=== PATIENT | female | born 1955 | race African-American/Black ===

== ENCOUNTER 2017-07-13 09:40 | Emergency (ER) | payer OTHER ==
[2017-07-13 09:54] VITALS: TEMP 98; BMI 42.5
[2017-07-13] MEDS ORDERED: ONDANSETRON 4 MG/2 ML VIAL IVPUSH ONE (10:35)
[2017-07-13] MEDS ORDERED: FAMOTIDINE 20 MG/50 ML IVPB 20 MG/50 ML MG IVPB ONE ×2 (10:35→11:25)
[2017-07-13] MEDS ORDERED: MAG HYDROX/AL HYDROX/SIMETH 355 ML ORAL.SUSP PO ONE (10:35)
--- NOTE | 2017-07-13 10:40 | PDOC ---
History of Present Illness - General History Source: Patient - History of Present Illness Timing/Duration: reports: constant <Jas Kat - Last Filed: 07/13/17 12:36> <Odilon Powell - Last Filed: 07/15/17 11:41> - General Chief Complaint: Lightheaded Stated Complaint: VOMITING, DIZZINESS Time Seen by Provider: 07/13/17 10:13 Past History - Past Medical History COPD: No Diabetes: Yes HTN: Yes Psychiatric Problems: Yes (ANXIETY.) - Surgical History Abdominal Surgery: Yes - Suicide/Smoking/Psychosocial Hx Smoking Status: Yes Smoking History: Never smoked Have you smoked in the past 12 months: No Number of Cigarettes Smoked Daily: 10 If you are a former smoker, when did you quit?: 2013 Hx Alcohol Use: No Drug/Substance Use Hx: No Substance Use Type: None <Jas Kat - Last Filed: 07/13/17 12:36> <Odilon Powell - Last Filed: 07/15/17 11:41> - Past Medical History Allergies/Adverse Reactions: Allergies Allergy/AdvReac Type Severity Reaction Status Date / Time metronidazole [From Flagyl] Allergy Mild Hives Verified 07/13/17 09:54 Metronidazole HCl Allergy Mild Hives Verified 07/13/17 09:54 [From Flagyl] Penicillins Allergy Mild Hives Verified 07/13/17 09:54 Home Medications: Ambulatory Orders Diazepam [Valium] 2 mg PO ASDIR #5 tablet MDD 6 mg 07/13/17 Ondansetron HCl [Zofran] 4 mg PO Q8H #15 tablet 07/13/17 Review of Systems - Review of Systems Constitutional: No: Chills, Fever Respiratory: No: Shortness of Breath Cardiac (ROS): Yes: Lightheadedness. No: Chest Pain ABD/GI: Yes: Nausea, Vomiting. No: Constipated, Diarrhea : No: Dysuria, Flank Pain, Hematuria <Melina KatKatherine - Last Filed: 07/13/17 12:36> *Physical Exam - Vital Signs Last Vital Signs Temp Pulse Resp BP Pulse Ox 98.0 F 90 20 152/74 96 07/13/17 09:51 07/13/17 09:51 07/13/17 09:51 07/13/17 09:51 07/13/17 09:51 - Physical Exam General Appearance: Yes: Appropriately Dressed, Mild Distress HEENT: positive: Normal Voice Neck: positive: Supple Respiratory/Chest: negative: Respiratory Distress Gastrointestinal/Abdominal: positive: Tender (minimal ttp diffusely), Soft Musculoskeletal: negative: CVA Tenderness Integumentary: positive: Dry, Warm Neurologic: positive: Fully Oriented, Alert, Normal Mood/Affect <Jas Kat - Last Filed: 07/13/17 12:36> - Vital Signs Last Vital Signs Temp Pulse Resp BP Pulse Ox 98.0 F 85 18 148/72 100 07/13/17 12:42 07/13/17 12:42 07/13/17 12:42 07/13/17 12:42 07/13/17 12:42 <Odilon Powell - Last Filed: 07/15/17 11:41> ED Treatment Course - LABORATORY CBC & Chemistry Diagram: 07/13/17 11:02 07/13/17 11:02 <Jas Kat - Last Filed: 07/13/17 12:36> - LABORATORY CBC & Chemistry Diagram: 07/13/17 11:02 07/13/17 11:02 - ADDITIONAL ORDERS Additional order review: 07/13/17 11:02 RBC 3.77 MCV 85.0 MCHC 34.1 RDW 14.5 MPV 9.0 Neutrophils % 60.1 Lymphocytes % 30.1 Monocytes % 7.0 Eosinophils % 2.3 Basophils % 0.5 - Medications Given in the ED: ED Medications Discontinued Medications Generic Name Dose Route Start Last Admin Trade Name Demi PRN Reason Stop Dose Admin Al Hydroxide/Mg Hydroxide 30 ml 07/13/17 10:35 07/13/17 11:36 Mylanta Suspension - PO 07/13/17 10:36 30 ml ONCE ONE Administration Famotidine/Sodium Chloride 20 mg in 50 mls @ 100 mls/hr 07/13/17 10:35 11:37 Pepcid 20 Mg Premixed Ivpb - IVPB 07/13/17 11:04 100 mls/hr ONCE ONE Administration Ondansetron HCl 4 mg 07/13/17 10:35 07/13/17 11:37 Zofran Injection IVPUSH 07/13/17 10:36 4 mg ONCE ONE Administration <Odilon Powell - Last Filed: 07/15/17 11:41> Medical Decision Making - Medical Decision Making 07/13/17 10:36 62-year-old female, morbidly obese, gallstones with cholecystectomy scheduled for the near future at [facility] per pt, esophagitis on Prilosec, fibroids, hypertension, insulin-dependent diabetes, here with sudden onset nausea, vomiting that has been constant for 8 days as per patient. Now reports feeling dizzy and weak. States she always has some abdominal discomfort diffusely that has not changed in baseline. No acute change in bowel movements, dysuria, fever , chills, chest pain or shortness of breath. See exam N/V Possible biliary (known h/o GS w/ elective sx in near future) vs espophagitis, less likely obstruction or cardiac -GI cocktail -labs -possibly US 07/13/17 12:09 Pt reports feeling significantly better at this time. EKG and labs unremarkable. Upon discharge, pt states she has a h/o anxiety and f/u with a psychiatrist but has ran out of her valium. Requesting rx for small dose until she can see MD 07/13/17 12:36 <Jas Kat - Last Filed: 07/13/17 12:36> - Medical Decision Making 07/15/17 11:41 The patient was seen and evaluated in conjunction with SAMAN Kat under my direct supervision, ancillary studies were reviewed. I agree with the plan as outlined by SAMAN Kat . <Odilon Powell - Last Filed: 07/15/17 11:41> *DC/Admit/Observation/Transfer <Jas Kat - Last Filed: 07/13/17 12:36> <Odilon Powell - Last Filed: 07/15/17 11:41> Diagnosis at time of Disposition: Nausea and vomiting Qualifiers: Vomiting type: unspecified Vomiting Intractability: non-intractable Qualified Code(s): R11.2 - Nausea with vomiting, unspecified - Discharge Dispostion Disposition: HOME Condition at time of disposition: Improved - Prescriptions Prescriptions: Diazepam [Valium] 2 mg PO ASDIR #5 tablet MDD 6 mg Ondansetron HCl [Zofran] 4 mg PO Q8H #15 tablet - Referrals Referrals: Rosie Mosher [Primary Care Provider] - - Patient Instructions Printed Discharge Instructions: Nausea and Vomiting-Adult Additional Instructions: Take medication as directed and continue to follow up with your PMD and your surgeon
[2017-07-13 11:12] LABS: BASOPHIL 0.5 % (0-2.0); EOSINOPHIL 2.3 % (0-4.5); MCHC 34.1 g/dl (32.0-36.0); NEUTROPHILS 60.1 % (42.8-82.8); PLATELET COUNT 210 K/MM3 (134-434); RDW 14.5 % (11.6-15.6); WHITE BLOOD COUNT 5.9 K/mm3 (4.0-10.0)
[2017-07-13] MEDS ORDERED: ONDANSETRON 4 MG/2 ML VIAL ONE (11:25)
[2017-07-13] MEDS ORDERED: MAG HYDROX/AL HYDROX/SIMETH 30 ML UNIT-DOSE CUP ONE (11:25)
[2017-07-13 11:42] LABS: URINE APPEARANCE CLOUDY; URINE BILIRUBIN NEGATIVE (NEGATIVE); URINE BLOOD 1+ (NEGATIVE); URINE COLOR YELLOW; URINE GLUCOSE (UA) 3+ (NEGATIVE); URINE KETONE TRACE (NEGATIVE); URINE NITRITE NEGATIVE (NEGATIVE); URINE UROBILINOGEN NEGATIVE mg/dL (0.2-1.0)
[2017-07-13 11:45] LABS: ALBUMIN 3.5 g/dl (3.4-5.0); ANION GAP 9 (8-16); CALCIUM 8.8 mg/dL (8.5-10.1); CO2 27 mmol/L (21-32); GLUCOSE,RANDOM 231 mg/dL (74-106)
[2017-07-13 11:46] LABS: URINE PROTEIN 3+ (NEGATIVE)
[2017-07-13 11:48] LABS: URINE BACTERIA MODERATE /hpf (NONE SEEN); URINE MUCUS RARE; URINE RBC 2; URINE WBC 8
[2017-07-13 11:50] LABS: ALK PHOS 78 U/L (45-117); BILIRUBIN,TOTAL 0.4 mg/dL (0.2-1.0); CPK 201 IU/L (26-192); CREATININE 1.2 mg/dL (0.55-1.02); SGOT/AST 12 U/L (15-37); SGPT/ALT 20 U/L (12-78); TROPONIN I < 0.02 ng/ml (0.00-0.05)
[2017-07-13 12:43] VITALS: BP 148/72; PULSE 85
[2017-07-13 16:56] LABS: URINE LEUK ESTERASE Negative (NEGATIVE)
--- NOTE | 2017-07-14 12:26 | EKG ---
Test Reason : Blood Pressure : / mmHG Vent. Rate : 075 BPM Atrial Rate : 075 BPM P-R Int : 126 ms QRS Dur : 076 ms QT Int : 362 ms P-R-T Axes : 066 -32 -16 degrees QTc Int : 404 ms NORMAL SINUS RHYTHM POSSIBLE LEFT ATRIAL ENLARGEMENT LEFT AXIS DEVIATION NONSPECIFIC T WAVE ABNORMALITY ABNORMAL ECG WHEN COMPARED WITH ECG OF 29-JUN-2002 09:03, NONSPECIFIC T WAVE ABNORMALITY, WORSE IN INFERIOR LEADS NONSPECIFIC T WAVE ABNORMALITY NOW EVIDENT IN ANTEROLATERAL LEADS Confirmed by NARCISO OSHEA MD ([id number]) on 07/14/2017 12:25:55 PM Referred By: Confirmed By:NARCISO OSHEA MD
== END 2017-07-13 12:43 | disposition home or self-care (01) ==
LOC: JER 09:40
PROC: 3E033GC Introduction of Other Therapeutic Substance into Peripheral Vein, Percutaneous Approach (ICD-10-PCS; principal; 2017-07-13)
DX: R11.2 Nausea with vomiting, unspecified (principal); E11.9 Type 2 diabetes mellitus without complications; I10 Essential (primary) hypertension; F41.9 Anxiety disorder, unspecified; Z87.891 Personal history of nicotine dependence
CPT/HCPCS: 36415; 80053; 81003; 81015; 82550; 82553; 83690; 84484; 85025; 93005; 93010; 96365; 96375; 99281-25

== ENCOUNTER 2017-10-31 14:15 | Emergency (ER) | payer OTHER ==
[2017-10-31 14:26] VITALS: BMI 43.9
--- NOTE | 2017-10-31 14:32 | PDOC ---
Rapid Medical Evaluation Chief Complaint: Psychiatric Time Seen by Provider: 10/31/17 14:26 Medical Evaluation: Allergies Allergy/AdvReac Type Severity Reaction Status Date / Time ranitidine [From Zantac] Allergy Intermediate Hives Verified 10/31/17 14:20 metronidazole [From Flagyl] Allergy Mild Hives Verified 10/31/17 14:20 Metronidazole HCl Allergy Mild Hives Verified 10/31/17 14:20 [From Flagyl] Penicillins Allergy Mild Hives Verified 10/31/17 14:20 Vital Signs Temp Pulse Resp BP Pulse Ox 97.8 F 84 17 150/60 100 10/31/17 14:21 10/31/17 14:21 10/31/17 14:21 10/31/17 14:21 10/31/17 14:21 10/31/17 14:27 I have performed a brief in-person evaluation of this patient. The patient presents with a chief complaint of anxiety, since running out of medication yesterday. Denies suicidal ideation. Pertinent physical exam findings NAD, appears a anxious Lungs cta bilat Heart s1s2 neuro : alert and oriented x 3 I have ordered the following: Will defer orders to PA/MD attending to patient, all other compliants is chronic The patient will proceed to the ED for further evaluation. 10/31/17 14:28
[2017-10-31] MEDS ORDERED: diazePAM 5 MG TABLET PO ONE (15:18)
[2017-10-31] MEDS ORDERED: diazePAM 2 MG TABLET ONE (15:22)
--- NOTE | 2017-10-31 15:33 | PDOC ---
*Physical Exam - Vital Signs Last Vital Signs Temp Pulse Resp BP Pulse Ox 97.8 F 84 17 150/60 100 10/31/17 14:21 10/31/17 14:21 10/31/17 14:21 10/31/17 14:21 10/31/17 14:21 ED Treatment Course - Medications Given in the ED: ED Medications Discontinued Medications Generic Name Dose Route Start Last Admin Trade Name Demi PRN Reason Stop Dose Admin Diazepam 2 mg 10/31/17 15:18 10/31/17 15:30 Valium - PO 10/31/17 15:19 Not Given ONCE ONE Medical Decision Making - Medical Decision Making Ms Bray presents to the ER today with a complaint of anxiety She has a history of diabetes, hypertension, hyperlipidemia, glaucoma, COPD She has a h/o anxiety for which she takes xanax Pt has acute social stressor which prompted her to increase her use of xanax She has run out of her prescription No chest pain, shortness of breath, palpitations No Suicidal ideation, No homicidal ideation, no AH, no VH Will d/c to home with small prescription for xanax Pt to follow up with psychiatrist (unclear why she did not call them today?) Pt seen by Midlevel Provider under my direct supervision I agree with plan as outlined by Midlevel Provider *DC/Admit/Observation/Transfer Diagnosis at time of Disposition: Anxiety - Discharge Dispostion Disposition: HOME Condition at time of disposition: Improved - Prescriptions Prescriptions: Alprazolam [Xanax] 2 mg PO DAILY #4 tablet MDD 1 tab - Referrals Referrals: Rosie Mosher [Primary Care Provider] - - Patient Instructions Printed Discharge Instructions: DI for Anxiety -- Adult Additional Instructions: Take xanax as prescribed and follow-up with your psychiatrist in 4 days as already scheduled. Please return to ER for worsening of symptoms - Post Discharge Activity
[2017-10-31] MEDS ORDERED: ALPRAZolam 2 MG TABLET PO ONE (15:46)
--- NOTE | 2017-10-31 15:51 | PDOC ---
History of Present Illness - General Chief Complaint: Psychiatric Stated Complaint: ANXIETY ATTACK Time Seen by Provider: 10/31/17 14:26 History Source: Patient - History of Present Illness Timing/Duration: other Associated Symptoms: denies: chest pain, headaches, nausea/vomiting, shortness of breath, weakness Past History - Past Medical History Allergies/Adverse Reactions: Allergies Allergy/AdvReac Type Severity Reaction Status Date / Time ranitidine [From Zantac] Allergy Intermediate Hives Verified 10/31/17 14:20 metronidazole [From Flagyl] Allergy Mild Hives Verified 10/31/17 14:20 Metronidazole HCl Allergy Mild Hives Verified 10/31/17 14:20 [From Flagyl] Penicillins Allergy Mild Hives Verified 10/31/17 14:20 Home Medications: Ambulatory Orders Alprazolam [Xanax] 2 mg PO DAILY #4 tablet MDD 1 tab 10/31/17 COPD: No Diabetes: Yes HTN: Yes Psychiatric Problems: Yes (ANXIETY.) - Surgical History Abdominal Surgery: Yes - Suicide/Smoking/Psychosocial Hx Smoking Status: Yes Smoking History: Former smoker Have you smoked in the past 12 months: No Number of Cigarettes Smoked Daily: 10 If you are a former smoker, when did you quit?: 2013 Information on smoking cessation initiated: No Hx Alcohol Use: No Drug/Substance Use Hx: No Substance Use Type: None Review of Systems - Review of Systems Respiratory: No: Shortness of Breath Cardiac (ROS): No: Chest Pain, Lightheadedness, Palpitations, Syncope ABD/GI: No: Nausea, Vomiting Psychiatric: Yes: Anxiety, Stressors *Physical Exam - Vital Signs Last Vital Signs Temp Pulse Resp BP Pulse Ox 97.8 F 84 17 150/60 100 10/31/17 14:21 10/31/17 14:21 10/31/17 14:21 10/31/17 14:21 10/31/17 14:21 - Physical Exam General Appearance: Yes: Appropriately Dressed, Mild Distress HEENT: positive: Normal Voice Neck: positive: Supple Respiratory/Chest: positive: Lungs Clear, Normal Breath Sounds. negative: Respiratory Distress Cardiovascular: positive: Regular Rate, S1, S2 Integumentary: positive: Dry, Warm Neurologic: positive: Fully Oriented, Alert, Normal Mood/Affect ED Treatment Course - Medications Given in the ED: ED Medications Discontinued Medications Generic Name Dose Route Start Last Admin Trade Name Freq PRN Reason Stop Dose Admin Diazepam 2 mg 10/31/17 15:18 10/31/17 15:30 Valium - PO 10/31/17 15:19 Not Given ONCE ONE Medical Decision Making - Medical Decision Making 10/31/17 15:46 62-year-old female, history of diabetes, hypertension, hyperlipidemia, glaucoma , COPD, anxiety on xanax, follows up with outside psychiatrist, here with worsening anxiety in setting of recent in the family. Also reports other stressors including health related. Patient denies SI/HI. States she last saw her psychiatrist a month ago and was given prescriptions for 30 day supply of 2 mg Xanax tablet (confirmed on I-STOP) but given increase in anxiety, has taken meds more frequently and ran out prior to next appt in 4 days. Pt appears anxious and teary in ED. Dose of xanax given, will reassess. Upon discharge will give prescriptions for small dose of xanax until patient can be seen by her psychiatrist 10/31/17 16:01 Given meds. Requesting discharge *DC/Admit/Observation/Transfer Diagnosis at time of Disposition: Anxiety - Discharge Dispostion Disposition: HOME Condition at time of disposition: Improved - Prescriptions Prescriptions: Alprazolam [Xanax] 2 mg PO DAILY #4 tablet MDD 1 tab - Referrals Referrals: Rosie Mosher [Primary Care Provider] - - Patient Instructions Printed Discharge Instructions: DI for Anxiety -- Adult Additional Instructions: Take xanax as prescribed and follow-up with your psychiatrist in 4 days as already scheduled. Please return to ER for worsening of symptoms - Post Discharge Activity
[2017-10-31] MEDS ORDERED: ALPRAZolam 2 MG TABLET ONE (15:54)
[2017-10-31 16:15] VITALS: BP 144/78; PULSE 80; TEMP 98.6
== END 2017-10-31 16:13 | disposition home or self-care (01) ==
LOC: JER 14:15
DX: F41.9 Anxiety disorder, unspecified (principal); I10 Essential (primary) hypertension; E78.5 Hyperlipidemia, unspecified; E11.9 Type 2 diabetes mellitus without complications; H40.9 Unspecified glaucoma; J44.9 Chronic obstructive pulmonary disease, unspecified; Z88.0 Allergy status to penicillin; Z88.8 Allergy status to other drugs, medicaments and biological substances
CPT/HCPCS: 99282-25

== ENCOUNTER 2018-05-14 13:33 | Inpatient (IN) | payer OTHER ==
--- NOTE | 2018-05-14 14:21 | PDOC ---
History of Present Illness - General Chief Complaint: Urinary Problem Stated Complaint: URINARY PROBLEM Time Seen by Provider: 05/14/18 14:04 - History of Present Illness Initial Comments: 05/14/18 14:36 The patient is a 63 year old female with a history of CKD, DM, HTN who presents for evaluation of fevers and generalized weakness. The patient reports a 1 week history of worsening night sweats, chills, fevers, and generalized weakness prompting her presentation to the ED for further evaluation. She notes that she has been managed on an outpatient regimen of antibiotics over the past few months for urinary tract infection. She states that she had continued symptoms after initially being started on amoxacillin and was switched to cipro which she discontinued 1 week ago when her current symptoms returned. She notes some mild dysuria but otherwise denies SOB, chest pain nausea, vomiting, abdominal pain, or changes with bowel movements. Past History - Past Medical History Allergies/Adverse Reactions: Allergies Allergy/AdvReac Type Severity Reaction Status Date / Time ranitidine [From Zantac] Allergy Intermediate Hives Verified 05/14/18 13:46 metronidazole [From Flagyl] Allergy Mild Hives Verified 05/14/18 13:46 Metronidazole HCl Allergy Mild Hives Verified 05/14/18 13:46 [From Flagyl] Penicillins Allergy Mild Hives Verified 05/14/18 13:46 Home Medications: Ambulatory Orders Amlodipine Besylate 05/14/18 Atorvastatin Ca [Lipitor] 20 mg PO HS 05/14/18 Smith Asprin 05/14/18 Hydralazine HCl 50 mg PO BID 05/14/18 Iron 05/14/18 Losartan Potassium 05/14/18 Xanax 2 mg PO BID 05/14/18 COPD: No Diabetes: Yes HTN: Yes Psychiatric Problems: Yes (ANXIETY.) Other medical history: chronic kidney disease - Surgical History Abdominal Surgery: Yes - Suicide/Smoking/Psychosocial Hx Smoking Status: Yes Smoking History: Never smoked Have you smoked in the past 12 months: No Number of Cigarettes Smoked Daily: 10 If you are a former smoker, when did you quit?: 2012 Information on smoking cessation initiated: No Hx Alcohol Use: No Drug/Substance Use Hx: No Substance Use Type: None Review of Systems - Review of Systems Comments:: 05/14/18 14:41 Constitutional: Fevers, chills, Generalized weakness. No malaise HEENT: No Rhinorrhea, nasal congestion, visual changes Cardiovascular: No chest pain, syncope, palpitations, lightheadedness Respiratory: No Cough, SOB, Hemoptysis, Gastrointestinal: No Abdominal pain, Nausea, Vomiting, Constipation, Diarrhea, Melena Genitourinary: Dysuria. No Frequency, Urgency, Hesitancy, Hematuria, Flank pain Musculoskeletal: No Myalgia, arthralgia Skin: No rashes, itching, bruising, pallor Neurologic: No Headache, Dizziness, Numbness, Weakness, or Tingling Psychiatric: No Hallucinations. No SI or HI *Physical Exam - Vital Signs Last Vital Signs Temp Pulse Resp BP Pulse Ox 100.0 F H 78 18 124/49 98 05/14/18 13:42 05/14/18 13:42 05/14/18 13:42 05/14/18 13:42 05/14/18 13:42 - Physical Exam Comments: 05/14/18 14:47 General Appearance: Nourished. No Apparent Distress HEENT: No Pharyngeal Erythema, Tonsillar Exudate, Tonsillar Erythema Neck: No Cervical Lymphadenopathy Respiratory/Chest: Lungs Clear, Normal Breath Sounds. No Crackles, Rales, Rhonchi, Wheezing Cardiovascular: Regular Rhythm, Regular Rate. No Murmur, Gallops, Rubs Gastrointestinal/Abdominal: Normal Bowel Sounds, Soft. No Guarding, Rebound, Tenderness Musculoskeletal: No CVA Tenderness Extremity: Normal Capillary Refill Integumentary: Normal Color, Dry, Warm Neurologic: Fully Oriented, Alert, Normal Mood/Affect, Normal Response, ED Treatment Course - LABORATORY CBC & Chemistry Diagram: 05/15/18 06:30 05/15/18 06:30 Medical Decision Making - Medical Decision Making 05/14/18 14:48 The patient is a 63 year old female with a history of CKD, DM, HTN who presents for evaluation of fevers and generalized weakness. Differential includes but is not limited to: UTI, Sepsis, Infectious, Metabolic Derangement. Given the patient's history and physical exam, we will obtain a cbc, cmp, troponin, lactate, ua, urine culture, blood culture, ekg, chest plain film to evaluate further. We will treat with iv fluids, iv tylenol, ceftriaxone and continue to monitor and reassess while here in the ED. 05/14/18 16:07 CBC demonstrates elevation in wbc. CMP, troponin, lactate, is unremarkable. UA demonstrates positive leuk esterase with elevated wbc consistent with a UTI. Chest plain film is unremarkable. Given that the patient has had persistent symptoms and UA concerning for a UTI despite outpatient antibiotics, we believe she requires admission for further management and iv antibiotics. We discussed the case with the admitting team who accepted the patient for admission. *DC/Admit/Observation/Transfer Diagnosis at time of Disposition: UTI (urinary tract infection) Qualifiers: Urinary tract infection type: site unspecified Hematuria presence: without hematuria Qualified Code(s): N39.0 - Urinary tract infection, site not specified - Discharge Dispostion Condition at time of disposition: Stable Decision to Admit order: Yes - Referrals - Patient Instructions - Post Discharge Activity
[2018-05-14] MEDS ORDERED: SODIUM CHLORIDE 1,000 ML IV STA ×2 (14:32→19:43)
[2018-05-14] MEDS ORDERED: CEFTRIAXONE 1 GM in DEXTROSE 5%-WATER - 100 ML IVPB ONE (14:49)
[2018-05-14 14:56] LABS: URINE APPEARANCE SLCLOUDY; URINE BILIRUBIN NEGATIVE (<2.0 mg/dL); URINE COLOR YELLOW; URINE GLUCOSE (UA) 3+ (NEGATIVE); URINE KETONE NEGATIVE (NEGATIVE); URINE LEUK ESTERASE TRACE (NEGATIVE); URINE NITRITE NEGATIVE (NEGATIVE); URINE PROTEIN 2+ (NEGATIVE); URINE UROBILINOGEN NEGATIVE mg/dL (0.2-1.0)
[2018-05-14] MEDS ORDERED: CEFTRIAXONE 1 GM/50 ML BAG ONE (14:57)
--- NOTE | 2018-05-14 14:58 | PDOC ---
Attending Attestation - Resident Resident Name: Gregory Segoviael - ED Attending Attestation I have performed the following: I have examined & evaluated the patient, The case was reviewed & discussed with the resident, I agree w/resident's findings & plan, Exceptions are as noted - HPI HPI: 05/14/18 14:56 63-year-old female with history of hypertension, diabetes, chronic kidney disease, urinary tract infections presents with fevers and weakness. The patient has been having several months of dysuria and urinary frequency. She's been treated multiple times in outpatient including amoxicillin and ciprofloxacin continued persistent symptoms. Patient is told that she may have resistant urinary tract infections. Patient complaining about generalized weakness and tactile fevers. Came to the ER for further evaluation. - Physicial Exam PE: 05/14/18 14:57 GENERAL: Awake, alert, and fully oriented, in no acute distress. Obese HEAD: No signs of trauma EYES: EOMI, sclera anicteric, conjunctiva clear ENT: Auricles normal inspection, hearing grossly normal, nares patent,. Moist mucosa NECK: Normal ROM, supple, LUNGS: Breath sounds equal, clear to auscultation bilaterally. No wheezes, and no crackles HEART: Regular rate and rhythm, normal S1 and S2, no murmurs, rubs or gallops ABDOMEN: Soft, nontender, No guarding, no rebound. No masses EXTREMITIES: Normal range of motion, no edema. No clubbing or cyanosis. No cords, erythema, or tenderness NEUROLOGICAL: Cranial nerves II through XII grossly intact. Normal speech SKIN: Warm, Dry, normal turgor, no rashes or lesions noted. - Medical Decision Making 05/14/18 14:57 Vital Signs Temp Pulse Resp BP Pulse Ox 100.0 F H 78 18 124/49 98 05/14/18 13:42 05/14/18 13:42 05/14/18 13:42 05/14/18 13:42 05/14/18 13:42 Patient with likely failure of outpatient management for urinary tract infection. We'll obtain labs including cultures, urine culture and give empiric IV antibiotics. We'll admit the patient to the hospital for further evaluation and management. 05/14/18 15:39 CBC, BMP 05/14/18 14:35 05/14/18 14:35 CMP Sodium 139 mmol/L (136-145) 05/14/18 14:35 Potassium 3.9 mmol/L (3.5-5.1) 05/14/18 14:35 Chloride 102 mmol/L (98-107) 05/14/18 14:35 Carbon Dioxide 25 mmol/L (21-32) 05/14/18 14:35 Anion Gap 12 MMOL/L (8-16) 05/14/18 14:35 BUN 27 mg/dL (7-18) H 05/14/18 14:35 Creatinine 1.4 mg/dL (0.55-1.3) H 05/14/18 14:35 Creat Clearance w eGFR 38.23 (>60) 05/14/18 14:35 Random Glucose 238 mg/dL (74-106) H 05/14/18 14:35 Lactic Acid 1.2 mmol/L (0.4-2.0) 05/14/18 14:35 Calcium 8.2 mg/dL (8.5-10.1) L 05/14/18 14:35 Total Bilirubin 0.3 mg/dL (0.2-1.0) 05/14/18 14:35 AST 13 U/L (15-37) L 05/14/18 14:35 ALT 21 U/L (13-61) 05/14/18 14:35 Alkaline Phosphatase 71 U/L (45-117) 05/14/18 14:35 Troponin I < 0.02 ng/ml (0.00-0.05) 05/14/18 14:35 Total Protein 6.3 g/dl (6.4-8.2) L 05/14/18 14:35 Albumin 2.8 g/dl (3.4-5.0) L 05/14/18 14:35 Urine Test Results Urine Color Yellow 05/14/18 14:29 Urine Appearance Slcloudy 05/14/18 14:29 Urine pH 5.0 (5.0-8.0) 05/14/18 14:29 Ur Specific [place] 1.010 (1.001-1.035) 05/14/18 14:29 Urine Protein 2+ (NEGATIVE) H 05/14/18 14:29 Urine Glucose (UA) 3+ (NEGATIVE) H 05/14/18 14:29 Urine Ketones Negative (NEGATIVE) 05/14/18 14:29 Urine Blood 1+ (NEGATIVE) H 05/14/18 14:29 Urine Nitrite Negative (NEGATIVE) 05/14/18 14:29 Urine Bilirubin Negative (<2.0 mg/dL) 05/14/18 14:29 Ur Leukocyte Esterase Trace (NEGATIVE) 05/14/18 14:29 Ur Epithelial Cells Rare /HPF (FEW) 05/14/18 14:29 Urine Bacteria Many /hpf (NONE SEEN) 05/14/18 14:29 Labs with UA with WBC 28 Still with persistent UTI. Heart Score/ECG Review #1 ECG reviewed & interpreted by me at: 14:45 05/14/18 15:00 QTC 75, low voltage, T wave flat II, III, avF, V3-V6, Q wave V3, no std/cecilia, QTC 413 msec
[2018-05-14 15:00] LABS: BASO % 1.1 % (0-2.0); EOS % 1.5 % (0-4.5); HEMATOCRIT 25.9 % (32.4-45.2); LYMPH % 13.8 % (8-40); MCH 29.7 pg (25.7-33.7); MCHC 34.9 g/dl (32.0-36.0); MEAN CELL VOLUME 85.2 fl (80-96); MONO % 8.5 % (3.8-10.2); NEUT % 75.1 % (42.8-82.8); PLATELET COUNT 146 K/MM3 (134-434); RBC 3.04 M/mm3 (3.60-5.2); RDW 15.4 % (11.6-15.6); WHITE BLOOD COUNT 9.3 K/mm3 (4.0-10.0)
[2018-05-14 15:13] LABS: INR 1.08 (0.83-1.09); PROTHROMBIN TIME (PATIENT) 12.2 SEC (9.7-13.0)
[2018-05-14 15:13] LABS: EPI CELLS RARE /HPF (FEW); URINE BACTERIA MANY /hpf (NONE SEEN); URINE HYALINE CAST 1 /lpf
[2018-05-14 15:16] LABS: ACTIVATED PTT 28.1 SECONDS (25.2-36.5)
[2018-05-14 15:31] LABS: ALBUMIN 2.8 g/dl (3.4-5.0); ANION GAP 12 MMOL/L (8-16); BILIRUBIN,TOTAL 0.3 mg/dL (0.2-1.0); BLOOD UREA NITROGEN 27 mg/dL (7-18); CALCIUM 8.2 mg/dL (8.5-10.1); CHLORIDE 102 mmol/L (98-107); CO2 25 mmol/L (21-32); CREATININE 1.4 mg/dL (0.55-1.3); GLUCOSE,RANDOM 238 mg/dL (74-106); POTASSIUM 3.9 mmol/L (3.5-5.1); SGOT/AST 13 U/L (15-37); SGPT/ALT 21 U/L (13-61); SODIUM 139 mmol/L (136-145); TOT PROT 6.3 g/dl (6.4-8.2)
[2018-05-14 15:33] LABS: ALK PHOS 71 U/L (45-117)
--- NOTE | 2018-05-14 16:08 | HP ---
CHIEF COMPLAINT: Sweats, chills, weakness PCP: Dr. Rosie Mosher HISTORY OF PRESENT ILLNESS: The patient is a 63 year old female with a history of HTN, HLD, COPD, IDDM, CKD , recurrent UTIs and fibroids. Presented to ED today for evaluation of fevers and generalized weakness. The patient reports a 1 week history of worsening night sweats, chills, fevers, and generalized weakness prompting her presentation to the ED for further evaluation. She notes that she has been managed on an outpatient regimen of antibiotics over the past few months for urinary tract infection. She was hospitalized at [facility] in March for UTI. She states that she had continued symptoms after initially being started on amoxacillin and was switched to cipro which she discontinued 1 week ago when her current symptoms returned. She reports dysuria, urgency, and frequency. She reports fever, sweats, and chills. She reports intermittent abdominal pain. ER course was notable for: (1) T 100.0 (2) BUN/Cr 27/1.4 (3) UA: 28 WBCs Recent Travel: No PAST MEDICAL HISTORY: Hypertension Hyperlipidemia Chronic kidney disease COPD IDDM Recurrent UTIs Glaucoma Degenerative disc disease Anxiety Fibroids PAST SURGICAL HISTORY: x 1 Social History: Smoking: quit 2012 Alcohol: no Drugs: no Family History: Allergies ranitidine [From Zantac] Allergy (Intermediate, Verified 05/14/18 13:46) Hives metronidazole [From Flagyl] Allergy (Mild, Verified 05/14/18 13:46) Hives Metronidazole HCl [From Flagyl] Allergy (Mild, Verified 05/14/18 13:46) Hives Penicillins Allergy (Mild, Verified 05/14/18 13:46) Hives HOME MEDICATIONS: Home Medications Medication Instructions Recorded Atorvastatin Ca [Lipitor] 20 mg PO HS 05/14/18 Hydralazine HCl 50 mg PO BID 05/14/18 Losartan Potassium 05/14/18 Alprazolam 2 mg PO BID PRN 05/15/18 Amlodipine Besylate 10 mg PO DAILY 05/15/18 Aspirin [ASA -] 81 mg PO DAILY 05/15/18 Fluticasone/Salmeterol [Advair Hfa 2 inh PO BID 05/15/18 115-21 Mcg Inhaler] Furosemide [Lasix] 20 mg PO DAILY 05/15/18 Gabapentin 1 cap PO BID 05/15/18 Hydroxyzine HCl 50 mg PO HS 05/15/18 Insulin Glargine,Hum.rec.anlog 30 units SQ Q12H 05/15/18 [Lantus] Metformin HCl [Glucophage] 1,000 mg PO BID 05/15/18 Omeprazole Magnesium 40 mg PO DAILY 05/15/18 Oxycodone HCl 30 mg PO BID PRN 05/15/18 Polyvinyl Alcohol [Artificial 1 drop OU QID 05/15/18 Tears] Timolol 0.5% [Timoptic 0.5%] 1 drop OU BID 05/15/18 REVIEW OF SYSTEMS CONSTITUTIONAL: +fever, chills, generalized weakness Absent: loss of appetite, weight change HEENT: Absent: rhinorrhea, nasal congestion, throat pain, throat swelling, difficulty swallowing, mouth swelling, ear pain, eye pain, visual changes CARDIOVASCULAR: Absent: chest pain, syncope, palpitations, irregular heart rate, lightheadedness , peripheral edema RESPIRATORY: Absent: cough, shortness of breath, dyspnea with exertion, orthopnea, wheezing, stridor, hemoptysis GASTROINTESTINAL: Absent: abdominal pain, abdominal distension, nausea, vomiting, diarrhea, constipation, melena, hematochezia GENITOURINARY: +dysuria, frequency, urgency Absent: dysuria, frequency, urgency, hesitancy, hematuria, flank pain, genital pain MUSCULOSKELETAL: Absent: myalgia, arthralgia, joint swelling, back pain, neck pain SKIN: Absent: rash, itching, pallor HEMATOLOGIC/IMMUNOLOGIC: Absent: easy bleeding, easy bruising, lymphadenopathy, frequent infections ENDOCRINE: Absent: unexplained weight gain, unexplained weight loss, heat intolerance, cold intolerance NEUROLOGIC: Absent: headache, focal weakness or paresthesias, dizziness, unsteady gait, seizure, mental status changes, bladder or bowel incontinence PSYCHIATRIC: Absent: anxiety, depression, suicidal or homicidal ideation, hallucinations. PHYSICAL EXAMINATION Vital Signs - 24 hr 05/14/18 13:42 Temperature 100.0 F H Pulse Rate 78 Respiratory 18 Rate Blood Pressure 124/49 O2 Sat by Pulse 98 Oximetry (%) GENERAL: Awake, alert, and fully oriented. Restless. HEAD: Normal with no signs of trauma. EYES: Pupils equal, round and reactive to light, extraocular movements intact, sclera anicteric, conjunctiva clear. No lid lag. LUNGS: Breath sounds equal, clear to auscultation bilaterally. No wheezes, and no crackles. No accessory muscle use. HEART: Regular rate and rhythm,S1 and S2 +murmur ABDOMEN: Upper abdomen is protuberant, firm; no abdominal tenderness, no guarding, no rebound MUSCULOSKELETAL: Normal range of motion at all joints. No bony deformities or tenderness. No CVA tenderness. UPPER EXTREMITIES: 2+ pulses, warm, well-perfused. No cyanosis. No clubbing. No peripheral edema. LOWER EXTREMITIES: 2+ pulses, warm, well-perfused. No calf tenderness. No peripheral edema. NEUROLOGICAL: Cranial nerves II-XII intact. Normal speech. Moving all extremities freely. Laboratory Results - last 24 hr 05/14/18 05/14/18 05/14/18 14:29 14:35 14:35 WBC 9.3 RBC 3.04 L Hgb 9.0 L Hct 25.9 L D MCV 85.2 MCH 29.7 MCHC 34.9 RDW 15.4 Plt Count 146 D MPV 9.0 Absolute Neuts (auto) 7.0 Neutrophils % 75.1 D Lymphocytes % 13.8 D Monocytes % 8.5 Eosinophils % 1.5 Basophils % 1.1 Nucleated RBC % 0 PT with INR INR PTT (Actin FS) Sodium Cancelled Potassium Cancelled Chloride Cancelled Carbon Dioxide Cancelled Anion Gap Cancelled BUN Cancelled Creatinine Cancelled Creat Clearance w eGFR Cancelled Random Glucose Cancelled Lactic Acid Calcium Cancelled Total Bilirubin Cancelled AST Cancelled ALT Cancelled Alkaline Phosphatase Cancelled Troponin I Total Protein Cancelled Albumin Cancelled Urine Color Yellow Urine Appearance Slcloudy Urine pH 5.0 Ur Specific [place] 1.010 Urine Protein 2+ H Urine Glucose (UA) 3+ H Urine Ketones Negative Urine Blood 1+ H Urine Nitrite Negative Urine Bilirubin Negative Urine Urobilinogen Negative Ur Leukocyte Esterase Trace Urine WBC (Auto) 28 Urine RBC (Auto) 3 Ur Epithelial Cells Rare Urine Bacteria Many Hyaline Casts 1 05/14/18 05/14/18 05/14/18 14:35 14:35 14:35 WBC RBC Hgb Hct MCV MCH MCHC RDW Plt Count MPV Absolute Neuts (auto) Neutrophils % Lymphocytes % Monocytes % Eosinophils % Basophils % Nucleated RBC % PT with INR 12.20 INR 1.08 PTT (Actin FS) 28.1 Sodium 139 Potassium 3.9 Chloride 102 Carbon Dioxide 25 Anion Gap 12 BUN 27 H Creatinine 1.4 H Creat Clearance w eGFR 38.23 Random Glucose 238 H Lactic Acid 1.2 Calcium 8.2 L Total Bilirubin 0.3 AST 13 L ALT 21 Alkaline Phosphatase 71 Troponin I < 0.02 Total Protein 6.3 L Albumin 2.8 L Urine Color Urine Appearance Urine pH Ur Specific [place] Urine Protein Urine Glucose (UA) Urine Ketones Urine Blood Urine Nitrite Urine Bilirubin Urine Urobilinogen Ur Leukocyte Esterase Urine WBC (Auto) Urine RBC (Auto) Ur Epithelial Cells Urine Bacteria Hyaline Casts ASSESSMENT/PLAN: 63 year-old female with a PMH significant for HTN, HLD, CKD, COPD, IDDM, recurrent UTIs and anxiety. Admitted for symptomatic UTI after having failed two courses of PO antibiotics outpatient. UTI --has completed 2 rounds PO antibiotics in past month --T 101.9, pyuria --received 1L NS in ED; bolus another 2L --empiric ceftriaxone --cultures pending Hypertension --BP is stable --hold antihypertensives, concern for impending sepsis Hyperlipidemia --continue atorvastatin Chronic kidney disease --Cr 1.4; baseline unknown COPD --duonebs PRN IDDM --Novolog sliding scale coverage --on Lantus 30U q12h at home; assess insulin needs in hospital before starting Glaucoma --home eye drops Degenerative disc disease --on 60mg oxycodone per day at home --assess pain needs in hospital before prescribing Anxiety --continue home xanax dosing FEN Fluids: NS @ 75mL/hr Electrolytes: replete as indicated Nutrition: diabetic, low sodium DVT prophylaxis: subq heparin Dispo: continues to require inpatient care. Full code. Visit type - Emergency Visit Emergency Visit: Yes ED Registration Date: 05/14/18 Care time: The patient presented to the Emergency Department on the above date and was hospitalized for further evaluation of their emergent condition. - New Patient This patient is new to me today: Yes Date on this admission: 05/15/18 - Critical Care Critical Care patient: No Hospitalist Screening - Colonoscopy Questionnaire Colonoscopy Questionnaire: Colonoscopy Questionnaire - Patient: 50 - 75 years old and never had a screening colonoscopy: Unknown History of colon or rectal polyps, or CA: No History of IBD, Crohn's disease or UC: No History of abdominal radiation therapy as a child: No - Relative: 1 with colon or rectal CA, or polyps at age 60 or younger: Unknown Colon or rectal CA diagnosed at age 45 or younger: Unknown Multiple relatives with colon or rectal CA: Unknown - Outcome: Screening Result: Negative Screen
[2018-05-14] MEDS: HEPARIN NA (PORCINE) 5,000 UNITS/ML 1ML VIAL SQ SCH (18:49)
[2018-05-14] MEDS: SODIUM CHLORIDE 1,000 ML IV SCH ×2 (18:49→22:26)
[2018-05-14] MEDS ORDERED: INSULIN (NOVOLOG) ASPART 100 UNITS/ML 10ML VIAL ONE (20:02)
[2018-05-14] MEDS: INSULIN SLIDING SCALE (NOVOLOG) 1 VIAL SQ SCH ×2 (20:05→22:42)
[2018-05-14] MEDS: ACETAMINOPHEN 325 MG TABLET (FP) PO PRN (20:10)
[2018-05-14] MEDS ORDERED: SODIUM CHLORIDE 1,000 ML IV ONE ×2 (20:45→23:45)
--- NOTE | 2018-05-14 21:07 | EKG ---
Test Reason : Blood Pressure : / mmHG Vent. Rate : 075 BPM Atrial Rate : 075 BPM P-R Int : 120 ms QRS Dur : 078 ms QT Int : 370 ms P-R-T Axes : 056 -14 025 degrees QTc Int : 413 ms NORMAL SINUS RHYTHM LOW VOLTAGE QRS CANNOT RULE OUT ANTERIOR INFARCT , AGE UNDETERMINED ABNORMAL ECG WHEN COMPARED WITH ECG OF 13-JUL-2017 12:17, MINIMAL CRITERIA FOR ANTERIOR INFARCT ARE NOW PRESENT Confirmed by COLLIN PRINCE MD ([id number]) on 05/14/2018 9:07:24 PM Referred By: Confirmed By:COLLIN PRINCE MD
[2018-05-14 21:47] LABS: ALBUMIN 2.6 g/dl (3.4-5.0); ALK PHOS 71 U/L (45-117); ANION GAP 11 MMOL/L (8-16); BILIRUBIN,TOTAL 0.2 mg/dL (0.2-1.0); BLOOD UREA NITROGEN 26 mg/dL (7-18); CALCIUM 7.7 mg/dL (8.5-10.1); CHLORIDE 106 mmol/L (98-107); CO2 24 mmol/L (21-32); CREATININE 1.3 mg/dL (0.55-1.3); GLUCOSE,RANDOM 236 mg/dL (74-106); MAGNESIUM 1.7 mg/dL (1.8-2.4); POTASSIUM 3.8 mmol/L (3.5-5.1); SGOT/AST 13 U/L (15-37); SGPT/ALT 18 U/L (13-61); SODIUM 141 mmol/L (136-145)
[2018-05-14] MEDS ORDERED: MAGNESIUM SULF 50% (8.12 MEQ/2 ML-1 GM VIAL) IVPB ONE (22:12)
[2018-05-14] MEDS ORDERED: ALPRAZolam 2 MG TABLET PO ONE (23:45)
[2018-05-14] MEDS ORDERED: ACETAMINOPHEN 500 MG TABLET (FP) PO ONE (23:45)
[2018-05-15] MEDS: HEPARIN NA (PORCINE) 5,000 UNITS/ML 1ML VIAL SQ SCH ×3 (02:57→18:04)
[2018-05-15] MEDS: ALBUTEROL SO4 0.083% IH SOL 2.5 MG/3 ML VIAL.NEB. NEB PRN ×2 (05:00→10:45)
[2018-05-15] MEDS: ACETAMINOPHEN 325 MG TABLET (FP) PO PRN ×4 (05:14→23:53)
--- NOTE | 2018-05-15 05:14 | HOSP ---
Subjective - Review of Symptoms Events since last encounter: Hospitalist Encounter Notified by the RN, that the patient reported having SOB and had desaturated from 98% 2LNC to 89%, pt was placed on NRB. Subjective: Arrived to bedside, patient is alert, awake and oriented reports having SOB, currently on Albuterol neb. Upon auscultation diffuse scattered wheeze and rales noted with +1 pitting to B/ L lower extremities Assessment: 63 y/o woman with a PMHx of HTN, HLD, COPD, Asthma, IDDM, CKD. Admitted for UTI. Plan: Albuterol neb Lasix IV Stat Chest Xray Portable r/o HF Trial Venturi Mask Pulmonary: Yes: Dyspnea Physical Examination Vital Signs: Vital Signs Temperature 98.8 F 05/15/18 02:06 Pulse Rate 79 05/15/18 02:06 Respiratory Rate 18 05/15/18 02:06 Blood Pressure 115/53 05/15/18 02:06 O2 Sat by Pulse Oximetry (%) 98 05/14/18 23:00 Constitutional: Yes: Moderate Distress, Obese Eyes: Yes: WNL, Conjunctiva Clear, EOM Intact, PERRL HENT: Yes: WNL, Atraumatic, Normocephalic Neck: Yes: WNL, Supple, Trachea Midline Cardiovascular: Yes: Regular Rate and Rhythm, S1, S2 Respiratory: Yes: Rales, Rhonchi, SOB, SOB on Exertion, Tachypnea, Wheezes, Other (Neb Mask) Gastrointestinal: Yes: Normal Bowel Sounds, Abdomen, Obese Renal/: Yes: WNL Edema: Yes Edema: LLE: 1+, RLE: 1+ Peripheral Pulses WNL: Yes Neurological: Yes: WNL, Alert, Oriented ...Motor Strength: WNL Psychiatric: Yes: WNL, Alert, Oriented Labs: CBC, BMP 05/14/18 14:35 05/14/18 20:30 Laboratory Results - last 24 hr 05/14/18 05/14/18 05/14/18 14:29 14:35 14:35 WBC 9.3 RBC 3.04 L Hgb 9.0 L Hct 25.9 L D MCV 85.2 MCH 29.7 MCHC 34.9 RDW 15.4 Plt Count 146 D MPV 9.0 Absolute Neuts (auto) 7.0 Neutrophils % 75.1 D Lymphocytes % 13.8 D Monocytes % 8.5 Eosinophils % 1.5 Basophils % 1.1 Nucleated RBC % 0 PT with INR INR PTT (Actin FS) Sodium Cancelled Potassium Cancelled Chloride Cancelled Carbon Dioxide Cancelled Anion Gap Cancelled BUN Cancelled Creatinine Cancelled Creat Clearance w eGFR Cancelled POC Glucometer Random Glucose Cancelled Lactic Acid Calcium Cancelled Magnesium Total Bilirubin Cancelled AST Cancelled ALT Cancelled Alkaline Phosphatase Cancelled Troponin I C-Reactive Protein Total Protein Cancelled Albumin Cancelled Urine Color Yellow Urine Appearance Slcloudy Urine pH 5.0 Ur Specific [place] 1.010 Urine Protein 2+ H Urine Glucose (UA) 3+ H Urine Ketones Negative Urine Blood 1+ H Urine Nitrite Negative Urine Bilirubin Negative Urine Urobilinogen Negative Ur Leukocyte Esterase Trace Urine WBC (Auto) 28 Urine RBC (Auto) 3 Ur Epithelial Cells Rare Urine Bacteria Many Hyaline Casts 1 05/14/18 05/14/18 05/14/18 14:35 14:35 14:35 WBC RBC Hgb Hct MCV MCH MCHC RDW Plt Count MPV Absolute Neuts (auto) Neutrophils % Lymphocytes % Monocytes % Eosinophils % Basophils % Nucleated RBC % PT with INR 12.20 INR 1.08 PTT (Actin FS) 28.1 Sodium 139 Potassium 3.9 Chloride 102 Carbon Dioxide 25 Anion Gap 12 BUN 27 H Creatinine 1.4 H Creat Clearance w eGFR 38.23 POC Glucometer Random Glucose 238 H Lactic Acid 1.2 Calcium 8.2 L Magnesium Total Bilirubin 0.3 AST 13 L ALT 21 Alkaline Phosphatase 71 Troponin I < 0.02 C-Reactive Protein Total Protein 6.3 L Albumin 2.8 L Urine Color Urine Appearance Urine pH Ur Specific [place] Urine Protein Urine Glucose (UA) Urine Ketones Urine Blood Urine Nitrite Urine Bilirubin Urine Urobilinogen Ur Leukocyte Esterase Urine WBC (Auto) Urine RBC (Auto) Ur Epithelial Cells Urine Bacteria Hyaline Casts 05/14/18 05/14/18 05/14/18 20:00 20:30 20:30 WBC RBC Hgb Hct MCV MCH MCHC RDW Plt Count MPV Absolute Neuts (auto) Neutrophils % Lymphocytes % Monocytes % Eosinophils % Basophils % Nucleated RBC % PT with INR INR PTT (Actin FS) Sodium 141 Potassium 3.8 Chloride 106 Carbon Dioxide 24 Anion Gap 11 BUN 26 H Creatinine 1.3 Creat Clearance w eGFR 41.64 POC Glucometer 268 Random Glucose 236 H Lactic Acid 1.2 Calcium 7.7 L Magnesium 1.7 L Total Bilirubin 0.2 AST 13 L ALT 18 Alkaline Phosphatase 71 Troponin I C-Reactive Protein Total Protein 6.0 L Albumin 2.6 L Urine Color Urine Appearance Urine pH Ur Specific [place] Urine Protein Urine Glucose (UA) Urine Ketones Urine Blood Urine Nitrite Urine Bilirubin Urine Urobilinogen Ur Leukocyte Esterase Urine WBC (Auto) Urine RBC (Auto) Ur Epithelial Cells Urine Bacteria Hyaline Casts 05/14/18 05/15/18 20:30 06:09 WBC RBC Hgb Hct MCV MCH MCHC RDW Plt Count MPV Absolute Neuts (auto) Neutrophils % Lymphocytes % Monocytes % Eosinophils % Basophils % Nucleated RBC % PT with INR INR PTT (Actin FS) Sodium Potassium Chloride Carbon Dioxide Anion Gap BUN Creatinine Creat Clearance w eGFR POC Glucometer 195 Random Glucose Lactic Acid Calcium Magnesium Total Bilirubin AST ALT Alkaline Phosphatase Troponin I C-Reactive Protein 9.9 H Total Protein Albumin Urine Color Urine Appearance Urine pH Ur Specific [place] Urine Protein Urine Glucose (UA) Urine Ketones Urine Blood Urine Nitrite Urine Bilirubin Urine Urobilinogen Ur Leukocyte Esterase Urine WBC (Auto) Urine RBC (Auto) Ur Epithelial Cells Urine Bacteria Hyaline Casts Current Medications Generic Name Dose Route Start Last Admin Trade Name Freq PRN Reason Stop Dose Admin Acetaminophen 650 mg 05/14/18 20:04 05/15/18 05:14 Tylenol - PO 650 mg Q6H PRN Administration FEVER Albuterol Sulfate 1 amp 05/15/18 05:09 05/15/18 05:00 Ventolin 0.083% Nebulizer Soln - NEB 1 amp Q6H PRN Administration SHORT OF BREATH/WHEEZING Heparin Sodium (Porcine) 5,000 unit 05/14/18 18:00 05/15/18 02:57 Heparin - SQ 5,000 unit Q8H-IV CONCETTA Administration Ceftriaxone Sodium 1 gm/ 50 mls @ 100 mls/hr 05/15/18 10:00 Dextrose IVPB DAILY CONCETTA Protocol Insulin Aspart 1 vial 05/14/18 22:00 05/15/18 06:10 Novolog Vial Sliding Scale - SQ 2 units ACHS CONCETTA Administration Protocol Intake & Output 05/12/18 05/13/18 05/14/18 05/15/18 23:59 23:59 23:59 23:59 Intake Total 1999 Balance 1999 Weight 108.409 kg Hospitalist Encounter Outcome: Patient tolerated Neb treatment, reports her breathing has improved Placed on Venturi Mask 50%, O2 sat did not improve 83%, placed on NRB- 89% Awaiting portable CXR Will continue to monitor and inform Day team of overnight's event Recommendations/Interventions: Consider Pulm consult Add LABA to regimen Peak Flows Critical Care Total Critical Care Time (in minutes): 32 Critical Care Statement: The care of this patient involved high complexity decision making to prevent further life threatening deterioration of the patient 's condition and/or to evaluate & treat vital organ system(s) failure or risk of failure.
[2018-05-15] MEDS ORDERED: FUROSEMIDE 40 MG/4 ML INJECTABLE VIAL IVPUSH ONE ×2 (05:58→11:30)
[2018-05-15] MEDS: INSULIN SLIDING SCALE (NOVOLOG) 1 VIAL SQ SCH ×4 (06:10→22:13)
[2018-05-15 07:32] LABS: BASO % 0.4 % (0-2.0); EOS % 2.1 % (0-4.5); HEMATOCRIT 28.1 % (32.4-45.2); HEMOGLOBIN 9.5 GM/dL (10.7-15.3); LYMPH % 21.8 % (8-40); MCH 29.4 pg (25.7-33.7); MCHC 33.9 g/dl (32.0-36.0); MEAN CELL VOLUME 86.8 fl (80-96); MEAN PLT VOLUME 9.8 fl (7.5-11.1); MONO % 7.5 % (3.8-10.2); NEUT % 68.2 % (42.8-82.8); PLATELET COUNT 128 K/MM3 (134-434); RBC 3.23 M/mm3 (3.60-5.2); RDW 15.6 % (11.6-15.6); WHITE BLOOD COUNT 9.4 K/mm3 (4.0-10.0)
[2018-05-15 08:01] LABS: CHLORIDE 106 mmol/L (98-107); POTASSIUM 3.9 mmol/L (3.5-5.1); SODIUM 142 mmol/L (136-145)
[2018-05-15 08:09] LABS: ALBUMIN 2.8 g/dl (3.4-5.0); ALK PHOS 79 U/L (45-117); ANION GAP 12 MMOL/L (8-16); BILIRUBIN,TOTAL 0.4 mg/dL (0.2-1.0); BLOOD UREA NITROGEN 21 mg/dL (7-18); CALCIUM 8.1 mg/dL (8.5-10.1); CO2 24 mmol/L (21-32); CREATININE 1.2 mg/dL (0.55-1.3); GLUCOSE,RANDOM 188 mg/dL (74-106); MAGNESIUM 2.2 mg/dL (1.8-2.4); SGOT/AST 21 U/L (15-37); SGPT/ALT 23 U/L (13-61); TOT PROT 6.4 g/dl (6.4-8.2)
--- NOTE | 2018-05-15 08:55 | PN ---
Physical Exam: SUBJECTIVE: Patient seen and examined. Breathing is easier than this morning. OBJECTIVE: Vital Signs Period Temp Pulse Resp BP Sys/Maurer Pulse Ox Last 24 Hr 98.1 F-101.9 F 78-107 17-22 115-162/44-88 98-99 GENERAL: Awake, alert, and fully oriented. HEAD: Normal with no signs of trauma. EYES: Pupils equal, round and reactive to light, extraocular movements intact, sclera anicteric, conjunctiva clear. No lid lag. LUNGS: Breath sounds equal, clear to auscultation bilaterally. No wheezes, and no crackles. No accessory muscle use. HEART: Regular rate and rhythm,S1 and S2 +murmur ABDOMEN: Upper abdomen is protuberant, firm; no abdominal tenderness, no guarding, no rebound MUSCULOSKELETAL: Normal range of motion at all joints. No bony deformities or tenderness. No CVA tenderness. UPPER EXTREMITIES: 2+ pulses, warm, well-perfused. No cyanosis. No clubbing. No peripheral edema. LOWER EXTREMITIES: 2+ pulses, warm, well-perfused. No calf tenderness. No peripheral edema. NEUROLOGICAL: Cranial nerves II-XII intact. Normal speech. Moving all extremities freely. Laboratory Results - last 24 hr 05/14/18 05/14/18 05/14/18 14:29 14:35 14:35 WBC 9.3 RBC 3.04 L Hgb 9.0 L Hct 25.9 L D MCV 85.2 MCH 29.7 MCHC 34.9 RDW 15.4 Plt Count 146 D MPV 9.0 Absolute Neuts (auto) 7.0 Neutrophils % 75.1 D Lymphocytes % 13.8 D Monocytes % 8.5 Eosinophils % 1.5 Basophils % 1.1 Nucleated RBC % 0 ESR PT with INR INR PTT (Actin FS) Sodium Cancelled Potassium Cancelled Chloride Cancelled Carbon Dioxide Cancelled Anion Gap Cancelled BUN Cancelled Creatinine Cancelled Creat Clearance w eGFR Cancelled POC Glucometer Random Glucose Cancelled Hemoglobin A1c % Lactic Acid Calcium Cancelled Magnesium Total Bilirubin Cancelled AST Cancelled ALT Cancelled Alkaline Phosphatase Cancelled Troponin I C-Reactive Protein Total Protein Cancelled Albumin Cancelled Urine Color Yellow Urine Appearance Slcloudy Urine pH 5.0 Ur Specific [place] 1.010 Urine Protein 2+ H Urine Glucose (UA) 3+ H Urine Ketones Negative Urine Blood 1+ H Urine Nitrite Negative Urine Bilirubin Negative Urine Urobilinogen Negative Ur Leukocyte Esterase Trace Urine WBC (Auto) 28 Urine RBC (Auto) 3 Ur Epithelial Cells Rare Urine Bacteria Many Hyaline Casts 1 05/14/18 05/14/18 05/14/18 14:35 14:35 14:35 WBC RBC Hgb Hct MCV MCH MCHC RDW Plt Count MPV Absolute Neuts (auto) Neutrophils % Lymphocytes % Monocytes % Eosinophils % Basophils % Nucleated RBC % ESR PT with INR 12.20 INR 1.08 PTT (Actin FS) 28.1 Sodium 139 Potassium 3.9 Chloride 102 Carbon Dioxide 25 Anion Gap 12 BUN 27 H Creatinine 1.4 H Creat Clearance w eGFR 38.23 POC Glucometer Random Glucose 238 H Hemoglobin A1c % Lactic Acid 1.2 Calcium 8.2 L Magnesium Total Bilirubin 0.3 AST 13 L ALT 21 Alkaline Phosphatase 71 Troponin I < 0.02 C-Reactive Protein Total Protein 6.3 L Albumin 2.8 L Urine Color Urine Appearance Urine pH Ur Specific [place] Urine Protein Urine Glucose (UA) Urine Ketones Urine Blood Urine Nitrite Urine Bilirubin Urine Urobilinogen Ur Leukocyte Esterase Urine WBC (Auto) Urine RBC (Auto) Ur Epithelial Cells Urine Bacteria Hyaline Casts 05/14/18 05/14/18 05/14/18 20:00 20:30 20:30 WBC RBC Hgb Hct MCV MCH MCHC RDW Plt Count MPV Absolute Neuts (auto) Neutrophils % Lymphocytes % Monocytes % Eosinophils % Basophils % Nucleated RBC % ESR PT with INR INR PTT (Actin FS) Sodium 141 Potassium 3.8 Chloride 106 Carbon Dioxide 24 Anion Gap 11 BUN 26 H Creatinine 1.3 Creat Clearance w eGFR 41.64 POC Glucometer 268 Random Glucose 236 H Hemoglobin A1c % Lactic Acid 1.2 Calcium 7.7 L Magnesium 1.7 L Total Bilirubin 0.2 AST 13 L ALT 18 Alkaline Phosphatase 71 Troponin I C-Reactive Protein Total Protein 6.0 L Albumin 2.6 L Urine Color Urine Appearance Urine pH Ur Specific [place] Urine Protein Urine Glucose (UA) Urine Ketones Urine Blood Urine Nitrite Urine Bilirubin Urine Urobilinogen Ur Leukocyte Esterase Urine WBC (Auto) Urine RBC (Auto) Ur Epithelial Cells Urine Bacteria Hyaline Casts 05/14/18 05/15/18 05/15/18 20:30 06:09 06:30 WBC 9.4 RBC 3.23 L Hgb 9.5 L Hct 28.1 L MCV 86.8 MCH 29.4 MCHC 33.9 RDW 15.6 Plt Count 128 L MPV 9.8 Absolute Neuts (auto) 6.4 Neutrophils % 68.2 Lymphocytes % 21.8 D Monocytes % 7.5 Eosinophils % 2.1 Basophils % 0.4 Nucleated RBC % 0 ESR PT with INR INR PTT (Actin FS) Sodium Potassium Chloride Carbon Dioxide Anion Gap BUN Creatinine Creat Clearance w eGFR POC Glucometer 195 Random Glucose Hemoglobin A1c % Lactic Acid Calcium Magnesium Total Bilirubin AST ALT Alkaline Phosphatase Troponin I C-Reactive Protein 9.9 H Total Protein Albumin Urine Color Urine Appearance Urine pH Ur Specific [place] Urine Protein Urine Glucose (UA) Urine Ketones Urine Blood Urine Nitrite Urine Bilirubin Urine Urobilinogen Ur Leukocyte Esterase Urine WBC (Auto) Urine RBC (Auto) Ur Epithelial Cells Urine Bacteria Hyaline Casts 05/15/18 05/15/18 05/15/18 06:30 06:30 06:30 WBC RBC Hgb Hct MCV MCH MCHC RDW Plt Count MPV Absolute Neuts (auto) Neutrophils % Lymphocytes % Monocytes % Eosinophils % Basophils % Nucleated RBC % ESR 113 H PT with INR INR PTT (Actin FS) Sodium 142 Potassium 3.9 Chloride 106 Carbon Dioxide 24 Anion Gap 12 BUN 21 H Creatinine 1.2 Creat Clearance w eGFR 45.67 POC Glucometer Random Glucose 188 H Hemoglobin A1c % 8.0 H Lactic Acid Calcium 8.1 L Magnesium 2.2 Total Bilirubin 0.4 AST 21 ALT 23 Alkaline Phosphatase 79 Troponin I C-Reactive Protein Total Protein 6.4 Albumin 2.8 L Urine Color Urine Appearance Urine pH Ur Specific [place] Urine Protein Urine Glucose (UA) Urine Ketones Urine Blood Urine Nitrite Urine Bilirubin Urine Urobilinogen Ur Leukocyte Esterase Urine WBC (Auto) Urine RBC (Auto) Ur Epithelial Cells Urine Bacteria Hyaline Casts Current Medications Generic Name Dose Route Start Last Admin Trade Name Freq PRN Reason Stop Dose Admin Acetaminophen 650 mg 05/14/18 20:04 05/15/18 10:25 Tylenol - PO 650 mg Q6H PRN Administration FEVER Albuterol/Ipratropium 1 amp 05/15/18 12:12 05/15/18 12:45 Duoneb - NEB 1 amp Q4H PRN Administration SHORTNESS OF BREATH Alprazolam 2 mg 05/15/18 12:09 05/15/18 13:59 Xanax - PO 2 mg BID PRN Administration ANXIETY Amlodipine Besylate 10 mg 05/15/18 12:45 05/15/18 14:00 Norvasc - PO 10 mg DAILY CONCETTA Administration Artificial Tears 1 drop 05/15/18 14:00 05/15/18 14:02 Artificial Tears OU 1 drop QID CONCETTA Administration Aspirin 81 mg 05/16/18 10:00 Asa - PO DAILY CONCETTA Atorvastatin Calcium 20 mg 05/15/18 22:00 Lipitor - PO HS CONCETTA Gabapentin 300 mg 05/15/18 22:00 Neurontin - PO BID CONCETTA Heparin Sodium (Porcine) 5,000 unit 05/14/18 18:00 05/15/18 10:26 Heparin - SQ 5,000 unit Q8H-IV CONCETTA Administration Hydralazine HCl 50 mg 05/15/18 12:45 05/15/18 14:00 Apresoline - PO 50 mg BID CONCETTA Administration Hydroxyzine HCl 50 mg 05/15/18 22:00 Atarax - PO HS CONCETTA Ceftriaxone Sodium 1 gm/ 50 mls @ 100 mls/hr 05/15/18 10:00 05/15/18 10:26 Dextrose IVPB 100 mls/hr DAILY CONCETTA Administration Protocol Insulin Aspart 1 vial 05/14/18 22:00 05/15/18 12:14 Novolog Vial Sliding Scale - SQ 8 units ACHS CONCETTA Administration Protocol Losartan Potassium 100 mg 05/15/18 12:45 05/15/18 14:00 Cozaar - PO 100 mg DAILY CONCETTA Administration Timolol Maleate 1 drop 05/15/18 22:00 Timoptic 0.5% OU BID [facility] ASSESSMENT/PLAN: 63 year-old female with a PMH significant for HTN, HLD, CKD, COPD, IDDM, recurrent UTIs and anxiety. Admitted for symptomatic UTI after having failed two courses of PO antibiotics outpatient. UTI --had completed 2 rounds PO antibiotics in past month --T 101.9, pyuria --stop IV fluids as patient became volume overloaded --empiric ceftriaxone --urine culture: [id number] Hypertension --BP elevated, resume home antihypertensives: losartan, hydralazine, amlodipine Hyperlipidemia --continue atorvastatin Chronic kidney disease --Cr 1.4; baseline unknown COPD --duonebs PRN IDDM --HgbA1C 8.0 --Novolog sliding scale coverage --Levemir 15U q12h Glaucoma --home eye drops Degenerative disc disease --on 60mg oxycodone per day at home --assess pain needs in hospital before prescribing Anxiety --continue home xanax dosing Hypomagnesemia --repleted FEN Fluids: stop IV fluids Electrolytes: replete as indicated Nutrition: diabetic, low sodium DVT prophylaxis: subq heparin Dispo: continues to require inpatient care. Full code. Visit type - Emergency Visit Emergency Visit: Yes ED Registration Date: 05/14/18 Care time: The patient presented to the Emergency Department on the above date and was hospitalized for further evaluation of their emergent condition. - New Patient This patient is new to me today: No - Critical Care Critical Care patient: No
[2018-05-15] MEDS ORDERED: CEFTRIAXONE 1 GM in DEXTROSE 5%-WATER - 50 ML IVPB SCH (10:00)
[2018-05-15] MEDS ORDERED: cefTRIAXone SODIUM 1 GM VIAL ONE (10:18)
[2018-05-15] MEDS ORDERED: DEXTROSE 5%-WATER - 50 ML IVPB ONE (10:19)
[2018-05-15] MEDS ORDERED: ALBUTEROL SO4 2.5/IPRATROPIUM 0.5 INH SOL 3 ML VIAL.NEB. NEB PRN (12:12)
[2018-05-15] MEDS: ALPRAZolam 2 MG TABLET PO PRN (13:59)
[2018-05-15] MEDS: hydrALAZINE HCL 50 MG TABLET (FP) PO SCH ×2 (14:00→21:22)
[2018-05-15] MEDS: amLODIPine BESYLATE 10 MG TABLET (FP) PO SCH (14:00)
[2018-05-15] MEDS: LOSARTAN POTASSIUM 50 MG TABLET (FP) PO SCH (14:00)
[2018-05-15] MEDS: ARTIFICIAL TEARS (POLYVINYL ALCOHOL) OPTH DROPS OU SCH ×3 (14:02→21:22)
[2018-05-15] MEDS ORDERED: MEROPENEM 1 GM in DEXTROSE 5%-WATER 100 ML IVPB ONE (18:00)
[2018-05-15] MEDS: FUROSEMIDE 40 MG/4 ML INJECTABLE VIAL IVPUSH SCH (18:02)
[2018-05-15] MEDS: hydrOXYzine HCL 25 MG TABLET (FP) PO SCH (21:22)
[2018-05-15] MEDS: ATORVASTATIN CA 20 MG TABLET (FP) PO SCH (21:22)
[2018-05-15] MEDS: GABAPENTIN 300 MG CAPSULE (FP) PO SCH (21:22)
[2018-05-15] MEDS: TIMOLOL 0.5% OPHTHALMIC SOL 5 ML BOTTLE OU SCH (21:23)
[2018-05-15] MEDS ORDERED: hydrOXYzine HCL 25 MG TABLET (FP) PO SCH (22:00)
[2018-05-15] MEDS: INSULIN (LEVEMIR) 100 UNITS/ML UNITS SQ SCH (22:17)
[2018-05-16] MEDS: HEPARIN NA (PORCINE) 5,000 UNITS/ML 1ML VIAL SQ SCH ×3 (01:23→17:12)
[2018-05-16] MEDS: INSULIN SLIDING SCALE (NOVOLOG) 1 VIAL SQ SCH ×4 (06:04→21:35)
--- NOTE | 2018-05-16 09:44 | PN ---
Physical Exam: SUBJECTIVE: Patient seen and examined at the bedside. Still with fevers, general malaise and shortness of breath. OBJECTIVE: flu swab now pulm consult for respiratory failure, desats on venti mask in the 80s (50% @ 15 liters) with abdominal muscle use Will order iv steriods. scheduled nebs and await further recommendations from pulm. hx of copd, ex smoker repeat blood cultures Vital Signs Period Temp Pulse Resp BP Sys/Maurer Pulse Ox Last 24 Hr 98.9 F-102.2 F 65-107 18-22 104-180/49-80 100 GENERAL: The patient is awake, alert, and fully oriented, in moderate respiratory distress. HEAD: Normal with no signs of trauma. EYES: PERRL, extraocular movements intact, sclera anicteric, conjunctiva clear. No ptosis. ENT: Ears normal, nares patent, oropharynx clear without exudates, moist mucous membranes. NECK: Trachea midline, full range of motion, supple. LUNGS: diminished lung sounds, mild wheezing anteriorly, labored breathing with abdominal muscle use. on venti mask. HEART: Regular rate and rhythm ABDOMEN: Soft, nontender, nondistended, normoactive bowel sounds, no guarding, no rebound, no hepatosplenomegaly, no masses. EXTREMITIES: no edema. NEUROLOGICAL: Normal speech, gait not observed. PSYCH: Normal mood, normal affect. SKIN: Warm, dry, normal turgor, no rashes or lesions noted Laboratory Results - last 24 hr 05/15/18 05/15/18 05/15/18 12:11 18:02 21:08 POC Glucometer 307 209 201 05/16/18 05:11 POC Glucometer 85 Active Medications Generic Name Dose Route Start Last Admin Trade Name Freq PRN Reason Stop Dose Admin Acetaminophen 650 mg 05/14/18 20:04 05/15/18 23:53 Tylenol - PO 650 mg Q6H PRN Administration FEVER Albuterol/Ipratropium 1 amp 05/15/18 12:12 05/15/18 12:45 Duoneb - NEB 1 amp Q4H PRN Administration SHORTNESS OF BREATH Alprazolam 2 mg 05/15/18 12:09 05/15/18 13:59 Xanax - PO 2 mg BID PRN Administration ANXIETY Amlodipine Besylate 10 mg 05/15/18 12:45 05/15/18 14:00 Norvasc - PO 10 mg DAILY CONCETTA Administration Artificial Tears 1 drop 05/15/18 14:00 05/15/18 21:22 Artificial Tears OU 1 drop QID CONCETTA Administration Aspirin 81 mg 05/16/18 10:00 Asa - PO DAILY CONCETTA Atorvastatin Calcium 20 mg 05/15/18 22:00 05/15/18 21:22 Lipitor - PO 20 mg HS CONCETTA Administration Furosemide 40 mg 05/15/18 17:15 05/15/18 18:02 Lasix Injection - IVPUSH 40 mg DAILY CONCETTA Administration Gabapentin 300 mg 05/15/18 22:00 05/15/18 21:22 Neurontin - PO 300 mg BID CONCETTA Administration Heparin Sodium (Porcine) 5,000 unit 05/14/18 18:00 05/16/18 01:23 Heparin - SQ 5,000 unit Q8H-IV CONCETTA Administration Hydralazine HCl 50 mg 05/15/18 12:45 05/15/18 21:22 Apresoline - PO 50 mg BID CONCETTA Administration Hydroxyzine HCl 50 mg 05/15/18 22:00 05/15/18 21:22 Atarax - PO 50 mg HS CONCETTA Administration Insulin Aspart 1 vial 05/14/18 22:00 05/16/18 06:04 Novolog Vial Sliding Scale - SQ Not Given [facility] Protocol Insulin Detemir 15 units 05/15/18 22:00 05/15/18 22:17 Levemir Vial SQ 15 unit 0700,2200 CONCETTA Administration Losartan Potassium 100 mg 05/15/18 12:45 05/15/18 14:00 Cozaar - PO 100 mg DAILY CONCETTA Administration Timolol Maleate 1 drop 05/15/18 22:00 05/15/18 21:23 Timoptic 0.5% OU 1 drop BID CONCETTA Administration ASSESSMENT/PLAN: Patient is a 63 year old female with a significant past medical history of hypertension, hyperlipidemia, obesity, COPD (ex smoker-not home oxygen dependent ), diabetes mellitus, CKD and fibroids. Patient presented to the ED on 05/14/18 with c/o of fevers and generalized weakness. She was treated recently at [facility] for UTIs which she states she completed. After completion of antibiotics, she experienced dysuria, urgency, and frequency. ID: Fevers, likely secondary to UTI. with elevated WBC, general malaise. Still febrile tmax 101. Blood cultures reordered. On meropenem, clindamycin PO. CT chest, CTAP ordered for persistent fevers. ID following. Pulm: Respiratory failure/COPD exacerbation: started on solumedrol for acute respiratory distress. On venti mask to be weaned off as tolerated. Ex smoker. Standing duonebs. given lasix iv 40mg daily. Pulmonary following. Card: Hypertension: controlled. on cozaar, hydralazine bid, norvasc Hyperlipidemia: on lipitor Obesity: bmi 42.3. Dietary consult for morbid obesity. Has other risk factors for heart disease: hld, htn, dm. Endocrine: Diabetes Mellitus: on novolog and levemir. monitor in the setting of steriods. Renal: CKD: creat bumped up to 1.6. follows renal outpatient. will consult renal. [employer]: Uterine fibroids, stable. outpatient follow up. fen tolerating PO monitor electrolytes low salt diet prophy protonix 40mg full code Visit type - Emergency Visit Emergency Visit: Yes ED Registration Date: 05/14/18 Care time: The patient presented to the Emergency Department on the above date and was hospitalized for further evaluation of their emergent condition. - New Patient This patient is new to me today: Yes Date on this admission: 05/16/18 - Critical Care Critical Care patient: No - Discharge Referral Referred to [facility] Med P.C.: No
--- NOTE | 2018-05-16 10:06 | CON.PULM ---
Consult Consult Specialty:: PULM/CCM Referred by:: MICHELE Reason for Consultation:: SOB - History of Present Illness Chief Complaint: SOB History of Present Illness: 63 F, COPD due to previous smoking history, diagnosed about 4 years ago ( prescribed LABA/ICS but does not take), CKD, DM, HTN, and likely sleep apnea. Admitted via the ER due to fevers and generalized weakness. She reports a 1 week history of dysuria, worsening fever, chills, and generalized weakness. As an outpatient she was given amoxicillin and Ciprofloxicin. No travel history or sick contacts. No hemoptysis. CXR: Cardiomegaly / Pulmonary vascular congestion. - History Source History Provided By: Patient Limitations to Obtaining History: No Limitations - Past Medical History Pulmonary: Yes: Bronchitis, COPD, Other (Likely OSAS ). No: O2 Dependent, Previously Intubated, Pulmonary Embolus, Pulmonary Fibrosis ...: No - Alcohol/Substance Use Hx Alcohol Use: No - Smoking History Smoking history: Never smoked Have you smoked in the past 12 months: No Aproximately how many cigarettes per day: 10 If you are a former smoker, when did you quit?: 2013 Home Medications - Allergies Allergies/Adverse Reactions: Allergies Allergy/AdvReac Type Severity Reaction Status Date / Time ranitidine [From Zantac] Allergy Intermediate Hives Verified 05/14/18 13:46 metronidazole [From Flagyl] Allergy Mild Hives Verified 05/14/18 13:46 Metronidazole HCl Allergy Mild Hives Verified 05/14/18 13:46 [From Flagyl] Penicillins Allergy Mild Hives Verified 05/14/18 13:46 - Home Medications Home Medications: Ambulatory Orders Atorvastatin Ca [Lipitor] 20 mg PO HS 05/14/18 Hydralazine HCl 50 mg PO BID 05/14/18 Losartan Potassium 100 mg PO DAILY 05/14/18 Alprazolam 2 mg PO BID PRN 05/15/18 Amlodipine Besylate 10 mg PO DAILY 05/15/18 Aspirin [ASA -] 81 mg PO DAILY 05/15/18 Fluticasone/Salmeterol [Advair Hfa 115-21 Mcg Inhaler] 2 inh PO BID 05/15/18 Furosemide [Lasix] 20 mg PO DAILY 05/15/18 Gabapentin 1 cap PO BID 05/15/18 Hydroxyzine HCl 50 mg PO HS 05/15/18 Insulin Glargine,Hum.rec.anlog [Lantus] 30 units SQ Q12H 05/15/18 Metformin HCl [Glucophage] 1,000 mg PO BID 05/15/18 Omeprazole Magnesium 40 mg PO DAILY 05/15/18 Oxycodone HCl 30 mg PO BID PRN 05/15/18 Polyvinyl Alcohol [Artificial Tears] 1 drop OU QID 05/15/18 Timolol 0.5% [Timoptic 0.5%] 1 drop OU BID 05/15/18 Review of Systems - Review of Systems Constitutional: reports: Chills, Fever, Malaise, Night Sweats, Weakness Eyes: reports: No Symptoms HENT: reports: No Symptoms Neck: reports: No Symptoms Cardiovascular: reports: Edema, Shortness of Breath. denies: Chest Pain, Palpitations Respiratory: reports: Cough, Orthopnea, Snoring, SOB, SOB on Exertion, Wheezing. denies: Hemoptysis Gastrointestinal: reports: No Symptoms Genitourinary: reports: No Symptoms Breasts: reports: No Symptoms Reported Musculoskeletal: reports: No Symptoms Integumentary: reports: No Symptoms Neurological: reports: No Symptoms Endocrine: reports: No Symptoms Hematology/Lymphatic: reports: No Symptoms Psychiatric: reports: No Symptoms Physical Exam Vital Sings: Vital Signs Temperature 99 F 05/16/18 05:40 Pulse Rate 65 05/16/18 05:40 Respiratory Rate 20 05/16/18 05:40 Blood Pressure 104/49 05/16/18 05:40 O2 Sat by Pulse Oximetry (%) 100 05/15/18 21:00 Constitutional: Yes: Mild Distress, Obese Eyes: Yes: Conjunctiva Clear, EOM Intact HENT: Yes: Atraumatic, Normocephalic Neck: Yes: Supple, Trachea Midline Respiratory: Yes: Accessory Muscle Use, Cough, Diminished, On Venti-Mask, Rales , Rhonchi, SOB, SOB on Exertion, Tachypnea, Wheezes. No: Stridor ...Inspection: Yes: WNL Gastrointestinal: Yes: Normal Bowel Sounds, Soft, Abdomen, Obese Musculoskeletal: Yes: WNL Extremities: Yes: WNL Edema: No Peripheral Pulses WNL: Yes Integumentary: Yes: WNL Neurological: Yes: WNL, Alert, Oriented ...Motor Strength: WNL Psychiatric: Yes: WNL, Alert, Oriented Labs: CBC, BMP 05/15/18 06:30 05/15/18 06:30 Imaging - Results Chest X-ray: Report Reviewed, Image Reviewed Problem List - Problems (1) Acute exacerbation of chronic obstructive pulmonary disease (COPD) Code(s): J44.1 - CHRONIC OBSTRUCTIVE PULMONARY DISEASE W (ACUTE) EXACERBATION (2) Pulmonary vascular congestion Code(s): R09.89 - OTH SYMPTOMS AND SIGNS INVOLVING THE CIRC AND RESP SYSTEMS (3) Morbid obesity Code(s): E66.01 - MORBID (SEVERE) OBESITY DUE TO EXCESS CALORIES (4) UTI (urinary tract infection) Code(s): N39.0 - URINARY TRACT INFECTION, SITE NOT SPECIFIED Qualifiers: Urinary tract infection type: site unspecified Hematuria presence: without hematuria Qualified Code(s): N39.0 - Urinary tract infection, site not specified (5) Neck pain, bilateral posterior Code(s): M54.2 - CERVICALGIA Assessment/Plan Medrol BD TX VM O2 Will need sleep screen / formal workup after D/C Would minimize IVF for now, received significant IVF and appears to have developed volume overload. Required Lasix yesterday and feels clinically better today. Daily assessment for Lasix. Daily weight No smoking Can order NIPPV for WOB, but at present reports feeling better. ABX coverage Will follow Thank you. Dr Ching
[2018-05-16] MEDS ORDERED: ALBUTEROL SO4 0.083% IH SOL 2.5 MG/3 ML VIAL.NEB. NEB PRN (10:15)
--- NOTE | 2018-05-16 10:33 | CON.ID ---
Consult Consult Specialty:: fever,uti Reason for Consultation:: fever,sob,uti - History of Present Illness Chief Complaint: weakness,fever History of Present Illness: 63 y/o female being admitted to the hospital for fever and weakness according to the patient she has been having this fevers for last 3 months,last month patient was found to ahve uti and went to [facility] and was treated with amoxicillin which it seems did not help her and was switched to cipro she says she came to the hospitla because she was not feeling here patient has been spiking high grade fevers and also has been found to have uti also she is on mask now and needs resp support says she is feeling a little better received abx She reports dysuria, urgency, and frequency. She reports fever, sweats, and chills. She reports intermittent abdominal pain. - History Source History Provided By: Patient Limitations to Obtaining History: No Limitations - Past Medical History Pulmonary: Yes: Bronchitis, COPD, Other (Likely OSAS ). No: O2 Dependent, Previously Intubated, Pulmonary Embolus, Pulmonary Fibrosis ...: No - Alcohol/Substance Use Hx Alcohol Use: No - Smoking History Smoking history: Never smoked Have you smoked in the past 12 months: No Aproximately how many cigarettes per day: 10 If you are a former smoker, when did you quit?: 2013 Home Medications - Allergies Allergies/Adverse Reactions: Allergies Allergy/AdvReac Type Severity Reaction Status Date / Time ranitidine [From Zantac] Allergy Intermediate Hives Verified 05/14/18 13:46 metronidazole [From Flagyl] Allergy Mild Hives Verified 05/14/18 13:46 Metronidazole HCl Allergy Mild Hives Verified 05/14/18 13:46 [From Flagyl] Penicillins Allergy Mild Hives Verified 05/14/18 13:46 - Home Medications Home Medications: Ambulatory Orders Atorvastatin Ca [Lipitor] 20 mg PO HS 05/14/18 Hydralazine HCl 50 mg PO BID 05/14/18 Losartan Potassium 100 mg PO DAILY 05/14/18 Alprazolam 2 mg PO BID PRN 05/15/18 Amlodipine Besylate 10 mg PO DAILY 05/15/18 Aspirin [ASA -] 81 mg PO DAILY 05/15/18 Fluticasone/Salmeterol [Advair Hfa 115-21 Mcg Inhaler] 2 inh PO BID 05/15/18 Furosemide [Lasix] 20 mg PO DAILY 05/15/18 Gabapentin 1 cap PO BID 05/15/18 Hydroxyzine HCl 50 mg PO HS 05/15/18 Insulin Glargine,Hum.rec.anlog [Lantus] 30 units SQ Q12H 05/15/18 Metformin HCl [Glucophage] 1,000 mg PO BID 05/15/18 Omeprazole Magnesium 40 mg PO DAILY 05/15/18 Oxycodone HCl 30 mg PO BID PRN 05/15/18 Polyvinyl Alcohol [Artificial Tears] 1 drop OU QID 05/15/18 Timolol 0.5% [Timoptic 0.5%] 1 drop OU BID 05/15/18 Review of Systems - Review of Systems Constitutional: reports: Fever Eyes: reports: No Symptoms HENT: reports: No Symptoms Neck: reports: No Symptoms Cardiovascular: reports: No Symptoms Respiratory: reports: SOB, SOB on Exertion Gastrointestinal: reports: No Symptoms Genitourinary: reports: Dysuria Musculoskeletal: reports: No Symptoms Integumentary: reports: No Symptoms Neurological: reports: No Symptoms Endocrine: reports: No Symptoms Hematology/Lymphatic: reports: No Symptoms Psychiatric: reports: No Symptoms Physical Exam Vital Signs: Vital Signs Temperature 99 F 05/16/18 05:40 Pulse Rate 65 05/16/18 05:40 Respiratory Rate 20 05/16/18 05:40 Blood Pressure 104/49 05/16/18 05:40 O2 Sat by Pulse Oximetry (%) 100 05/15/18 21:00 Constitutional: Yes: Well Nourished, Calm, Mild Distress Eyes: Yes: Conjunctiva Clear Cardiovascular: Yes: Regular Rate and Rhythm Respiratory: Yes: Regular, Poor Air Entry, Rhonchi, Other (on venti mask) Gastrointestinal: Yes: Normal Bowel Sounds, Soft Musculoskeletal: Yes: WNL Extremities: Yes: WNL Neurological: Yes: Alert, Oriented Psychiatric: Yes: Alert, Oriented Labs: CBC, BMP 05/15/18 06:30 05/15/18 06:30 Imaging - Results Chest X-ray: Report Reviewed, Image Reviewed Assessment/Plan Problem List - Problems (1) Acute exacerbation of chronic obstructive pulmonary disease (COPD) Code(s): J44.1 - CHRONIC OBSTRUCTIVE PULMONARY DISEASE W (ACUTE) EXACERBATION (2) Pulmonary vascular congestion Code(s): R09.89 - OTH SYMPTOMS AND SIGNS INVOLVING THE CIRC AND RESP SYSTEMS (3) Morbid obesity Code(s): E66.01 - MORBID (SEVERE) OBESITY DUE TO EXCESS CALORIES (4) UTI (urinary tract infection) Code(s): N39.0 - URINARY TRACT INFECTION, SITE NOT SPECIFIED Qualifiers: Urinary tract infection type: site unspecified Hematuria presence: without hematuria Qualified Code(s): N39.0 - Urinary tract infection, site not specified (5) Neck pain, bilateral posterior Code(s): M54.2 - CERVICALGIA 6 fever plan will continue abx await for ct scan to be done and the reports resp support rest as per the team
[2018-05-16] MEDS: INSULIN (LEVEMIR) 100 UNITS/ML UNITS SQ SCH ×2 (10:40→21:28)
[2018-05-16] MEDS: FUROSEMIDE 40 MG/4 ML INJECTABLE VIAL IVPUSH SCH (10:41)
[2018-05-16] MEDS: ARTIFICIAL TEARS (POLYVINYL ALCOHOL) OPTH DROPS OU SCH ×4 (10:46→21:29)
[2018-05-16] MEDS: ASPIRIN 81 MG CHEWABLE TABLETS PO SCH (10:47)
[2018-05-16] MEDS: GABAPENTIN 300 MG CAPSULE (FP) PO SCH ×2 (10:47→21:27)
[2018-05-16] MEDS: LOSARTAN POTASSIUM 50 MG TABLET (FP) PO SCH (10:48)
[2018-05-16] MEDS: amLODIPine BESYLATE 10 MG TABLET (FP) PO SCH (10:48)
[2018-05-16] MEDS: hydrALAZINE HCL 50 MG TABLET (FP) PO SCH ×2 (10:48→21:26)
[2018-05-16 10:56] LABS: BASO % 0.6 % (0-2.0); EOS % 1.4 % (0-4.5); HEMATOCRIT 26.9 % (32.4-45.2); HEMOGLOBIN 9.1 GM/dL (10.7-15.3); LYMPH % 14.8 % (8-40); MCH 29.3 pg (25.7-33.7); MCHC 33.9 g/dl (32.0-36.0); MEAN CELL VOLUME 86.4 fl (80-96); MEAN PLT VOLUME 9.8 fl (7.5-11.1); MONO % 10.2 % (3.8-10.2); PLATELET COUNT 164 K/MM3 (134-434); RBC 3.12 M/mm3 (3.60-5.2); RDW 15.1 % (11.6-15.6); WHITE BLOOD COUNT 10.3 K/mm3 (4.0-10.0)
[2018-05-16] MEDS: methylPREDNISolone NA SUCC 40 MG/1 ML VIAL IVPUSH SCH ×2 (11:00→17:59)
[2018-05-16] MEDS ORDERED: PT OWN MED DRAWER 7, Y5N ONE ×3 (11:03→21:21)
[2018-05-16] MEDS: ALPRAZolam 2 MG TABLET PO PRN ×2 (11:08→22:44)
[2018-05-16] MEDS: TIMOLOL 0.5% OPHTHALMIC SOL 5 ML BOTTLE OU SCH ×2 (11:12→21:37)
[2018-05-16 11:25] LABS: ALBUMIN 2.7 g/dl (3.4-5.0); ANION GAP 12 MMOL/L (8-16); BLOOD UREA NITROGEN 24 mg/dL (7-18); CALCIUM 8.1 mg/dL (8.5-10.1); CHLORIDE 102 mmol/L (98-107); CO2 27 mmol/L (21-32); CREATININE 1.6 mg/dL (0.55-1.3); GLUCOSE,RANDOM 143 mg/dL (74-106); POTASSIUM 4.1 mmol/L (3.5-5.1); SGOT/AST 21 U/L (15-37); SGPT/ALT 29 U/L (13-61); SODIUM 141 mmol/L (136-145)
[2018-05-16 11:28] LABS: ALK PHOS 86 U/L (45-117); BILIRUBIN,TOTAL 0.4 mg/dL (0.2-1); TOT PROT 6.3 g/dl (6.4-8.2)
[2018-05-16] MEDS: ALBUTEROL SO4 2.5/IPRATROPIUM 0.5 INH SOL 3 ML VIAL.NEB. NEB SCH ×3 (11:45→21:25)
--- NOTE | 2018-05-16 13:30 | ECHO ---
Name: BRADLEY CONNELLY Exam:Adult Echocardiogram Study Date: 05/16/2018 11:21 AM Age: 63 yrs Reason For Study: VOLUME OVERLOAD Height: 63 in Weight: 239 lb BSA: 2.1 m2 MMode/2D Measurements & Calculations IVSd: 0.81 cm Ao root diam: 2.8 cm LVIDd: 4.7 cm LA dimension: 3.8 cm LVIDs: 2.9 cm LVPWd: 0.95 cm EDV(Teich): 100.9 ml ESV(Teich): 31.9 ml Doppler Measurements & Calculations MV E max jake: 81.5 cm/sec TR max jake: 277.8 cm/sec MV A max jake: 90.2 cm/sec TR max P.1 mmHg MV E/A: 0.90 MV dec time: 0.20 sec Med Peak E' Jake: 9.2 cm/sec PI Vmax: 131.7 cm/sec Med E/e': 8.8 Lat Peak E' Jake: 12.0 cm/sec Lat E/e': 6.8 Procedure A complete two-dimensional transthoracic echocardiogram was performed (2D, M-mode, Doppler and color flow Doppler). The study was technically excellent with all images being of optimal quality. Left Ventricle The left ventricular size, thickness and function are normal. Left Ventricular Filling pattern is nor mal for age. The left ventricular wall motion is normal. Right Ventricle The right ventricle is normal in size and function. There is normal right ventricular wall thickness. Atria Normal left and right atrial size and function. Mitral Valve There is mild mitral annular calcification. There is trace mitral regurgitation. Tricuspid Valve The tricuspid valve is normal in structure and function. There is trace tricuspid regurgitation. Aortic Valve The aortic valve is normal in structure and function. No aortic regurgitation is present. Pulmonic Valve The pulmonic valve is normal in structure and function. Trace pulmonic valvular regurgitation. Great Vessels The aortic root is normal size. Pericardium/Pleura There is no pericardial effusion. Interpretation Summary This was essentially a normal study. Michael Paulino 05/16/2018 01:29 PM
[2018-05-16] MEDS: ACETAMINOPHEN 325 MG TABLET (FP) PO PRN (13:52)
[2018-05-16] MEDS: PANTOPRAZOLE 40 MG TABLET (FP) PO SCH (13:52)
[2018-05-16] MEDS: CLINDAMYCIN HCL 150 MG CAPSULE (FP) PO SCH ×2 (13:52→21:34)
[2018-05-16] MEDS: MEROPENEM 1 GM in DEXTROSE 5%-WATER 100 ML IVPB SCH ×3 (13:53→18:00)
--- NOTE | 2018-05-16 14:29 | CONSULT ---
Consult - text type - Consultation Consultation Note: Renal Consult for PRISCILLA This is a 63 year old woman with Hx of COPD, Hypertension, Hyperlipidemia, recurrent UTI's and fibroids who presented with generalized weakness and fevers and found to have cysitis +/- PNA/fluid overload with PRISCILLA. Pt denies any dysuria at the present time. No flank pain, N/V/D. No SOB today, was SOB yesterday but is now improved. + Fevers this admission. No CASTILLO, confusion or lethargy. PMhx: as above Allergies: NKDA Family Hx: NC Social Hx: No T/A/D ROS: as per HPI Home Medications Medication Instructions Recorded Atorvastatin Ca [Lipitor] 20 mg PO HS 05/14/18 Hydralazine HCl 50 mg PO BID 05/14/18 Losartan Potassium 100 mg PO DAILY 05/14/18 Alprazolam 2 mg PO BID PRN 05/15/18 Amlodipine Besylate 10 mg PO DAILY 05/15/18 Aspirin [ASA -] 81 mg PO DAILY 05/15/18 Fluticasone/Salmeterol [Advair Hfa 2 inh PO BID 05/15/18 115-21 Mcg Inhaler] Furosemide [Lasix] 20 mg PO DAILY 05/15/18 Gabapentin 1 cap PO BID 05/15/18 Hydroxyzine HCl 50 mg PO HS 05/15/18 Insulin Glargine,Hum.rec.anlog 30 units SQ Q12H 05/15/18 [Lantus] Metformin HCl [Glucophage] 1,000 mg PO BID 05/15/18 Omeprazole Magnesium 40 mg PO DAILY 05/15/18 Oxycodone HCl 30 mg PO BID PRN 05/15/18 Polyvinyl Alcohol [Artificial 1 drop OU QID 05/15/18 Tears] Timolol 0.5% [Timoptic 0.5%] 1 drop OU BID 05/15/18 Vital Signs Temperature 101.2 F H 05/16/18 14:01 Pulse Rate 81 05/16/18 14:01 Respiratory Rate 18 05/16/18 14:01 Blood Pressure 121/55 05/16/18 14:01 O2 Sat by Pulse Oximetry (%) 100 05/15/18 21:00 Intake & Output 05/13/18 05/14/18 05/15/18 05/16/18 23:59 23:59 23:59 23:59 Intake Total 1999 2400 500 Output Total 4 Balance 1999 2400 496 Weight 108.409 kg NAD awake and alert RRR Dec BS, some wheeze soft NT/ND No LE edema CBC, BMP 05/16/18 10:30 05/16/18 10:30 Current Medications Acetaminophen (Tylenol -) 650 mg PO Q6H PRN PRN Reason: FEVER Last Admin: 05/16/18 13:52 Dose: 650 mg Albuterol Sulfate (Ventolin 0.083% Nebulizer Soln -) 1 amp NEB Q4H PRN PRN Reason: SHORT OF BREATH/WHEEZING Albuterol/Ipratropium (Duoneb -) 1 amp NEB RQID [facility] Last Admin: 05/16/18 11:45 Dose: 1 amp Alprazolam (Xanax -) 2 mg PO BID PRN PRN Reason: ANXIETY Last Admin: 05/16/18 11:08 Dose: 2 mg Amlodipine Besylate (Norvasc -) 10 mg PO DAILY [facility] Last Admin: 05/16/18 10:48 Dose: 10 mg Artificial Tears (Artificial Tears) 1 drop OU QID [facility] Last Admin: 05/16/18 13:54 Dose: 1 drop Aspirin (Asa -) 81 mg PO DAILY [facility] Last Admin: 05/16/18 10:47 Dose: 81 mg Atorvastatin Calcium (Lipitor -) 20 mg PO HS [facility] Last Admin: 05/15/18 21:22 Dose: 20 mg Clindamycin HCl (Cleocin -) 300 mg PO TID [facility] Last Admin: 05/16/18 13:52 Dose: 300 mg Furosemide (Lasix Injection -) 40 mg IVPUSH DAILY [facility] Last Admin: 05/16/18 10:41 Dose: 40 mg Gabapentin (Neurontin -) 300 mg PO BID [facility] Last Admin: 05/16/18 10:47 Dose: 300 mg Heparin Sodium (Porcine) (Heparin -) 5,000 unit SQ Q8H-IV [facility] Last Admin: 05/16/18 10:44 Dose: 5,000 unit Hydralazine HCl (Apresoline -) 50 mg PO BID [facility] Last Admin: 05/16/18 10:48 Dose: 50 mg Hydroxyzine HCl (Atarax -) 50 mg PO HS [facility] Last Admin: 05/15/18 21:22 Dose: 50 mg Meropenem 1 gm/ Dextrose 100 mls @ 200 mls/hr IVPB Q8H-IV [facility] Last Admin: 05/16/18 13:54 Dose: Not Given Insulin Aspart (Novolog Vial Sliding Scale -) 1 vial SQ ACHS [facility]; Protocol Last Admin: 05/16/18 11:00 Dose: 2 units Insulin Detemir (Levemir Vial) 15 units SQ 0700,2200 [facility] Last Admin: 05/16/18 10:40 Dose: Not Given Losartan Potassium (Cozaar -) 100 mg PO DAILY [facility] Last Admin: 05/16/18 10:48 Dose: 100 mg Methylprednisolone Sodium Succinate (Solu-Medrol -) 40 mg IVPUSH Q8H-IV [facility] Last Admin: 05/16/18 11:00 Dose: 40 mg Pantoprazole Sodium (Protonix -) 40 mg PO DAILY [facility] Last Admin: 05/16/18 13:52 Dose: 40 mg Timolol Maleate (Timoptic 0.5%) 1 drop OU BID [facility] Last Admin: 05/16/18 11:12 Dose: 1 drop 63 year old woman with Hx of COPD, Hypertension, Hyperlipidemia, recurrent UTI' s and fibroids who presented with generalized weakness and fevers and found to have cysitis +/- PNA/fluid overload with PRISCILLA. #PRISCILLA likely due to fluid shifts in setting of sepsis and IV diuretics +/- ARB r/ o GN/vasculitis (on hydralazine) #Cystitis/Sepsis #CHF vs. PNA #COPD exacerbation #Anemia Agree with holding IVF at this time given SOB yesterday Check Urine studies for UPCR, FeNa, FeUrea Continue ARB but hold if Cr continues to up trend F/U official read of CT Abd and Pelvis Check MELANY (on hydralazine) Lasix as needed per primary Continue Abx as per ID Trend renal function and electrolytes avoid nephrotoxins and contrast exposure Thank you Will follow Raj Calderón DO
[2018-05-16 16:57] LABS: URINE CREATININE 56.9 mg/dL (20-320)
--- NOTE | 2018-05-16 17:10 | CONSULT ---
Consultation: REQUESTING PROVIDER: Blanka Montero CONSULT REQUEST: We have been asked to medically evaluate this patient for Dr. Rosie Mosher. HISTORY OF PRESENT ILLNESS: A 63 y.o. F w/ PMHx. of COPD (diagnosed 4 years ago, not on home O2), HTN, IDDM , CKD, recurrent UTIs, fibroids, anxiety, and degenerative joint disease. Pt presented to the ED after failed outpatient antibiotics for UTI x2. During hospitalization Pt. develops increased shortness of breath that has neccesitaed accessory muscle use. Pt. titrated up to max settings on BiPAP and transferred to ICU for closer evaluation. Pt. states that she can walk up 1 flight of stairs at home, uses 3 pillows to sleep and has a 30 pack year history of smoking (quit in 2012). I evaluated on the floor, she endorses shortness of breath weakness, numbness and tingling in hands and diaphoresis. Pt. denied chest pain, dizziness, abdominal pain, calf tenderness, blurry vision or any pain at all. REVIEW OF SYSTEMS: CONSTITUTIONAL: Present: fever,diaphoresis, generalized weakness Absent: chills , malaise, loss of appetite, weight change CARDIOVASCULAR: Present: Absent: chest pain, syncope, palpitations, irregular heart rate, lightheadedness, peripheral edema RESPIRATORY: Present: cough, shortness of breath, dyspnea with exertion, orthopnea, wheezing Absent: stridor, hemoptysis GASTROINTESTINAL: Absent: abdominal pain, abdominal distension, nausea, vomiting, diarrhea, constipation, melena, hematochezia GENITOURINARY: Present: dysuria, frequency, urgency Absent: hesitancy, hematuria , flank pain MUSCULOSKELETAL: Present: Absent: myalgia, arthralgia, joint swelling, back pain, neck pain SKIN: Present: scattered 1 cm lesions on upper extremities and on right ankle, that is intensely itchy, Pt, has drawn blood scratching. HEMATOLOGIC/IMMUNOLOGIC: Present: frequent infections Absent: easy bleeding, easy bruising, lymphadenopathy, NEUROLOGIC: Present: numbness and tingling in hands Absent: headache, dizziness , unsteady gait, seizure, mental status changes, bladder or bowel incontinence PSYCHIATRIC: Present: anxiety Absent: depression, suicidal or homicidal ideation , hallucinations. PHYSICAL EXAMINATION Vital Signs - 24 hr 09/17/18 09/17/18 09/17/18 18:39 20:30 21:00 Temperature 101.9 F H 101.7 F H Pulse Rate 85 Respiratory 18 Rate Blood Pressure 129/50 O2 Sat by Pulse 100 Oximetry (%) 05/15/18 05/15/18 05/15/18 22:00 22:35 23:45 Temperature 102 F H 101.9 F H 101.8 F H Pulse Rate 82 Respiratory 18 Rate Blood Pressure 138/62 O2 Sat by Pulse Oximetry (%) 05/16/18 05/16/18 05/16/18 01:13 04:02 05:40 Temperature 101.5 F H 98.9 F 99 F Pulse Rate 80 65 Respiratory 18 20 Rate Blood Pressure 132/62 104/49 O2 Sat by Pulse Oximetry (%) 05/16/18 05/16/18 05/16/18 09:00 09:43 14:01 Temperature 100.2 F H 101.2 F H Pulse Rate 81 81 Respiratory 20 18 Rate Blood Pressure 120/60 121/55 O2 Sat by Pulse 100 Oximetry (%) 05/16/18 05/16/18 15:01 15:38 Temperature 101.1 F H 99.8 F H Pulse Rate 77 71 Respiratory 20 20 Rate Blood Pressure 114/60 O2 Sat by Pulse Oximetry (%) GENERAL: Awake, alert, and fully oriented, in moderate distress. HEAD: Normal with no signs of trauma. EYES: Tears, glossy EARS, NOSE, THROAT: Pt. on Bipap LUNGS: Prominent diffuse expiratory wheeze, some crackles. Some accessory muscle use, labored breathing. HEART: Soft beat regular rate and rhythm, normal S1 and S2 without murmur ABDOMEN: Soft, obese, nontender, mildly distended, normoactive bowel sounds, no guarding, no rebound, tympanic to percussion on right, dull to percussion on left UPPER EXTREMITIES: 2+ pulses, warm, well-perfused. No cyanosis. No clubbing. Cap refill ~3 seconds. No peripheral edema. LOWER EXTREMITIES: 2+ dorsal pedal pulses, warm, well-perfused. No calf tenderness. No peripheral edema. NEUROLOGICAL: Cranial nerves II-XII intact. Normal speech. Normal gait. PSYCHIATRIC: Cooperative. Good eye contact. Tearful, anxious, asking if she was going to . SKIN: Warm, diaphoretic, normal turgor, 1cm lesions on upper extremities b/l and on right lower ankle Laboratory Results - last 24 hr 05/15/18 05/15/18 05/16/18 18:02 21:08 05:11 WBC RBC Hgb Hct MCV MCH MCHC RDW Plt Count MPV Absolute Neuts (auto) Neutrophils % Lymphocytes % Monocytes % Eosinophils % Basophils % Nucleated RBC % Sodium Potassium Chloride Carbon Dioxide Anion Gap BUN Creatinine Creat Clearance w eGFR POC Glucometer 209 201 85 Random Glucose Calcium Magnesium Total Bilirubin AST ALT Alkaline Phosphatase Total Protein Albumin 05/16/18 05/16/18 05/16/18 10:30 10:30 10:59 WBC 10.3 H RBC 3.12 L Hgb 9.1 L Hct 26.9 L MCV 86.4 MCH 29.3 MCHC 33.9 RDW 15.1 Plt Count 164 D MPV 9.8 Absolute Neuts (auto) 7.5 Neutrophils % 73.0 Lymphocytes % 14.8 D Monocytes % 10.2 Eosinophils % 1.4 Basophils % 0.6 Nucleated RBC % 0 Sodium 141 Potassium 4.1 Chloride 102 Carbon Dioxide 27 Anion Gap 12 BUN 24 H Creatinine 1.6 H Creat Clearance w eGFR 32.77 POC Glucometer 178 Random Glucose 143 H Calcium 8.1 L Magnesium 2.0 Total Bilirubin 0.4 AST 21 ALT 29 Alkaline Phosphatase 86 Total Protein 6.3 L Albumin 2.7 L Active Medications Current Medications Acetaminophen (Tylenol -) 650 mg PO Q6H PRN PRN Reason: FEVER Last Admin: 05/16/18 13:52 Dose: 650 mg Albuterol Sulfate (Ventolin 0.083% Nebulizer Soln -) 1 amp NEB Q4H PRN PRN Reason: SHORT OF BREATH/WHEEZING Albuterol/Ipratropium (Duoneb -) 1 amp NEB RQID [facility] Last Admin: 05/16/18 11:45 Dose: 1 amp Alprazolam (Xanax -) 2 mg PO BID PRN PRN Reason: ANXIETY Last Admin: 05/16/18 11:08 Dose: 2 mg Amlodipine Besylate (Norvasc -) 10 mg PO DAILY [facility] Last Admin: 05/16/18 10:48 Dose: 10 mg Artificial Tears (Artificial Tears) 1 drop OU QID [facility] Last Admin: 05/16/18 13:54 Dose: 1 drop Aspirin (Asa -) 81 mg PO DAILY [facility] Last Admin: 05/16/18 10:47 Dose: 81 mg Atorvastatin Calcium (Lipitor -) 20 mg PO HS [facility] Last Admin: 05/15/18 21:22 Dose: 20 mg Chlorhexidine Gluconate (Hibiclens For Decolonization -) 1 applic TP HS [facility] Chlorhexidine Gluconate (Hibiclens For Decolonization -) 1 applic TP HS [facility] Clindamycin HCl (Cleocin -) 300 mg PO TID [facility] Last Admin: 05/16/18 13:52 Dose: 300 mg Furosemide (Lasix Injection -) 40 mg IVPUSH DAILY [facility] Last Admin: 05/16/18 10:41 Dose: 40 mg Gabapentin (Neurontin -) 300 mg PO BID [facility] Last Admin: 05/16/18 10:47 Dose: 300 mg Heparin Sodium (Porcine) (Heparin -) 5,000 unit SQ Q8H-IV [facility] Last Admin: 05/16/18 10:44 Dose: 5,000 unit Hydralazine HCl (Apresoline -) 50 mg PO BID [facility] Last Admin: 05/16/18 10:48 Dose: 50 mg Hydroxyzine HCl (Atarax -) 50 mg PO HS [facility] Last Admin: 05/15/18 21:22 Dose: 50 mg Meropenem 1 gm/ Dextrose 100 mls @ 200 mls/hr IVPB Q8H-IV [facility] Last Admin: 05/16/18 13:54 Dose: Not Given Insulin Aspart (Novolog Vial Sliding Scale -) 1 vial SQ ACHS [facility]; Protocol Last Admin: 05/16/18 16:46 Dose: 6 units Insulin Detemir (Levemir Vial) 15 units SQ 0700,2200 [facility] Last Admin: 05/16/18 10:40 Dose: Not Given Losartan Potassium (Cozaar -) 100 mg PO DAILY [facility] Last Admin: 05/16/18 10:48 Dose: 100 mg Methylprednisolone Sodium Succinate (Solu-Medrol -) 40 mg IVPUSH Q8H-IV [facility] Last Admin: 05/16/18 11:00 Dose: 40 mg Mupirocin (Bactroban Ointment (For Decolonization) -) 1 applic NS BID [facility] Stop: 05/21/18 21:59 Pantoprazole Sodium (Protonix -) 40 mg PO DAILY [facility] Last Admin: 05/16/18 13:52 Dose: 40 mg Timolol Maleate (Timoptic 0.5%) 1 drop OU BID [facility] Last Admin: 05/16/18 11:12 Dose: 1 drop ASSESSMENT/PLAN: A 63 y.o. F w/ PMHx. of COPD (diagnosed 4 years ago, not on home O2), HTN, IDDM , CKD, recurrent UTIs, fibroids, anxiety, and degenerative joint disease. #Pulmonary -Bilateral PNA, asthma, and acute on chronic COPD exacerbation c/w BiPAP to keep SpO2 above 92% c/w Duonebs PRN RQID c/w ventolin PRN q4h c/w Solu-medrol 40mg q8h c/w Meropenem and Clindamycin c/w Lasix 40mg IVP c/w Tylenol Telemetry monitoring Keep HOB elevated 30-45 degrees f/u flu swab f/u cultures #Urology -Complicated UTI c/w Meropenem and Clindamycin #Cardiovascular -HTN c/w Hydralazine, Lasix, Amlopdipine Echo appreciated -HLD c/w Lipitor #Neurology -Anxiety c/w Xanax -Degenerative Joint Disease c/w Gabapentin c/w Tylenol #Endocrine -IDDM c/w ISS (Novolog and Levemir) c/w Timolol drops #Dermatology -Pruritis 2/2 suspected infection/treatment c/w Clindamycin c/w Hydroxyzine #Nephrology -PRISCILLA vs. CKD Cr. 1.6 monitor Cr. when giving Lasix monitor weights and strict Is & Os maintain Valerio #F/E/N -replete electrolytes as necessary -Hold IVF as Pt. is now overloaded and has responded positively to Lasix #Ppx. Dvt. -Heparin SQ GI - c/w Protonix Dispo: We will continue to follow the patient. Thank you for this consultative opportunity. Visit type - Emergency Visit Emergency Visit: Yes ED Registration Date: 05/14/18 Care time: The patient presented to the Emergency Department on the above date and was hospitalized for further evaluation of their emergent condition. - New Patient This patient is new to me today: Yes Date on this admission: 05/16/18 - Critical Care Critical Care patient: No
[2018-05-16] MEDS: ATORVASTATIN CA 20 MG TABLET (FP) PO SCH (21:26)
[2018-05-16] MEDS: hydrOXYzine HCL 25 MG TABLET (FP) PO SCH (21:34)
[2018-05-16] MEDS ORDERED: CHLORHEXIDINE GLUCONATE 4% CLEANSER FOR DECOLONIZATION TP SCH (22:00)
[2018-05-16] MEDS ORDERED: MUPIROCIN 2% TOPICAL OINTMENT FOR DECOLONIZATION NS SCH (22:00)
[2018-05-17] MEDS: MUPIROCIN 2% TOPICAL OINTMENT FOR DECOLONIZATION NS SCH ×4 (00:46→21:40)
[2018-05-17] MEDS: CHLORHEXIDINE GLUCONATE 4% CLEANSER FOR DECOLONIZATION TP SCH ×2 (00:46→21:37)
[2018-05-17] MEDS: HEPARIN NA (PORCINE) 5,000 UNITS/ML 1ML VIAL SQ SCH ×3 (02:08→17:23)
[2018-05-17] MEDS: MEROPENEM 1 GM in DEXTROSE 5%-WATER 100 ML IVPB SCH ×3 (02:12→17:23)
[2018-05-17] MEDS: methylPREDNISolone NA SUCC 40 MG/1 ML VIAL IVPUSH SCH ×3 (02:12→17:25)
[2018-05-17] MEDS ORDERED: INSULIN (NOVOLOG) ASPART 100 UNITS/ML 10ML VIAL SQ ONE (05:52)
[2018-05-17] MEDS: INSULIN (LEVEMIR) 100 UNITS/ML UNITS SQ SCH ×2 (06:06→21:38)
[2018-05-17] MEDS: INSULIN SLIDING SCALE (NOVOLOG) 1 VIAL SQ SCH ×4 (06:09→21:38)
[2018-05-17] MEDS: CLINDAMYCIN HCL 150 MG CAPSULE (FP) PO SCH ×3 (06:11→21:36)
[2018-05-17 06:57] LABS: CHLORIDE 97 mmol/L (98-107); POTASSIUM 4.8 mmol/L (3.5-5.1); SODIUM 133 mmol/L (136-145)
[2018-05-17 07:04] LABS: ANION GAP 8 MMOL/L (8-16); BLOOD UREA NITROGEN 42 mg/dL (7-18); CALCIUM 7.6 mg/dL (8.5-10.1); CO2 28 mmol/L (21-32); CREATININE 2.4 mg/dL (0.55-1.3); PHOSPHOROUS 4.9 mg/dL (2.5-4.9)
[2018-05-17 07:14] LABS: GLUCOSE,RANDOM 417 mg/dL (74-106)
[2018-05-17] MEDS: ALBUTEROL SO4 2.5/IPRATROPIUM 0.5 INH SOL 3 ML VIAL.NEB. NEB SCH ×4 (08:10→21:40)
[2018-05-17 08:49] LABS: BASO % 0.3 % (0-2.0); EOS % 0.1 % (0-4.5); HEMATOCRIT 25.2 % (32.4-45.2); HEMOGLOBIN 8.6 GM/dL (10.7-15.3); LYMPH % 9.1 % (8-40); MCH 29.6 pg (25.7-33.7); MEAN CELL VOLUME 86.9 fl (80-96); MEAN PLT VOLUME 10.6 fl (7.5-11.1); MONO % 3.8 % (3.8-10.2); NEUT % 86.7 % (42.8-82.8); PLATELET COUNT 153 K/MM3 (134-434); RBC 2.89 M/mm3 (3.60-5.2); RDW 15.6 % (11.6-15.6)
--- NOTE | 2018-05-17 08:51 | PN ---
Physical Exam: SUBJECTIVE: Patient awake and alert, remembers being confused yesterday. feels better now. denies chest pain. still having mild shortness of breath. Patient recalls yesterdays' events of shortness of breath with weakness, numbness and tingling in hands and diaphoresis which prompted her to be transferred to ICU. Feels improved today. OBJECTIVE: Off bipap Desats to low 80s on room air at rest. mild conversational dyspnea. hypotensive Vital Signs Period Temp Pulse Resp BP Sys/Maurer Pulse Ox Last 24 Hr 97.6 F-101.2 F 56-81 13-22 82-121/50-83 97-100 GENERAL: The patient is awake, alert, and fully oriented, in mild respiratory distress. HEAD: Normal with no signs of trauma. EYES: PERRL, extraocular movements intact, sclera anicteric, conjunctiva clear. No ptosis. ENT: Ears normal, nares patent, oropharynx clear without exudates, moist mucous membranes. NECK: Trachea midline, full range of motion, supple. LUNGS: diminished lung sounds, mild wheezing anteriorly, labored breathing, desats to low 80s on room air. HEART: Regular rate and rhythm ABDOMEN: Soft, nontender, nondistended, normoactive bowel sounds, no guarding, no rebound, no hepatosplenomegaly, no masses. EXTREMITIES: no edema. NEUROLOGICAL: Normal speech, gait not observed. PSYCH: Normal mood, normal affect. SKIN: scattered dryed lesions on bilateral upper arms. Laboratory Results - last 24 hr 05/16/18 05/16/18 05/16/18 10:30 10:30 10:59 WBC 10.3 H RBC 3.12 L Hgb 9.1 L Hct 26.9 L MCV 86.4 MCH 29.3 MCHC 33.9 RDW 15.1 Plt Count 164 D MPV 9.8 Absolute Neuts (auto) 7.5 Neutrophils % 73.0 Lymphocytes % 14.8 D Monocytes % 10.2 Eosinophils % 1.4 Basophils % 0.6 Nucleated RBC % 0 Sodium 141 Potassium 4.1 Chloride 102 Carbon Dioxide 27 Anion Gap 12 BUN 24 H Creatinine 1.6 H Creat Clearance w eGFR 32.77 POC Glucometer 178 Random Glucose 143 H Lactic Acid Calcium 8.1 L Phosphorus Magnesium 2.0 Total Bilirubin 0.4 AST 21 ALT 29 Alkaline Phosphatase 86 Total Protein 6.3 L Albumin 2.7 L U Random Total Protein Ur Random Sodium Ur Random Urea Nitrogn Urine Creatinine 05/16/18 05/16/18 05/16/18 15:45 15:45 16:45 WBC RBC Hgb Hct MCV MCH MCHC RDW Plt Count MPV Absolute Neuts (auto) Neutrophils % Lymphocytes % Monocytes % Eosinophils % Basophils % Nucleated RBC % Sodium Potassium Chloride Carbon Dioxide Anion Gap BUN Creatinine Creat Clearance w eGFR POC Glucometer 274 Random Glucose Lactic Acid Calcium Phosphorus Magnesium Total Bilirubin AST ALT Alkaline Phosphatase Total Protein Albumin U Random Total Protein 85 H Ur Random Sodium 77 Ur Random Urea Nitrogn 252 Urine Creatinine 56.9 05/16/18 05/17/18 05/17/18 21:00 05:30 05:30 WBC RBC Hgb Hct MCV MCH MCHC RDW Plt Count MPV Absolute Neuts (auto) Neutrophils % Lymphocytes % Monocytes % Eosinophils % Basophils % Nucleated RBC % Sodium 133 L Potassium 4.8 Chloride 97 L Carbon Dioxide 28 Anion Gap 8 BUN 42 H Creatinine 2.4 H Creat Clearance w eGFR 20.52 POC Glucometer 314 Random Glucose 417 H* Lactic Acid 0.6 Calcium 7.6 L Phosphorus 4.9 Magnesium Total Bilirubin AST ALT Alkaline Phosphatase Total Protein Albumin U Random Total Protein Ur Random Sodium Ur Random Urea Nitrogn Urine Creatinine Active Medications Generic Name Dose Route Start Last Admin Trade Name Rustyq PRN Reason Stop Dose Admin Acetaminophen 650 mg 05/14/18 20:04 05/16/18 13:52 Tylenol - PO 650 mg Q6H PRN Administration FEVER Albuterol Sulfate 1 amp 05/16/18 10:15 Ventolin 0.083% Nebulizer Soln - NEB Q4H PRN SHORT OF BREATH/WHEEZING Albuterol/Ipratropium 1 amp 05/16/18 12:00 05/17/18 08:10 Duoneb - NEB 1 amp RQID [facility] Administration Alprazolam 2 mg 05/15/18 12:09 05/16/18 22:44 Xanax - PO 2 mg BID PRN Administration ANXIETY Amlodipine Besylate 10 mg 05/15/18 12:45 05/16/18 10:48 Norvasc - PO 10 mg DAILY [facility] Administration Artificial Tears 1 drop 05/15/18 14:00 05/16/18 21:29 Artificial Tears OU 1 drop QID [facility] Administration Aspirin 81 mg 05/16/18 10:00 09/18/18 10:47 Asa - PO 81 mg DAILY [facility] Administration Atorvastatin Calcium 20 mg 05/15/18 22:00 05/16/18 21:26 Lipitor - PO 20 mg HS [facility] Administration Chlorhexidine Gluconate 1 applic 05/16/18 22:00 05/17/18 00:46 Hibiclens For Decolonization - TP Not Given HS [facility] Clindamycin HCl 300 mg 05/16/18 14:00 05/17/18 06:11 Cleocin - PO 300 mg TID [facility] Administration Docusate Sodium 100 mg 05/17/18 08:42 Colace - PO Q8H PRN CONSTIPATION Furosemide 40 mg 05/15/18 17:15 05/16/18 10:41 Lasix Injection - IVPUSH 40 mg DAILY [facility] Administration Gabapentin 300 mg 05/15/18 22:00 05/16/18 21:27 Neurontin - PO Not Given BID [facility] Heparin Sodium (Porcine) 5,000 unit 05/14/18 18:00 05/17/18 02:08 Heparin - SQ 5,000 unit Q8H-IV [facility] Administration Hydralazine HCl 50 mg 05/15/18 12:45 05/16/18 21:26 Apresoline - PO 50 mg BID [facility] Administration Hydroxyzine HCl 50 mg 05/15/18 22:00 05/16/18 21:34 Atarax - PO 50 mg HS [facility] Administration Meropenem 1 gm/ Dextrose 100 mls @ 200 mls/hr 05/16/18 12:30 05/17/18 02:12 IVPB 200 mls/hr Q8H-IV [facility] Administration Insulin Aspart 1 vial 05/14/18 22:00 05/17/18 06:09 Novolog Vial Sliding Scale - SQ 10 units ACHS [facility] Administration Protocol Insulin Detemir 15 units 05/15/18 22:00 05/17/18 06:06 Levemir Vial SQ 15 unit 0700,2200 [facility] Administration Losartan Potassium 100 mg 05/15/18 12:45 05/16/18 10:48 Cozaar - PO 100 mg DAILY [facility] Administration Methylprednisolone Sodium Succinate 40 mg 05/16/18 10:00 05/17/18 02:12 Solu-Medrol - IVPUSH 40 mg Q8H-IV [facility] Administration Mupirocin 1 applic 05/16/18 22:00 05/17/18 00:46 Bactroban Ointment (For Decolonization) - NS 05/21/18 21:59 Not Given BID [facility] Pantoprazole Sodium 40 mg 05/16/18 11:30 05/16/18 13:52 Protonix - PO 40 mg DAILY [facility] Administration Senna 1 tab 05/17/18 22:00 Senna - PO HS [facility] Timolol Maleate 1 drop 05/15/18 22:00 05/16/18 21:37 Timoptic 0.5% OU 1 drop BID [facility] Administration ASSESSMENT/PLAN: Patient is a 63 year old female with a significant past medical history of hypertension, hyperlipidemia, obesity, COPD (ex smoker-not home oxygen dependent ), diabetes mellitus, CKD and fibroids. Patient presented to the ED on 05/14/18 with c/o of fevers and generalized weakness. She was treated recently at [facility] for UTIs which she states she completed. After completion of antibiotics, she experienced dysuria, urgency, and frequency. ID: Bilateral pneumonia, acute Fevers in the setting of extensive bilateral pneumonia as seen on CT chest. Leukocytosis improving. tmax 101. Blood cultures pending. On meropenem, clindamycin PO. Maintain oxygen sats above 92% on supplemental oxygen, wean off as tolerated. Respiratory failure/COPD exacerbation: started on solumedrol for acute respiratory distress. Placed on bipap yesterday for respiratory failure. On standing duonebs and lasix iv 40mg daily. Pulmonary following. Card: Hypertension: hypotensive today, hold hypertensive meds if systolic <100. On cozaar, hydralazine bid, norvasc Hyperlipidemia: on lipitor Obesity: bmi 42.3. Dietary consult for morbid obesity. Has other risk factors for heart disease: hld, htn, dm. Endocrine: Diabetes Mellitus: on novolog and levemir. will adjust for elevated BGMs. monitor in the setting of steriods. Renal: CKD: creat bumped up to 1.6. follows renal outpatient. will consult renal. [employer] Up Operator: Uterine fibroids, stable. outpatient follow up. fen tolerating PO monitor electrolytes low salt diet prophy protonix 40mg ICU monitoring. If transitioned off the unit, will need continuous pulse ox monitoring. thank you. full code Visit type - Emergency Visit Emergency Visit: Yes ED Registration Date: 05/14/18 Care time: The patient presented to the Emergency Department on the above date and was hospitalized for further evaluation of their emergent condition. - New Patient This patient is new to me today: No - Critical Care Critical Care patient: Yes Total Critical Care Time (in minutes): 45 Critical Care Statement: The care of this patient involved high complexity decision making to prevent further life threatening deterioration of the patient 's condition and/or to evaluate & treat vital organ system(s) failure or risk of failure.
[2018-05-17 09:23] LABS: ALBUMIN 2.2 g/dl (3.4-5.0); ANION GAP 10 MMOL/L (8-16); BLOOD UREA NITROGEN 44 mg/dL (7-18); CALCIUM 7.7 mg/dL (8.5-10.1); CHLORIDE 100 mmol/L (98-107); CO2 25 mmol/L (21-32); MAGNESIUM 2.4 mg/dL (1.8-2.4); POTASSIUM 4.8 mmol/L (3.5-5.1); SODIUM 135 mmol/L (136-145)
[2018-05-17 09:27] LABS: ALK PHOS 79 U/L (45-117); BILIRUBIN,TOTAL 0.2 mg/dL (0.2-1); CREATININE 2.4 mg/dL (0.55-1.3); SGOT/AST 16 U/L (15-37); SGPT/ALT 27 U/L (13-61)
[2018-05-17 09:38] LABS: GLUCOSE,RANDOM 434 mg/dL (74-106)
[2018-05-17] MEDS: GABAPENTIN 300 MG CAPSULE (FP) PO SCH ×4 (09:59→21:52)
[2018-05-17] MEDS: LOSARTAN POTASSIUM 50 MG TABLET (FP) PO SCH (09:59)
[2018-05-17] MEDS: amLODIPine BESYLATE 10 MG TABLET (FP) PO SCH (09:59)
[2018-05-17] MEDS: ASPIRIN 81 MG CHEWABLE TABLETS PO SCH (09:59)
[2018-05-17] MEDS: PANTOPRAZOLE 40 MG TABLET (FP) PO SCH (10:00)
[2018-05-17] MEDS: hydrALAZINE HCL 50 MG TABLET (FP) PO SCH ×2 (10:00→21:36)
[2018-05-17] MEDS: FUROSEMIDE 40 MG/4 ML INJECTABLE VIAL IVPUSH SCH (10:00)
[2018-05-17] MEDS: ALPRAZolam 2 MG TABLET PO PRN ×2 (10:16→21:36)
[2018-05-17] MEDS ORDERED: Insulin (LOG) Aspart 100 UNITS/ML VIAL SQ ONE (10:45)
--- NOTE | 2018-05-17 11:22 | PN ---
Teaching Attending Note Name of Resident: Clive Martinez ATTENDING PHYSICIAN STATEMENT I saw and evaluated the patient. I reviewed the resident's note and discussed the case with the resident. I agree with the resident's findings and plan as documented. SUBJECTIVE: Pt seen and examined in the ICU. Remained on NRB overnight. Breathing improving today. Fever curve trending down. OBJECTIVE: Vital Signs Period Temp Pulse Resp BP Sys/Maurer Pulse Ox Last 24 Hr 97.6 F-101.2 F 56-81 13-22 82-121/50-83 97-100 Intake & Output 05/14/18 05/15/18 05/16/18 05/17/18 23:59 23:59 23:59 23:59 Intake Total 1999 2400 700 100 Output Total 754 450 Balance 1999 2400 -54 -350 Weight 108.409 kg 108.409 kg 114.39 kg Gen: less tachypneic Heart: RRR Lung: bronchial breath sounds right, +rhonchi Abd: soft, nontender Ext: no edema CBC, BMP 05/17/18 06:30 05/17/18 06:30 Active Medications Acetaminophen (Tylenol -) 650 mg PO Q6H PRN PRN Reason: FEVER Last Admin: 05/16/18 13:52 Dose: 650 mg Albuterol Sulfate (Ventolin 0.083% Nebulizer Soln -) 1 amp NEB Q4H PRN PRN Reason: SHORT OF BREATH/WHEEZING Albuterol/Ipratropium (Duoneb -) 1 amp NEB RQID [facility] Last Admin: 05/17/18 08:10 Dose: 1 amp Alprazolam (Xanax -) 2 mg PO BID PRN PRN Reason: ANXIETY Last Admin: 05/17/18 10:16 Dose: 2 mg Amlodipine Besylate (Norvasc -) 10 mg PO DAILY [facility] Last Admin: 05/17/18 09:59 Dose: 10 mg Artificial Tears (Artificial Tears) 1 drop OU QID [facility] Last Admin: 05/16/18 21:29 Dose: 1 drop Aspirin (Asa -) 81 mg PO DAILY [facility] Last Admin: 05/17/18 09:59 Dose: 81 mg Atorvastatin Calcium (Lipitor -) 20 mg PO [facility] Last Admin: 05/16/18 21:26 Dose: 20 mg Chlorhexidine Gluconate (Hibiclens For Decolonization -) 1 applic TP [facility] Last Admin: 05/17/18 00:46 Dose: Not Given Clindamycin HCl (Cleocin -) 300 mg PO TID [facility] Last Admin: 05/17/18 06:11 Dose: 300 mg Docusate Sodium (Colace -) 100 mg PO Q8H PRN PRN Reason: CONSTIPATION Gabapentin (Neurontin -) 300 mg PO BID [facility] Last Admin: 05/17/18 10:29 Dose: Not Given Heparin Sodium (Porcine) (Heparin -) 5,000 unit SQ Q8H-IV [facility] Last Admin: 05/17/18 10:00 Dose: 5,000 unit Hydralazine HCl (Apresoline -) 50 mg PO BID [facility] Last Admin: 05/17/18 10:00 Dose: 50 mg Hydroxyzine HCl (Atarax -) 50 mg PO [facility] Last Admin: 05/16/18 21:34 Dose: 50 mg Meropenem 1 gm/ Dextrose 100 mls @ 200 mls/hr IVPB Q8H-IV [facility] Last Admin: 05/17/18 02:12 Dose: 200 mls/hr Insulin Aspart (Novolog Vial Sliding Scale -) 1 vial SQ [facility]; Protocol Insulin Detemir (Levemir Vial) 15 units SQ 0700,2200 [facility] Last Admin: 05/17/18 06:06 Dose: 15 unit Losartan Potassium (Cozaar -) 100 mg PO DAILY [facility] Last Admin: 05/17/18 09:59 Dose: 100 mg Methylprednisolone Sodium Succinate (Solu-Medrol -) 40 mg IVPUSH Q8H-IV [facility] Last Admin: 05/17/18 10:00 Dose: 40 mg Mupirocin (Bactroban Ointment (For Decolonization) -) 1 applic NS BID [facility] Stop: 05/21/18 21:59 Last Admin: 05/17/18 10:29 Dose: 1 applic Pantoprazole Sodium (Protonix -) 40 mg PO DAILY [facility] Last Admin: 05/17/18 10:00 Dose: 40 mg Senna (Senna -) 1 tab PO [facility] Timolol Maleate (Timoptic 0.5%) 1 drop OU BID [facility] Last Admin: 05/16/18 21:37 Dose: 1 drop ASSESSMENT AND PLAN: Acute Hypoxic Respiratory Failure Pneumonia UTI Severe Sepsis Acute Kidney Injury Acute COPD Exacerbation Hyperlipidemia HTN Fibroid Uterus Anemia - continue antibiotics per ID - f/u cultures - hold further lasix - monitor urine output, creatinine - continue medrol - inhaled bronchodilators standing and PRN - taper O2 to keep Spo2 >90%, can try nasal cannula - glucose control while on systemic steroids - PO as tolerated - DVT/GI prophylaxis - continue ICU monitoring critical care time spent in reviewing chart, evaluating patient and formulating plan 35 min
--- NOTE | 2018-05-17 11:24 | PN ---
Physical Exam: SUBJECTIVE: Patient seen and examined. Gave aditional units of Novolog this morning for Blood sugar of 417. Pt. stated that her breathing is a little better and claims that the Lasix also helps her breathing. Pt. endorses being a little lethargic still. Pt. states that she has not passed stool since Tuesday. Pt. denies numbess in hands at this time. Pt. states that she has a history of fibroids. Pt. states that she feels nauseous and has heart burn. OBJECTIVE: Vital Signs Period Temp Pulse Resp BP Sys/Maurer Pulse Ox Last 24 Hr 97.6 F-101.2 F 56-81 13-22 82-121/50-83 97-100 GENERAL: The patient is awake, alert, and fully oriented, a little anxious on breathing treatment. ENT: Ears normal, nares patent, moist mucous membranes. LUNGS: decreased breath sounds at lung bases, diffuse wheezes-improved from yesterday, no accessory muscle use, Pt. desaturated to 80s on RA HEART: Regular rate and rhythm, S1, S2 without murmur, rub or gallop. ABDOMEN: Soft, nontender, distended/obese, dull to percusison, normoactive bowel sounds, no guarding, no rebound, mass felt in suprapubic region EXTREMITIES: 2+ dorsal pedal pulses, warm, well-perfused, no calf tenderness, no edema. NEUROLOGICAL: Normal speech, gait not observed. PSYCH: Anxious SKIN: Warm, dry, normal turgor, scattered 1-2cm lesions on forearms b/l and on right ankle Laboratory Results - last 24 hr 05/16/18 05/16/18 05/16/18 10:30 10:59 15:45 WBC RBC Hgb Hct MCV MCH MCHC RDW Plt Count MPV Absolute Neuts (auto) Neutrophils % Lymphocytes % Monocytes % Eosinophils % Basophils % Nucleated RBC % Sodium 141 Potassium 4.1 Chloride 102 Carbon Dioxide 27 Anion Gap 12 BUN 24 H Creatinine 1.6 H Creat Clearance w eGFR 32.77 POC Glucometer 178 Random Glucose 143 H Lactic Acid Calcium 8.1 L Phosphorus Magnesium 2.0 Total Bilirubin 0.4 AST 21 ALT 29 Alkaline Phosphatase 86 Total Protein 6.3 L Albumin 2.7 L U Random Total Protein 85 H Ur Random Sodium 77 Ur Random Urea Nitrogn Urine Creatinine 05/16/18 05/16/18 05/16/18 15:45 16:45 21:00 WBC RBC Hgb Hct MCV MCH MCHC RDW Plt Count MPV Absolute Neuts (auto) Neutrophils % Lymphocytes % Monocytes % Eosinophils % Basophils % Nucleated RBC % Sodium Potassium Chloride Carbon Dioxide Anion Gap BUN Creatinine Creat Clearance w eGFR POC Glucometer 274 314 Random Glucose Lactic Acid Calcium Phosphorus Magnesium Total Bilirubin AST ALT Alkaline Phosphatase Total Protein Albumin U Random Total Protein Ur Random Sodium Ur Random Urea Nitrogn 252 Urine Creatinine 56.9 05/17/18 05/17/18 05/17/18 05:30 05:30 06:30 WBC 10.0 RBC 2.89 L Hgb 8.6 L Hct 25.2 L MCV 86.9 MCH 29.6 MCHC 34.0 RDW 15.6 Plt Count 153 MPV 10.6 Absolute Neuts (auto) 8.7 H Neutrophils % 86.7 H Lymphocytes % 9.1 D Monocytes % 3.8 Eosinophils % 0.1 D Basophils % 0.3 Nucleated RBC % 0 Sodium 133 L Potassium 4.8 Chloride 97 L Carbon Dioxide 28 Anion Gap 8 BUN 42 H Creatinine 2.4 H Creat Clearance w eGFR 20.52 POC Glucometer Random Glucose 417 H* Lactic Acid 0.6 Calcium 7.6 L Phosphorus 4.9 Magnesium Total Bilirubin AST ALT Alkaline Phosphatase Total Protein Albumin U Random Total Protein Ur Random Sodium Ur Random Urea Nitrogn Urine Creatinine 05/17/18 06:30 WBC RBC Hgb Hct MCV MCH MCHC RDW Plt Count MPV Absolute Neuts (auto) Neutrophils % Lymphocytes % Monocytes % Eosinophils % Basophils % Nucleated RBC % Sodium 135 L Potassium 4.8 Chloride 100 Carbon Dioxide 25 Anion Gap 10 BUN 44 H Creatinine 2.4 H Creat Clearance w eGFR 20.52 POC Glucometer Random Glucose 434 H* Lactic Acid Calcium 7.7 L Phosphorus Magnesium 2.4 Total Bilirubin 0.2 AST 16 ALT 27 Alkaline Phosphatase 79 Total Protein 6.0 L Albumin 2.2 L U Random Total Protein Ur Random Sodium Ur Random Urea Nitrogn Urine Creatinine Active Medications Current Medications Acetaminophen (Tylenol -) 650 mg PO Q6H PRN PRN Reason: FEVER Last Admin: 05/16/18 13:52 Dose: 650 mg Albuterol Sulfate (Ventolin 0.083% Nebulizer Soln -) 1 amp NEB Q4H PRN PRN Reason: SHORT OF BREATH/WHEEZING Albuterol/Ipratropium (Duoneb -) 1 amp NEB RQID [facility] Last Admin: 05/17/18 08:10 Dose: 1 amp Alprazolam (Xanax -) 2 mg PO BID PRN PRN Reason: ANXIETY Last Admin: 05/17/18 10:16 Dose: 2 mg Amlodipine Besylate (Norvasc -) 10 mg PO DAILY [facility] Last Admin: 05/17/18 09:59 Dose: 10 mg Artificial Tears (Artificial Tears) 1 drop OU QID [facility] Last Admin: 05/16/18 21:29 Dose: 1 drop Aspirin (Asa -) 81 mg PO DAILY [facility] Last Admin: 05/17/18 09:59 Dose: 81 mg Atorvastatin Calcium (Lipitor -) 20 mg PO HS [facility] Last Admin: 05/16/18 21:26 Dose: 20 mg Chlorhexidine Gluconate (Hibiclens For Decolonization -) 1 applic TP [facility] Last Admin: 05/17/18 00:46 Dose: Not Given Clindamycin HCl (Cleocin -) 300 mg PO TID [facility] Last Admin: 05/17/18 06:11 Dose: 300 mg Docusate Sodium (Colace -) 100 mg PO Q8H PRN PRN Reason: CONSTIPATION Gabapentin (Neurontin -) 300 mg PO BID [facility] Last Admin: 05/17/18 10:29 Dose: Not Given Heparin Sodium (Porcine) (Heparin -) 5,000 unit SQ Q8H-IV [facility] Last Admin: 05/17/18 10:00 Dose: 5,000 unit Hydralazine HCl (Apresoline -) 50 mg PO BID [facility] Last Admin: 05/17/18 10:00 Dose: 50 mg Hydroxyzine HCl (Atarax -) 50 mg PO [facility] Last Admin: 05/16/18 21:34 Dose: 50 mg Meropenem 1 gm/ Dextrose 100 mls @ 200 mls/hr IVPB Q8H-IV [facility] Last Admin: 05/17/18 02:12 Dose: 200 mls/hr Insulin Aspart (Novolog Vial Sliding Scale -) 1 vial SQ ACHS [facility]; Protocol Insulin Detemir (Levemir Vial) 15 units SQ 0700,2200 [facility] Last Admin: 05/17/18 06:06 Dose: 15 unit Losartan Potassium (Cozaar -) 100 mg PO DAILY [facility] Last Admin: 05/17/18 09:59 Dose: 100 mg Methylprednisolone Sodium Succinate (Solu-Medrol -) 40 mg IVPUSH Q8H-IV [facility] Last Admin: 05/17/18 10:00 Dose: 40 mg Mupirocin (Bactroban Ointment (For Decolonization) -) 1 applic NS BID [facility] Stop: 05/21/18 21:59 Last Admin: 05/17/18 10:29 Dose: 1 applic Pantoprazole Sodium (Protonix -) 40 mg PO DAILY [facility] Last Admin: 05/17/18 10:00 Dose: 40 mg Senna (Senna -) 1 tab PO HS [facility] Timolol Maleate (Timoptic 0.5%) 1 drop OU BID [facility] Last Admin: 05/16/18 21:37 Dose: 1 drop ASSESSMENT/PLAN: A 63 y.o. F w/ PMHx. of COPD (diagnosed 4 years ago, not on home O2), HTN, IDDM , CKD, recurrent UTIs, fibroids, anxiety, and degenerative joint disease. #Pulmonary -Bilateral PNA, asthma, and acute on chronic COPD exacerbation c/w BiPAP to keep SpO2 above 92% c/w Duonebs PRN RQID c/w ventolin PRN q4h c/w Solu-medrol 40mg q8h c/w Meropenem and Clindamycin D/c Lasix c/w Tylenol Telemetry monitoring Keep HOB elevated 30-45 degrees Flu swab negative f/u cultures #Urology -Complicated UTI c/w Meropenem and Clindamycin #Cardiovascular -HTN c/w Hydralazine, Amlopdipine hold ARB D/c Lasix as creatinine is rising Echo appreciated -HLD c/w Lipitor #Neurology -Anxiety c/w Xanax -Degenerative Joint Disease c/w Gabapentin c/w Tylenol #Endocrine -IDDM c/w ISS (Novolog and Levemir) c/w Timolol drops #Dermatology -Pruritis 2/2 suspected infection/treatment c/w Clindamycin c/w Hydroxyzine f/u HIV 1/2 4th Gen test #Gastroenterology -Constipation started Senna and Docusate -Nausea likely 2/2 constipation c/w bowel regimen and reevaluate #Nephrology -PRISCILLA Cr. 1.6-->2.4 D/c Lasix as Creatinine has increased monitor weights and strict Is & Os maintain Valerio #F/E/N -replete electrolytes as necessary -Hold IVF as Pt. is now overloaded and has responded positively to Lasix -Diabetic diet #Ppx. Dvt. -Heparin SQ GI - c/w Protonix Dispo: We will continue to follow the patient. Thank you for this consultative opportunity. Visit type - Emergency Visit Emergency Visit: No - New Patient This patient is new to me today: No - Critical Care Critical Care patient: No - Discharge Referral Referred to [facility] Med P.C.: No
[2018-05-17] MEDS: ARTIFICIAL TEARS (POLYVINYL ALCOHOL) OPTH DROPS OU SCH ×4 (11:56→21:36)
[2018-05-17] MEDS: TIMOLOL 0.5% OPHTHALMIC SOL 5 ML BOTTLE OU SCH ×2 (11:56→21:37)
--- NOTE | 2018-05-17 12:14 | PN ---
Progress Note, Physician History of Present Illness: events noted patient became hypoxic and desating was txed to icu and was on bipap now on nasal canula - Current Medication List Current Medications: Active Medications Acetaminophen (Tylenol -) 650 mg PO Q6H PRN PRN Reason: FEVER Last Admin: 05/16/18 13:52 Dose: 650 mg Albuterol Sulfate (Ventolin 0.083% Nebulizer Soln -) 1 amp NEB Q4H PRN PRN Reason: SHORT OF BREATH/WHEEZING Albuterol/Ipratropium (Duoneb -) 1 amp NEB RQID [facility] Last Admin: 05/17/18 08:10 Dose: 1 amp Alprazolam (Xanax -) 2 mg PO BID PRN PRN Reason: ANXIETY Last Admin: 05/17/18 10:16 Dose: 2 mg Amlodipine Besylate (Norvasc -) 10 mg PO DAILY [facility] Last Admin: 05/17/18 09:59 Dose: 10 mg Artificial Tears (Artificial Tears) 1 drop OU QID [facility] Last Admin: 05/17/18 11:56 Dose: 1 drop Aspirin (Asa -) 81 mg PO DAILY [facility] Last Admin: 05/17/18 09:59 Dose: 81 mg Atorvastatin Calcium (Lipitor -) 20 mg PO HS [facility] Last Admin: 05/16/18 21:26 Dose: 20 mg Chlorhexidine Gluconate (Hibiclens For Decolonization -) 1 applic TP HS [facility] Last Admin: 05/17/18 00:46 Dose: Not Given Clindamycin HCl (Cleocin -) 300 mg PO TID [facility] Last Admin: 05/17/18 06:11 Dose: 300 mg Docusate Sodium (Colace -) 100 mg PO Q8H PRN PRN Reason: CONSTIPATION Gabapentin (Neurontin -) 300 mg PO BID [facility] Last Admin: 05/17/18 10:29 Dose: Not Given Heparin Sodium (Porcine) (Heparin -) 5,000 unit SQ Q8H-IV [facility] Last Admin: 05/17/18 10:00 Dose: 5,000 unit Hydralazine HCl (Apresoline -) 50 mg PO BID [facility] Last Admin: 05/17/18 10:00 Dose: 50 mg Hydroxyzine HCl (Atarax -) 50 mg PO HS [facility] Last Admin: 05/16/18 21:34 Dose: 50 mg Meropenem 1 gm/ Dextrose 100 mls @ 200 mls/hr IVPB Q8H-IV [facility] Last Admin: 05/17/18 11:55 Dose: 200 mls/hr Insulin Aspart (Novolog Vial Sliding Scale -) 1 vial SQ ACHS [facility]; Protocol Last Admin: 05/17/18 11:45 Dose: 12 units Insulin Detemir (Levemir Vial) 15 units SQ 0700,2200 [facility] Last Admin: 05/17/18 06:06 Dose: 15 unit Losartan Potassium (Cozaar -) 100 mg PO DAILY [facility] Last Admin: 05/17/18 09:59 Dose: 100 mg Methylprednisolone Sodium Succinate (Solu-Medrol -) 40 mg IVPUSH Q8H-IV [facility] Last Admin: 05/17/18 10:00 Dose: 40 mg Mupirocin (Bactroban Ointment (For Decolonization) -) 1 applic NS BID [facility] Stop: 05/21/18 21:59 Last Admin: 05/17/18 10:29 Dose: 1 applic Pantoprazole Sodium (Protonix -) 40 mg PO DAILY [facility] Last Admin: 05/17/18 10:00 Dose: 40 mg Senna (Senna -) 1 tab PO HS [facility] Timolol Maleate (Timoptic 0.5%) 1 drop OU BID [facility] Last Admin: 05/17/18 11:56 Dose: 1 drop - Objective Vital Signs: Vital Signs Temperature 98 F 05/17/18 12:09 Pulse Rate 68 05/17/18 12:09 Respiratory Rate 15 05/17/18 12:09 Blood Pressure 123/65 05/17/18 12:09 O2 Sat by Pulse Oximetry (%) 100 05/17/18 07:04 Constitutional: Yes: No Distress, Calm Cardiovascular: Yes: Regular Rate and Rhythm Respiratory: Yes: Poor Air Entry, Other (crackles) Gastrointestinal: Yes: Normal Bowel Sounds, Soft Musculoskeletal: Yes: WNL Extremities: Yes: WNL Neurological: Yes: Alert, Oriented Psychiatric: Yes: Alert, Oriented Labs: CBC, BMP 05/17/18 06:30 05/17/18 06:30 INR, PTT INR 1.08 (0.83-1.09) 05/14/18 14:35 - ....Imaging Cat Scan: Report Reviewed, Image Reviewed Assessment/Plan Problem List - Problems (1) Acute exacerbation of chronic obstructive pulmonary disease (COPD) Code(s): J44.1 - CHRONIC OBSTRUCTIVE PULMONARY DISEASE W (ACUTE) EXACERBATION (2) Pulmonary vascular congestion Code(s): R09.89 - OTH SYMPTOMS AND SIGNS INVOLVING THE CIRC AND RESP SYSTEMS (3) Morbid obesity Code(s): E66.01 - MORBID (SEVERE) OBESITY DUE TO EXCESS CALORIES (4) UTI (urinary tract infection) Code(s): N39.0 - URINARY TRACT INFECTION, SITE NOT SPECIFIED Qualifiers: Urinary tract infection type: site unspecified Hematuria presence: without hematuria Qualified Code(s): N39.0 - Urinary tract infection, site not specified (5) Neck pain, bilateral posterior Code(s): M54.2 - CERVICALGIA 6 fever 7 ac hypoxic resp failure ct scan seen reports noted plan continue current abx resp support bipap if needed vent mask if needed rest continue as per icu cc 40 min
[2018-05-17] MEDS ORDERED: INSULIN (LEVEMIR) 100 UNITS/ML UNITS SQ ONE (13:00)
[2018-05-17] MEDS ORDERED: SODIUM CHLORIDE 0.9% 500 ML INFUS.BAG IV ONE (14:52)
--- NOTE | 2018-05-17 14:54 | PN ---
Progress Note (short form) - Note Progress Note: Renal follow up for PRISCILLA Pt seen and examined in the ICU sitting in chair feels a little better has mild SOB no cp, abd pain, N/V/D making urine Vital Signs Temperature 98 F 05/17/18 12:09 Pulse Rate 68 05/17/18 12:09 Respiratory Rate 15 05/17/18 12:09 Blood Pressure 123/65 05/17/18 12:09 O2 Sat by Pulse Oximetry (%) 92 L 05/17/18 09:00 Intake & Output 05/14/18 05/15/18 05/16/18 05/17/18 23:59 23:59 23:59 23:59 Intake Total 1999 2400 700 100 Output Total 754 1150 Balance 1999 2400 -54 -1050 Weight 108.409 kg 108.409 kg 114.39 kg NAD RRR Course rales soft NT/ND trace LE edema CBC, BMP 05/17/18 06:30 05/17/18 06:30 Current Medications Acetaminophen (Tylenol -) 650 mg PO Q6H PRN PRN Reason: FEVER Last Admin: 05/16/18 13:52 Dose: 650 mg Albuterol Sulfate (Ventolin 0.083% Nebulizer Soln -) 1 amp NEB Q4H PRN PRN Reason: SHORT OF BREATH/WHEEZING Albuterol/Ipratropium (Duoneb -) 1 amp NEB RQID [facility] Last Admin: 05/17/18 11:50 Dose: 1 amp Alprazolam (Xanax -) 2 mg PO BID PRN PRN Reason: ANXIETY Last Admin: 05/17/18 10:16 Dose: 2 mg Amlodipine Besylate (Norvasc -) 10 mg PO DAILY [facility] Last Admin: 05/17/18 09:59 Dose: 10 mg Artificial Tears (Artificial Tears) 1 drop OU QID [facility] Last Admin: 05/17/18 14:13 Dose: 1 drop Aspirin (Asa -) 81 mg PO DAILY [facility] Last Admin: 05/17/18 09:59 Dose: 81 mg Atorvastatin Calcium (Lipitor -) 20 mg PO HS [facility] Last Admin: 05/16/18 21:26 Dose: 20 mg Chlorhexidine Gluconate (Hibiclens For Decolonization -) 1 applic TP [facility] Last Admin: 05/17/18 00:46 Dose: Not Given Clindamycin HCl (Cleocin -) 300 mg PO TID [facility] Last Admin: 05/17/18 14:13 Dose: 300 mg Docusate Sodium (Colace -) 100 mg PO Q8H PRN PRN Reason: CONSTIPATION Gabapentin (Neurontin -) 300 mg PO BID [facility] Last Admin: 05/17/18 10:29 Dose: Not Given Heparin Sodium (Porcine) (Heparin -) 5,000 unit SQ Q8H-IV [facility] Last Admin: 05/17/18 10:00 Dose: 5,000 unit Hydralazine HCl (Apresoline -) 50 mg PO BID [facility] Last Admin: 05/17/18 10:00 Dose: 50 mg Hydroxyzine HCl (Atarax -) 50 mg PO HS [facility] Last Admin: 05/16/18 21:34 Dose: 50 mg Meropenem 1 gm/ Dextrose 100 mls @ 200 mls/hr IVPB Q8H-IV [facility] Last Admin: 05/17/18 11:55 Dose: 200 mls/hr Insulin Aspart (Novolog Vial Sliding Scale -) 1 vial SQ [facility]; Protocol Last Admin: 05/17/18 11:45 Dose: 12 units Insulin Detemir (Levemir Vial) 15 units SQ 0700,2200 [facility] Last Admin: 05/17/18 06:06 Dose: 15 unit Methylprednisolone Sodium Succinate (Solu-Medrol -) 40 mg IVPUSH Q8H-IV [facility] Last Admin: 05/17/18 10:00 Dose: 40 mg Mupirocin (Bactroban Ointment (For Decolonization) -) 1 applic NS BID [facility] Stop: 05/21/18 21:59 Last Admin: 05/17/18 10:29 Dose: 1 applic Pantoprazole Sodium (Protonix -) 40 mg PO DAILY [facility] Last Admin: 05/17/18 10:00 Dose: 40 mg Senna (Senna -) 1 tab PO [facility] Timolol Maleate (Timoptic 0.5%) 1 drop OU BID [facility] Last Admin: 05/17/18 11:56 Dose: 1 drop 63 year old woman with Hx of COPD, Hypertension, Hyperlipidemia, recurrent UTI' s and fibroids who presented with generalized weakness and fevers and found to have cysitis +/- PNA/fluid overload with PRISCILLA. #PRISCILLA likely due to fluid shifts in setting of sepsis and IV diuretics +/- ARB r/ o GN/vasculitis (on hydralazine) #Cystitis/Sepsis #CHF vs. PNA #COPD exacerbation #Anemia Renal function stable and pt is non-oliguric by self report Urine studies show low FeUrea indicating preserved tubular function pt has subnephrotic proteinuria MELANY pending Hold ARB as Cr up trended CT showed no effusions and no gross sign of volume overload, would give trial of IVF Continue Abx as per ID Trend renal function and electrolytes avoid nephrotoxins and contrast exposure Pt follows with Dr Ovalles as outpatient, Sr. Bianchi will take over care starting tomorrow Raj Calderón DO
[2018-05-17] MEDS: ONDANSETRON 4 MG TABLET PO ONE ×2 (15:20→15:41)
[2018-05-17] MEDS ORDERED: INSULIN (NOVOLOG) ASPART 100 UNITS/ML 10ML VIAL ONE ×2 (16:28→16:33)
[2018-05-17] MEDS ORDERED: PT OWN MED DRAWER 7, Y5N ONE ×2 (17:19→21:33)
[2018-05-17] MEDS ORDERED: MAG HYDROX/AL HYDROX/SIMETH 30 ML UNIT-DOSE CUP PO ONE (18:29)
[2018-05-17] MEDS ORDERED: HEMOQUE TEST 1 EACH EACH ONE (21:29)
[2018-05-17] MEDS: SENNOSIDES 8.6MG TABLET (FP) PO SCH (21:35)
[2018-05-17] MEDS: DOCUSATE SODIUM 100 MG CAPSULE (FP) PO PRN (21:35)
[2018-05-17] MEDS: ATORVASTATIN CA 20 MG TABLET (FP) PO SCH (21:36)
[2018-05-17] MEDS: hydrOXYzine HCL 25 MG TABLET (FP) PO SCH ×2 (21:36→21:53)
[2018-05-18] MEDS: methylPREDNISolone NA SUCC 40 MG/1 ML VIAL IVPUSH SCH ×2 (01:34→09:25)
[2018-05-18] MEDS: MEROPENEM 1 GM in DEXTROSE 5%-WATER 100 ML IVPB SCH ×3 (01:34→17:17)
[2018-05-18] MEDS: HEPARIN NA (PORCINE) 5,000 UNITS/ML 1ML VIAL SQ SCH ×3 (01:34→17:18)
[2018-05-18] MEDS: CLINDAMYCIN HCL 150 MG CAPSULE (FP) PO SCH ×3 (06:08→22:05)
[2018-05-18] MEDS: INSULIN (LEVEMIR) 100 UNITS/ML UNITS SQ SCH ×2 (06:12→22:03)
[2018-05-18] MEDS: INSULIN SLIDING SCALE (NOVOLOG) 1 VIAL SQ SCH ×5 (06:13→22:02)
[2018-05-18 06:22] LABS: BASO % 0.1 % (0-2.0); EOS % 0.1 % (0-4.5); HEMATOCRIT 26.4 % (32.4-45.2); HEMOGLOBIN 8.7 GM/dL (10.7-15.3); LYMPH % 6.5 % (8-40); MCH 28.7 pg (25.7-33.7); MCHC 32.9 g/dl (32.0-36.0); MEAN CELL VOLUME 87.1 fl (80-96); MEAN PLT VOLUME 10.3 fl (7.5-11.1); NEUT % 89.3 % (42.8-82.8); PLATELET COUNT 171 K/MM3 (134-434); RBC 3.03 M/mm3 (3.60-5.2); RDW 15.7 % (11.6-15.6); WHITE BLOOD COUNT 13.1 K/mm3 (4.0-10.0)
[2018-05-18 06:50] LABS: ALBUMIN 2.3 g/dl (3.4-5.0); ANION GAP 9 MMOL/L (8-16); BLOOD UREA NITROGEN 61 mg/dL (7-18); CALCIUM 8.2 mg/dL (8.5-10.1); CHLORIDE 101 mmol/L (98-107); CO2 27 mmol/L (21-32); CREATININE 2.4 mg/dL (0.55-1.3); MAGNESIUM 2.8 mg/dL (1.8-2.4); PHOSPHOROUS 4.3 mg/dL (2.5-4.9); POTASSIUM 5.2 mmol/L (3.5-5.1); SGOT/AST 11 U/L (15-37); SGPT/ALT 23 U/L (13-61); SODIUM 137 mmol/L (136-145)
[2018-05-18 06:51] LABS: ALK PHOS 76 U/L (45-117); BILIRUBIN,TOTAL 0.2 mg/dL (0.2-1); TOT PROT 6.1 g/dl (6.4-8.2)
[2018-05-18 06:55] LABS: GLUCOSE,RANDOM 410 mg/dL (74-106)
[2018-05-18] MEDS ORDERED: INSULIN (LEVEMIR) 100 UNITS/ML UNITS SQ SCH (08:15)
[2018-05-18] MEDS: ALBUTEROL SO4 2.5/IPRATROPIUM 0.5 INH SOL 3 ML VIAL.NEB. NEB SCH ×4 (08:40→20:04)
[2018-05-18] MEDS ORDERED: PT OWN MED DRAWER 7, Y5N ONE ×3 (08:55→17:10)
[2018-05-18] MEDS: ASPIRIN 81 MG CHEWABLE TABLETS PO SCH (09:25)
[2018-05-18] MEDS: hydrALAZINE HCL 50 MG TABLET (FP) PO SCH ×2 (09:26→22:02)
[2018-05-18] MEDS: amLODIPine BESYLATE 10 MG TABLET (FP) PO SCH (09:26)
[2018-05-18] MEDS: GABAPENTIN 300 MG CAPSULE (FP) PO SCH ×4 (09:26→22:18)
[2018-05-18] MEDS: PANTOPRAZOLE 40 MG TABLET (FP) PO SCH (09:27)
[2018-05-18] MEDS: ARTIFICIAL TEARS (POLYVINYL ALCOHOL) OPTH DROPS OU SCH ×4 (09:58→22:19)
[2018-05-18] MEDS: TIMOLOL 0.5% OPHTHALMIC SOL 5 ML BOTTLE OU SCH ×2 (09:59→22:19)
[2018-05-18] MEDS: MUPIROCIN 2% TOPICAL OINTMENT FOR DECOLONIZATION NS SCH ×2 (10:02→22:06)
[2018-05-18] MEDS: ALPRAZolam 2 MG TABLET PO PRN ×2 (11:11→22:14)
--- NOTE | 2018-05-18 11:19 | PN ---
Progress Note, Physician History of Present Illness: continues to improve breathing better comfortable sitting in chair - Current Medication List Current Medications: Active Medications Acetaminophen (Tylenol -) 650 mg PO Q6H PRN PRN Reason: FEVER Last Admin: 05/16/18 13:52 Dose: 650 mg Albuterol Sulfate (Ventolin 0.083% Nebulizer Soln -) 1 amp NEB Q4H PRN PRN Reason: SHORT OF BREATH/WHEEZING Albuterol/Ipratropium (Duoneb -) 1 amp NEB RQID [facility] Last Admin: 05/17/18 21:40 Dose: 1 amp Alprazolam (Xanax -) 2 mg PO BID PRN PRN Reason: ANXIETY Last Admin: 05/18/18 11:11 Dose: 2 mg Amlodipine Besylate (Norvasc -) 10 mg PO DAILY [facility] Last Admin: 05/18/18 09:26 Dose: 10 mg Artificial Tears (Artificial Tears) 1 drop OU QID [facility] Last Admin: 05/18/18 09:58 Dose: 1 drop Aspirin (Asa -) 81 mg PO DAILY [facility] Last Admin: 05/18/18 09:25 Dose: 81 mg Atorvastatin Calcium (Lipitor -) 20 mg PO HS [facility] Last Admin: 05/17/18 21:36 Dose: 20 mg Chlorhexidine Gluconate (Hibiclens For Decolonization -) 1 applic TP [facility] Last Admin: 05/17/18 21:37 Dose: 1 applic Clindamycin HCl (Cleocin -) 300 mg PO TID [facility] Last Admin: 05/18/18 06:08 Dose: 300 mg Docusate Sodium (Colace -) 100 mg PO Q8H PRN PRN Reason: CONSTIPATION Last Admin: 05/17/18 21:35 Dose: 100 mg Gabapentin (Neurontin -) 300 mg PO BID [facility] Last Admin: 05/18/18 10:18 Dose: Not Given Heparin Sodium (Porcine) (Heparin -) 5,000 unit SQ Q8H-IV [facility] Last Admin: 05/18/18 09:25 Dose: 5,000 unit Hydralazine HCl (Apresoline -) 50 mg PO BID [facility] Last Admin: 05/18/18 09:26 Dose: 50 mg Hydroxyzine HCl (Atarax -) 50 mg PO HS [facility] Last Admin: 05/17/18 21:53 Dose: Not Given Meropenem 1 gm/ Dextrose 100 mls @ 200 mls/hr IVPB Q8H-IV [facility] Last Admin: 05/18/18 09:24 Dose: 200 mls/hr Insulin Aspart (Novolog Vial Sliding Scale -) 1 vial SQ ACHS [facility]; Protocol Last Admin: 05/18/18 08:25 Dose: Not Given Insulin Detemir (Levemir Vial) 25 units SQ 0700,2200 [facility] Last Admin: 05/18/18 08:26 Dose: 5 units Methylprednisolone Sodium Succinate (Solu-Medrol -) 40 mg IVPUSH Q8H-IV [facility] Last Admin: 05/18/18 09:25 Dose: 40 mg Mupirocin (Bactroban Ointment (For Decolonization) -) 1 applic NS BID [facility] Stop: 05/21/18 21:59 Last Admin: 05/18/18 10:02 Dose: 1 applic Pantoprazole Sodium (Protonix -) 40 mg PO DAILY [facility] Last Admin: 05/18/18 09:27 Dose: 40 mg Senna (Senna -) 1 tab PO HS [facility] Last Admin: 05/17/18 21:35 Dose: 1 tab Timolol Maleate (Timoptic 0.5%) 1 drop OU BID [facility] Last Admin: 05/18/18 09:59 Dose: 1 drop - Objective Vital Signs: Vital Signs Temperature 98.2 F 05/18/18 06:00 Pulse Rate 73 05/18/18 08:00 Respiratory Rate 20 05/18/18 08:00 Blood Pressure 106/55 05/18/18 08:00 O2 Sat by Pulse Oximetry (%) 92 L 05/18/18 07:37 Constitutional: Yes: No Distress, Calm Cardiovascular: Yes: Regular Rate and Rhythm Respiratory: Yes: Regular Gastrointestinal: Yes: Normal Bowel Sounds, Soft Musculoskeletal: Yes: WNL Extremities: Yes: WNL Neurological: Yes: Alert, Oriented Psychiatric: Yes: Alert, Oriented Labs: CBC, BMP 05/18/18 05:30 05/18/18 05:30 INR, PTT INR 1.08 (0.83-1.09) 05/14/18 14:35 Assessment/Plan Problem List - Problems (1) Acute exacerbation of chronic obstructive pulmonary disease (COPD) Code(s): J44.1 - CHRONIC OBSTRUCTIVE PULMONARY DISEASE W (ACUTE) EXACERBATION (2) Pulmonary vascular congestion Code(s): R09.89 - OTH SYMPTOMS AND SIGNS INVOLVING THE CIRC AND RESP SYSTEMS (3) Morbid obesity Code(s): E66.01 - MORBID (SEVERE) OBESITY DUE TO EXCESS CALORIES (4) UTI (urinary tract infection) Code(s): N39.0 - URINARY TRACT INFECTION, SITE NOT SPECIFIED Qualifiers: Urinary tract infection type: site unspecified Hematuria presence: without hematuria Qualified Code(s): N39.0 - Urinary tract infection, site not specified (5) Neck pain, bilateral posterior Code(s): M54.2 - CERVICALGIA 6 fever 7 ac hypoxic resp failure ct scan seen reports noted plan continue current abx monitor wbc resp support bipap if needed vent mask if needed rest continue as per icu cc 40 min
[2018-05-18 11:47] VITALS: BMI 44.6
--- NOTE | 2018-05-18 12:01 | PN ---
Teaching Attending Note Name of Resident: Clive Martinez ATTENDING PHYSICIAN STATEMENT I saw and evaluated the patient. I reviewed the resident's note and discussed the case with the resident. I agree with the resident's findings and plan as documented. SUBJECTIVE: Pt seen and examined in the ICU. Breathing continues to improve. Required BiPAP overnight. No fevers or chills. +nonproductive cough. OBJECTIVE: Vital Signs Period Temp Pulse Resp BP Sys/Maurer Pulse Ox Last 24 Hr 97.9 F-98.4 F 53-73 15-23 102-127/51-90 92-92 Intake & Output 05/15/18 05/16/18 05/17/18 05/18/18 23:59 23:59 23:59 23:59 Intake Total 2400 700 1230 Output Total 754 1400 300 Balance 2400 -54 -170 -300 Weight 108.409 kg 114.39 kg Gen: NAD in chair Heart: RRR Lung: scattered rales right Abd: soft, nontender Ext: no edema CBC, BMP 05/18/18 05:30 05/18/18 05:30 Active Medications Acetaminophen (Tylenol -) 650 mg PO Q6H PRN PRN Reason: FEVER Last Admin: 05/16/18 13:52 Dose: 650 mg Albuterol Sulfate (Ventolin 0.083% Nebulizer Soln -) 1 amp NEB Q4H PRN PRN Reason: SHORT OF BREATH/WHEEZING Albuterol/Ipratropium (Duoneb -) 1 amp NEB RQID [facility] Last Admin: 05/17/18 21:40 Dose: 1 amp Alprazolam (Xanax -) 2 mg PO BID PRN PRN Reason: ANXIETY Last Admin: 05/18/18 11:11 Dose: 2 mg Amlodipine Besylate (Norvasc -) 10 mg PO DAILY [facility] Last Admin: 05/18/18 09:26 Dose: 10 mg Artificial Tears (Artificial Tears) 1 drop OU QID [facility] Last Admin: 05/18/18 09:58 Dose: 1 drop Aspirin (Asa -) 81 mg PO DAILY [facility] Last Admin: 05/18/18 09:25 Dose: 81 mg Atorvastatin Calcium (Lipitor -) 20 mg PO [facility] Last Admin: 05/17/18 21:36 Dose: 20 mg Chlorhexidine Gluconate (Hibiclens For Decolonization -) 1 applic TP [facility] Last Admin: 05/17/18 21:37 Dose: 1 applic Clindamycin HCl (Cleocin -) 300 mg PO TID [facility] Last Admin: 05/18/18 06:08 Dose: 300 mg Docusate Sodium (Colace -) 100 mg PO Q8H PRN PRN Reason: CONSTIPATION Last Admin: 05/17/18 21:35 Dose: 100 mg Gabapentin (Neurontin -) 300 mg PO BID [facility] Last Admin: 05/18/18 10:18 Dose: Not Given Heparin Sodium (Porcine) (Heparin -) 5,000 unit SQ Q8H-IV [facility] Last Admin: 05/18/18 09:25 Dose: 5,000 unit Hydralazine HCl (Apresoline -) 50 mg PO BID [facility] Last Admin: 05/18/18 09:26 Dose: 50 mg Hydroxyzine HCl (Atarax -) 50 mg PO [facility] Last Admin: 05/17/18 21:53 Dose: Not Given Meropenem 1 gm/ Dextrose 100 mls @ 200 mls/hr IVPB Q8H-IV [facility] Last Admin: 05/18/18 09:24 Dose: 200 mls/hr Insulin Aspart (Novolog Vial Sliding Scale -) 1 vial SQ [facility]; Protocol Last Admin: 05/18/18 08:25 Dose: Not Given Insulin Detemir (Levemir Vial) 25 units SQ 0700,2200 [facility] Last Admin: 05/18/18 08:26 Dose: 5 units Mupirocin (Bactroban Ointment (For Decolonization) -) 1 applic NS BID [facility] Stop: 05/21/18 21:59 Last Admin: 05/18/18 10:02 Dose: 1 applic Pantoprazole Sodium (Protonix -) 40 mg PO DAILY [facility] Last Admin: 05/18/18 09:27 Dose: 40 mg Prednisone (Deltasone -) 40 mg PO DAILY [facility] Senna (Senna -) 1 tab PO [facility] Last Admin: 05/17/18 21:35 Dose: 1 tab Timolol Maleate (Timoptic 0.5%) 1 drop OU BID [facility] Last Admin: 05/18/18 09:59 Dose: 1 drop ASSESSMENT AND PLAN: Acute Hypoxic Respiratory Failure Pneumonia UTI Severe Sepsis Acute Kidney Injury Acute COPD Exacerbation Hyperlipidemia HTN Fibroid Uterus Anemia - continue antibiotics per ID - f/u cultures - IVF per renal - monitor urine output, creatinine - can change steroids to prednisone 40mg daily - inhaled bronchodilators standing and PRN - O2 to keep Spo2 >90% - glucose control while on systemic steroids - PO as tolerated - DVT/GI prophylaxis - can monitor on floor
--- NOTE | 2018-05-18 13:20 | PN ---
Physical Exam: SUBJECTIVE: Patient seen and examined at the bedside. Feels better today. Tolerating nasal cannula. OBJECTIVE: Vital Signs Period Temp Pulse Resp BP Sys/Maurer Pulse Ox Last 24 Hr 97.9 F-98.4 F 53-73 15-23 102-127/51-90 92-92 GENERAL: The patient is awake, alert, and fully oriented, in mild respiratory distress. HEAD: Normal with no signs of trauma. EYES: PERRL, extraocular movements intact, sclera anicteric, conjunctiva clear. No ptosis. ENT: Ears normal, nares patent, oropharynx clear without exudates, moist mucous membranes. NECK: Trachea midline, full range of motion, supple. LUNGS: diminished lung sounds, mild wheezing anteriorly, labored breathing, desats to low 80s on room air. HEART: Regular rate and rhythm ABDOMEN: Soft, nontender, nondistended, normoactive bowel sounds, no guarding, no rebound, no hepatosplenomegaly, no masses. EXTREMITIES: no edema. NEUROLOGICAL: Normal speech, gait not observed. PSYCH: Normal mood, normal affect. SKIN: scattered small dried lesions on bilateral upper arms. Laboratory Results - last 24 hr 05/17/18 05/17/18 05/18/18 12:43 21:27 05:30 WBC 13.1 H RBC 3.03 L Hgb 8.7 L Hct 26.4 L MCV 87.1 MCH 28.7 MCHC 32.9 RDW 15.7 H Plt Count 171 MPV 10.3 Absolute Neuts (auto) 11.7 H Neutrophils % 89.3 H Lymphocytes % 6.5 L D Monocytes % 4.0 Eosinophils % 0.1 Basophils % 0.1 Nucleated RBC % 0 Sodium Potassium Chloride Carbon Dioxide Anion Gap BUN Creatinine Creat Clearance w eGFR POC Glucometer [phone] Random Glucose Calcium Phosphorus Magnesium Total Bilirubin AST ALT Alkaline Phosphatase Total Protein Albumin HIV 1&2 Antibody Screen Negative HIV P24 Antigen Negative 05/18/18 05/18/18 05/18/18 05:30 06:10 12:00 WBC RBC Hgb Hct MCV MCH MCHC RDW Plt Count MPV Absolute Neuts (auto) Neutrophils % Lymphocytes % Monocytes % Eosinophils % Basophils % Nucleated RBC % Sodium 137 Potassium 5.2 H Chloride 101 Carbon Dioxide 27 Anion Gap 9 BUN 61 H Creatinine 2.4 H Creat Clearance w eGFR 20.52 POC Glucometer > 400 > 400 Random Glucose 410 H* Calcium 8.2 L Phosphorus 4.3 Magnesium 2.8 H Total Bilirubin 0.2 AST 11 L ALT 23 Alkaline Phosphatase 76 Total Protein 6.1 L Albumin 2.3 L HIV 1&2 Antibody Screen HIV P24 Antigen Active Medications Generic Name Dose Route Start Last Admin Trade Name Freq PRN Reason Stop Dose Admin Acetaminophen 650 mg 05/14/18 20:04 05/16/18 13:52 Tylenol - PO 650 mg Q6H PRN Administration FEVER Albuterol Sulfate 1 amp 05/16/18 10:15 Ventolin 0.083% Nebulizer Soln - NEB Q4H PRN SHORT OF BREATH/WHEEZING Albuterol/Ipratropium 1 amp 05/16/18 12:00 05/18/18 11:50 Duoneb - NEB 1 amp RQID [facility] Administration Alprazolam 2 mg 05/15/18 12:09 05/18/18 11:11 Xanax - PO 2 mg BID PRN Administration ANXIETY Amlodipine Besylate 10 mg 05/15/18 12:45 05/18/18 09:26 Norvasc - PO 10 mg DAILY [facility] Administration Artificial Tears 1 drop 05/15/18 14:00 05/18/18 13:12 Artificial Tears OU 1 drop QID [facility] Administration Aspirin 81 mg 05/16/18 10:00 05/18/18 09:25 Asa - PO 81 mg DAILY [facility] Administration Atorvastatin Calcium 20 mg 05/15/18 22:00 05/17/18 21:36 Lipitor - PO 20 mg HS [facility] Administration Chlorhexidine Gluconate 1 applic 05/16/18 22:00 05/17/18 21:37 Hibiclens For Decolonization - TP 1 applic HS [facility] Administration Clindamycin HCl 300 mg 05/16/18 14:00 05/18/18 13:12 Cleocin - PO 300 mg TID [facility] Administration Docusate Sodium 100 mg 05/17/18 08:42 05/17/18 21:35 Colace - PO 100 mg Q8H PRN Administration CONSTIPATION Gabapentin 300 mg 05/15/18 22:00 05/18/18 10:18 Neurontin - PO Not Given BID [facility] Heparin Sodium (Porcine) 5,000 unit 05/14/18 18:00 05/18/18 09:25 Heparin - SQ 5,000 unit Q8H-IV [facility] Administration Hydralazine HCl 50 mg 05/15/18 12:45 05/18/18 09:26 Apresoline - PO 50 mg BID [facility] Administration Hydroxyzine HCl 50 mg 05/15/18 22:00 05/17/18 21:53 Atarax - PO Not Given HS [facility] Meropenem 1 gm/ Dextrose 100 mls @ 200 mls/hr 05/16/18 12:30 05/18/18 09:24 IVPB 200 mls/hr Q8H-IV [facility] Administration Insulin Aspart 1 vial 05/18/18 08:15 05/18/18 12:04 Novolog Vial Sliding Scale - SQ 14 units ACHS [facility] Administration Protocol Insulin Detemir 25 units 05/18/18 08:15 05/18/18 08:26 Levemir Vial SQ 5 units 0700,2200 [facility] Administration Mupirocin 1 applic 05/16/18 22:00 05/18/18 10:02 Bactroban Ointment (For Decolonization) - NS 05/21/18 21:59 1 applic BID [facility] Administration Pantoprazole Sodium 40 mg 05/16/18 11:30 05/18/18 09:27 Protonix - PO 40 mg DAILY [facility] Administration Prednisone 40 mg 05/19/18 10:00 Deltasone - PO DAILY [facility] Senna 1 tab 05/17/18 22:00 05/17/18 21:35 Senna - PO 1 tab HS [facility] Administration Timolol Maleate 1 drop 05/15/18 22:00 05/18/18 09:59 Timoptic 0.5% OU 1 drop BID [facility] Administration ASSESSMENT/PLAN: Patient is a 63 year old female with a significant past medical history of hypertension, hyperlipidemia, obesity, COPD (ex smoker-not home oxygen dependent ), diabetes mellitus, CKD and fibroids. Patient presented to the ED on 05/14/18 with c/o of fevers and generalized weakness. She was treated recently at [facility] for UTIs which she states she completed. After completion of antibiotics, she experienced dysuria, urgency, frequency along with general malaise. ID: Bilateral pneumonia: Fevers resolved. extensive bilateral pneumonia as seen on CT chest. Leukocytosis improving. Blood cultures pending. On meropenem, clindamycin PO. Maintain oxygen sats above 92% on supplemental oxygen, currently on nasal cannula @ 4 liters. Respiratory failure/COPD exacerbation: started on solumedrol for acute respiratory distress. on bipap @ hs. On standing duonebs. wean off steriods per pulmonary. Card: Hypertension: On cozaar, hydralazine bid, norvasc Hyperlipidemia: on lipitor Obesity: bmi 42.3. Dietary following. Has other risk factors for heart disease : hld, htn, dm. Endocrine: Diabetes Mellitus: on novolog and levemir bid. will re-adjust for elevated BGMs. monitor in the setting of steriods. Renal: CKD: creat bumped up to 2.4. follows renal outpatient. will consult renal. Collar Feller: Uterine fibroids, stable. outpatient follow up. fen tolerating PO monitor electrolytes low salt diet prophy protonix Visit type - Emergency Visit Emergency Visit: Yes ED Registration Date: 05/14/18 Care time: The patient presented to the Emergency Department on the above date and was hospitalized for further evaluation of their emergent condition. - New Patient This patient is new to me today: No - Critical Care Critical Care patient: Yes Total Critical Care Time (in minutes): 45 Critical Care Statement: The care of this patient involved high complexity decision making to prevent further life threatening deterioration of the patient 's condition and/or to evaluate & treat vital organ system(s) failure or risk of failure. - Discharge Referral Referred to [facility] No
--- NOTE | 2018-05-18 15:02 | PN ---
Physical Exam: SUBJECTIVE: Patient seen and examined. Pt. has been waking up confused for the last 2 days confused and paranoid. She states that she forgets where she is and calls for her niece who isnt here. She also thought a screw on the wall was a camera secretly recording her. I assured the Pt. that she was not being recorded and that there were no cameras in her room and that this was most likely a side effect of the high steroid dose that she was on. Pt. has not had a bowel movement since Tuesday/Tuesday but says she thinks its because she is in the hospital. Pt. was on BiPAP overnight for 2 hours but took off the mask because she wanted to sleep more comfortably. During our 15 min discussion Pt. as on RA and desaturated to 89% before quickly stabilizing at 93%. Pt. asking for Sleep study and for removal of fibroids. Pt. in the evening received 30 units outside of the scheduled coverage 2/2 to high-dose steroids. OBJECTIVE: Vital Signs Period Temp Pulse Resp BP Sys/Maurer Pulse Ox Last 24 Hr 97.9 F-98.4 F 53-73 15-23 102-127/51-90 92-92 GENERAL: The patient is awake, alert, and fully oriented, in no acute distress sitting up eating. EYES: sclera anicteric, conjunctiva clear. ENT: Ears normal, nares patent, moist mucous membranes. LUNGS: Decreased breath sounds, no wheezes, no crackles, no accessory muscle use. HEART: Regular rate and rhythm, S1, S2 without murmur ABDOMEN: Soft, obese, nontender, distended, normoactive bowel sounds, no guarding, no rebound, mass present in the suprapubic region( Hx. of fibroids). EXTREMITIES: 2+ dorsal pedal pulses, warm, well-perfused, no edema. NEUROLOGICAL: Normal speech, gait not observed. PSYCH: Normal mood, normal affect. SKIN: Warm, dry, normal turgor Laboratory Results - last 24 hr 05/17/18 05/18/18 05/18/18 21:27 05:30 05:30 WBC 13.1 H RBC 3.03 L Hgb 8.7 L Hct 26.4 L MCV 87.1 MCH 28.7 MCHC 32.9 RDW 15.7 H Plt Count 171 MPV 10.3 Absolute Neuts (auto) 11.7 H Neutrophils % 89.3 H Lymphocytes % 6.5 L D Monocytes % 4.0 Eosinophils % 0.1 Basophils % 0.1 Nucleated RBC % 0 Sodium 137 Potassium 5.2 H Chloride 101 Carbon Dioxide 27 Anion Gap 9 BUN 61 H Creatinine 2.4 H Creat Clearance w eGFR 20.52 POC Glucometer [phone] Random Glucose 410 H* Calcium 8.2 L Phosphorus 4.3 Magnesium 2.8 H Total Bilirubin 0.2 AST 11 L ALT 23 Alkaline Phosphatase 76 Total Protein 6.1 L Albumin 2.3 L 05/18/18 05/18/18 06:10 12:00 WBC RBC Hgb Hct MCV MCH MCHC RDW Plt Count MPV Absolute Neuts (auto) Neutrophils % Lymphocytes % Monocytes % Eosinophils % Basophils % Nucleated RBC % Sodium Potassium Chloride Carbon Dioxide Anion Gap BUN Creatinine Creat Clearance w eGFR POC Glucometer > 400 > 400 Random Glucose Calcium Phosphorus Magnesium Total Bilirubin AST ALT Alkaline Phosphatase Total Protein Albumin Active Medications Current Medications Acetaminophen (Tylenol -) 650 mg PO Q6H PRN PRN Reason: FEVER Last Admin: 05/16/18 13:52 Dose: 650 mg Albuterol Sulfate (Ventolin 0.083% Nebulizer Soln -) 1 amp NEB Q4H PRN PRN Reason: SHORT OF BREATH/WHEEZING Albuterol/Ipratropium (Duoneb -) 1 amp NEB RQID [facility] Last Admin: 05/18/18 11:50 Dose: 1 amp Alprazolam (Xanax -) 2 mg PO BID PRN PRN Reason: ANXIETY Last Admin: 05/18/18 11:11 Dose: 2 mg Amlodipine Besylate (Norvasc -) 10 mg PO DAILY [facility] Last Admin: 05/18/18 09:26 Dose: 10 mg Artificial Tears (Artificial Tears) 1 drop OU QID [facility] Last Admin: 05/18/18 13:12 Dose: 1 drop Aspirin (Asa -) 81 mg PO DAILY [facility] Last Admin: 05/18/18 09:25 Dose: 81 mg Atorvastatin Calcium (Lipitor -) 20 mg PO HS [facility] Last Admin: 05/17/18 21:36 Dose: 20 mg Chlorhexidine Gluconate (Hibiclens For Decolonization -) 1 applic TP [facility] Last Admin: 05/17/18 21:37 Dose: 1 applic Clindamycin HCl (Cleocin -) 300 mg PO TID [facility] Last Admin: 05/18/18 13:12 Dose: 300 mg Docusate Sodium (Colace -) 100 mg PO Q8H PRN PRN Reason: CONSTIPATION Last Admin: 05/17/18 21:35 Dose: 100 mg Gabapentin (Neurontin -) 300 mg PO BID [facility] Last Admin: 05/18/18 10:18 Dose: Not Given Heparin Sodium (Porcine) (Heparin -) 5,000 unit SQ Q8H-IV [facility] Last Admin: 05/18/18 09:25 Dose: 5,000 unit Hydralazine HCl (Apresoline -) 50 mg PO BID [facility] Last Admin: 05/18/18 09:26 Dose: 50 mg Hydroxyzine HCl (Atarax -) 50 mg PO [facility] Last Admin: 05/17/18 21:53 Dose: Not Given Meropenem 1 gm/ Dextrose 100 mls @ 200 mls/hr IVPB Q8H-IV [facility] Last Admin: 05/18/18 09:24 Dose: 200 mls/hr Insulin Aspart (Novolog Vial Sliding Scale -) 1 vial SQ ACHS [facility]; Protocol Last Admin: 05/18/18 12:04 Dose: 14 units Insulin Detemir (Levemir Vial) 25 units SQ 0700,2200 [facility] Last Admin: 05/18/18 08:26 Dose: 5 units Mupirocin (Bactroban Ointment (For Decolonization) -) 1 applic NS BID [facility] Stop: 05/21/18 21:59 Last Admin: 05/18/18 10:02 Dose: 1 applic Pantoprazole Sodium (Protonix -) 20 mg PO DAILY [facility] Prednisone (Deltasone -) 40 mg PO DAILY [facility] Senna (Senna -) 1 tab PO HS [facility] Last Admin: 05/17/18 21:35 Dose: 1 tab Timolol Maleate (Timoptic 0.5%) 1 drop OU BID [facility] Last Admin: 05/18/18 09:59 Dose: 1 drop ASSESSMENT/PLAN: A 63 y.o. F w/ PMHx. of COPD (diagnosed 4 years ago, not on home O2), HTN, IDDM , CKD, recurrent UTIs, fibroids, anxiety, and degenerative joint disease. #Pulmonary -Bilateral PNA, asthma, and acute on chronic COPD exacerbation c/w BiPAP to keep SpO2 above 92% as Needed c/w Duonebs PRN RQID c/w ventolin PRN q4h c/w Solu-medrol 40mg q8h c/w Meropenem and Clindamycin D/c Lasix as creatinine is elevated at 2.4 c/w Tylenol for fever Telemetry monitoring Keep HOB elevated 30-45 degrees Flu swab negative f/u cultures #Urology -Complicated UTI-resolving c/w Meropenem and Clindamycin #Cardiovascular -HTN c/w Hydralazine, Amlopdipine hold ARB D/c Lasix as creatinine elevated at 2.4 Echo appreciated -HLD c/w Lipitor #Neurology -Anxiety c/w Xanax -Degenerative Joint Disease c/w Gabapentin c/w Tylenol #Endocrine -IDDM c/w Novolog and Levemir on sliding scale Increased Levemir to 30 units as Pt.'s glucose has been in 400s d/t c/w Timolol drops #Dermatology -Pruritis 2/2 suspected infection/treatment c/w Clindamycin c/w Hydroxyzine HIV negative #Gastroenterology -Constipation Fibroid uterus seen on CT A/P started Senna and Docusate -Nausea likely 2/2 constipation c/w bowel regimen and reevaluate #Nephrology -PRISCILLA Cr. 1.6-->2.4-->2.4 D/c Lasix and holding Losartan as Creatinine is elevated monitor weights and strict Is & Os maintain Valerio #F/E/N -replete electrolytes as necessary -Hold IVF as Pt. is now overloaded and has responded positively to Lasix -Diabetic diet #Ppx. Dvt. -Heparin SQ GI - c/w Protonix Dispo: We will continue to follow the patient. Thank you for this consultative opportunity. Visit type - Emergency Visit Emergency Visit: No - New Patient This patient is new to me today: No - Critical Care Critical Care patient: No - Discharge Referral Referred to [facility] Med P.C.: No
[2018-05-18] MEDS ORDERED: INSULIN (NOVOLOG) ASPART 100 UNITS/ML 10ML VIAL SQ ONE (15:16)
[2018-05-18 20:41] LABS: ANION GAP 9 MMOL/L (8-16); BLOOD UREA NITROGEN 63 mg/dL (7-18); CALCIUM 9.1 mg/dL (8.5-10.1); CHLORIDE 99 mmol/L (98-107); CO2 26 mmol/L (21-32); POTASSIUM 5.1 mmol/L (3.5-5.1); SODIUM 135 mmol/L (136-145)
[2018-05-18 21:07] LABS: GLUCOSE,RANDOM 385 mg/dL (74-106)
--- NOTE | 2018-05-18 21:30 | PN ---
Progress Note (short form) - Note Progress Note: Nephrology Note 63 year old female office patient seen for management of chronic kidney disease. Patient has a history of insulin requiring diabtes mellitus, hypertension, uterine fibroid and recurrent urinary tract infection. Patient presented on the day of admission with fever and nocturnal chills and dysuria after two failed attempts at outpatient treatment. Patient was transferred to the ICU for ? low oxygen saturation. She is feeling better today and now longer reports flank discomfort Vitals: Vital Signs (72 hours) 05/15/18 05/15/18 05/15/18 22:00 22:35 23:45 Temperature 102 F H 101.9 F H 101.8 F H Pulse Rate 82 Respiratory 18 Rate Blood Pressure 138/62 O2 Sat by Pulse Oximetry (%) 05/16/18 05/16/18 05/16/18 01:13 04:02 05:40 Temperature 101.5 F H 98.9 F 99 F Pulse Rate 80 65 Respiratory 18 20 Rate Blood Pressure 132/62 104/49 O2 Sat by Pulse Oximetry (%) 05/16/18 05/16/18 05/16/18 09:00 09:43 14:01 Temperature 100.2 F H 101.2 F H Pulse Rate 81 81 Respiratory 20 18 Rate Blood Pressure 120/60 121/55 O2 Sat by Pulse 100 Oximetry (%) 05/16/18 05/16/18 05/16/18 15:01 15:20 15:38 Temperature 101.1 F H 99.8 F H Pulse Rate 77 71 Respiratory 20 20 Rate Blood Pressure 114/60 O2 Sat by Pulse 97 Oximetry (%) 05/16/18 05/16/18 05/16/18 16:30 16:42 18:32 Temperature 98.3 F 98.2 F Pulse Rate 60 63 Respiratory 18 18 Rate Blood Pressure 103/51 101/56 O2 Sat by Pulse 98 Oximetry (%) 05/16/18 05/16/18 05/17/18 20:42 22:00 00:00 Temperature 98.6 F 97.6 F Pulse Rate 60 60 58 L Respiratory 18 17 15 Rate Blood Pressure 111/61 117/83 82/53 O2 Sat by Pulse Oximetry (%) 05/17/18 05/17/18 05/17/18 00:11 00:19 02:00 Temperature 97.8 F Pulse Rate 57 L 60 Respiratory 22 Rate Blood Pressure 98/51 O2 Sat by Pulse 100 100 Oximetry (%) 05/17/18 05/17/18 05/17/18 02:50 04:00 05:44 Temperature Pulse Rate 56 L Respiratory 13 Rate Blood Pressure 99/56 O2 Sat by Pulse 100 100 Oximetry (%) 05/17/18 05/17/18 05/17/18 06:00 07:04 08:30 Temperature 97.8 F Pulse Rate 73 69 67 Respiratory 14 22 Rate Blood Pressure 94/50 95/70 O2 Sat by Pulse 100 Oximetry (%) 05/17/18 05/17/18 05/17/18 09:00 12:09 15:40 Temperature 98 F Pulse Rate 68 67 Respiratory 15 23 Rate Blood Pressure 123/65 108/83 O2 Sat by Pulse 92 L Oximetry (%) 05/17/18 05/17/18 05/17/18 17:16 19:00 21:00 Temperature 98.3 F Pulse Rate 64 69 65 Respiratory 17 19 17 Rate Blood Pressure 118/90 112/51 107/55 O2 Sat by Pulse 92 L Oximetry (%) 05/17/18 05/18/18 05/18/18 23:00 00:00 02:00 Temperature 98.4 F Pulse Rate 58 L 53 L 59 L Respiratory 15 18 18 Rate Blood Pressure 110/58 110/58 102/56 O2 Sat by Pulse Oximetry (%) 05/18/18 05/18/18 05/18/18 04:00 06:00 07:37 Temperature 98.2 F Pulse Rate 70 69 Respiratory 18 18 18 Rate Blood Pressure 107/65 108/57 O2 Sat by Pulse 92 L Oximetry (%) 05/18/18 05/18/18 05/18/18 08:00 10:00 12:00 Temperature 97.9 F Pulse Rate 73 65 64 Respiratory 20 17 20 Rate Blood Pressure 106/55 127/68 126/73 O2 Sat by Pulse Oximetry (%) 05/18/18 05/18/18 05/18/18 14:00 16:00 18:00 Temperature Pulse Rate 60 65 67 Respiratory 18 21 18 Rate Blood Pressure 131/69 139/89 140/57 O2 Sat by Pulse Oximetry (%) Lungs; coarse breath sound in both lung tavares Heart: S1 S2 Regular, no gallop Abd: Full, soft, no CVAT Ext; No edema Neuro: No gross focality Labs Laboratory Results - last 24 hr 05/17/18 05/18/18 05/18/18 21:27 05:30 05:30 WBC 13.1 H RBC 3.03 L Hgb 8.7 L Hct 26.4 L MCV 87.1 MCH 28.7 MCHC 32.9 RDW 15.7 H Plt Count 171 MPV 10.3 Absolute Neuts (auto) 11.7 H Neutrophils % 89.3 H Lymphocytes % 6.5 L D Monocytes % 4.0 Eosinophils % 0.1 Basophils % 0.1 Nucleated RBC % 0 Sodium 137 Potassium 5.2 H Chloride 101 Carbon Dioxide 27 Anion Gap 9 BUN 61 H Creatinine 2.4 H Creat Clearance w eGFR 20.52 POC Glucometer [phone] Random Glucose 410 H* Calcium 8.2 L Phosphorus 4.3 Magnesium 2.8 H Total Bilirubin 0.2 AST 11 L ALT 23 Alkaline Phosphatase 76 Total Protein 6.1 L Albumin 2.3 L 05/18/18 05/18/18 05/18/18 06:10 12:00 18:10 WBC RBC Hgb Hct MCV MCH MCHC RDW Plt Count MPV Absolute Neuts (auto) Neutrophils % Lymphocytes % Monocytes % Eosinophils % Basophils % Nucleated RBC % Sodium Potassium Chloride Carbon Dioxide Anion Gap BUN Creatinine Creat Clearance w eGFR POC Glucometer > 400 > 400 > 400 Random Glucose Calcium Phosphorus Magnesium Total Bilirubin AST ALT Alkaline Phosphatase Total Protein Albumin 05/18/18 19:00 WBC RBC Hgb Hct MCV MCH MCHC RDW Plt Count MPV Absolute Neuts (auto) Neutrophils % Lymphocytes % Monocytes % Eosinophils % Basophils % Nucleated RBC % Sodium 135 L Potassium 5.1 Chloride 99 Carbon Dioxide 26 Anion Gap 9 BUN 63 H Creatinine 2.0 H Creat Clearance w eGFR 25.33 POC Glucometer Random Glucose 385 H* Calcium 9.1 Phosphorus Magnesium Total Bilirubin AST ALT Alkaline Phosphatase Total Protein Albumin A/P: 63 year old female with diabetes mellitus, hypertension and COPD admitted with ? pyelonephritis, fluid overload and anemia. Patient also has acute on chronic kidney disease which is slowly improving. Continue to monitor fluid intake and output with the plan to discontinue the bull catheter within 24 hours as feasible. Avoid the use of nephrotoxic agents and adjusts all medications as needed for the reduced eGFR. Will follow
[2018-05-18] MEDS ORDERED: HEMOQUE TEST 1 EACH EACH ONE (21:54)
[2018-05-18] MEDS: ATORVASTATIN CA 20 MG TABLET (FP) PO SCH (22:02)
[2018-05-18] MEDS: SENNOSIDES 8.6MG TABLET (FP) PO SCH (22:02)
[2018-05-18] MEDS: CHLORHEXIDINE GLUCONATE 4% CLEANSER FOR DECOLONIZATION TP SCH (22:04)
[2018-05-18] MEDS: hydrOXYzine HCL 25 MG TABLET (FP) PO SCH (22:05)
[2018-05-19] MEDS: HEPARIN NA (PORCINE) 5,000 UNITS/ML 1ML VIAL SQ SCH ×3 (02:00→18:23)
[2018-05-19] MEDS: MEROPENEM 1 GM in DEXTROSE 5%-WATER 100 ML IVPB SCH ×3 (02:30→18:23)
[2018-05-19] MEDS: CLINDAMYCIN HCL 150 MG CAPSULE (FP) PO SCH ×3 (06:02→21:37)
[2018-05-19] MEDS: INSULIN (LEVEMIR) 100 UNITS/ML UNITS SQ SCH ×3 (06:09→21:49)
[2018-05-19] MEDS: INSULIN SLIDING SCALE (NOVOLOG) 1 VIAL SQ SCH ×4 (06:10→21:39)
[2018-05-19 06:14] LABS: BASO % 0.9 % (0-2.0); EOS % 1.6 % (0-4.5); HEMATOCRIT 26.8 % (32.4-45.2); HEMOGLOBIN 8.9 GM/dL (10.7-15.3); LYMPH % 15.4 % (8-40); MCH 28.6 pg (25.7-33.7); MCHC 33.3 g/dl (32.0-36.0); MEAN CELL VOLUME 86.1 fl (80-96); MEAN PLT VOLUME 10.6 fl (7.5-11.1); MONO % 6.7 % (3.8-10.2); NEUT % 75.4 % (42.8-82.8); PLATELET COUNT 203 K/MM3 (134-434); RBC 3.11 M/mm3 (3.60-5.2); RDW 15.8 % (11.6-15.6); WHITE BLOOD COUNT 12.8 K/mm3 (4.0-10.0)
[2018-05-19 06:27] LABS: ALBUMIN 2.2 g/dl (3.4-5.0); ALK PHOS 68 U/L (45-117); ANION GAP 8 MMOL/L (8-16); BILIRUBIN,TOTAL 0.1 mg/dL (0.2-1); BLOOD UREA NITROGEN 66 mg/dL (7-18); CALCIUM 8.6 mg/dL (8.5-10.1); CHLORIDE 104 mmol/L (98-107); CO2 29 mmol/L (21-32); GLUCOSE,RANDOM 143 mg/dL (74-106); MAGNESIUM 2.8 mg/dL (1.8-2.4); PHOSPHOROUS 3.9 mg/dL (2.5-4.9); POTASSIUM 4.6 mmol/L (3.5-5.1); SGOT/AST 15 U/L (15-37); SGPT/ALT 23 U/L (13-61); SODIUM 141 mmol/L (136-145); TOT PROT 5.7 g/dl (6.4-8.2)
[2018-05-19] MEDS ORDERED: PANTOPRAZOLE 20 MG TABLET (FP) PO ONE ×2 (06:53→18:30)
[2018-05-19] MEDS: ALBUTEROL SO4 2.5/IPRATROPIUM 0.5 INH SOL 3 ML VIAL.NEB. NEB SCH ×4 (07:40→21:10)
[2018-05-19] MEDS ORDERED: PT OWN MED DRAWER 7, Y5N ONE ×3 (08:06→18:20)
--- NOTE | 2018-05-19 09:51 | PN ---
Physical Exam: SUBJECTIVE: Patient seen and examined. Pt. received 30 units of insulin outside her scheduled doses due to increased blood sugar. Pt. says that she feels a little under the weather today as her abdomen feels more full and she is complaining of heart burn. Pt. endorses Valerio irritation. Pt. denies having a bowel movement since Tuesday. Pt. denies shortness of breath, chest pain, numbness in extremities or fever. OBJECTIVE: Vital Signs Period Temp Pulse Resp BP Sys/Maurer Pulse Ox Last 24 Hr 97.7 F-98.0 F 53-67 17-21 90-140/47-89 98 GENERAL: The patient is awake, alert, and fully oriented, in no acute distress. EYES: sclera anicteric, conjunctiva clear. ENT: Ears normal, nares patent, moist mucous membranes. LUNGS: Breath sounds equal, clear to auscultation bilaterally, no wheezes, no crackles, no accessory muscle use. HEART: Regular rate and rhythm, S1, S2 without murmur, rub or gallop. ABDOMEN: Soft, nontender, distended/obese, sluggish bowel sounds, tympanic to percussion, no guarding, no rebound, mass in suprapubic region (fibroids?) EXTREMITIES: 2+ dorsal pedal pulses, no calf tenderness, warm, well-perfused, no edema. NEUROLOGICAL: Normal speech, gait not observed. PSYCH: Normal mood, normal affect. SKIN: Warm, dry, normal turgor, scattered 1-2 cm lesions and old scabs on forearms Laboratory Results - last 24 hr 05/18/18 05/18/18 05/18/18 06:10 12:00 18:10 WBC RBC Hgb Hct MCV MCH MCHC RDW Plt Count MPV Absolute Neuts (auto) Neutrophils % Lymphocytes % Monocytes % Eosinophils % Basophils % Nucleated RBC % Sodium Potassium Chloride Carbon Dioxide Anion Gap BUN Creatinine Creat Clearance w eGFR POC Glucometer > 400 > 400 > 400 Random Glucose Calcium Phosphorus Magnesium Total Bilirubin AST ALT Alkaline Phosphatase Total Protein Albumin 05/18/18 05/18/18 05/19/18 19:00 21:57 05:15 WBC RBC Hgb Hct MCV MCH MCHC RDW Plt Count MPV Absolute Neuts (auto) Neutrophils % Lymphocytes % Monocytes % Eosinophils % Basophils % Nucleated RBC % Sodium 135 L Potassium 5.1 Chloride 99 Carbon Dioxide 26 Anion Gap 9 BUN 63 H Creatinine 2.0 H Creat Clearance w eGFR 25.33 POC Glucometer 306.48065 162.00559 Random Glucose 385 H* Calcium 9.1 Phosphorus Magnesium Total Bilirubin AST ALT Alkaline Phosphatase Total Protein Albumin 05/19/18 05/19/18 05:30 05:30 WBC 12.8 H RBC 3.11 L Hgb 8.9 L Hct 26.8 L MCV 86.1 MCH 28.6 MCHC 33.3 RDW 15.8 H Plt Count 203 MPV 10.6 Absolute Neuts (auto) 9.7 H Neutrophils % 75.4 Lymphocytes % 15.4 D Monocytes % 6.7 Eosinophils % 1.6 D Basophils % 0.9 D Nucleated RBC % 0 Sodium 141 Potassium 4.6 Chloride 104 Carbon Dioxide 29 Anion Gap 8 BUN 66 H Creatinine 2.0 H Creat Clearance w eGFR 25.33 POC Glucometer Random Glucose 143 H Calcium 8.6 Phosphorus 3.9 Magnesium 2.8 H Total Bilirubin 0.1 L AST 15 ALT 23 Alkaline Phosphatase 68 Total Protein 5.7 L Albumin 2.2 L Active Medications Current Medications Acetaminophen (Tylenol -) 650 mg PO Q6H PRN PRN Reason: FEVER Last Admin: 05/16/18 13:52 Dose: 650 mg Albuterol Sulfate (Ventolin 0.083% Nebulizer Soln -) 1 amp NEB Q4H PRN PRN Reason: SHORT OF BREATH/WHEEZING Albuterol/Ipratropium (Duoneb -) 1 amp NEB RQID [facility] Last Admin: 05/18/18 20:04 Dose: 1 amp Alprazolam (Xanax -) 2 mg PO BID PRN PRN Reason: ANXIETY Last Admin: 05/18/18 22:14 Dose: 2 mg Amlodipine Besylate (Norvasc -) 10 mg PO DAILY [facility] Last Admin: 05/18/18 09:26 Dose: 10 mg Artificial Tears (Artificial Tears) 1 drop OU QID [facility] Last Admin: 05/18/18 22:19 Dose: 1 drop Aspirin (Asa -) 81 mg PO DAILY [facility] Last Admin: 05/18/18 09:25 Dose: 81 mg Atorvastatin Calcium (Lipitor -) [address] [facility] Last Admin: 05/18/18 22:02 Dose: 20 mg Chlorhexidine Gluconate (Hibiclens For Decolonization -) [address] [facility] Last Admin: 05/18/18 22:04 Dose: 1 applic Clindamycin HCl (Cleocin -) 300 mg PO TID [facility] Last Admin: 05/19/18 06:02 Dose: 300 mg Docusate Sodium (Colace -) 100 mg PO Q8H PRN PRN Reason: CONSTIPATION Last Admin: 05/17/18 21:35 Dose: 100 mg Gabapentin (Neurontin -) 300 mg PO BID [facility] Last Admin: 05/18/18 22:18 Dose: Not Given Heparin Sodium (Porcine) (Heparin -) 5,000 unit SQ Q8H-IV [facility] Last Admin: 05/19/18 02:00 Dose: 5,000 unit Hydralazine HCl (Apresoline -) 50 mg PO BID [facility] Last Admin: 05/18/18 22:02 Dose: 50 mg Hydroxyzine HCl (Atarax -) [address] [facility] Last Admin: 05/18/18 22:05 Dose: 50 mg Meropenem 1 gm/ Dextrose 100 mls @ 200 mls/hr IVPB Q8H-IV [facility] Last Admin: 05/19/18 02:30 Dose: 200 mls/hr Insulin Aspart (Novolog Vial Sliding Scale -) 1 vial SQ [facility]; Protocol Mupirocin (Bactroban Ointment (For Decolonization) -) 1 applic NS BID [facility] Stop: 05/21/18 21:59 Last Admin: 05/18/18 22:06 Dose: 1 applic Pantoprazole Sodium (Protonix -) 20 mg PO DAILY [facility] Polyethylene Glycol (Miralax (For Daily Use) -) 17 gm PO BID [facility] Prednisone (Deltasone -) 40 mg PO DAILY [facility] Senna (Senna -) [address] [facility] Last Admin: 05/18/18 22:02 Dose: 1 tab Timolol Maleate (Timoptic 0.5%) 1 drop OU BID [facility] Last Admin: 05/18/18 22:19 Dose: 1 drop ASSESSMENT/PLAN: A 63 y.o. F w/ PMHx. of COPD (diagnosed 4 years ago, not on home O2), HTN, IDDM , CKD, recurrent UTIs, fibroids, anxiety, and degenerative joint disease. #Pulmonary -Bilateral PNA, asthma, and acute on chronic COPD exacerbation c/w BiPAP to keep SpO2 above 92% c/w Duonebs PRN RQID c/w ventolin PRN q4h c/w Solu-medrol 40mg q8h c/w Meropenem and Clindamycin D/c Lasix c/w Tylenol Telemetry monitoring Keep HOB elevated 30-45 degrees Flu swab negative f/u cultures #Urology -Complicated UTI c/w Meropenem and Clindamycin #Cardiovascular -HTN c/w Hydralazine, Amlopdipine hold ARB D/c Lasix as creatinine is rising Echo appreciated -HLD c/w Lipitor #Neurology -Anxiety c/w Xanax -Degenerative Joint Disease c/w Gabapentin c/w Tylenol #Endocrine -IDDM c/w ISS (Novolog and Levemir) c/w Timolol drops #Dermatology -Pruritis 2/2 suspected infection/treatment c/w Clindamycin c/w Hydroxyzine f/u HIV 1/2 4th Gen test #Gastroenterology -Constipation started Senna and Docusate -Nausea likely 2/2 constipation c/w bowel regimen and reevaluate -Heartburn c/w Protonix 20mg- hesitant to increase as this is a known contributor to PRISCILLA, will seek more aggressive bowel regimen to encourage a bowel movement to alleviate symptoms. #Nephrology -PRISCILLA Cr. 1.6-->2.4 D/c Lasix as Creatinine has increased monitor weights and strict Is & Os maintain Valerio #F/E/N -replete electrolytes as necessary -Hold IVF as Pt. is now overloaded and has responded positively to Lasix -Diabetic diet #Ppx. Dvt. -Heparin SQ GI - c/w Protonix Dispo: We will continue to follow the patient. Thank you for this consultative opportunity. Visit type - Emergency Visit Emergency Visit: No - New Patient This patient is new to me today: No - Critical Care Critical Care patient: No - Discharge Referral Referred to [facility] Med P.C.: No
--- NOTE | 2018-05-19 09:54 | PN ---
Progress Note, Physician History of Present Illness: doing well no issues foleys removed - Current Medication List Current Medications: Active Medications Acetaminophen (Tylenol -) 650 mg PO Q6H PRN PRN Reason: FEVER Last Admin: 05/16/18 13:52 Dose: 650 mg Albuterol Sulfate (Ventolin 0.083% Nebulizer Soln -) 1 amp NEB Q4H PRN PRN Reason: SHORT OF BREATH/WHEEZING Albuterol/Ipratropium (Duoneb -) 1 amp NEB RQID [facility] Last Admin: 05/18/18 20:04 Dose: 1 amp Alprazolam (Xanax -) 2 mg PO BID PRN PRN Reason: ANXIETY Last Admin: 05/18/18 22:14 Dose: 2 mg Amlodipine Besylate (Norvasc -) 10 mg PO DAILY [facility] Last Admin: 05/18/18 09:26 Dose: 10 mg Artificial Tears (Artificial Tears) 1 drop OU QID [facility] Last Admin: 05/18/18 22:19 Dose: 1 drop Aspirin (Asa -) 81 mg PO DAILY [facility] Last Admin: 05/18/18 09:25 Dose: 81 mg Atorvastatin Calcium (Lipitor -) 20 mg PO HS [facility] Last Admin: 05/18/18 22:02 Dose: 20 mg Chlorhexidine Gluconate (Hibiclens For Decolonization -) 1 applic TP [facility] Last Admin: 05/18/18 22:04 Dose: 1 applic Clindamycin HCl (Cleocin -) 300 mg PO TID [facility] Last Admin: 05/19/18 06:02 Dose: 300 mg Docusate Sodium (Colace -) 100 mg PO Q8H PRN PRN Reason: CONSTIPATION Last Admin: 05/17/18 21:35 Dose: 100 mg Gabapentin (Neurontin -) 300 mg PO BID [facility] Last Admin: 05/18/18 22:18 Dose: Not Given Heparin Sodium (Porcine) (Heparin -) 5,000 unit SQ Q8H-IV [facility] Last Admin: 05/19/18 02:00 Dose: 5,000 unit Hydralazine HCl (Apresoline -) 50 mg PO BID [facility] Last Admin: 05/18/18 22:02 Dose: 50 mg Hydroxyzine HCl (Atarax -) 50 mg PO HS [facility] Last Admin: 05/18/18 22:05 Dose: 50 mg Meropenem 1 gm/ Dextrose 100 mls @ 200 mls/hr IVPB Q8H-IV [facility] Last Admin: 05/19/18 02:30 Dose: 200 mls/hr Insulin Aspart (Novolog Vial Sliding Scale -) 1 vial SQ ACHS [facility]; Protocol Mupirocin (Bactroban Ointment (For Decolonization) -) 1 applic NS BID [facility] Stop: 05/21/18 21:59 Last Admin: 05/18/18 22:06 Dose: 1 applic Pantoprazole Sodium (Protonix -) 20 mg PO DAILY [facility] Polyethylene Glycol (Miralax (For Daily Use) -) 17 gm PO BID [facility] Prednisone (Deltasone -) 40 mg PO DAILY [facility] Senna (Senna -) 1 tab PO HS [facility] Last Admin: 05/18/18 22:02 Dose: 1 tab Timolol Maleate (Timoptic 0.5%) 1 drop OU BID [facility] Last Admin: 05/18/18 22:19 Dose: 1 drop - Objective Vital Signs: Vital Signs Temperature 98.0 F 05/19/18 06:00 Pulse Rate 58 L 05/19/18 08:00 Respiratory Rate 18 05/19/18 09:00 Blood Pressure 90/62 05/19/18 08:00 O2 Sat by Pulse Oximetry (%) 98 05/19/18 09:00 Constitutional: Yes: No Distress, Calm Cardiovascular: Yes: Regular Rate and Rhythm Respiratory: Yes: Regular, CTA Bilaterally Gastrointestinal: Yes: Normal Bowel Sounds, Soft Musculoskeletal: Yes: WNL Extremities: Yes: WNL Neurological: Yes: Alert, Oriented Psychiatric: Yes: Alert, Oriented Labs: CBC, BMP 05/19/18 05:30 05/19/18 05:30 INR, PTT INR 1.08 (0.83-1.09) 05/14/18 14:35 Assessment/Plan Problem List - Problems (1) Acute exacerbation of chronic obstructive pulmonary disease (COPD) Code(s): J44.1 - CHRONIC OBSTRUCTIVE PULMONARY DISEASE W (ACUTE) EXACERBATION (2) Pulmonary vascular congestion Code(s): R09.89 - OTH SYMPTOMS AND SIGNS INVOLVING THE CIRC AND RESP SYSTEMS (3) Morbid obesity Code(s): E66.01 - MORBID (SEVERE) OBESITY DUE TO EXCESS CALORIES (4) UTI (urinary tract infection) Code(s): N39.0 - URINARY TRACT INFECTION, SITE NOT SPECIFIED Qualifiers: Urinary tract infection type: site unspecified Hematuria presence: without hematuria Qualified Code(s): N39.0 - Urinary tract infection, site not specified (5) Neck pain, bilateral posterior Code(s): M54.2 - CERVICALGIA 6 fever 7 ac hypoxic resp failure ct scan seen reports noted plan continue current abx will see how patient does tomorrow resp support bipap if needed vent mask if needed rest continue as per icu cc 40 min
[2018-05-19] MEDS ORDERED: PANTOPRAZOLE 20 MG TABLET (FP) PO SCH (10:00)
[2018-05-19] MEDS: TIMOLOL 0.5% OPHTHALMIC SOL 5 ML BOTTLE OU SCH ×2 (10:00→21:36)
[2018-05-19] MEDS: hydrALAZINE HCL 50 MG TABLET (FP) PO SCH ×2 (10:45→21:37)
[2018-05-19] MEDS: POLYETHYLENE GLYCOL 3350 119 GM BTL PO SCH ×2 (10:45→21:37)
[2018-05-19] MEDS: ARTIFICIAL TEARS (POLYVINYL ALCOHOL) OPTH DROPS OU SCH ×4 (10:45→21:36)
[2018-05-19] MEDS: GABAPENTIN 300 MG CAPSULE (FP) PO SCH ×2 (10:45→21:39)
[2018-05-19] MEDS: predniSONE 20 MG TABLET (UD) PO SCH (10:45)
[2018-05-19] MEDS: amLODIPine BESYLATE 10 MG TABLET (FP) PO SCH (10:45)
[2018-05-19] MEDS: MUPIROCIN 2% TOPICAL OINTMENT FOR DECOLONIZATION NS SCH ×2 (10:45→21:39)
[2018-05-19 11:34] LABS: ANISOCYTOSIS 0; MACROCYTOSIS 0; PLATELET ESTIMATE NORMAL
[2018-05-19] MEDS: ASPIRIN 81 MG CHEWABLE TABLETS PO SCH (11:38)
[2018-05-19] MEDS: DOCUSATE SODIUM 100 MG CAPSULE (FP) PO PRN (11:40)
[2018-05-19] MEDS: ALPRAZolam 2 MG TABLET PO PRN ×2 (11:42→21:37)
--- NOTE | 2018-05-19 12:14 | PN ---
Teaching Attending Note Name of Resident: Clive Martinez ATTENDING PHYSICIAN STATEMENT I saw and evaluated the patient. I reviewed the resident's note and discussed the case with the resident. I agree with the resident's findings and plan as documented. SUBJECTIVE: Patient seen and examined in the ICU. Breathing continues to improve. Used NIPPV briefly overnight. No fevers or chills. (+) nonproductive cough. Reports itching mostly in her arms. OBJECTIVE: Intake & Output 05/16/18 05/17/18 05/18/18 05/19/18 23:59 23:59 23:59 23:59 Intake Total 700 1230 900 300 Output Total 754 1400 1900 500 Balance -54 -170 -1000 -200 Weight 239 lb 252 lb 3 oz Last Vital Signs Temp Pulse Resp BP Pulse Ox 98.0 F 58 L 18 90/62 98 05/19/18 06:00 05/19/18 08:00 05/19/18 09:00 05/19/18 08:00 05/19/18 09:00 Active Medications Acetaminophen (Tylenol -) 650 mg PO Q6H PRN PRN Reason: FEVER Last Admin: 05/16/18 13:52 Dose: 650 mg Albuterol Sulfate (Ventolin 0.083% Nebulizer Soln -) 1 amp NEB Q4H PRN PRN Reason: SHORT OF BREATH/WHEEZING Albuterol/Ipratropium (Duoneb -) 1 amp NEB RQID [facility] Last Admin: 05/19/18 07:40 Dose: 1 amp Alprazolam (Xanax -) 2 mg PO BID PRN PRN Reason: ANXIETY Last Admin: 05/19/18 11:42 Dose: 2 mg Amlodipine Besylate (Norvasc -) 10 mg PO DAILY [facility] Last Admin: 05/19/18 10:45 Dose: 10 mg Artificial Tears (Artificial Tears) 1 drop OU QID [facility] Last Admin: 05/18/18 22:19 Dose: 1 drop Aspirin (Asa -) 81 mg PO DAILY [facility] Last Admin: 05/19/18 11:38 Dose: 81 mg Atorvastatin Calcium (Lipitor -) 20 mg PO HS [facility] Last Admin: 05/18/18 22:02 Dose: 20 mg Chlorhexidine Gluconate (Hibiclens For Decolonization -) 1 applic TP HS [facility] Last Admin: 09/20/18 22:04 Dose: 1 applic Clindamycin HCl (Cleocin -) 300 mg PO TID [facility] Last Admin: 05/19/18 06:02 Dose: 300 mg Docusate Sodium (Colace -) 100 mg PO Q8H PRN PRN Reason: CONSTIPATION Last Admin: 05/19/18 11:40 Dose: 100 mg Gabapentin (Neurontin -) 300 mg PO BID [facility] Last Admin: 05/19/18 10:45 Dose: 300 mg Heparin Sodium (Porcine) (Heparin -) 5,000 unit SQ Q8H-IV [facility] Last Admin: 05/19/18 10:00 Dose: 5,000 unit Hydralazine HCl (Apresoline -) 50 mg PO BID [facility] Last Admin: 05/19/18 10:45 Dose: 50 mg Hydroxyzine HCl (Atarax -) 50 mg PO HS [facility] Last Admin: 05/18/18 22:05 Dose: 50 mg Meropenem 1 gm/ Dextrose 100 mls @ 200 mls/hr IVPB Q8H-IV [facility] Last Admin: 05/19/18 10:00 Dose: 200 mls/hr Insulin Aspart (Novolog Vial Sliding Scale -) 1 vial SQ [facility]; Protocol Mupirocin (Bactroban Ointment (For Decolonization) -) 1 applic NS BID [facility] Stop: 05/21/18 21:59 Last Admin: 05/18/18 22:06 Dose: 1 applic Pantoprazole Sodium (Protonix -) 20 mg PO DAILY [facility] Polyethylene Glycol (Miralax (For Daily Use) -) 17 gm PO BID [facility] Last Admin: 05/19/18 10:45 Dose: 17 grams Prednisone (Deltasone -) 40 mg PO DAILY [facility] Last Admin: 05/19/18 10:45 Dose: 40 mg Senna (Senna -) 1 tab PO HS [facility] Last Admin: 05/18/18 22:02 Dose: 1 tab Timolol Maleate (Timoptic 0.5%) 1 drop OU BID [facility] Last Admin: 05/18/18 22:19 Dose: 1 drop Gen: NAD in chair Heart: RRR Lung: scattered rales right Abd: soft, nontender Ext: no edema Laboratory Results - last 24 hr 05/18/18 05/18/18 05/18/18 12:00 18:10 19:00 WBC RBC Hgb Hct MCV MCH MCHC RDW Plt Count MPV Absolute Neuts (auto) Neutrophils % Neutrophils % (Manual) Band Neutrophils % Lymphocytes % Lymphocytes % (Manual) Monocytes % Monocytes % (Manual) Eosinophils % Eosinophils % (Manual) Basophils % Basophils % (Manual) Myelocytes % (Man) Promyelocytes % (Man) Blast Cells % (Manual) Nucleated RBC % Metamyelocytes Hypochromia Platelet Estimate Polychromasia Poikilocytosis Anisocytosis Microcytosis Macrocytosis Sodium 135 L Potassium 5.1 Chloride 99 Carbon Dioxide 26 Anion Gap 9 BUN 63 H Creatinine 2.0 H Creat Clearance w eGFR 25.33 POC Glucometer > 400 > 400 Random Glucose 385 H* Calcium 9.1 Phosphorus Magnesium Total Bilirubin AST ALT Alkaline Phosphatase Total Protein Albumin 05/18/18 05/19/18 05/19/18 21:57 05:15 05:30 WBC 12.8 H RBC 3.11 L Hgb 8.9 L Hct 26.8 L MCV 86.1 MCH 28.6 MCHC 33.3 RDW 15.8 H Plt Count 203 MPV 10.6 Absolute Neuts (auto) 9.7 H Neutrophils % 75.4 Neutrophils % (Manual) 69.1 Band Neutrophils % 0.0 Lymphocytes % 15.4 D Lymphocytes % (Manual) 23.4 Monocytes % 6.7 Monocytes % (Manual) 5 Eosinophils % 1.6 D Eosinophils % (Manual) 1.9 Basophils % 0.9 D Basophils % (Manual) 0.0 Myelocytes % (Man) 1 Promyelocytes % (Man) 0 Blast Cells % (Manual) 0 Nucleated RBC % 0 Metamyelocytes 0 Hypochromia 0 Platelet Estimate Normal Polychromasia 0 Poikilocytosis 0 Anisocytosis 0 Microcytosis 0 Macrocytosis 0 Sodium Potassium Chloride Carbon Dioxide Anion Gap BUN Creatinine Creat Clearance w eGFR POC Glucometer [phone] Random Glucose Calcium Phosphorus Magnesium Total Bilirubin AST ALT Alkaline Phosphatase Total Protein Albumin 05/19/18 05:30 WBC RBC Hgb Hct MCV MCH MCHC RDW Plt Count MPV Absolute Neuts (auto) Neutrophils % Neutrophils % (Manual) Band Neutrophils % Lymphocytes % Lymphocytes % (Manual) Monocytes % Monocytes % (Manual) Eosinophils % Eosinophils % (Manual) Basophils % Basophils % (Manual) Myelocytes % (Man) Promyelocytes % (Man) Blast Cells % (Manual) Nucleated RBC % Metamyelocytes Hypochromia Platelet Estimate Polychromasia Poikilocytosis Anisocytosis Microcytosis Macrocytosis Sodium 141 Potassium 4.6 Chloride 104 Carbon Dioxide 29 Anion Gap 8 BUN 66 H Creatinine 2.0 H Creat Clearance w eGFR 25.33 POC Glucometer Random Glucose 143 H Calcium 8.6 Phosphorus 3.9 Magnesium 2.8 H Total Bilirubin 0.1 L AST 15 ALT 23 Alkaline Phosphatase 68 Total Protein 5.7 L Albumin 2.2 L ASSESSMENT AND PLAN: Acute Hypoxic Respiratory Failure suspected due to TACO / pulmonary vascular congestion R/O Pneumonia (low clinical suspicion) UTI Severe Sepsis Acute Kidney Injury Acute COPD Exacerbation Hyperlipidemia HTN Fibroid Uterus Anemia - ABX per ID - f/u cultures - monitor urine output, creatinine - Steroid taper - inhaled bronchodilators standing and PRN - O2 to keep Spo2 >90% - glucose control while on systemic steroids - PO as tolerated - DVT/GI prophylaxis - Floor Dr Ching Problem List - Problems (1) Acute exacerbation of chronic obstructive pulmonary disease (COPD) Code(s): J44.1 - CHRONIC OBSTRUCTIVE PULMONARY DISEASE W (ACUTE) EXACERBATION (2) Pulmonary vascular congestion Code(s): R09.89 - OTH SYMPTOMS AND SIGNS INVOLVING THE CIRC AND RESP SYSTEMS (3) Morbid obesity Code(s): E66.01 - MORBID (SEVERE) OBESITY DUE TO EXCESS CALORIES (4) UTI (urinary tract infection) Code(s): N39.0 - URINARY TRACT INFECTION, SITE NOT SPECIFIED Qualifiers: Urinary tract infection type: site unspecified Hematuria presence: without hematuria Qualified Code(s): N39.0 - Urinary tract infection, site not specified (5) Neck pain, bilateral posterior Code(s): M54.2 - CERVICALGIA
[2018-05-19] MEDS ORDERED: INSULIN (NOVOLOG) ASPART 100 UNITS/ML 10ML VIAL ONE (12:31)
--- NOTE | 2018-05-19 15:40 | PN ---
Physical Exam: SUBJECTIVE: Patient seen and examined at the bedside. Feels well, tolerating room air. denies chest pain or shortness of breath. OBJECTIVE: Vital Signs Period Temp Pulse Resp BP Sys/Maurer Pulse Ox Last 24 Hr 97.7 F-98.0 F 53-67 18-21 90-140/47-89 96-98 GENERAL: The patient is awake, alert, and fully oriented, currently receiving a respiratory treatment. HEAD: Normal with no signs of trauma. EYES: PERRL, extraocular movements intact, sclera anicteric, conjunctiva clear. No ptosis. ENT: Ears normal, nares patent, oropharynx clear without exudates, moist mucous membranes. NECK: Trachea midline, full range of motion, supple. LUNGS: diminished lung sounds, mild wheezing anteriorly, tolerating room air. HEART: Regular rate and rhythm ABDOMEN: Soft, nontender, nondistended, normoactive bowel sounds, no guarding, no rebound, no hepatosplenomegaly, no masses. EXTREMITIES: no edema. NEUROLOGICAL: Normal speech, gait not observed. PSYCH: Normal mood, normal affect. SKIN: scattered small dried lesions on bilateral upper arms. Laboratory Results - last 24 hr 05/18/18 05/18/18 05/18/18 18:10 19:00 21:57 WBC RBC Hgb Hct MCV MCH MCHC RDW Plt Count MPV Absolute Neuts (auto) Neutrophils % Neutrophils % (Manual) Band Neutrophils % Lymphocytes % Lymphocytes % (Manual) Monocytes % Monocytes % (Manual) Eosinophils % Eosinophils % (Manual) Basophils % Basophils % (Manual) Myelocytes % (Man) Promyelocytes % (Man) Blast Cells % (Manual) Nucleated RBC % Metamyelocytes Hypochromia Platelet Estimate Polychromasia Poikilocytosis Anisocytosis Microcytosis Macrocytosis Sodium 135 L Potassium 5.1 Chloride 99 Carbon Dioxide 26 Anion Gap 9 BUN 63 H Creatinine 2.0 H Creat Clearance w eGFR 25.33 POC Glucometer > [phone] Random Glucose 385 H* Calcium 9.1 Phosphorus Magnesium Total Bilirubin AST ALT Alkaline Phosphatase Total Protein Albumin 05/19/18 05/19/18 05/19/18 05:15 05:30 05:30 WBC 12.8 H RBC 3.11 L Hgb 8.9 L Hct 26.8 L MCV 86.1 MCH 28.6 MCHC 33.3 RDW 15.8 H Plt Count 203 MPV 10.6 Absolute Neuts (auto) 9.7 H Neutrophils % 75.4 Neutrophils % (Manual) 69.1 Band Neutrophils % 0.0 Lymphocytes % 15.4 D Lymphocytes % (Manual) 23.4 Monocytes % 6.7 Monocytes % (Manual) 5 Eosinophils % 1.6 D Eosinophils % (Manual) 1.9 Basophils % 0.9 D Basophils % (Manual) 0.0 Myelocytes % (Man) 1 Promyelocytes % (Man) 0 Blast Cells % (Manual) 0 Nucleated RBC % 0 Metamyelocytes 0 Hypochromia 0 Platelet Estimate Normal Polychromasia 0 Poikilocytosis 0 Anisocytosis 0 Microcytosis 0 Macrocytosis 0 Sodium 141 Potassium 4.6 Chloride 104 Carbon Dioxide 29 Anion Gap 8 BUN 66 H Creatinine 2.0 H Creat Clearance w eGFR 25.33 POC Glucometer [phone] Random Glucose 143 H Calcium 8.6 Phosphorus 3.9 Magnesium 2.8 H Total Bilirubin 0.1 L AST 15 ALT 23 Alkaline Phosphatase 68 Total Protein 5.7 L Albumin 2.2 L Active Medications Generic Name Dose Route Start Last Admin Trade Name Freq PRN Reason Stop Dose Admin Acetaminophen 650 mg 05/14/18 20:04 05/16/18 13:52 Tylenol - PO 650 mg Q6H PRN Administration FEVER Albuterol Sulfate 1 amp 05/16/18 10:15 Ventolin 0.083% Nebulizer Soln - NEB Q4H PRN SHORT OF BREATH/WHEEZING Albuterol/Ipratropium 1 amp 05/16/18 12:00 05/19/18 11:45 Duoneb - NEB 1 amp RQID [facility] Administration Alprazolam 2 mg 05/15/18 12:09 05/19/18 11:42 Xanax - PO 2 mg BID PRN Administration ANXIETY Amlodipine Besylate 10 mg 05/15/18 12:45 05/19/18 10:45 Norvasc - PO 10 mg DAILY [facility] Administration Artificial Tears 1 drop 05/15/18 14:00 05/19/18 10:45 Artificial Tears OU 1 drop QID [facility] Administration Aspirin 81 mg 05/16/18 10:00 05/19/18 11:38 Asa - PO 81 mg DAILY [facility] Administration Atorvastatin Calcium 20 mg 05/15/18 22:00 05/18/18 22:02 Lipitor - PO 20 mg HS [facility] Administration Chlorhexidine Gluconate 1 applic 05/16/18 22:00 05/18/18 22:04 Hibiclens For Decolonization - TP 1 applic HS [facility] Administration Clindamycin HCl 300 mg 05/16/18 14:00 05/19/18 06:02 Cleocin - PO 300 mg TID [facility] Administration Docusate Sodium 100 mg 05/17/18 08:42 05/19/18 11:40 Colace - PO 100 mg Q8H PRN Administration CONSTIPATION Gabapentin 300 mg 05/15/18 22:00 05/19/18 10:45 Neurontin - PO 300 mg BID [facility] Administration Heparin Sodium (Porcine) 5,000 unit 05/14/18 18:00 05/19/18 10:00 Heparin - SQ 5,000 unit Q8H-IV [facility] Administration Hydralazine HCl 50 mg 05/15/18 12:45 05/19/18 10:45 Apresoline - PO 50 mg BID [facility] Administration Hydroxyzine HCl 50 mg 05/15/18 22:00 05/18/18 22:05 Atarax - PO 50 mg HS [facility] Administration Meropenem 1 gm/ Dextrose 100 mls @ 200 mls/hr 05/16/18 12:30 05/19/18 10:00 IVPB 200 mls/hr Q8H-IV [facility] Administration Insulin Aspart 1 vial 05/19/18 08:00 05/19/18 11:45 Novolog Vial Sliding Scale - SQ 4 units ACHS [facility] Administration Protocol Mupirocin 1 applic 05/16/18 22:00 05/19/18 10:45 Bactroban Ointment (For Decolonization) - NS 05/21/18 21:59 1 applic BID [facility] Administration Pantoprazole Sodium 20 mg 05/20/18 10:00 Protonix - PO DAILY [facility] Polyethylene Glycol 17 gm 05/19/18 10:00 05/19/18 10:45 Miralax (For Daily Use) - PO 17 grams BID [facility] Administration Prednisone 40 mg 05/19/18 10:00 05/19/18 10:45 Deltasone - PO 40 mg DAILY [facility] Administration Senna 1 tab 05/17/18 22:00 05/18/18 22:02 Senna - PO 1 tab HS [facility] Administration Timolol Maleate 1 drop 05/15/18 22:00 05/19/18 10:00 Timoptic 0.5% OU 1 drop BID [facility] Administration ASSESSMENT/PLAN: Patient is a 63 year old female with a significant past medical history of hypertension, hyperlipidemia, obesity, COPD (ex smoker-not home oxygen dependent ), diabetes mellitus, CKD and fibroids. Patient presented to the ED on 05/14/18 with c/o of fevers and generalized weakness. She was treated recently at [facility] for UTIs which she states she completed. After completion of antibiotics, she experienced dysuria, urgency, frequency along with general malaise. ID: Bilateral pneumonia: Fevers resolved. extensive bilateral pneumonia as seen on CT chest. Leukocytosis improving. Blood cultures neg to date. On meropenem, clindamycin PO. Maintain oxygen sats above 92%, currently tolerating room air. Respiratory failure/COPD exacerbation:. on bipap @ hs. On standing duonebs. weaned down to daily prednisone 40mg daily. Card: Hypertension: On cozaar, hydralazine bid, norvasc Hyperlipidemia: on lipitor Obesity: bmi 42.3. Dietary following. Has other risk factors for heart disease : hld, htn, dm. Endocrine: Diabetes Mellitus: on novolog and levemir Renal: CKD: creat 2.0. renal following. [employer]: Uterine fibroids, stable. outpatient follow up. fen tolerating PO monitor electrolytes low salt diet prophy protonix Visit type - Emergency Visit Emergency Visit: Yes ED Registration Date: 05/14/18 Care time: The patient presented to the Emergency Department on the above date and was hospitalized for further evaluation of their emergent condition. - New Patient This patient is new to me today: No - Critical Care Critical Care patient: No - Discharge Referral Referred to [facility] No
--- NOTE | 2018-05-19 21:16 | PN ---
Progress Note (short form) - Note Progress Note: Nephrology F/U 63 year old female with type 2 diabetes melitus, hypertension and stage 3 CKD admitted with pneumonia, probable pyelonephritis , fluid overload and anemia. Patient is feeling better today She denies any chest pain or flank discomfort Vitals: Vital Signs - 24 hr 05/18/18 05/19/18 05/19/18 22:00 00:00 02:00 Temperature 97.7 F 97.8 F Pulse Rate 63 56 L 53 L Respiratory 19 18 19 Rate Blood Pressure 115/59 95/52 90/47 O2 Sat by Pulse Oximetry (%) 05/19/18 05/19/18 05/19/18 04:00 06:00 08:00 Temperature 98.0 F Pulse Rate 56 L 55 L 58 L Respiratory 20 20 18 Rate Blood Pressure 106/62 95/52 90/62 O2 Sat by Pulse Oximetry (%) 05/19/18 05/19/18 05/19/18 08:15 09:00 10:00 Temperature 97.6 F Pulse Rate 60 Respiratory 18 17 Rate Blood Pressure 110/56 L O2 Sat by Pulse 96 98 Oximetry (%) 05/19/18 05/19/18 05/19/18 14:00 16:00 16:12 Temperature 98.0 F Pulse Rate 57 L 70 Respiratory 18 17 Rate Blood Pressure 115/55 L 120/62 O2 Sat by Pulse 97 Oximetry (%) 05/19/18 05/19/18 05/19/18 18:00 19:14 19:54 Temperature 97.8 F Pulse Rate 74 68 Respiratory 22 H Rate Blood Pressure 100/60 O2 Sat by Pulse 92 L 95 Oximetry (%) Lungs; coarse breath sound in both lung tavares Heart: S1 S2 regular Abd: pbese, soft, non-tender, BS normal Ext: Decreasing edema Labs: CBCD WBC 12.8 K/mm3 (4.0-10.0) H 05/19/18 05:30 RBC 3.11 M/mm3 (3.60-5.2) L 05/19/18 05:30 Hgb 8.9 GM/dL (10.7-15.3) L 05/19/18 05:30 Hct 26.8 % (32.4-45.2) L 05/19/18 05:30 MCV 86.1 fl (80-96) 05/19/18 05:30 MCHC 33.3 g/dl (32.0-36.0) 05/19/18 05:30 RDW 15.8 % (11.6-15.6) H 05/19/18 05:30 Plt Count 203 K/MM3 (134-434) 05/19/18 05:30 MPV 10.6 fl (7.5-11.1) 05/19/18 05:30 CMP Sodium 141 mmol/L (136-145) 05/19/18 05:30 Potassium 4.6 mmol/L (3.5-5.1) 05/19/18 05:30 Chloride 104 mmol/L (98-107) 05/19/18 05:30 Carbon Dioxide 29 mmol/L (21-32) 05/19/18 05:30 Anion Gap 8 MMOL/L (8-16) 05/19/18 05:30 BUN 66 mg/dL (7-18) H 05/19/18 05:30 Creatinine 2.0 mg/dL (0.55-1.3) H 05/19/18 05:30 Creat Clearance w eGFR 25.33 (>60) 05/19/18 05:30 Calcium 8.6 mg/dL (8.5-10.1) 05/19/18 05:30 Total Bilirubin 0.1 mg/dL (0.2-1) L 05/19/18 05:30 AST 15 U/L (15-37) 05/19/18 05:30 ALT 23 U/L (13-61) 05/19/18 05:30 Alkaline Phosphatase 68 U/L (45-117) 05/19/18 05:30 Total Protein 5.7 g/dl (6.4-8.2) L 05/19/18 05:30 Albumin 2.2 g/dl (3.4-5.0) L 05/19/18 05:30 A/P: 63 year old female with acute on chronic kidney disease and anemia. Continue with gentle diuresis. Will check iron indices and initiate SHARIF as needed upon discharge. Avoid the use of nephrotoxic agents. Ambulate as feasible upon transfer to the regular floor.
[2018-05-19] MEDS: SENNOSIDES 8.6MG TABLET (FP) PO SCH (21:37)
[2018-05-19] MEDS: ATORVASTATIN CA 20 MG TABLET (FP) PO SCH (21:37)
[2018-05-19] MEDS: hydrOXYzine HCL 25 MG TABLET (FP) PO SCH (21:37)
[2018-05-19] MEDS: CHLORHEXIDINE GLUCONATE 4% CLEANSER FOR DECOLONIZATION TP SCH (21:38)
[2018-05-19] MEDS ORDERED: INSULIN (LEVEMIR) 100 UNITS/ML UNITS SQ ONE (21:43)
[2018-05-20] MEDS: MEROPENEM 1 GM in DEXTROSE 5%-WATER 100 ML IVPB SCH ×3 (02:36→17:15)
[2018-05-20] MEDS: HEPARIN NA (PORCINE) 5,000 UNITS/ML 1ML VIAL SQ SCH ×3 (02:36→17:15)
[2018-05-20] MEDS: CLINDAMYCIN HCL 150 MG CAPSULE (FP) PO SCH (05:32)
[2018-05-20 05:58] LABS: EOS % 1.3 % (0-4.5); HEMATOCRIT 28.5 % (32.4-45.2); HEMOGLOBIN 9.5 GM/dL (10.7-15.3); MCH 28.4 pg (25.7-33.7); MCHC 33.2 g/dl (32.0-36.0); MEAN CELL VOLUME 85.4 fl (80-96); MEAN PLT VOLUME 9.9 fl (7.5-11.1); MONO % 6.5 % (3.8-10.2); NEUT % 75.2 % (42.8-82.8); PLATELET COUNT 245 K/MM3 (134-434); RBC 3.33 M/mm3 (3.60-5.2); RDW 15.5 % (11.6-15.6); WHITE BLOOD COUNT 12.9 K/mm3 (4.0-10.0)
[2018-05-20] MEDS: INSULIN SLIDING SCALE (NOVOLOG) 1 VIAL SQ SCH ×4 (06:03→21:36)
[2018-05-20] MEDS ORDERED: INSULIN (NOVOLOG) ASPART 100 UNITS/ML 10ML VIAL ONE ×3 (06:05→17:40)
[2018-05-20 06:34] LABS: ALBUMIN 2.2 g/dl (3.4-5.0); ALK PHOS 72 U/L (45-117); ANION GAP 5 MMOL/L (8-16); BILIRUBIN,TOTAL 0.2 mg/dL (0.2-1); BLOOD UREA NITROGEN 73 mg/dL (7-18); CALCIUM 8.4 mg/dL (8.5-10.1); CHLORIDE 100 mmol/L (98-107); CO2 30 mmol/L (21-32); SGOT/AST 13 U/L (15-37); SGPT/ALT 26 U/L (13-61); SODIUM 135 mmol/L (136-145); TOT PROT 5.9 g/dl (6.4-8.2)
[2018-05-20 06:43] LABS: GLUCOSE,RANDOM 314 mg/dL (74-106)
[2018-05-20] MEDS: ALBUTEROL SO4 2.5/IPRATROPIUM 0.5 INH SOL 3 ML VIAL.NEB. NEB SCH ×4 (07:30→21:05)
--- NOTE | 2018-05-20 08:38 | PN ---
Progress Note (short form) - Note Progress Note: CCM F/u SUBJECTIVE: Patient seen and examined in the ICU. -c/o reflux but otherwise doing well, afebrile -awaitting bed on floor OBJECTIVE: Vital Signs Temp 97.6 F 05/20/18 06:00 Pulse 73 05/20/18 06:00 Resp 20 05/20/18 06:00 BP 163/65 05/20/18 06:00 Pulse Ox 93 L 05/20/18 05:09 Intake & Output 05/19/18 05/19/18 05/20/18 11:59 23:59 11:59 Intake Total 300 300 300 Output Total 675 500 Balance -375 -200 300 Intake: IVPB 100 100 Oral 200 300 200 Output: Urine 675 500 Valerio 675 Void 500 Other: Voiding Method Indwelling Catheter Toilet # Unmeasured Voids Void 2 Active Medications Acetaminophen (Tylenol -) 650 mg PO Q6H PRN PRN Reason: FEVER Last Admin: 05/16/18 13:52 Dose: 650 mg Albuterol Sulfate (Ventolin 0.083% Nebulizer Soln -) 1 amp NEB Q4H PRN PRN Reason: SHORT OF BREATH/WHEEZING Albuterol/Ipratropium (Duoneb -) 1 amp NEB RQID [facility] Last Admin: 05/19/18 21:10 Dose: 1 amp Alprazolam (Xanax -) 2 mg PO BID PRN PRN Reason: ANXIETY Last Admin: 05/19/18 21:37 Dose: 2 mg Amlodipine Besylate (Norvasc -) 10 mg PO DAILY [facility] Last Admin: 05/19/18 10:45 Dose: 10 mg Artificial Tears (Artificial Tears) 1 drop OU QID [facility] Last Admin: 05/19/18 21:36 Dose: 1 drop Aspirin (Asa -) 81 mg PO DAILY [facility] Last Admin: 05/19/18 11:38 Dose: 81 mg Atorvastatin Calcium (Lipitor -) 20 mg PO [facility] Last Admin: 05/19/18 21:37 Dose: 20 mg Chlorhexidine Gluconate (Hibiclens For Decolonization -) 1 applic TP HS [facility] Last Admin: 05/19/18 21:38 Dose: 1 applic Clindamycin HCl (Cleocin -) 300 mg PO TID [facility] Last Admin: 05/20/18 05:32 Dose: 300 mg Docusate Sodium (Colace -) 100 mg PO Q8H PRN PRN Reason: CONSTIPATION Last Admin: 05/19/18 11:40 Dose: 100 mg Heparin Sodium (Porcine) (Heparin -) 5,000 unit SQ Q8H-IV [facility] Last Admin: 05/20/18 02:36 Dose: 5,000 unit Hydralazine HCl (Apresoline -) 50 mg PO BID [facility] Last Admin: 05/19/18 21:37 Dose: 50 mg Hydroxyzine HCl (Atarax -) 50 mg PO HS [facility] Last Admin: 05/19/18 21:37 Dose: 50 mg Meropenem 1 gm/ Dextrose 100 mls @ 200 mls/hr IVPB Q8H-IV [facility] Last Admin: 05/20/18 02:36 Dose: 200 mls/hr Insulin Aspart (Novolog Vial Sliding Scale -) 1 vial SQ [facility]; Protocol Last Admin: 05/20/18 06:03 Dose: 10 units Insulin Detemir (Levemir Vial) 5 units SQ [facility] Last Admin: 05/19/18 21:49 Dose: Not Given Mupirocin (Bactroban Ointment (For Decolonization) -) 1 applic NS BID [facility] Stop: 05/21/18 21:59 Last Admin: 05/19/18 21:39 Dose: 1 applic Pantoprazole Sodium (Protonix -) 20 mg PO DAILY [facility] Polyethylene Glycol (Miralax (For Daily Use) -) 17 gm PO BID [facility] Last Admin: 05/19/18 21:37 Dose: 17 grams Prednisone (Deltasone -) 40 mg PO DAILY [facility] Last Admin: 05/19/18 10:45 Dose: 40 mg Senna (Senna -) 1 tab PO HS [facility] Last Admin: 05/19/18 21:37 Dose: 1 tab Timolol Maleate (Timoptic 0.5%) 1 drop OU BID [facility] Last Admin: 05/19/18 21:36 Dose: 1 drop Gen: walking about room Heart: RRR Lung: scattered rales right Abd: soft, nontender, + BS Ext: no edema CBCD WBC 12.9 K/mm3 (4.0-10.0) H 05/20/18 05:30 RBC 3.33 M/mm3 (3.60-5.2) L 05/20/18 05:30 Hgb 9.5 GM/dL (10.7-15.3) L 05/20/18 05:30 Hct 28.5 % (32.4-45.2) L 05/20/18 05:30 MCV 85.4 fl (80-96) 05/20/18 05:30 MCHC 33.2 g/dl (32.0-36.0) 05/20/18 05:30 RDW 15.5 % (11.6-15.6) 05/20/18 05:30 Plt Count 245 K/MM3 (134-434) D 05/20/18 05:30 MPV 9.9 fl (7.5-11.1) 05/20/18 05:30 CMP Sodium 135 mmol/L (136-145) L 05/20/18 05:30 Potassium 5.0 mmol/L (3.5-5.1) 05/20/18 05:30 Chloride 100 mmol/L (98-107) 05/20/18 05:30 Carbon Dioxide 30 mmol/L (21-32) 05/20/18 05:30 Anion Gap 5 MMOL/L (8-16) L 05/20/18 05:30 BUN 73 mg/dL (7-18) H 05/20/18 05:30 Creatinine 2.0 mg/dL (0.55-1.3) H 05/20/18 05:30 Creat Clearance w eGFR 25.33 (>60) 05/20/18 05:30 Random Glucose 314 mg/dL (74-106) H* 05/20/18 05:30 Calcium 8.4 mg/dL (8.5-10.1) L 05/20/18 05:30 Total Bilirubin 0.2 mg/dL (0.2-1) 05/20/18 05:30 AST 13 U/L (15-37) L 05/20/18 05:30 ALT 26 U/L (13-61) 05/20/18 05:30 Alkaline Phosphatase 72 U/L (45-117) 05/20/18 05:30 Total Protein 5.9 g/dl (6.4-8.2) L 05/20/18 05:30 Albumin 2.2 g/dl (3.4-5.0) L 05/20/18 05:30 CARDIAC ENZYMES Troponin I < 0.02 ng/ml (0.00-0.05) 05/14/18 14:35 Microbiology 05/14/18 14:29 Blood - Peripheral Venous Blood Culture - Final NO GROWTH AFTER 5 DAYS INCUBATION 05/14/18 14:35 Blood - Peripheral Venous Blood Culture - Final NO GROWTH AFTER 5 DAYS INCUBATION 05/16/18 10:00 Blood - Peripheral Venous Blood Culture - Preliminary NO GROWTH OBTAINED AFTER 72 HOURS, INCUBATION TO CONTINUE FOR 2 DAYS. 05/16/18 10:30 Blood - Peripheral Venous Blood Culture - Preliminary NO GROWTH OBTAINED AFTER 72 HOURS, INCUBATION TO CONTINUE FOR 2 DAYS. 05/16/18 10:00 Nasopharyngeal Swab Influenza Types A,B Antigen - Final 05/16/18 10:00 Nasopharyngeal Swab - Final 05/14/18 14:35 Urine - Urine Clean Catch Urine Culture - Final Escherichia Coli ASSESSMENT AND PLAN: Acute Hypoxic Respiratory Failure suspected due to TACO / pulmonary vascular congestion R/O Pneumonia (low clinical suspicion) UTI Severe Sepsis Acute Kidney Injury Acute COPD Exacerbation Hyperlipidemia HTN Fibroid Uterus Anemia - ABX per ID - Steroid taper - inhaled bronchodilators standing and PRN - O2 to keep Spo2 >90% - glucose control while on systemic steroids - PO as tolerated - DVT/GI prophylaxis - Floor today [facility] Problem List - Problems (1) Acute exacerbation of chronic obstructive pulmonary disease (COPD) Code(s): J44.1 - CHRONIC OBSTRUCTIVE PULMONARY DISEASE W (ACUTE) EXACERBATION (2) Pulmonary vascular congestion Code(s): R09.89 - OTH SYMPTOMS AND SIGNS INVOLVING THE CIRC AND RESP SYSTEMS (3) Morbid obesity Code(s): E66.01 - MORBID (SEVERE) OBESITY DUE TO EXCESS CALORIES (4) UTI (urinary tract infection) Code(s): N39.0 - URINARY TRACT INFECTION, SITE NOT SPECIFIED Qualifiers: Urinary tract infection type: site unspecified Hematuria presence: without hematuria Qualified Code(s): N39.0 - Urinary tract infection, site not specified (5) Neck pain, bilateral posterior Code(s): M54.2 - CERVICALGIA
[2018-05-20] MEDS ORDERED: PT OWN MED DRAWER 7, Y5N ONE ×5 (08:42→21:55)
[2018-05-20] MEDS ORDERED: INSULIN (LEVEMIR) 100 UNITS/ML UNITS SQ SCH ×2 (08:53→14:36)
[2018-05-20] MEDS: predniSONE 20 MG TABLET (UD) PO SCH (09:04)
[2018-05-20] MEDS: PANTOPRAZOLE 20 MG TABLET (FP) PO SCH (09:05)
[2018-05-20] MEDS: ASPIRIN 81 MG CHEWABLE TABLETS PO SCH (09:05)
[2018-05-20] MEDS: hydrALAZINE HCL 50 MG TABLET (FP) PO SCH ×2 (09:05→21:37)
[2018-05-20] MEDS: amLODIPine BESYLATE 10 MG TABLET (FP) PO SCH (09:05)
[2018-05-20] MEDS: ARTIFICIAL TEARS (POLYVINYL ALCOHOL) OPTH DROPS OU SCH ×4 (09:06→21:38)
[2018-05-20] MEDS: TIMOLOL 0.5% OPHTHALMIC SOL 5 ML BOTTLE OU SCH ×2 (09:06→21:38)
[2018-05-20] MEDS: POLYETHYLENE GLYCOL 3350 119 GM BTL PO SCH ×2 (09:26→21:41)
[2018-05-20] MEDS: MUPIROCIN 2% TOPICAL OINTMENT FOR DECOLONIZATION NS SCH ×2 (09:27→21:38)
--- NOTE | 2018-05-20 10:35 | PN ---
Progress Note, Physician History of Present Illness: stable much better breathing well no complaints - Current Medication List Current Medications: Active Medications Acetaminophen (Tylenol -) 650 mg PO Q6H PRN PRN Reason: FEVER Last Admin: 05/16/18 13:52 Dose: 650 mg Albuterol Sulfate (Ventolin 0.083% Nebulizer Soln -) 1 amp NEB Q4H PRN PRN Reason: SHORT OF BREATH/WHEEZING Albuterol/Ipratropium (Duoneb -) 1 amp NEB RQID [facility] Last Admin: 05/20/18 07:30 Dose: 1 amp Alprazolam (Xanax -) 2 mg PO BID PRN PRN Reason: ANXIETY Last Admin: 05/19/18 21:37 Dose: 2 mg Amlodipine Besylate (Norvasc -) 10 mg PO DAILY [facility] Last Admin: 05/20/18 09:05 Dose: 10 mg Artificial Tears (Artificial Tears) 1 drop OU QID [facility] Last Admin: 05/20/18 09:06 Dose: 1 drop Aspirin (Asa -) 81 mg PO DAILY [facility] Last Admin: 05/20/18 09:05 Dose: 81 mg Atorvastatin Calcium (Lipitor -) 20 mg PO HS [facility] Last Admin: 05/19/18 21:37 Dose: 20 mg Chlorhexidine Gluconate (Hibiclens For Decolonization -) 1 applic TP HS [facility] Last Admin: 05/19/18 21:38 Dose: 1 applic Clindamycin HCl (Cleocin -) 300 mg PO TID [facility] Last Admin: 05/20/18 05:32 Dose: 300 mg Docusate Sodium (Colace -) 100 mg PO Q8H PRN PRN Reason: CONSTIPATION Last Admin: 05/19/18 11:40 Dose: 100 mg Heparin Sodium (Porcine) (Heparin -) 5,000 unit SQ Q8H-IV [facility] Last Admin: 05/20/18 09:05 Dose: 5,000 unit Hydralazine HCl (Apresoline -) 50 mg PO BID [facility] Last Admin: 05/20/18 09:05 Dose: 50 mg Hydroxyzine HCl (Atarax -) 50 mg PO HS [facility] Last Admin: 05/19/18 21:37 Dose: 50 mg Meropenem 1 gm/ Dextrose 100 mls @ 200 mls/hr IVPB Q8H-IV [facility] Last Admin: 05/20/18 09:04 Dose: 200 mls/hr Insulin Aspart (Novolog Vial Sliding Scale -) 1 vial SQ [facility]; Protocol Last Admin: 05/20/18 06:03 Dose: 10 units Insulin Detemir (Levemir Vial) 15 units SQ [facility] Mupirocin (Bactroban Ointment (For Decolonization) -) 1 applic NS BID [facility] Stop: 05/21/18 21:59 Last Admin: 05/20/18 09:27 Dose: 1 applic Pantoprazole Sodium (Protonix -) 20 mg PO DAILY [facility] Last Admin: 05/20/18 09:05 Dose: 20 mg Polyethylene Glycol (Miralax (For Daily Use) -) 17 gm PO BID [facility] Last Admin: 05/20/18 09:26 Dose: 17 grams Prednisone (Deltasone -) 40 mg PO DAILY [facility] Last Admin: 05/20/18 09:04 Dose: 40 mg Senna (Senna -) 1 tab PO [facility] Last Admin: 05/19/18 21:37 Dose: 1 tab Timolol Maleate (Timoptic 0.5%) 1 drop OU BID [facility] Last Admin: 05/20/18 09:06 Dose: 1 drop - Objective Vital Signs: Vital Signs Temperature 97.6 F 05/20/18 06:00 Pulse Rate 70 05/20/18 08:00 Respiratory Rate 19 05/20/18 08:00 Blood Pressure 135/73 05/20/18 08:00 O2 Sat by Pulse Oximetry (%) 93 L 05/20/18 05:09 Constitutional: Yes: No Distress, Calm, Obese Cardiovascular: Yes: Regular Rate and Rhythm Respiratory: Yes: Regular, CTA Bilaterally Gastrointestinal: Yes: Normal Bowel Sounds, Soft Musculoskeletal: Yes: WNL Extremities: Yes: WNL Neurological: Yes: Alert, Oriented Psychiatric: Yes: Alert, Oriented Labs: CBC, BMP 05/20/18 05:30 05/20/18 05:30 INR, PTT INR 1.08 (0.83-1.09) 05/14/18 14:35 Assessment/Plan Problem List - Problems (1) Acute exacerbation of chronic obstructive pulmonary disease (COPD) Code(s): J44.1 - CHRONIC OBSTRUCTIVE PULMONARY DISEASE W (ACUTE) EXACERBATION (2) Pulmonary vascular congestion Code(s): R09.89 - OTH SYMPTOMS AND SIGNS INVOLVING THE CIRC AND RESP SYSTEMS (3) Morbid obesity Code(s): E66.01 - MORBID (SEVERE) OBESITY DUE TO EXCESS CALORIES (4) UTI (urinary tract infection) Code(s): N39.0 - URINARY TRACT INFECTION, SITE NOT SPECIFIED Qualifiers: Urinary tract infection type: site unspecified Hematuria presence: without hematuria Qualified Code(s): N39.0 - Urinary tract infection, site not specified (5) Neck pain, bilateral posterior Code(s): M54.2 - CERVICALGIA 6 fever 7 ac hypoxic resp failure ct scan seen reports noted plan abx will stop clinda resp support bipap if needed will deescalte tomorrow rest continue as per icu cc 40 min
[2018-05-20] MEDS: ALPRAZolam 2 MG TABLET PO PRN ×3 (12:36→21:41)
--- NOTE | 2018-05-20 14:38 | PN ---
Physical Exam: SUBJECTIVE: Patient seen and examined at the bedside. tolerating room air. feels better. OBJECTIVE: Vital Signs Period Temp Pulse Resp BP Sys/Maurer Pulse Ox Last 24 Hr 97.4 F-97.8 F 52-74 17-22 100-163/57-85 92-100 GENERAL: The patient is awake, alert, and fully oriented HEAD: Normal with no signs of trauma. EYES: PERRL, extraocular movements intact, sclera anicteric, conjunctiva clear. No ptosis. ENT: Ears normal, nares patent, oropharynx clear without exudates, moist mucous membranes. NECK: Trachea midline, full range of motion, supple. LUNGS: lungs sounds clear/diminished at the bases. improved. HEART: Regular rate and rhythm ABDOMEN: Soft, nontender, nondistended, normoactive bowel sounds, no guarding, no rebound, no hepatosplenomegaly, no masses. EXTREMITIES: no edema. NEUROLOGICAL: Normal speech, gait not observed. PSYCH: Normal mood, normal affect. SKIN: scattered small dried lesions on bilateral upper arms. Laboratory Results - last 24 hr 05/17/18 05/19/18 05/19/18 05:30 17:47 21:35 WBC RBC Hgb Hct MCV MCH MCHC RDW Plt Count MPV Absolute Neuts (auto) Neutrophils % Neutrophils % (Manual) Band Neutrophils % Lymphocytes % Lymphocytes % (Manual) Monocytes % Monocytes % (Manual) Eosinophils % Eosinophils % (Manual) Basophils % Basophils % (Manual) Myelocytes % (Man) Promyelocytes % (Man) Blast Cells % (Manual) Nucleated RBC % Metamyelocytes Sodium Potassium Chloride Carbon Dioxide Anion Gap BUN Creatinine Creat Clearance w eGFR POC Glucometer 178.53665 [phone] Random Glucose Calcium Total Bilirubin AST ALT Alkaline Phosphatase Total Protein Albumin MELANY Screen Negative 05/20/18 05/20/18 05/20/18 05:24 05:30 05:30 WBC 12.9 H RBC 3.33 L Hgb 9.5 L Hct 28.5 L MCV 85.4 MCH 28.4 MCHC 33.2 RDW 15.5 Plt Count 245 D MPV 9.9 Absolute Neuts (auto) 9.7 H Neutrophils % 75.2 Neutrophils % (Manual) 53.8 Band Neutrophils % 15.1 Lymphocytes % 16.0 Lymphocytes % (Manual) 20.4 Monocytes % 6.5 Monocytes % (Manual) 2 L Eosinophils % 1.3 Eosinophils % (Manual) 0.0 D Basophils % 1.0 Basophils % (Manual) 0.0 Myelocytes % (Man) 3 H D Promyelocytes % (Man) 0 Blast Cells % (Manual) 0 Nucleated RBC % 0 Metamyelocytes 5 H D Sodium 135 L Potassium 5.0 Chloride 100 Carbon Dioxide 30 Anion Gap 5 L BUN 73 H Creatinine 2.0 H Creat Clearance w eGFR 25.33 POC Glucometer [phone] Random Glucose 314 H* Calcium 8.4 L Total Bilirubin 0.2 AST 13 L ALT 26 Alkaline Phosphatase 72 Total Protein 5.9 L Albumin 2.2 L MELANY Screen Active Medications Generic Name Dose Route Start Last Admin Trade Name Freq PRN Reason Stop Dose Admin Acetaminophen 650 mg 05/14/18 20:04 05/16/18 13:52 Tylenol - PO 650 mg Q6H PRN Administration FEVER Albuterol Sulfate 1 amp 05/16/18 10:15 Ventolin 0.083% Nebulizer Soln - NEB Q4H PRN SHORT OF BREATH/WHEEZING Albuterol/Ipratropium 1 amp 05/16/18 12:00 05/20/18 11:30 Duoneb - NEB 1 amp RQID [facility] Administration Alprazolam 2 mg 05/15/18 12:09 05/20/18 13:45 Xanax - PO 2 mg BID PRN Administration ANXIETY Amlodipine Besylate 10 mg 05/15/18 12:45 05/20/18 09:05 Norvasc - PO 10 mg DAILY [facility] Administration Artificial Tears 1 drop 05/15/18 14:00 05/20/18 09:06 Artificial Tears OU 1 drop QID [facility] Administration Aspirin 81 mg 05/16/18 10:00 05/20/18 09:05 Asa - PO 81 mg DAILY [facility] Administration Atorvastatin Calcium 20 mg 05/15/18 22:00 05/19/18 21:37 Lipitor - PO 20 mg HS [facility] Administration Chlorhexidine Gluconate 1 applic 05/16/18 22:00 05/19/18 21:38 Hibiclens For Decolonization - TP 1 applic HS [facility] Administration Docusate Sodium 100 mg 05/17/18 08:42 05/19/18 11:40 Colace - PO 100 mg Q8H PRN Administration CONSTIPATION Heparin Sodium (Porcine) 5,000 unit 05/14/18 18:00 05/20/18 09:05 Heparin - SQ 5,000 unit Q8H-IV [facility] Administration Hydralazine HCl 50 mg 05/15/18 12:45 05/20/18 09:05 Apresoline - PO 50 mg BID [facility] Administration Hydroxyzine HCl 50 mg 05/15/18 22:00 05/19/18 21:37 Atarax - PO 50 mg HS [facility] Administration Meropenem 1 gm/ Dextrose 100 mls @ 200 mls/hr 05/16/18 12:30 05/20/18 09:04 IVPB 200 mls/hr Q8H-IV [facility] Administration Insulin Aspart 1 vial 05/19/18 08:00 05/20/18 11:57 Novolog Vial Sliding Scale - SQ 10 units ACHS [facility] Administration Protocol Insulin Detemir 20 units 05/20/18 14:36 Levemir Vial SQ HS [facility] Mupirocin 1 applic 05/16/18 22:00 05/20/18 09:27 Bactroban Ointment (For Decolonization) - NS 05/21/18 21:59 1 applic BID [facility] Administration Pantoprazole Sodium 20 mg 05/20/18 10:00 05/20/18 09:05 Protonix - PO 20 mg DAILY [facility] Administration Polyethylene Glycol 17 gm 05/19/18 10:00 05/20/18 09:26 Miralax (For Daily Use) - PO 17 grams BID [facility] Administration Prednisone 40 mg 05/19/18 10:00 05/20/18 09:04 Deltasone - PO 40 mg DAILY [facility] Administration Senna 1 tab 05/17/18 22:00 05/19/18 21:37 Senna - PO 1 tab HS [facility] Administration Timolol Maleate 1 drop 05/15/18 22:00 05/20/18 09:06 Timoptic 0.5% OU 1 drop BID [facility] Administration ASSESSMENT/PLAN: Patient is a 63 year old female with a significant past medical history of hypertension, hyperlipidemia, obesity, COPD (ex smoker-not home oxygen dependent ), diabetes mellitus, CKD and fibroids. Patient presented to the ED on 05/14/18 with c/o of fevers and generalized weakness. She was treated recently at [facility] for UTIs which she states she completed. After completion of antibiotics, she experienced dysuria, urgency, frequency along with general malaise. Patient became hypoxic on 05/16/2018 with supplemental oxygen and was transferred to the ICU. She has not been intubated. ID: Bilateral pneumonia, acute Fevers resolved. extensive bilateral pneumonia as seen on CT chest. Leukocytosis improving. Blood cultures neg to date. On meropenem. Maintain oxygen sats above 92%, currently tolerating room air. Respiratory failure/COPD exacerbation, resolved:. On prednisone daily, wean off as tolerated. Card: Hypertension: On cozaar, hydralazine bid, norvasc Hyperlipidemia: on lipitor Obesity: bmi 42.3. Dietary following. Has other risk factors for heart disease : hld, htn, dm. Endocrine: Diabetes Mellitus: on novolog and levemir, elevated bgms. increased levemir. Renal: CKD: creat 2.0. renal following. Resident Care Technician: Uterine fibroids, stable. outpatient follow up. fen tolerating PO monitor electrolytes low salt diet prophy protonix transfer out of the icu. awaiting bed on med surg floor. Visit type - Emergency Visit Emergency Visit: Yes ED Registration Date: 05/14/18 Care time: The patient presented to the Emergency Department on the above date and was hospitalized for further evaluation of their emergent condition. - New Patient This patient is new to me today: No - Critical Care Critical Care patient: No - Discharge Referral Referred to [facility] Med P.C.: No
[2018-05-20] MEDS: INSULIN (LEVEMIR) 100 UNITS/ML UNITS SQ SCH (21:37)
[2018-05-20] MEDS: hydrOXYzine HCL 25 MG TABLET (FP) PO SCH (21:37)
[2018-05-20] MEDS: ATORVASTATIN CA 20 MG TABLET (FP) PO SCH (21:38)
[2018-05-20] MEDS: SENNOSIDES 8.6MG TABLET (FP) PO SCH (21:38)
[2018-05-20] MEDS: CHLORHEXIDINE GLUCONATE 4% CLEANSER FOR DECOLONIZATION TP SCH (21:39)
[2018-05-21] MEDS: MEROPENEM 1 GM in DEXTROSE 5%-WATER 100 ML IVPB SCH ×2 (01:09→10:16)
[2018-05-21] MEDS: HEPARIN NA (PORCINE) 5,000 UNITS/ML 1ML VIAL SQ SCH ×3 (01:09→17:36)
[2018-05-21] MEDS: INSULIN SLIDING SCALE (NOVOLOG) 1 VIAL SQ SCH ×4 (06:08→21:43)
[2018-05-21] MEDS: INSULIN (LEVEMIR) 100 UNITS/ML UNITS SQ SCH ×2 (06:09→21:43)
[2018-05-21] MEDS: ALBUTEROL SO4 2.5/IPRATROPIUM 0.5 INH SOL 3 ML VIAL.NEB. NEB SCH ×4 (07:40→20:39)
--- NOTE | 2018-05-21 08:30 | PN ---
Progress Note (short form) - Note Progress Note: CCM F/u SUBJECTIVE: Patient seen and examined in the ICU. -Lab holiday today -decreased pred -still awaiting bed on floor OBJECTIVE: Vital Signs Temp 98.5 F 05/20/18 22:00 Pulse 57 L 05/21/18 04:00 Resp 20 05/21/18 04:00 BP 139/85 05/21/18 04:00 Pulse Ox 96 05/21/18 06:15 Intake & Output 05/20/18 05/20/18 05/21/18 11:59 23:59 11:59 Intake Total 300 1040 580 Balance 300 1040 580 Intake: IVPB 100 200 100 Oral 200 840 480 Other: Voiding Method Toilet Toilet Toilet # Unmeasured Voids Void 2 2 2 Bowel Movement No No Current Medications Acetaminophen (Tylenol -) 650 mg PO Q6H PRN PRN Reason: FEVER Last Admin: 05/16/18 13:52 Dose: 650 mg Albuterol Sulfate (Ventolin 0.083% Nebulizer Soln -) 1 amp NEB Q4H PRN PRN Reason: SHORT OF BREATH/WHEEZING Albuterol/Ipratropium (Duoneb -) 1 amp NEB RQID [facility] Last Admin: 05/21/18 07:40 Dose: 1 amp Alprazolam (Xanax -) 2 mg PO BID PRN PRN Reason: ANXIETY Last Admin: 05/20/18 21:41 Dose: 2 mg Amlodipine Besylate (Norvasc -) 10 mg PO DAILY [facility] Last Admin: 05/20/18 09:05 Dose: 10 mg Artificial Tears (Artificial Tears) 1 drop OU QID [facility] Last Admin: 05/20/18 21:38 Dose: 1 drop Aspirin (Asa -) 81 mg PO DAILY [facility] Last Admin: 05/20/18 09:05 Dose: 81 mg Atorvastatin Calcium (Lipitor -) 20 mg PO HS [facility] Last Admin: 05/20/18 21:38 Dose: 20 mg Chlorhexidine Gluconate (Hibiclens For Decolonization -) 1 applic TP HS [facility] Last Admin: 05/20/18 21:39 Dose: 1 applic Docusate Sodium (Colace -) 100 mg PO Q8H PRN PRN Reason: CONSTIPATION Last Admin: 05/19/18 11:40 Dose: 100 mg Heparin Sodium (Porcine) (Heparin -) 5,000 unit SQ Q8H-IV [facility] Last Admin: 05/21/18 01:09 Dose: 5,000 unit Hydralazine HCl (Apresoline -) 50 mg PO BID [facility] Last Admin: 05/20/18 21:37 Dose: 50 mg Hydroxyzine HCl (Atarax -) 50 mg PO HS [facility] Last Admin: 05/20/18 21:37 Dose: 50 mg Meropenem 1 gm/ Dextrose 100 mls @ 200 mls/hr IVPB Q8H-IV [facility] Last Admin: 05/21/18 01:09 Dose: 200 mls/hr Insulin Aspart (Novolog Vial Sliding Scale -) 1 vial SQ ACHS [facility]; Protocol Last Admin: 05/21/18 06:08 Dose: 10 units Insulin Detemir (Levemir Vial) 20 units SQ BID@0700,2200 [facility] Last Admin: 05/21/18 06:09 Dose: 20 units Mupirocin (Bactroban Ointment (For Decolonization) -) 1 applic NS BID [facility] Stop: 05/21/18 21:59 Last Admin: 05/20/18 21:38 Dose: 1 applic Pantoprazole Sodium (Protonix -) 20 mg PO DAILY [facility] Last Admin: 05/20/18 09:05 Dose: 20 mg Polyethylene Glycol (Miralax (For Daily Use) -) 17 gm PO BID [facility] Last Admin: 05/20/18 21:41 Dose: 17 grams Prednisone (Deltasone -) 30 mg PO DAILY [facility] Senna (Senna -) 1 tab PO HS [facility] Last Admin: 05/20/18 21:38 Dose: 1 tab Timolol Maleate (Timoptic 0.5%) 1 drop OU BID [facility] Last Admin: 05/20/18 21:38 Dose: 1 drop Gen: walking about room Heart: RRR Lung: scattered rales right Abd: soft, nontender, + BS Ext: no edema Lab holiday today CBCD WBC 12.9 K/mm3 (4.0-10.0) H 05/20/18 05:30 RBC 3.33 M/mm3 (3.60-5.2) L 05/20/18 05:30 Hgb 9.5 GM/dL (10.7-15.3) L 05/20/18 05:30 Hct 28.5 % (32.4-45.2) L 05/20/18 05:30 MCV 85.4 fl (80-96) 05/20/18 05:30 MCHC 33.2 g/dl (32.0-36.0) 05/20/18 05:30 RDW 15.5 % (11.6-15.6) 05/20/18 05:30 Plt Count 245 K/MM3 (134-434) D 05/20/18 05:30 MPV 9.9 fl (7.5-11.1) 05/20/18 05:30 CMP Sodium 135 mmol/L (136-145) L 05/20/18 05:30 Potassium 5.0 mmol/L (3.5-5.1) 05/20/18 05:30 Chloride 100 mmol/L (98-107) 05/20/18 05:30 Carbon Dioxide 30 mmol/L (21-32) 05/20/18 05:30 Anion Gap 5 MMOL/L (8-16) L 05/20/18 05:30 BUN 73 mg/dL (7-18) H 05/20/18 05:30 Creatinine 2.0 mg/dL (0.55-1.3) H 05/20/18 05:30 Creat Clearance w eGFR 25.33 (>60) 05/20/18 05:30 Random Glucose 314 mg/dL (74-106) H* 05/20/18 05:30 Calcium 8.4 mg/dL (8.5-10.1) L 05/20/18 05:30 Total Bilirubin 0.2 mg/dL (0.2-1) 05/20/18 05:30 AST 13 U/L (15-37) L 05/20/18 05:30 ALT 26 U/L (13-61) 05/20/18 05:30 Alkaline Phosphatase 72 U/L (45-117) 05/20/18 05:30 Total Protein 5.9 g/dl (6.4-8.2) L 05/20/18 05:30 Albumin 2.2 g/dl (3.4-5.0) L 05/20/18 05:30 CARDIAC ENZYMES Troponin I < 0.02 ng/ml (0.00-0.05) 05/14/18 14:35 Microbiology 05/14/18 14:29 Blood - Peripheral Venous Blood Culture - Final NO GROWTH AFTER 5 DAYS INCUBATION 05/14/18 14:35 Blood - Peripheral Venous Blood Culture - Final NO GROWTH AFTER 5 DAYS INCUBATION 05/16/18 10:00 Blood - Peripheral Venous Blood Culture - Preliminary NO GROWTH OBTAINED AFTER 72 HOURS, INCUBATION TO CONTINUE FOR 2 DAYS. 05/16/18 10:30 Blood - Peripheral Venous Blood Culture - Preliminary NO GROWTH OBTAINED AFTER 72 HOURS, INCUBATION TO CONTINUE FOR 2 DAYS. 05/16/18 10:00 Nasopharyngeal Swab Influenza Types A,B Antigen - Final 05/16/18 10:00 Nasopharyngeal Swab - Final 05/14/18 14:35 Urine - Urine Clean Catch Urine Culture - Final Escherichia Coli ASSESSMENT AND PLAN: Acute Hypoxic Respiratory Failure suspected due to TACO / pulmonary vascular congestion R/O Pneumonia (low clinical suspicion) UTI Severe Sepsis Acute Kidney Injury Acute COPD Exacerbation Hyperlipidemia HTN Fibroid Uterus Anemia - ABX per ID - Steroid taper ---down to 30 today. - inhaled bronchodilators standing and PRN - O2 to keep Spo2 >90% - glucose control while on systemic steroids - Reg diet - DVT/GI prophylaxis - awaits floor bed [place] [facility] Problem List - Problems (1) Acute exacerbation of chronic obstructive pulmonary disease (COPD) Code(s): J44.1 - CHRONIC OBSTRUCTIVE PULMONARY DISEASE W (ACUTE) EXACERBATION (2) Pulmonary vascular congestion Code(s): R09.89 - OTH SYMPTOMS AND SIGNS INVOLVING THE CIRC AND RESP SYSTEMS (3) Morbid obesity Code(s): E66.01 - MORBID (SEVERE) OBESITY DUE TO EXCESS CALORIES (4) UTI (urinary tract infection) Code(s): N39.0 - URINARY TRACT INFECTION, SITE NOT SPECIFIED Qualifiers: Urinary tract infection type: site unspecified Hematuria presence: without hematuria Qualified Code(s): N39.0 - Urinary tract infection, site not specified (5) Neck pain, bilateral posterior Code(s): M54.2 - CERVICALGIA
[2018-05-21] MEDS ORDERED: PT OWN MED DRAWER 7, Y5N ONE (10:09)
[2018-05-21] MEDS: ARTIFICIAL TEARS (POLYVINYL ALCOHOL) OPTH DROPS OU SCH ×3 (10:15→21:45)
[2018-05-21] MEDS: amLODIPine BESYLATE 10 MG TABLET (FP) PO SCH (10:16)
[2018-05-21] MEDS: ASPIRIN 81 MG CHEWABLE TABLETS PO SCH (10:16)
[2018-05-21] MEDS: hydrALAZINE HCL 50 MG TABLET (FP) PO SCH ×2 (10:16→21:45)
[2018-05-21] MEDS: MUPIROCIN 2% TOPICAL OINTMENT FOR DECOLONIZATION NS SCH (10:16)
[2018-05-21] MEDS: predniSONE 20 MG TABLET (UD) PO SCH (10:16)
[2018-05-21] MEDS: TIMOLOL 0.5% OPHTHALMIC SOL 5 ML BOTTLE OU SCH ×2 (10:17→21:47)
[2018-05-21] MEDS: PANTOPRAZOLE 20 MG TABLET (FP) PO SCH (10:17)
[2018-05-21] MEDS: ALPRAZolam 2 MG TABLET PO PRN ×2 (10:24→21:57)
[2018-05-21] MEDS: POLYETHYLENE GLYCOL 3350 119 GM BTL PO SCH ×2 (10:25→21:46)
--- NOTE | 2018-05-21 11:59 | PN ---
Progress Note, Physician History of Present Illness: stable much better breathing well no complaints - Current Medication List Current Medications: Active Medications Acetaminophen (Tylenol -) 650 mg PO Q6H PRN PRN Reason: FEVER Last Admin: 05/16/18 13:52 Dose: 650 mg Albuterol Sulfate (Ventolin 0.083% Nebulizer Soln -) 1 amp NEB Q4H PRN PRN Reason: SHORT OF BREATH/WHEEZING Albuterol/Ipratropium (Duoneb -) 1 amp NEB RQID [facility] Last Admin: 05/21/18 11:01 Dose: 1 amp Alprazolam (Xanax -) 2 mg PO BID PRN PRN Reason: ANXIETY Last Admin: 05/21/18 10:24 Dose: 2 mg Amlodipine Besylate (Norvasc -) 10 mg PO DAILY [facility] Last Admin: 05/21/18 10:16 Dose: 10 mg Artificial Tears (Artificial Tears) 1 drop OU QID [facility] Last Admin: 05/21/18 10:15 Dose: 1 drop Aspirin (Asa -) 81 mg PO DAILY [facility] Last Admin: 05/21/18 10:16 Dose: 81 mg Atorvastatin Calcium (Lipitor -) 20 mg PO HS [facility] Last Admin: 05/20/18 21:38 Dose: 20 mg Chlorhexidine Gluconate (Hibiclens For Decolonization -) 1 applic TP HS [facility] Last Admin: 05/20/18 21:39 Dose: 1 applic Docusate Sodium (Colace -) 100 mg PO Q8H PRN PRN Reason: CONSTIPATION Last Admin: 05/19/18 11:40 Dose: 100 mg Heparin Sodium (Porcine) (Heparin -) 5,000 unit SQ Q8H-IV [facility] Last Admin: 05/21/18 10:17 Dose: 5,000 unit Hydralazine HCl (Apresoline -) 50 mg PO BID [facility] Last Admin: 05/21/18 10:16 Dose: 50 mg Hydroxyzine HCl (Atarax -) 50 mg PO [facility] Last Admin: 05/20/18 21:37 Dose: 50 mg Insulin Aspart (Novolog Vial Sliding Scale -) 1 vial SQ ACHS [facility]; Protocol Last Admin: 05/21/18 06:08 Dose: 10 units Insulin Detemir (Levemir Vial) 20 units SQ BID@0700,2200 [facility] Last Admin: 05/21/18 06:09 Dose: 20 units Mupirocin (Bactroban Ointment (For Decolonization) -) 1 applic NS BID [facility] Stop: 05/21/18 21:59 Last Admin: 05/21/18 10:16 Dose: 1 applic Pantoprazole Sodium (Protonix -) 20 mg PO DAILY [facility] Last Admin: 05/21/18 10:17 Dose: 20 mg Polyethylene Glycol (Miralax (For Daily Use) -) 17 gm PO BID [facility] Last Admin: 05/21/18 10:25 Dose: 17 grams Prednisone (Deltasone -) 30 mg PO DAILY [facility] Last Admin: 05/21/18 10:16 Dose: 30 mg Senna (Senna -) 1 tab PO HS [facility] Last Admin: 05/20/18 21:38 Dose: 1 tab Timolol Maleate (Timoptic 0.5%) 1 drop OU BID [facility] Last Admin: 05/21/18 10:17 Dose: 1 drop - Objective Vital Signs: Vital Signs Temperature 98.5 F 05/20/18 22:00 Pulse Rate 92 H 05/21/18 10:54 Respiratory Rate 20 05/21/18 10:00 Blood Pressure 139/85 05/21/18 04:00 O2 Sat by Pulse Oximetry (%) 94 L 05/21/18 10:54 Constitutional: Yes: No Distress, Calm, Obese Cardiovascular: Yes: Regular Rate and Rhythm Respiratory: Yes: Regular, CTA Bilaterally Gastrointestinal: Yes: Normal Bowel Sounds, Soft Musculoskeletal: Yes: WNL Extremities: Yes: WNL Neurological: Yes: Alert, Oriented Psychiatric: Yes: Alert, Oriented Labs: CBC, BMP 05/20/18 05:30 05/20/18 05:30 INR, PTT INR 1.08 (0.83-1.09) 05/14/18 14:35 Assessment/Plan Problem List - Problems (1) Acute exacerbation of chronic obstructive pulmonary disease (COPD) Code(s): J44.1 - CHRONIC OBSTRUCTIVE PULMONARY DISEASE W (ACUTE) EXACERBATION (2) Pulmonary vascular congestion Code(s): R09.89 - OTH SYMPTOMS AND SIGNS INVOLVING THE CIRC AND RESP SYSTEMS (3) Morbid obesity Code(s): E66.01 - MORBID (SEVERE) OBESITY DUE TO EXCESS CALORIES (4) UTI (urinary tract infection) Code(s): N39.0 - URINARY TRACT INFECTION, SITE NOT SPECIFIED Qualifiers: Urinary tract infection type: site unspecified Hematuria presence: without hematuria Qualified Code(s): N39.0 - Urinary tract infection, site not specified (5) Neck pain, bilateral posterior Code(s): M54.2 - CERVICALGIA 6 fever 7 ac hypoxic resp failure ct scan seen reports noted plan stopped all abx will monitor off of abx resp support bipap if needed rest continue as per icu cc 40 min
--- NOTE | 2018-05-21 15:25 | PN ---
Physical Exam: SUBJECTIVE: Patient seen and examined. feels well. ambulated without oxygen and did not experience shortness of breath. OBJECTIVE: Vital Signs Period Temp Pulse Resp BP Sys/Maurer Pulse Ox Last 24 Hr 97.6 F-98.5 F 57-92 20-20 132-147/57-85 94-96 GENERAL: The patient is awake, alert, and fully oriented HEAD: Normal with no signs of trauma. EYES: PERRL, extraocular movements intact, sclera anicteric, conjunctiva clear. No ptosis. ENT: Ears normal, nares patent, oropharynx clear without exudates, moist mucous membranes. NECK: Trachea midline, full range of motion, supple. LUNGS: lungs sounds clear/diminished at the bases. improved. HEART: Regular rate and rhythm ABDOMEN: Soft, nontender, nondistended, normoactive bowel sounds, no guarding, no rebound, no hepatosplenomegaly, no masses. EXTREMITIES: no edema. NEUROLOGICAL: Normal speech, gait not observed. PSYCH: Normal mood, normal affect. SKIN: scattered small dried lesions on bilateral upper arms. Laboratory Results - last 24 hr 05/20/18 05/20/18 05/20/18 11:47 16:36 21:07 POC Glucometer [phone] 05/21/18 05/21/18 05:26 12:06 POC Glucometer [phone] Active Medications Generic Name Dose Route Start Last Admin Trade Name Freq PRN Reason Stop Dose Admin Acetaminophen 650 mg 05/14/18 20:04 05/16/18 13:52 Tylenol - PO 650 mg Q6H PRN Administration FEVER Albuterol Sulfate 1 amp 05/16/18 10:15 Ventolin 0.083% Nebulizer Soln - NEB Q4H PRN SHORT OF BREATH/WHEEZING Albuterol/Ipratropium 1 amp 05/16/18 12:00 05/21/18 11:01 Duoneb - NEB 1 amp RQID [facility] Administration Alprazolam 2 mg 05/15/18 12:09 05/21/18 10:24 Xanax - PO 2 mg BID PRN Administration ANXIETY Amlodipine Besylate 10 mg 05/15/18 12:45 05/21/18 10:16 Norvasc - PO 10 mg DAILY [facility] Administration Artificial Tears 1 drop 05/15/18 14:00 05/21/18 10:15 Artificial Tears OU 1 drop QID [facility] Administration Aspirin 81 mg 05/16/18 10:00 05/21/18 10:16 Asa - PO 81 mg DAILY [facility] Administration Atorvastatin Calcium 20 mg 05/15/18 22:00 05/20/18 21:38 Lipitor - PO 20 mg HS [facility] Administration Chlorhexidine Gluconate 1 applic 05/16/18 22:00 05/20/18 21:39 Hibiclens For Decolonization - TP 1 applic HS [facility] Administration Docusate Sodium 100 mg 05/17/18 08:42 05/19/18 11:40 Colace - PO 100 mg Q8H PRN Administration CONSTIPATION Heparin Sodium (Porcine) 5,000 unit 05/14/18 18:00 05/21/18 10:17 Heparin - SQ 5,000 unit Q8H-IV [facility] Administration Hydralazine HCl 50 mg 05/15/18 12:45 05/21/18 10:16 Apresoline - PO 50 mg BID [facility] Administration Hydroxyzine HCl 50 mg 05/15/18 22:00 05/20/18 21:37 Atarax - PO 50 mg HS [facility] Administration Insulin Aspart 1 vial 05/19/18 08:00 05/21/18 12:59 Novolog Vial Sliding Scale - SQ 6 units ACHS [facility] Administration Protocol Insulin Detemir 20 units 05/20/18 22:00 05/21/18 06:09 Levemir Vial SQ 20 units BID@0700,2200 [facility] Administration Mupirocin 1 applic 05/16/18 22:00 05/21/18 10:16 Bactroban Ointment (For Decolonization) - NS 05/21/18 21:59 1 applic BID [facility] Administration Pantoprazole Sodium 20 mg 05/20/18 10:00 05/21/18 10:17 Protonix - PO 20 mg DAILY [facility] Administration Polyethylene Glycol 17 gm 05/19/18 10:00 05/21/18 10:25 Miralax (For Daily Use) - PO 17 grams BID [facility] Administration Prednisone 30 mg 05/21/18 08:15 05/21/18 10:16 Deltasone - PO 30 mg DAILY [facility] Administration Senna 1 tab 05/17/18 22:00 05/20/18 21:38 Senna - PO 1 tab HS [facility] Administration Timolol Maleate 1 drop 05/15/18 22:00 05/21/18 10:17 Timoptic 0.5% OU 1 drop BID [facility] Administration ASSESSMENT/PLAN: Patient is a 63 year old female with a significant past medical history of hypertension, hyperlipidemia, obesity, COPD (ex smoker-not home oxygen dependent ), diabetes mellitus, CKD and fibroids. Patient presented to the ED on 05/14/18 with c/o of fevers and generalized weakness. She was treated recently at [facility] for UTIs which she states she completed. After completion of antibiotics, she experienced dysuria, urgency, frequency along with general malaise. Patient became hypoxic on 05/16/2018 with supplemental oxygen and was transferred to the ICU. She has not been intubated. ID: Bilateral pneumonia. extensive bilateral pneumonia seen on CT chest 05/16/18. Meropenem discontinued by ID. tolerating room air with stable oxygen saturations. Respiratory pre and post completed with stable oxygen saturations with ambulation. Blood cultures negative. On prednisone taper, on 30mg currently. Respiratory failure/COPD exacerbation, resolved:. On prednisone daily, with taper. Card: Hypertension: On cozaar, hydralazine bid, norvasc Hyperlipidemia: on lipitor Obesity: bmi 42.3. Dietary following. Has other risk factors for heart disease : hld, htn, dm. Endocrine: Diabetes Mellitus: on novolog and levemir, elevated bgms. increased levemir to bid. Patient takes lantus at home twice daily. Renal: CKD: creat 2.0. renal following. Safety Aide: Uterine fibroids, stable. outpatient follow up. fen tolerating PO monitor electrolytes low salt diet prophy protonix transfer out of the icu. awaiting bed on med surg floor. Visit type - Emergency Visit Emergency Visit: Yes ED Registration Date: 05/14/18 Care time: The patient presented to the Emergency Department on the above date and was hospitalized for further evaluation of their emergent condition. - New Patient This patient is new to me today: No - Critical Care Critical Care patient: No - Discharge Referral Referred to [facility] Med P.C.: No
[2018-05-21] MEDS ORDERED: DOCUSATE SODIUM 100 MG CAPSULE (FP) PO PRN (16:05)
[2018-05-21] MEDS ORDERED: ACETAMINOPHEN 325 MG TABLET (FP) PO PRN (16:05)
[2018-05-21] MEDS ORDERED: ALBUTEROL SO4 0.083% IH SOL 2.5 MG/3 ML VIAL.NEB. NEB PRN (16:05)
[2018-05-21] MEDS: hydrOXYzine HCL 25 MG TABLET (FP) PO SCH (21:44)
[2018-05-21] MEDS: SENNOSIDES 8.6MG TABLET (FP) PO SCH (21:45)
[2018-05-21] MEDS: ATORVASTATIN CA 20 MG TABLET (FP) PO SCH (21:46)
[2018-05-22] MEDS: HEPARIN NA (PORCINE) 5,000 UNITS/ML 1ML VIAL SQ SCH ×4 (03:17→21:26)
[2018-05-22] MEDS: INSULIN SLIDING SCALE (NOVOLOG) 1 VIAL SQ SCH ×4 (06:29→21:23)
[2018-05-22] MEDS: INSULIN (LEVEMIR) 100 UNITS/ML UNITS SQ SCH ×2 (06:30→21:24)
[2018-05-22] MEDS ORDERED: INSULIN (NOVOLOG) ASPART 100 UNITS/ML 10ML VIAL ONE ×2 (06:33→17:41)
[2018-05-22] MEDS: ALBUTEROL SO4 2.5/IPRATROPIUM 0.5 INH SOL 3 ML VIAL.NEB. NEB SCH ×4 (07:35→20:35)
[2018-05-22] MEDS ORDERED: BISACODYL 5 MG TABLET.DR (FP) PO ONE (08:50)
[2018-05-22] MEDS ORDERED: BISACODYL 10 MG SUPP.RECT RC ONE (08:52)
[2018-05-22] MEDS ORDERED: PT OWN MED DRAWER 7, Y5N ONE ×2 (09:39→12:15)
[2018-05-22 09:43] LABS: BASO % 0.6 % (0-2.0); EOS % 3.8 % (0-4.5); HEMOGLOBIN 10.6 GM/dL (10.7-15.3); LYMPH % 28.4 % (8-40); MCH 29.4 pg (25.7-33.7); MCHC 34.1 g/dl (32.0-36.0); MEAN CELL VOLUME 86.1 fl (80-96); MEAN PLT VOLUME 10.7 fl (7.5-11.1); MONO % 4.3 % (3.8-10.2); NEUT % 62.9 % (42.8-82.8); PLATELET COUNT 218 K/MM3 (134-434); RDW 15.4 % (11.6-15.6); WHITE BLOOD COUNT 17.7 K/mm3 (4.0-10.0)
[2018-05-22] MEDS: ARTIFICIAL TEARS (POLYVINYL ALCOHOL) OPTH DROPS OU SCH ×4 (09:55→21:26)
[2018-05-22] MEDS: hydrALAZINE HCL 50 MG TABLET (FP) PO SCH ×2 (09:55→21:25)
[2018-05-22] MEDS: predniSONE 20 MG TABLET (UD) PO SCH (09:56)
[2018-05-22] MEDS: ASPIRIN 81 MG CHEWABLE TABLETS PO SCH (09:56)
[2018-05-22] MEDS: amLODIPine BESYLATE 10 MG TABLET (FP) PO SCH (09:58)
[2018-05-22] MEDS: POLYETHYLENE GLYCOL 3350 119 GM BTL PO SCH ×2 (09:58→21:27)
[2018-05-22] MEDS: PANTOPRAZOLE 20 MG TABLET (FP) PO SCH (09:58)
[2018-05-22] MEDS: TIMOLOL 0.5% OPHTHALMIC SOL 5 ML BOTTLE OU SCH ×2 (09:59→21:27)
[2018-05-22] MEDS: ALPRAZolam 2 MG TABLET PO PRN ×2 (10:07→21:29)
[2018-05-22 10:41] LABS: ALBUMIN 2.7 g/dl (3.4-5.0); ALK PHOS 74 U/L (45-117); ANION GAP 8 MMOL/L (8-16); BILIRUBIN,TOTAL 0.2 mg/dL (0.2-1); BLOOD UREA NITROGEN 40 mg/dL (7-18); CALCIUM 9.5 mg/dL (8.5-10.1); CHLORIDE 103 mmol/L (98-107); CO2 28 mmol/L (21-32); CREATININE 1.3 mg/dL (0.55-1.3); GLUCOSE,RANDOM 130 mg/dL (74-106); MAGNESIUM 2.4 mg/dL (1.8-2.4); POTASSIUM 4.7 mmol/L (3.5-5.1); SGOT/AST 20 U/L (15-37); SGPT/ALT 38 U/L (13-61); SODIUM 139 mmol/L (136-145); TOT PROT 6.6 g/dl (6.4-8.2)
[2018-05-22 10:42] LABS: ANISOCYTOSIS 2+; MACROCYTOSIS 0; PLATELET ESTIMATE NORMAL; TARGET CELLS 2+
--- NOTE | 2018-05-22 12:09 | PN ---
Progress Note (short form) - Note Progress Note: PULMONARY Breathing continues to improve. No fevers or chills. c/o leg swelling. Vital Signs Period Temp Pulse Resp BP Sys/Maurer Pulse Ox Last 24 Hr 97.5 F-99.1 F 62-74 18-18 116-151/61-81 95-96 Gen: NAD at rest Heart: RRR Lung: decreased breath sounds at the bases Abd: soft, nontender Ext: + edema CBC, BMP 05/22/18 09:30 05/22/18 09:30 Active Medications Acetaminophen (Tylenol -) 650 mg PO Q6H PRN PRN Reason: FEVER Albuterol Sulfate (Ventolin 0.083% Nebulizer Soln -) 1 amp NEB Q4H PRN PRN Reason: SHORT OF BREATH/WHEEZING Albuterol/Ipratropium (Duoneb -) 1 amp NEB RQID [facility] Last Admin: 05/22/18 11:20 Dose: 1 amp Alprazolam (Xanax -) 2 mg PO BID PRN PRN Reason: ANXIETY Last Admin: 05/22/18 10:07 Dose: 2 mg Amlodipine Besylate (Norvasc -) 10 mg PO DAILY [facility] Last Admin: 05/22/18 09:58 Dose: 10 mg Artificial Tears (Artificial Tears) 1 drop OU QID [facility] Last Admin: 05/22/18 09:55 Dose: 1 drop Aspirin (Asa -) 81 mg PO DAILY [facility] Last Admin: 05/22/18 09:56 Dose: 81 mg Atorvastatin Calcium (Lipitor -) 20 mg PO HS [facility] Last Admin: 05/21/18 21:46 Dose: 20 mg Docusate Sodium (Colace -) 100 mg PO Q8H PRN PRN Reason: CONSTIPATION Last Admin: 05/21/18 21:45 Dose: 100 mg Heparin Sodium (Porcine) (Heparin -) 5,000 unit SQ TID [facility] Last Admin: 05/22/18 05:45 Dose: 5,000 unit Hydralazine HCl (Apresoline -) 50 mg PO BID [facility] Last Admin: 05/22/18 09:55 Dose: 50 mg Hydroxyzine HCl (Atarax -) 50 mg PO HS [facility] Last Admin: 05/21/18 21:44 Dose: 50 mg Insulin Aspart (Novolog Vial Sliding Scale -) 1 vial SQ ACHS [facility]; Protocol Last Admin: 05/22/18 11:35 Dose: Not Given Insulin Detemir (Levemir Vial) 20 units SQ BID@0700,2200 [facility] Last Admin: 05/22/18 06:30 Dose: 20 units Pantoprazole Sodium (Protonix -) 20 mg PO DAILY [facility] Last Admin: 05/22/18 09:58 Dose: 20 mg Polyethylene Glycol (Miralax (For Daily Use) -) 17 gm PO BID [facility] Last Admin: 05/22/18 09:58 Dose: 17 grams Prednisone (Deltasone -) 30 mg PO DAILY [facility] Last Admin: 05/22/18 09:56 Dose: 30 mg Senna (Senna -) 1 tab PO HS [facility] Last Admin: 05/21/18 21:45 Dose: 1 tab Timolol Maleate (Timoptic 0.5%) 1 drop OU BID [facility] Last Admin: 05/22/18 09:59 Dose: 1 drop A/P Acute Hypoxic Respiratory Failure improved Pneumonia UTI Severe Sepsis resolved Acute Kidney Injury Acute COPD Exacerbation Hyperlipidemia HTN Fibroid Uterus Anemia - IV lasix today - continue antibiotics per ID - f/u cultures - IVF per renal - monitor urine output, creatinine - prednisone taper - inhaled bronchodilators standing and PRN - O2 to keep Spo2 >90% - glucose control while on systemic steroids - PO as tolerated - DVT/GI prophylaxis
--- NOTE | 2018-05-22 12:26 | PN ---
Progress Note, Physician History of Present Illness: stable doing well breathing improving - Current Medication List Current Medications: Active Medications Acetaminophen (Tylenol -) 650 mg PO Q6H PRN PRN Reason: FEVER Albuterol Sulfate (Ventolin 0.083% Nebulizer Soln -) 1 amp NEB Q4H PRN PRN Reason: SHORT OF BREATH/WHEEZING Albuterol/Ipratropium (Duoneb -) 1 amp NEB RQID [facility] Last Admin: 05/22/18 11:20 Dose: 1 amp Alprazolam (Xanax -) 2 mg PO BID PRN PRN Reason: ANXIETY Last Admin: 05/22/18 10:07 Dose: 2 mg Amlodipine Besylate (Norvasc -) 10 mg PO DAILY [facility] Last Admin: 05/22/18 09:58 Dose: 10 mg Artificial Tears (Artificial Tears) 1 drop OU QID [facility] Last Admin: 05/22/18 09:55 Dose: 1 drop Aspirin (Asa -) 81 mg PO DAILY [facility] Last Admin: 05/22/18 09:56 Dose: 81 mg Atorvastatin Calcium (Lipitor -) 20 mg PO HS [facility] Last Admin: 05/21/18 21:46 Dose: 20 mg Docusate Sodium (Colace -) 100 mg PO Q8H PRN PRN Reason: CONSTIPATION Last Admin: 05/21/18 21:45 Dose: 100 mg Furosemide (Lasix Injection -) 40 mg IVPUSH ONCE ONE Stop: 05/22/18 12:10 Heparin Sodium (Porcine) (Heparin -) 5,000 unit SQ TID [facility] Last Admin: 05/22/18 05:45 Dose: 5,000 unit Hydralazine HCl (Apresoline -) 50 mg PO BID [facility] Last Admin: 05/22/18 09:55 Dose: 50 mg Hydroxyzine HCl (Atarax -) 50 mg PO HS [facility] Last Admin: 05/21/18 21:44 Dose: 50 mg Insulin Aspart (Novolog Vial Sliding Scale -) [address] [facility]; Protocol Last Admin: 05/22/18 11:35 Dose: Not Given Insulin Detemir (Levemir Vial) 20 units SQ BID@0700,2200 [facility] Last Admin: 05/22/18 06:30 Dose: 20 units Pantoprazole Sodium (Protonix -) 20 mg PO DAILY [facility] Last Admin: 05/22/18 09:58 Dose: 20 mg Polyethylene Glycol (Miralax (For Daily Use) -) 17 gm PO BID [facility] Last Admin: 05/22/18 09:58 Dose: 17 grams Prednisone (Deltasone -) 30 mg PO DAILY [facility] Last Admin: 05/22/18 09:56 Dose: 30 mg Senna (Senna -) 1 tab PO HS [facility] Last Admin: 05/21/18 21:45 Dose: 1 tab Timolol Maleate (Timoptic 0.5%) 1 drop OU BID [facility] Last Admin: 05/22/18 09:59 Dose: 1 drop - Objective Vital Signs: Vital Signs Temperature 97.7 F 05/22/18 07:00 Pulse Rate 66 05/22/18 07:00 Respiratory Rate 18 05/22/18 07:00 Blood Pressure 151/71 05/22/18 07:00 O2 Sat by Pulse Oximetry (%) 96 05/21/18 21:00 Constitutional: Yes: No Distress, Calm Cardiovascular: Yes: Regular Rate and Rhythm Gastrointestinal: Yes: Normal Bowel Sounds, Soft Musculoskeletal: Yes: Other Extremities: Yes: Other (b/ edema) Neurological: Yes: Alert, Oriented Psychiatric: Yes: Alert, Oriented Labs: CBC, BMP 05/22/18 09:30 05/22/18 09:30 INR, PTT INR 1.08 (0.83-1.09) 05/14/18 14:35 Assessment/Plan Problem List - Problems (1) Acute exacerbation of chronic obstructive pulmonary disease (COPD) Code(s): J44.1 - CHRONIC OBSTRUCTIVE PULMONARY DISEASE W (ACUTE) EXACERBATION (2) Pulmonary vascular congestion Code(s): R09.89 - OTH SYMPTOMS AND SIGNS INVOLVING THE CIRC AND RESP SYSTEMS (3) Morbid obesity Code(s): E66.01 - MORBID (SEVERE) OBESITY DUE TO EXCESS CALORIES (4) UTI (urinary tract infection) Code(s): N39.0 - URINARY TRACT INFECTION, SITE NOT SPECIFIED Qualifiers: Urinary tract infection type: site unspecified Hematuria presence: without hematuria Qualified Code(s): N39.0 - Urinary tract infection, site not specified (5) Neck pain, bilateral posterior Code(s): M54.2 - CERVICALGIA 6 fever 7 ac hypoxic resp failure plan continue current mgmt close watch no new issues patient improving
[2018-05-22] MEDS ORDERED: FUROSEMIDE 40 MG/4 ML INJECTABLE VIAL IVPUSH ONE (13:15)
--- NOTE | 2018-05-22 15:22 | PN ---
Physical Exam: SUBJECTIVE: Patient seen and examined at the bedside. Sitting in chair, tolerating room air. Out of the ICU. OBJECTIVE: wbc 17.7, off antibiotics. will monitor and re-address discharge tomorrow. WBC elevation likely due to steriod use, however, will monitor. repeat chest xray tomorrow Vital Signs Period Temp Pulse Resp BP Sys/Maurer Pulse Ox Last 24 Hr 97.4 F-99.1 F 62-74 18-18 116-151/61-81 95-96 GENERAL: The patient is awake, alert, and fully oriented HEAD: Normal with no signs of trauma. EYES: PERRL, extraocular movements intact, sclera anicteric, conjunctiva clear. No ptosis. ENT: Ears normal, nares patent, oropharynx clear without exudates, moist mucous membranes. NECK: Trachea midline, full range of motion, supple. LUNGS: lungs sounds diminished at the bases. improved. HEART: Regular rate and rhythm ABDOMEN: Soft, nontender, nondistended, normoactive bowel sounds, no guarding, no rebound, no hepatosplenomegaly, no masses. EXTREMITIES: no edema. NEUROLOGICAL: Normal speech, gait not observed. PSYCH: Normal mood, normal affect. SKIN: scattered small dried lesions on bilateral upper arms. Laboratory Results - last 24 hr 05/18/18 05/18/18 05/21/18 14:31 17:17 16:21 WBC RBC Hgb Hct MCV MCH MCHC RDW Plt Count MPV Absolute Neuts (auto) Neutrophils % Neutrophils % (Manual) Band Neutrophils % Lymphocytes % Lymphocytes % (Manual) Monocytes % Monocytes % (Manual) Eosinophils % Eosinophils % (Manual) Basophils % Basophils % (Manual) Myelocytes % (Man) Promyelocytes % (Man) Blast Cells % (Manual) Nucleated RBC % Metamyelocytes Hypochromia Platelet Estimate Polychromasia Poikilocytosis Anisocytosis Microcytosis Macrocytosis Target Cells Stomatocytes Sodium Potassium Chloride Carbon Dioxide Anion Gap BUN Creatinine Creat Clearance w eGFR POC Glucometer > 400 > 400 272 Random Glucose Calcium Magnesium Total Bilirubin AST ALT Alkaline Phosphatase Total Protein Albumin 05/21/18 05/22/18 05/22/18 21:37 05:37 09:30 WBC 17.7 H RBC 3.60 Hgb 10.6 L Hct 31.0 L MCV 86.1 MCH 29.4 MCHC 34.1 RDW 15.4 Plt Count 218 MPV 10.7 Absolute Neuts (auto) 11.1 H Neutrophils % 62.9 Neutrophils % (Manual) 46.0 Band Neutrophils % 1.0 Lymphocytes % 28.4 D Lymphocytes % (Manual) 43.0 H D Monocytes % 4.3 Monocytes % (Manual) 7 D Eosinophils % 3.8 D Eosinophils % (Manual) 2.0 D Basophils % 0.6 Basophils % (Manual) 0.0 Myelocytes % (Man) 0 D Promyelocytes % (Man) 0 Blast Cells % (Manual) 0 Nucleated RBC % 1 H Metamyelocytes 1 D Hypochromia 0 Platelet Estimate Normal Polychromasia 1+ Poikilocytosis 2+ Anisocytosis 2+ Microcytosis 2+ Macrocytosis 0 Target Cells 2+ Stomatocytes 1+ Sodium Potassium Chloride Carbon Dioxide Anion Gap BUN Creatinine Creat Clearance w eGFR POC Glucometer 393 204 Random Glucose Calcium Magnesium Total Bilirubin AST ALT Alkaline Phosphatase Total Protein Albumin 05/22/18 05/22/18 09:30 11:33 WBC RBC Hgb Hct MCV MCH MCHC RDW Plt Count MPV Absolute Neuts (auto) Neutrophils % Neutrophils % (Manual) Band Neutrophils % Lymphocytes % Lymphocytes % (Manual) Monocytes % Monocytes % (Manual) Eosinophils % Eosinophils % (Manual) Basophils % Basophils % (Manual) Myelocytes % (Man) Promyelocytes % (Man) Blast Cells % (Manual) Nucleated RBC % Metamyelocytes Hypochromia Platelet Estimate Polychromasia Poikilocytosis Anisocytosis Microcytosis Macrocytosis Target Cells Stomatocytes Sodium 139 Potassium 4.7 Chloride 103 Carbon Dioxide 28 Anion Gap 8 BUN 40 H Creatinine 1.3 Creat Clearance w eGFR 41.64 POC Glucometer 97 Random Glucose 130 H Calcium 9.5 Magnesium 2.4 Total Bilirubin 0.2 AST 20 ALT 38 Alkaline Phosphatase 74 Total Protein 6.6 Albumin 2.7 L Active Medications Generic Name Dose Route Start Last Admin Trade Name Freq PRN Reason Stop Dose Admin Acetaminophen 650 mg 05/21/18 16:05 Tylenol - PO Q6H PRN FEVER Albuterol Sulfate 1 amp 05/21/18 16:05 Ventolin 0.083% Nebulizer Soln - NEB Q4H PRN SHORT OF BREATH/WHEEZING Albuterol/Ipratropium 1 amp 05/21/18 20:00 05/22/18 11:20 Duoneb - NEB 1 amp RQID [facility] Administration Alprazolam 2 mg 05/21/18 16:05 05/22/18 10:07 Xanax - PO 2 mg BID PRN Administration ANXIETY Amlodipine Besylate 10 mg 05/22/18 10:00 05/22/18 09:58 Norvasc - PO 10 mg DAILY [facility] Administration Artificial Tears 1 drop 05/21/18 18:00 05/22/18 15:05 Artificial Tears OU Not Given QID [facility] Aspirin 81 mg 05/22/18 10:00 05/22/18 09:56 Asa - PO 81 mg DAILY [facility] Administration Atorvastatin Calcium 20 mg 05/21/18 22:00 05/21/18 21:46 Lipitor - PO 20 mg HS [facility] Administration Docusate Sodium 100 mg 05/21/18 16:05 05/21/18 21:45 Colace - PO 100 mg Q8H PRN Administration CONSTIPATION Heparin Sodium (Porcine) 5,000 unit 05/22/18 06:00 05/22/18 14:10 Heparin - SQ 5,000 unit TID [facility] Administration Hydralazine HCl 50 mg 05/21/18 22:00 05/22/18 09:55 Apresoline - PO 50 mg BID [facility] Administration Hydroxyzine HCl 50 mg 05/21/18 22:00 05/21/18 21:44 Atarax - PO 50 mg HS [facility] Administration Insulin Aspart 1 vial 05/19/18 08:00 05/22/18 11:35 Novolog Vial Sliding Scale - SQ Not Given ACHS [facility] Protocol Insulin Detemir 20 units 05/20/18 22:00 05/22/18 06:30 Levemir Vial SQ 20 units BID@0700,2200 [facility] Administration Pantoprazole Sodium 20 mg 05/20/18 10:00 05/22/18 09:58 Protonix - PO 20 mg DAILY [facility] Administration Polyethylene Glycol 17 gm 05/19/18 10:00 05/22/18 09:58 Miralax (For Daily Use) - PO 17 grams BID [facility] Administration Prednisone 30 mg 05/21/18 08:15 05/22/18 09:56 Deltasone - PO 30 mg DAILY [facility] Administration Senna 1 tab 05/21/18 22:00 05/21/18 21:45 Senna - PO 1 tab HS [facility] Administration Timolol Maleate 1 drop 05/21/18 22:00 05/22/18 09:59 Timoptic 0.5% OU 1 drop BID [facility] Administration ASSESSMENT/PLAN: Patient is a 63 year old female with a significant past medical history of hypertension, hyperlipidemia, obesity, COPD (ex smoker-not home oxygen dependent ), diabetes mellitus, CKD and fibroids. Patient presented to the ED on 05/14/18 with c/o of fevers and generalized weakness. She was treated recently at [facility] for UTIs which she states she completed. After completion of antibiotics, she experienced dysuria, urgency, frequency along with general malaise. Patient became hypoxic on 05/16/2018 with supplemental oxygen and was transferred to the ICU and placed on bipap, she has been weaned off oxygen. She has not been intubated. ID: Bilateral pneumonia. extensive bilateral pneumonia seen on CT chest 05/16/18. Meropenem discontinued on 05/21/18 by ID. tolerating room air with stable oxygen saturations. Respiratory pre and post completed with stable oxygen saturations with ambulation. Blood cultures negative. On prednisone taper. Patient reports mild shortness of breath today and was given IV lasix. We will repeat her chest xray tomorrow and discharge her if improved. Her WBC bumped up today, but she is without fever and vitals are stable. Monitor off antibiotics, discussed with Dr. Haynes. Respiratory failure/COPD exacerbation, resolved:. On prednisone daily, with taper. Card: Hypertension: On cozaar, hydralazine bid, norvasc Hyperlipidemia: on lipitor Obesity: bmi 42.3. Dietary following. Has other risk factors for heart disease : hld, htn, dm. Endocrine: Diabetes Mellitus: on novolog and levemir, elevated bgms. increased levemir to bid. Patient takes lantus at home twice daily. Renal: CKD: creat stable. renal following. Lead Consultant: Uterine fibroids, stable. outpatient follow up. fen tolerating PO monitor electrolytes low salt diet prophy protonix discharge tomorrow likely. full code. Visit type - Emergency Visit Emergency Visit: Yes ED Registration Date: 05/14/18 Care time: The patient presented to the Emergency Department on the above date and was hospitalized for further evaluation of their emergent condition. - New Patient This patient is new to me today: No - Critical Care Critical Care patient: No - Discharge Referral Referred to [facility] Med P.C.: No
[2018-05-22] MEDS: SENNOSIDES 8.6MG TABLET (FP) PO SCH (21:25)
[2018-05-22] MEDS: ATORVASTATIN CA 20 MG TABLET (FP) PO SCH (21:26)
[2018-05-22] MEDS: hydrOXYzine HCL 25 MG TABLET (FP) PO SCH (21:59)
[2018-05-23] MEDS: HEPARIN NA (PORCINE) 5,000 UNITS/ML 1ML VIAL SQ SCH (05:30)
[2018-05-23] MEDS: INSULIN SLIDING SCALE (NOVOLOG) 1 VIAL SQ SCH ×2 (06:07→11:25)
[2018-05-23] MEDS: INSULIN (LEVEMIR) 100 UNITS/ML UNITS SQ SCH (06:11)
[2018-05-23] MEDS: ALBUTEROL SO4 2.5/IPRATROPIUM 0.5 INH SOL 3 ML VIAL.NEB. NEB SCH ×2 (07:25→11:32)
[2018-05-23 07:50] LABS: BASO % 0.3 % (0-2.0); EOS % 2.4 % (0-4.5); HEMATOCRIT 27.2 % (32.4-45.2); HEMOGLOBIN 9.3 GM/dL (10.7-15.3); LYMPH % 29.6 % (8-40); MCH 29.1 pg (25.7-33.7); MCHC 34.1 g/dl (32.0-36.0); MEAN CELL VOLUME 85.3 fl (80-96); MEAN PLT VOLUME 9.4 fl (7.5-11.1); MONO % 6.2 % (3.8-10.2); NEUT % 61.5 % (42.8-82.8); PLATELET COUNT 303 K/MM3 (134-434); RBC 3.19 M/mm3 (3.60-5.2); RDW 15.7 % (11.6-15.6); WHITE BLOOD COUNT 16.6 K/mm3 (4.0-10.0)
[2018-05-23 08:52] LABS: ALBUMIN 2.7 g/dl (3.4-5.0); ALK PHOS 69 U/L (45-117); ANION GAP 3 MMOL/L (8-16); BILIRUBIN,TOTAL 0.3 mg/dL (0.2-1); BLOOD UREA NITROGEN 32 mg/dL (7-18); CALCIUM 9.7 mg/dL (8.5-10.1); CHLORIDE 100 mmol/L (98-107); CO2 37 mmol/L (21-32); CREATININE 1.1 mg/dL (0.55-1.3); GLUCOSE,RANDOM 59 mg/dL (74-106); POTASSIUM 4.1 mmol/L (3.5-5.1); SGOT/AST 19 U/L (15-37); SGPT/ALT 37 U/L (13-61); SODIUM 140 mmol/L (136-145); TOT PROT 6.3 g/dl (6.4-8.2)
--- NOTE | 2018-05-23 09:37 | DS ---
Physical Exam: SUBJECTIVE: Patient seen and examined OBJECTIVE: Vital Signs Period Temp Pulse Resp BP Sys/Maurer Pulse Ox Last 24 Hr 97.4 F-98.2 F 63-80 18-18 107-144/53-70 98 PHYSICAL EXAM GENERAL: The patient is awake, alert, and fully oriented, in no acute distress. HEAD: Normal with no signs of trauma. EYES: PERRL, extraocular movements intact, sclera anicteric, conjunctiva clear. ENT: Ears normal, nares patent, oropharynx clear without exudates, moist mucous membranes. NECK: Trachea midline, full range of motion, supple. LUNGS: Breath sounds equal, clear to auscultation bilaterally, no wheezes, no crackles, no accessory muscle use. HEART: Regular rate and rhythm, S1, S2 without murmur, rub or gallop. ABDOMEN: Soft, nontender, nondistended, normoactive bowel sounds, no guarding, no rebound, no hepatosplenomegaly, no masses. EXTREMITIES: 2+ pulses, warm, well-perfused, no edema. NEUROLOGICAL: Cranial nerves II through XII grossly intact. Normal speech, gait not observed. PSYCH: Normal mood, normal affect. SKIN: Warm, dry, normal turgor, no rashes or lesions noted. LABS Laboratory Results - last 24 hr 05/22/18 05/22/18 05/22/18 09:30 09:30 11:33 WBC 17.7 H RBC 3.60 Hgb 10.6 L Hct 31.0 L MCV 86.1 MCH 29.4 MCHC 34.1 RDW 15.4 Plt Count 218 MPV 10.7 Absolute Neuts (auto) 11.1 H Neutrophils % 62.9 Neutrophils % (Manual) 46.0 Band Neutrophils % 1.0 Lymphocytes % 28.4 D Lymphocytes % (Manual) 43.0 H D Monocytes % 4.3 Monocytes % (Manual) 7 D Eosinophils % 3.8 D Eosinophils % (Manual) 2.0 D Basophils % 0.6 Basophils % (Manual) 0.0 Myelocytes % (Man) 0 D Promyelocytes % (Man) 0 Blast Cells % (Manual) 0 Nucleated RBC % 1 H Metamyelocytes 1 D Hypochromia 0 Platelet Estimate Normal Polychromasia 1+ Poikilocytosis 2+ Anisocytosis 2+ Microcytosis 2+ Macrocytosis 0 Target Cells 2+ Stomatocytes 1+ Sodium 139 Potassium 4.7 Chloride 103 Carbon Dioxide 28 Anion Gap 8 BUN 40 H Creatinine 1.3 Creat Clearance w eGFR 41.64 POC Glucometer 97 Random Glucose 130 H Calcium 9.5 Magnesium 2.4 Total Bilirubin 0.2 AST 20 ALT 38 Alkaline Phosphatase 74 Total Protein 6.6 Albumin 2.7 L 05/22/18 05/22/18 05/23/18 17:13 21:21 05:29 WBC RBC Hgb Hct MCV MCH MCHC RDW Plt Count MPV Absolute Neuts (auto) Neutrophils % Neutrophils % (Manual) Band Neutrophils % Lymphocytes % Lymphocytes % (Manual) Monocytes % Monocytes % (Manual) Eosinophils % Eosinophils % (Manual) Basophils % Basophils % (Manual) Myelocytes % (Man) Promyelocytes % (Man) Blast Cells % (Manual) Nucleated RBC % Metamyelocytes Hypochromia Platelet Estimate Polychromasia Poikilocytosis Anisocytosis Microcytosis Macrocytosis Target Cells Stomatocytes Sodium Potassium Chloride Carbon Dioxide Anion Gap BUN Creatinine Creat Clearance w eGFR POC Glucometer 304 344 83 Random Glucose Calcium Magnesium Total Bilirubin AST ALT Alkaline Phosphatase Total Protein Albumin 05/23/18 05/23/18 07:10 07:10 WBC 16.6 H RBC 3.19 L Hgb 9.3 L Hct 27.2 L MCV 85.3 MCH 29.1 MCHC 34.1 RDW 15.7 H Plt Count 303 D MPV 9.4 D Absolute Neuts (auto) 10.2 H Neutrophils % 61.5 Neutrophils % (Manual) Band Neutrophils % Lymphocytes % 29.6 Lymphocytes % (Manual) Monocytes % 6.2 Monocytes % (Manual) Eosinophils % 2.4 Eosinophils % (Manual) Basophils % 0.3 Basophils % (Manual) Myelocytes % (Man) Promyelocytes % (Man) Blast Cells % (Manual) Nucleated RBC % 0 Metamyelocytes Hypochromia Platelet Estimate Polychromasia Poikilocytosis Anisocytosis Microcytosis Macrocytosis Target Cells Stomatocytes Sodium 140 Potassium 4.1 Chloride 100 Carbon Dioxide 37 H Anion Gap 3 L BUN 32 H Creatinine 1.1 Creat Clearance w eGFR 50.50 POC Glucometer Random Glucose 59 L Calcium 9.7 Magnesium 2.0 Total Bilirubin 0.3 AST 19 ALT 37 Alkaline Phosphatase 69 Total Protein 6.3 L Albumin 2.7 L HOSPITAL COURSE: Date of Admission:05/14/18 Date of Discharge: 05/23/18 Minutes to complete discharge: 35 Discharge Summary Reason For Visit: URINARY TRACT INFECTION Current Active Problems Acute exacerbation of chronic obstructive pulmonary disease (COPD) (Acute) Morbid obesity (Acute) Pulmonary vascular congestion (Acute) UTI (urinary tract infection) (Acute) Condition: Stable - Instructions Referrals: Rosie Mosher [Primary Care Provider] - - Home Medications Comprehensive Discharge Medication List: Ambulatory Orders Atorvastatin Ca [Lipitor] 20 mg PO HS 05/14/18 Hydralazine HCl 50 mg PO BID 05/14/18 Losartan Potassium 100 mg PO DAILY 05/14/18 Alprazolam 2 mg PO BID PRN 05/15/18 Amlodipine Besylate 10 mg PO DAILY 05/15/18 Aspirin [ASA -] 81 mg PO DAILY 05/15/18 Fluticasone/Salmeterol [Advair Hfa 115-21 Mcg Inhaler] 2 inh PO BID 05/15/18 Furosemide [Lasix] 20 mg PO DAILY 05/15/18 Gabapentin 1 cap PO BID 05/15/18 Hydroxyzine HCl 50 mg PO HS 05/15/18 Insulin Glargine,Hum.rec.anlog [Lantus] 30 units SQ Q12H 05/15/18 Metformin HCl [Glucophage] 1,000 mg PO BID 05/15/18 Omeprazole Magnesium 40 mg PO DAILY 05/15/18 Oxycodone HCl 30 mg PO BID PRN 05/15/18 Polyvinyl Alcohol [Artificial Tears] 1 drop OU QID 05/15/18 Timolol 0.5% [Timoptic 0.5%] 1 drop OU BID 05/15/18 This patient is new to me today: No Emergency Visit: Yes ED Registration Date: 05/14/18 Care time: The patient presented to the Emergency Department on the above date and was hospitalized for further evaluation of their emergent condition. Critical Care patient: No - Discharge Referral Referred to [facility] No
[2018-05-23] MEDS ORDERED: PT OWN MED DRAWER 7, Y5N ONE (10:01)
[2018-05-23] MEDS: ASPIRIN 81 MG CHEWABLE TABLETS PO SCH (10:03)
[2018-05-23] MEDS: hydrALAZINE HCL 50 MG TABLET (FP) PO SCH (10:03)
[2018-05-23] MEDS: ARTIFICIAL TEARS (POLYVINYL ALCOHOL) OPTH DROPS OU SCH (10:03)
[2018-05-23] MEDS: amLODIPine BESYLATE 10 MG TABLET (FP) PO SCH (10:03)
[2018-05-23] MEDS: PANTOPRAZOLE 20 MG TABLET (FP) PO SCH (10:04)
[2018-05-23] MEDS: predniSONE 20 MG TABLET (UD) PO SCH (10:04)
[2018-05-23] MEDS: TIMOLOL 0.5% OPHTHALMIC SOL 5 ML BOTTLE OU SCH (10:04)
[2018-05-23] MEDS: POLYETHYLENE GLYCOL 3350 119 GM BTL PO SCH (10:04)
[2018-05-23] MEDS: ALPRAZolam 2 MG TABLET PO PRN (10:14)
[2018-05-23 11:40] LABS: ANISOCYTOSIS 1+
[2018-05-23 11:41] LABS: TARGET CELLS 1+
--- NOTE | 2018-05-23 12:17 | PN ---
Progress Note (short form) - Note Progress Note: PULMONARY Breathing continues to improve. No fevers or chills. Vital Signs Period Temp Pulse Resp BP Sys/Maurer Pulse Ox Last 24 Hr 97.7 F-98.2 F 63-80 18-18 107-142/53-68 96-98 Gen: NAD at rest Heart: RRR Lung: decreased breath sounds at the bases Abd: soft, nontender Ext: + edema CBC, BMP 05/23/18 07:10 05/23/18 07:10 Active Medications Acetaminophen (Tylenol -) 650 mg PO Q6H PRN PRN Reason: FEVER Albuterol Sulfate (Ventolin 0.083% Nebulizer Soln -) 1 amp NEB Q4H PRN PRN Reason: SHORT OF BREATH/WHEEZING Albuterol/Ipratropium (Duoneb -) 1 amp NEB RQID [facility] Last Admin: 05/23/18 11:32 Dose: 1 amp Alprazolam (Xanax -) 2 mg PO BID PRN PRN Reason: ANXIETY Last Admin: 05/23/18 10:14 Dose: 2 mg Amlodipine Besylate (Norvasc -) 10 mg PO DAILY [facility] Last Admin: 05/23/18 10:03 Dose: 10 mg Artificial Tears (Artificial Tears) 1 drop OU QID [facility] Last Admin: 05/23/18 10:03 Dose: 1 drop Aspirin (Asa -) 81 mg PO DAILY [facility] Last Admin: 05/23/18 10:03 Dose: 81 mg Atorvastatin Calcium (Lipitor -) 20 mg PO HS [facility] Last Admin: 05/22/18 21:26 Dose: 20 mg Docusate Sodium (Colace -) 100 mg PO Q8H PRN PRN Reason: CONSTIPATION Last Admin: 05/21/18 21:45 Dose: 100 mg Heparin Sodium (Porcine) (Heparin -) 5,000 unit SQ TID [facility] Last Admin: 05/23/18 05:30 Dose: 5,000 unit Hydralazine HCl (Apresoline -) 50 mg PO BID [facility] Last Admin: 05/23/18 10:03 Dose: 50 mg Hydroxyzine HCl (Atarax -) 50 mg PO HS [facility] Last Admin: 05/22/18 21:59 Dose: 50 mg Insulin Aspart (Novolog Vial Sliding Scale -) 1 vial SQ ACHS [facility]; Protocol Last Admin: 05/23/18 11:25 Dose: 4 units Insulin Detemir (Levemir Vial) 20 units SQ BID@0700,2200 [facility] Last Admin: 05/23/18 06:11 Dose: 20 units Pantoprazole Sodium (Protonix -) 20 mg PO DAILY [facility] Last Admin: 05/23/18 10:04 Dose: 20 mg Polyethylene Glycol (Miralax (For Daily Use) -) 17 gm PO BID [facility] Last Admin: 05/23/18 10:04 Dose: Not Given Prednisone (Deltasone -) 30 mg PO DAILY [facility] Last Admin: 05/23/18 10:04 Dose: 30 mg Senna (Senna -) 1 tab PO HS [facility] Last Admin: 05/22/18 21:25 Dose: 1 tab Timolol Maleate (Timoptic 0.5%) 1 drop OU BID [facility] Last Admin: 05/23/18 10:04 Dose: 1 drop A/P Acute Hypoxic Respiratory Failure improved Pneumonia UTI Severe Sepsis resolved Acute Kidney Injury improved Acute COPD Exacerbation Hyperlipidemia HTN Fibroid Uterus Anemia - completed antibiotics - prednisone taper - inhaled bronchodilators standing and PRN - O2 to keep Spo2 >90% - glucose control while on systemic steroids - PO as tolerated - DVT/GI prophylaxis - can be discharged from pulmonary standpoint - will need repeat CXR in 6-8 weeks to ensure resolution of infiltrates
--- NOTE | 2018-05-23 13:08 | DS ---
Physical Exam: SUBJECTIVE: Patient seen and examined OBJECTIVE: Vital Signs Period Temp Pulse Resp BP Sys/Maurer Pulse Ox Last 24 Hr 97.7 F-98.2 F 63-80 18-18 107-142/53-68 96-98 PHYSICAL EXAM GENERAL: The patient is awake, alert, and fully oriented, in no acute distress. HEAD: Normal with no signs of trauma. EYES: PERRL, extraocular movements intact, sclera anicteric, conjunctiva clear. ENT: Ears normal, nares patent, oropharynx clear without exudates, moist mucous membranes. NECK: Trachea midline, full range of motion, supple. LUNGS: Breath sounds equal, clear to auscultation bilaterally, no wheezes, no crackles, no accessory muscle use. HEART: Regular rate and rhythm, S1, S2 without murmur, rub or gallop. ABDOMEN: Soft, nontender, nondistended, normoactive bowel sounds, no guarding, no rebound, no hepatosplenomegaly, no masses. EXTREMITIES: 2+ pulses, warm, well-perfused, no edema. NEUROLOGICAL: Cranial nerves II through XII grossly intact. Normal speech, gait not observed. PSYCH: Normal mood, normal affect. SKIN: Warm, dry, normal turgor, no rashes or lesions noted. LABS Laboratory Results - last 24 hr 05/22/18 05/22/18 05/22/18 09:30 17:13 21:21 WBC RBC Hgb Hct MCV MCH MCHC RDW Plt Count 218 MPV 10.7 Absolute Neuts (auto) Total Counted Neutrophils % Neutrophils % (Manual) Band Neutrophils % Lymphocytes % Lymphocytes % (Manual) Monocytes % Monocytes % (Manual) Eosinophils % Eosinophils % (Manual) Basophils % Nucleated RBC % Metamyelocytes Polychromasia Anisocytosis Microcytosis Target Cells Sodium Potassium Chloride Carbon Dioxide Anion Gap BUN Creatinine Creat Clearance w eGFR POC Glucometer 304 344 Random Glucose Calcium Magnesium Total Bilirubin AST ALT Alkaline Phosphatase Total Protein Albumin 05/23/18 05/23/18 05/23/18 05:29 07:10 07:10 WBC 16.6 H RBC 3.19 L Hgb 9.3 L Hct 27.2 L MCV 85.3 MCH 29.1 MCHC 34.1 RDW 15.7 H Plt Count 303 D MPV 9.4 D Absolute Neuts (auto) 10.2 H Total Counted 100 Neutrophils % 61.5 Neutrophils % (Manual) 49.0 Band Neutrophils % 1.0 Lymphocytes % 29.6 Lymphocytes % (Manual) 36.0 Monocytes % 6.2 Monocytes % (Manual) 8 Eosinophils % 2.4 Eosinophils % (Manual) 3.0 Basophils % 0.3 Nucleated RBC % 1 H Metamyelocytes 2 D Polychromasia 1+ Anisocytosis 1+ Microcytosis 1+ Target Cells 1+ Sodium 140 Potassium 4.1 Chloride 100 Carbon Dioxide 37 H Anion Gap 3 L BUN 32 H Creatinine 1.1 Creat Clearance w eGFR 50.50 POC Glucometer 83 Random Glucose 59 L Calcium 9.7 Magnesium 2.0 Total Bilirubin 0.3 AST 19 ALT 37 Alkaline Phosphatase 69 Total Protein 6.3 L Albumin 2.7 L 05/23/18 11:24 WBC RBC Hgb Hct MCV MCH MCHC RDW Plt Count MPV Absolute Neuts (auto) Total Counted Neutrophils % Neutrophils % (Manual) Band Neutrophils % Lymphocytes % Lymphocytes % (Manual) Monocytes % Monocytes % (Manual) Eosinophils % Eosinophils % (Manual) Basophils % Nucleated RBC % Metamyelocytes Polychromasia Anisocytosis Microcytosis Target Cells Sodium Potassium Chloride Carbon Dioxide Anion Gap BUN Creatinine Creat Clearance w eGFR POC Glucometer 158 Random Glucose Calcium Magnesium Total Bilirubin AST ALT Alkaline Phosphatase Total Protein Albumin HOSPITAL COURSE: Date of Admission:05/14/18 Date of Discharge: 05/23/18 Discharge Summary Reason For Visit: URINARY TRACT INFECTION Current Active Problems Acute exacerbation of chronic obstructive pulmonary disease (COPD) (Acute) Morbid obesity (Acute) Pulmonary vascular congestion (Acute) UTI (urinary tract infection) (Acute) Condition: Stable - Instructions Referrals: Matthieu Jones MD [Staff Physician] - - Home Medications Comprehensive Discharge Medication List: Ambulatory Orders Atorvastatin Ca [Lipitor] 20 mg PO HS 05/14/18 Hydralazine HCl 50 mg PO BID 05/14/18 Losartan Potassium 100 mg PO DAILY 05/14/18 Alprazolam 2 mg PO BID PRN 05/15/18 Amlodipine Besylate 10 mg PO DAILY 05/15/18 Aspirin [ASA -] 81 mg PO DAILY 05/15/18 Fluticasone/Salmeterol [Advair Hfa 115-21 Mcg Inhaler] 2 inh PO BID 05/15/18 Furosemide [Lasix] 20 mg PO DAILY 05/15/18 Gabapentin 1 cap PO BID 05/15/18 Hydroxyzine HCl 50 mg PO HS 05/15/18 Insulin Glargine,Hum.rec.anlog [Lantus] 30 units SQ Q12H 05/15/18 Metformin HCl [Glucophage] 1,000 mg PO BID 05/15/18 Omeprazole Magnesium 40 mg PO DAILY 05/15/18 Oxycodone HCl 30 mg PO BID PRN 05/15/18 Polyvinyl Alcohol [Artificial Tears] 1 drop OU QID 05/15/18 Timolol 0.5% [Timoptic 0.5%] 1 drop OU BID 05/15/18 - Discharge Referral Referred to [facility] No
[2018-05-23 13:54] VITALS: BP 121/56; PULSE 63; TEMP 97.8
== END 2018-05-23 14:14 | disposition home or self-care (01) | DRG 689 ==
LOC: JER 13:33 → JERBED 16:08 → J8W 18:19 → JICU 05-16 22:24 → J5S 05-21 15:40
PROVIDERS: ADMIT Internal Medicine; ATTEND Nurse Practitioner Acute Care
DX: N39.0 Urinary tract infection, site not specified (principal); A41.9 Sepsis, unspecified organism; J96.01 Acute respiratory failure with hypoxia; J18.9 Pneumonia, unspecified organism; Z68.41 Body mass index [BMI] 40.0-44.9, adult; J44.1 Chronic obstructive pulmonary disease with (acute) exacerbation; N17.9 Acute kidney failure, unspecified; E11.22 Type 2 diabetes mellitus with diabetic chronic kidney disease; I12.9 Hypertensive chronic kidney disease with stage 1 through stage 4 chronic kidney disease, or unspecified chronic kidney disease; E66.01 Morbid (severe) obesity due to excess calories; H40.9 Unspecified glaucoma; F41.9 Anxiety disorder, unspecified; D25.9 Leiomyoma of uterus, unspecified; N18.3 Chronic kidney disease, stage 3 (moderate); E83.42 Hypomagnesemia; B96.20 Unspecified Escherichia coli [E. coli] as the cause of diseases classified elsewhere; Z79.4 Long term (current) use of insulin; M54.2 Cervicalgia; D64.9 Anemia, unspecified; Z88.0 Allergy status to penicillin; E78.5 Hyperlipidemia, unspecified; L29.9 Pruritus, unspecified; K59.00 Constipation, unspecified
CPT/HCPCS: 36415; 71045-TC-FY; 71046-TC-FY; 71250-TC; 74176-TC; 80048; 80053; 81003; 81015; 82570; 82962; 83036; 83605; 83735; 84100; 84156; 84300; 84484; 84540; 85025; 85610; 85651; 85730; 86038; 86140; 87040; 87086; 87186; 87389; 87804; 93005; 93010; 93306-TC; 94150; 94640; 94660; 94761; 97116-GP; 97161-GP; 99283-25; J1644; J7030; J7620

== ENCOUNTER 2018-07-02 22:37 | Inpatient (IN) | payer OTHER ==
[2018-07-03 00:59] LABS: BASO % 2.3 % (0-2.0); EOS % 4.2 % (0-4.5); HEMATOCRIT 29.4 % (32.4-45.2); HEMOGLOBIN 10.5 GM/dL (10.7-15.3); LYMPH % 35.4 % (8-40); MCH 30.6 pg (25.7-33.7); MCHC 35.6 g/dl (32.0-36.0); MEAN CELL VOLUME 86.1 fl (80-96); MEAN PLT VOLUME 9.2 fl (7.5-11.1); MONO % 8.1 % (3.8-10.2); PLATELET COUNT 216 K/MM3 (134-434); RBC 3.41 M/mm3 (3.60-5.2); RDW 16.1 % (11.6-15.6); WHITE BLOOD COUNT 5.6 K/mm3 (4.0-10.0)
[2018-07-03 01:32] LABS: URINE APPEARANCE CLOUDY; URINE BILIRUBIN NEGATIVE (<2.0 mg/dL); URINE COLOR YELLOW; URINE GLUCOSE (UA) 3+ (NEGATIVE); URINE KETONE NEGATIVE (NEGATIVE); URINE LEUK ESTERASE 2+ (NEGATIVE); URINE NITRITE NEGATIVE (NEGATIVE); URINE PROTEIN 2+ (NEGATIVE); URINE UROBILINOGEN NEGATIVE mg/dL (0.2-1.0)
[2018-07-03 01:38] LABS: EPI CELLS RARE /HPF (FEW); URINE BACTERIA FEW /hpf (NONE SEEN); URINE MUCUS RARE
[2018-07-03 01:39] LABS: ALBUMIN 3.1 g/dl (3.4-5.0); ALK PHOS 80 U/L (45-117); ANION GAP 8 MMOL/L (8-16); BILIRUBIN,TOTAL 0.1 mg/dL (0.2-1); BLOOD UREA NITROGEN 34 mg/dL (7-18); CALCIUM 8.9 mg/dL (8.5-10.1); CHLORIDE 105 mmol/L (98-107); CO2 25 mmol/L (21-32); CREATININE 1.6 mg/dL (0.55-1.3); SGOT/AST 13 U/L (15-37); SGPT/ALT 23 U/L (13-61); SODIUM 139 mmol/L (136-145); TOT PROT 6.5 g/dl (6.4-8.2)
[2018-07-03 01:46] LABS: GLUCOSE,RANDOM 321 mg/dL (74-106)
--- NOTE | 2018-07-03 02:04 | PDOC ---
History of Present Illness - General Chief Complaint: Urinary Problem Stated Complaint: URINARY PROBLEM Time Seen by Provider: 07/03/18 00:02 History Source: Patient Exam Limitations: No Limitations - History of Present Illness Initial Comments: 07/03/18 02:02 Patient is a 63-year-old female with history of vitamin D deficiency, HTN, HLD, COPD, IDDM, CKD, recurrent UTI, fibroids here with complaints of UTI symptoms. States and also extreme pain on urination, back pain, generalized body pain, fatigue. States she has been treated for UTI every month since February 2018. First with amoxicillin, then Cipro, then was admitted to the hospital from 05/14- and had IV antibiotics then. She went to see her PMD Dr. Jackson, post discharge and noted to have a UTI was put on Macrobid which she's been on for a week. States that she wasn't feeling any better and so went to see her old PMD in [place] 3 days ago. Urine was done and noted that she had a UTI, so was called by Dr. Mosher (her old pmd) and was told to go to the emergency room for IV antibiotics. Denies nausea, vomiting, fever, chills. PMD: Dr. Jackson PMHX: as above PSOCHX: ALL: ranitidinge, metornidazole, patient is not ALLERGIC to penicillin states she has taken it on her life. GENERAL/CONSTITUTIONAL: [No fever or chills. (+) weakness. No weight change.] HEAD, EYES, EARS, NOSE AND THROAT: [No change in vision. No ear pain or discharge. No sore throat.] CARDIOVASCULAR: [No chest pain or shortness of breath.] RESPIRATORY: [No cough, wheezing, or hemoptysis.] GASTROINTESTINAL: [No nausea, vomiting, diarrhea or constipation. No rectal bleeding.] GENITOURINARY: [No dysuria, frequency, or change in urination.] MUSCULOSKELETAL: [No joint or muscle swelling or pain. No neck (+) back pain.] SKIN AND BREASTS: [No rash or easy bruising.] NEUROLOGIC: [No headache, vertigo, loss of consciousness, or loss of sensation.] PSYCHIATRIC: [No depression or anxiety.] ENDOCRINE: [No increased thirst. No abnormal weight change.] HEMATOLOGIC/LYMPHATIC: [No anemia, easy bleeding, or history of blood clots.] ALLERGIC/IMMUNOLOGIC: [No hives or skin allergy. No latex allergy.] GENERAL: [The patient is awake, alert, and fully oriented, in no acute distress. ] HEAD: [Normal with no signs of trauma.] EYES: [Pupils equal, round and reactive to light, extraocular movements intact, sclera anicteric, conjunctiva clear.] ENT: [Ears normal, nares patent, oropharynx clear without exudates. Moist mucous membranes.] NECK: [Normal range of motion, supple without lymphadenopathy, JVD, or masses.] LUNGS: [Breath sounds equal, clear to auscultation bilaterally. No wheezes, and no crackles.] HEART: [Regular rate and rhythm, normal S1 and S2 without murmur, rub.] ABDOMEN: Obese, Soft, nontender, normoactive bowel sounds. No guarding, no rebound. No masses, (+) b/l CVAT mild EXTREMITIES: [Normal range of motion, no edema. No clubbing or cyanosis. No cords, erythema, or tenderness.] NEUROLOGICAL: [Cranial nerves II through XII grossly intact. Normal speech, normal gait.] PSYCH: [Normal mood, normal affect.] SKIN: [Warm, Dry, normal turgor, no rashes or lesions noted.] Past History - Past Medical History Allergies/Adverse Reactions: Allergies Allergy/AdvReac Type Severity Reaction Status Date / Time ranitidine [From Zantac] Allergy Intermediate Hives Verified 07/02/18 22:46 metronidazole [From Flagyl] Allergy Mild Hives Verified 07/02/18 22:46 Metronidazole HCl Allergy Mild Hives Verified 07/02/18 22:46 [From Flagyl] Penicillins Allergy Mild Hives Verified 07/02/18 22:46 Home Medications: Ambulatory Orders Atorvastatin Ca [Lipitor] 20 mg PO HS 05/14/18 Hydralazine HCl 50 mg PO BID 05/14/18 Losartan Potassium 100 mg PO DAILY 05/14/18 Alprazolam 2 mg PO BID PRN 05/15/18 Amlodipine Besylate 10 mg PO DAILY 05/15/18 Aspirin [ASA -] 81 mg PO DAILY 05/15/18 Fluticasone/Salmeterol [Advair Hfa 115-21 Mcg Inhaler] 2 inh PO BID 05/15/18 Insulin Glargine,Hum.rec.anlog [Lantus] 30 units SQ Q12H 05/15/18 Metformin HCl [Glucophage] 1,000 mg PO BID 05/15/18 Omeprazole Magnesium 40 mg PO DAILY 05/15/18 Oxycodone HCl 30 mg PO BID PRN 05/15/18 Polyvinyl Alcohol [Artificial Tears] 1 drop OU QID PRN 05/15/18 Timolol 0.5% [Timoptic 0.5%] 1 drop OU BID 05/15/18 Anemia: Yes Asthma: Yes COPD: No Dementia: Yes Diabetes: Yes Disorders: Yes (UTI) HTN: Yes Hypercholesterolemia: Yes Psychiatric Problems: Yes (ANXIETY.) - Surgical History Abdominal Surgery: Yes - Immunization History Immunization Up to Date: Yes - Suicide/Smoking/Psychosocial Hx Smoking Status: Yes Smoking History: Never smoked Have you smoked in the past 12 months: No Number of Cigarettes Smoked Daily: 10 If you are a former smoker, when did you quit?: 2012 Information on smoking cessation initiated: No Hx Alcohol Use: No Drug/Substance Use Hx: No Substance Use Type: None Hx Substance Use Treatment: No *Physical Exam - Vital Signs Last Vital Signs Temp Pulse Resp BP Pulse Ox 98.1 F 76 16 139/66 99 07/02/18 22:46 07/02/18 22:46 07/02/18 22:46 07/02/18 22:46 07/02/18 22:46 ED Treatment Course - LABORATORY CBC & Chemistry Diagram: 07/03/18 00:48 07/03/18 00:48 - ADDITIONAL ORDERS Additional order review: Laboratory Results 07/03/18 07/03/18 01:16 00:48 Sodium 139 Potassium 4.0 Chloride 105 Carbon Dioxide 25 Anion Gap 8 BUN 34 H Creatinine 1.6 H Creat Clearance w eGFR 32.77 Random Glucose 321 H* Calcium 8.9 Total Bilirubin 0.1 L AST 13 L ALT 23 Alkaline Phosphatase 80 Total Protein 6.5 Albumin 3.1 L Urine Color Yellow Urine Appearance Cloudy Urine pH 5.0 Ur Specific [place] 1.015 Urine Protein 2+ H Urine Glucose (UA) 3+ H Urine Ketones Negative Urine Blood 2+ H Urine Nitrite Negative Urine Bilirubin Negative Urine Urobilinogen Negative Ur Leukocyte Esterase 2+ H Urine WBC (Auto) 108 Urine RBC (Auto) 2 Ur Epithelial Cells Rare Urine Bacteria Few Urine Mucus Rare 07/03/18 00:48 RBC 3.41 L MCV 86.1 MCHC 35.6 RDW 16.1 H MPV 9.2 Neutrophils % 50.0 Lymphocytes % 35.4 Monocytes % 8.1 Eosinophils % 4.2 Basophils % 2.3 H D Medical Decision Making - Medical Decision Making 07/03/18 02:02 Patient is a 63-year-old female with history of vitamin D deficiency, HTN, HLD, COPD, IDDM, CKD, recurrent UTI, fibroids here with complaints of UTI symptoms. States and also extreme pain on urination, back pain, generalized body pain, fatigue. Currently po on antibiotics for UTI and still symptomatic. Will need admission for failed outpatient therapy. Will get labs, EKG, chest x-ray and admit. 07/03/18 03:37 Discussed with hospitalist *DC/Admit/Observation/Transfer Diagnosis at time of Disposition: Recurrent UTI, Failure of outpatient treatment - Discharge Dispostion Condition at time of disposition: Stable Decision to Admit order: Yes - Referrals - Patient Instructions - Post Discharge Activity
[2018-07-03] MEDS ORDERED: ERTAPENEM SODIUM 1 GM in SODIUM CHLORIDE 50 ML IVPB ONE (03:38)
--- NOTE | 2018-07-03 03:48 | HP ---
CHIEF COMPLAINT: BACK PAIN, DYSURIA, FREQUENCY PCP: Shirley Mosher HISTORY OF PRESENT ILLNESS: This is a 63 year old female with a significant past medical history of DM, HTN , recurrent UTI who presented to the ED at her doctors (Dr. Mosher) urging for positive urine culture who stated she needed IV antibiotics. Pt reports complaint of back pain, dysuria, frequency, generalized weakness, body aches. Denies fever, chills. Pt reports weight gain since dc from hospital end of April ER course was notable for: (1) WBC 9.3 (2) u/a c/w UTI Recent Travel: pt denies PAST MEDICAL HISTORY: HTN, HLD, COPD, IDDM, CKD, recurrent UTIs, fibroids, constipations, anxiety, spinal stenosis, sciatica PAST SURGICAL HISTORY: Social History: Smoking: quit 2012, prior 1.5PPD Alcohol: pt denies Drugs: pt denies Family History: mother age 54, cirrhosis (ETOH) father age 39, complications of HIV and DM brother and sister both , AIDS brother , liver CA (+ETOH) sister age 42, CHF brother alive with DM, HTN, CVA, [place] Allergies ranitidine [From Zantac] Allergy (Intermediate, Verified 07/02/18 22:46) Hives metronidazole [From Flagyl] Allergy (Mild, Verified 07/02/18 22:46) Hives Metronidazole HCl [From Flagyl] Allergy (Mild, Verified 07/02/18 22:46) Hives Penicillins Allergy (Mild, Verified 07/02/18 22:46) Hives HOME MEDICATIONS: 3 Medication Instructions Recorded Atorvastatin Ca [Lipitor] 20 mg PO HS 05/14/18 Hydralazine HCl 50 mg PO BID 05/14/18 Losartan Potassium 100 mg PO DAILY 05/14/18 Alprazolam 2 mg PO BID PRN 05/15/18 Amlodipine Besylate 10 mg PO DAILY 05/15/18 Aspirin [ASA -] 81 mg PO DAILY 05/15/18 Fluticasone/Salmeterol [Advair Hfa 2 inh PO BID 05/15/18 115-21 Mcg Inhaler] Insulin Glargine,Hum.rec.anlog 30 units SQ Q12H 05/15/18 [Lantus] Metformin HCl [Glucophage] 1,000 mg PO BID 05/15/18 Omeprazole Magnesium 40 mg PO DAILY 05/15/18 Oxycodone HCl 30 mg PO BID PRN 05/15/18 Polyvinyl Alcohol [Artificial 1 drop OU QID PRN 05/15/18 Tears] Timolol 0.5% [Timoptic 0.5%] 1 drop OU BID 05/15/18 REVIEW OF SYSTEMS CONSTITUTIONAL: Present: generalized weakness, malaise Absent: fever, chills, diaphoresis, loss of appetite, weight change HEENT: Absent: rhinorrhea, nasal congestion, throat pain, throat swelling, difficulty swallowing, mouth swelling, ear pain, eye pain, visual changes CARDIOVASCULAR: Absent: chest pain, syncope, palpitations, irregular heart rate, lightheadedness , peripheral edema RESPIRATORY: Absent: cough, shortness of breath, dyspnea with exertion, orthopnea, wheezing, stridor, hemoptysis GASTROINTESTINAL: Absent: abdominal pain, abdominal distension, nausea, vomiting, diarrhea, constipation, melena, hematochezia GENITOURINARY: Present: dysuria, frequency, urgency Absent: hesitancy, hematuria, flank pain, genital pain MUSCULOSKELETAL: Present: back pain Absent: myalgia, arthralgia, joint swelling, neck pain SKIN: Absent: rash, itching, pallor HEMATOLOGIC/IMMUNOLOGIC: Absent: easy bleeding, easy bruising, lymphadenopathy, frequent infections ENDOCRINE: Absent: unexplained weight gain, unexplained weight loss, heat intolerance, cold intolerance NEUROLOGIC: Absent: headache, focal weakness or paresthesias, dizziness, unsteady gait, seizure, mental status changes, bladder or bowel incontinence PSYCHIATRIC: Absent: anxiety, depression, suicidal or homicidal ideation, hallucinations. PHYSICAL EXAMINATION Vital Signs - 24 hr 3 07/02/18 22:46 Temperature 98.1 F Pulse Rate 76 Respiratory 16 Rate Blood Pressure 139/66 O2 Sat by Pulse 99 Oximetry (%) GENERAL: Awake, alert, and fully oriented, in no acute distress. HEAD: Normal with no signs of trauma. EYES: Pupils equal, round and reactive to light, extraocular movements intact, sclera anicteric, conjunctiva clear. No lid lag. EARS, NOSE, THROAT: Ears normal, nares patent, oropharynx clear without exudates. Moist mucous membranes. NECK: Normal range of motion, supple without lymphadenopathy, JVD, or masses. LUNGS: Breath sounds equal, clear to auscultation bilaterally. No wheezes, and no crackles. No accessory muscle use. HEART: Regular rate and rhythm, normal S1 and S2 without murmur, rub or gallop. ABDOMEN: Soft, nontender, not distended, normoactive bowel sounds, no guarding, no rebound, no masses. No hepatomegaly or splenomegaly. MUSCULOSKELETAL: Normal range of motion at all joints. No bony deformities or tenderness. No CVA tenderness. UPPER EXTREMITIES: 2+ pulses, warm, well-perfused. No cyanosis. No clubbing. No peripheral edema. LOWER EXTREMITIES: 2+ pulses, warm, well-perfused. No calf tenderness. peripheral edema right 1+, left trace. NEUROLOGICAL: Cranial nerves II-XII intact. Normal speech. Normal gait. PSYCHIATRIC: Cooperative. Good eye contact. Appropriate mood and affect. SKIN: Warm, dry, normal turgor, no rashes or lesions noted, normal capillary refill. Laboratory Results - last 24 hr 3 07/03/18 07/03/18 07/03/18 00:48 00:48 01:16 WBC 5.6 RBC 3.41 L Hgb 10.5 L Hct 29.4 L MCV 86.1 MCH 30.6 MCHC 35.6 RDW 16.1 H Plt Count 216 D MPV 9.2 Absolute Neuts (auto) 2.8 Neutrophils % 50.0 Lymphocytes % 35.4 Monocytes % 8.1 Eosinophils % 4.2 Basophils % 2.3 H D Nucleated RBC % 0 Sodium 139 Potassium 4.0 Chloride 105 Carbon Dioxide 25 Anion Gap 8 BUN 34 H Creatinine 1.6 H Creat Clearance w eGFR 32.77 Random Glucose 321 H* Calcium 8.9 Total Bilirubin 0.1 L AST 13 L ALT 23 Alkaline Phosphatase 80 Total Protein 6.5 Albumin 3.1 L Urine Color Yellow Urine Appearance Cloudy Urine pH 5.0 Ur Specific [place] 1.015 Urine Protein 2+ H Urine Glucose (UA) 3+ H Urine Ketones Negative Urine Blood 2+ H Urine Nitrite Negative Urine Bilirubin Negative Urine Urobilinogen Negative Ur Leukocyte Esterase 2+ H Urine WBC (Auto) 108 Urine RBC (Auto) 2 Ur Epithelial Cells Rare Urine Bacteria Few Urine Mucus Rare ECG Normal sinus rhythm vent rate 69, QTC 430 nonspecific T wave abnormality ASSESSMENT/PLAN: 63yF with PMH HTN, HLD, COPD, IDDM, CKD, recurrent UTIs, fibroids, constipations , anxiety, spinal stenosis, sciatica presented to the ED with back pain, dysuria , frequency, urgency. UTI - failed outpatient therapy, was on 2 rounds of macrobid - start ertapenem 1g IVPB - consider ID consult - follow urine culture HTN/HLD - pt reports that her water pill was stopped last admission but reports weight gain since DC on 05/23, will restart lasix - cont home norvasc, hydralazine, losartan, atorvastatin DM - home lantus converted to formulary levemir - hold home metformin while inpatient - BGM AC/HS with novolog ss constipation - start miralax BID spinal stenosis/sciatica - cont home oxycodone anxiety - cont home xanax DVT PPX - heparin 5000u SC TID FEN - tolerating po - BMP in am - low sodium/diabetic diet as tolerated Dispo: pt currently requires further inpatient management of her emergent condition. Visit type - Emergency Visit Emergency Visit: Yes ED Registration Date: 07/03/18 Care time: The patient presented to the Emergency Department on the above date and was hospitalized for further evaluation of their emergent condition. - New Patient This patient is new to me today: Yes Date on this admission: 07/03/18 - Critical Care Critical Care patient: No
[2018-07-03] MEDS ORDERED: ERTAPENEM SODIUM 1 GM VIAL ONE (03:51)
[2018-07-03] MEDS ORDERED: ALPRAZolam 2 MG TABLET PO PRN (04:55)
[2018-07-03] MEDS ORDERED: ARTIFICIAL TEARS (POLYVINYL ALCOHOL) OPTH DROPS OU PRN (04:55)
[2018-07-03] MEDS ORDERED: PATIENT'S OWN MEDICATION (NON-FORMULARY) (Oxycodone Hcl [Oxycodone Hcl] 30 MG) PO PRN (04:55)
[2018-07-03] MEDS ORDERED: HEPARIN NA (PORCINE) 5,000 UNITS/ML 1ML VIAL ONE (06:47)
[2018-07-03] MEDS ORDERED: INSULIN (LEVEMIR) 100 UNITS/ML UNITS SQ ONE (06:48)
[2018-07-03] MEDS: HEPARIN NA (PORCINE) 5,000 UNITS/ML 1ML VIAL SQ SCH ×3 (06:53→22:20)
[2018-07-03] MEDS: INSULIN (LEVEMIR) 100 UNITS/ML UNITS SQ SCH ×2 (07:00→22:21)
[2018-07-03] MEDS ORDERED: INSULIN (NOVOLOG) ASPART 100 UNITS/ML 10ML VIAL ONE (07:32)
[2018-07-03] MEDS: INSULIN SLIDING SCALE (NOVOLOG) 1 VIAL SQ SCH ×4 (07:41→22:21)
[2018-07-03] MEDS: TIMOLOL 0.5% OPHTHALMIC SOL 5 ML BOTTLE OU SCH ×2 (10:00→23:10)
[2018-07-03] MEDS ORDERED: CEFTRIAXONE 2 GM in DEXTROSE 5%-WATER - 100 ML IVPB SCH (10:00)
[2018-07-03] MEDS: ASPIRIN 81 MG CHEWABLE TABLETS PO SCH (10:00)
[2018-07-03] MEDS: hydrALAZINE HCL 50 MG TABLET (FP) PO SCH ×2 (10:00→22:20)
[2018-07-03] MEDS ORDERED: PATIENT'S OWN MEDICATION (NON-FORMULARY) (Fluticasone/Salmeterol [Advair Hfa 115-21 Mcg In PO SCH (10:00)
[2018-07-03] MEDS: FUROSEMIDE 20 MG TABLET (FP) PO SCH (10:00)
[2018-07-03] MEDS: LOSARTAN POTASSIUM 50 MG TABLET (FP) PO SCH (10:00)
[2018-07-03] MEDS ORDERED: FUROSEMIDE 40 MG TABLET (FP) PO SCH (10:00)
[2018-07-03] MEDS: amLODIPine BESYLATE 10 MG TABLET (FP) PO SCH (10:05)
[2018-07-03] MEDS ORDERED: CEFTRIAXONE 2 GM/100 ML BAG IVPB ONE (10:13)
--- NOTE | 2018-07-03 10:27 | EKG ---
Test Reason : Blood Pressure : / mmHG Vent. Rate : 070 BPM Atrial Rate : 070 BPM P-R Int : 126 ms QRS Dur : 078 ms QT Int : 410 ms P-R-T Axes : 049 -18 -11 degrees QTc Int : 442 ms NORMAL SINUS RHYTHM CANNOT RULE OUT ANTERIOR INFARCT (CITED ON OR BEFORE 14-MAY-2018) ABNORMAL ECG WHEN COMPARED WITH ECG OF 14-MAY-2018 14:46, NO SIGNIFICANT CHANGE WAS FOUND Confirmed by ARIELLE SHAVER MD ([id number]) on 07/03/2018 10:27:20 AM Referred By: Confirmed By:ARIELLE SHAVER MD
[2018-07-03] MEDS: PANTOPRAZOLE 40 MG TABLET (FP) PO SCH (11:10)
--- NOTE | 2018-07-03 14:17 | PN ---
Physical Exam: SUBJECTIVE: Patient seen and examined at bedside. Endorses lightheadedness and generalized body aches. Denies urinary frequency, urgency, or dysuria. OBJECTIVE: Vital Signs Period Temp Pulse Resp BP Sys/Maurer Pulse Ox Last 24 Hr 98.1 F-98.9 F 73-76 16-20 128-139/60-66 99-100 GENERAL: NC/AT HEAD: NC/AT EYES: PERRLA EOMI (has glaucoma) ENT: MMM NECK: Trachea midline, full range of motion, supple. LUNGS:CTA B/L no wheezing rales or rhonchi HEART: RRR S1S2 No MRG ABDOMEN: NDNT, Distended taut abdomen (2/2 fibroids?), EXTREMITIES: onychomycosis, no cracks or wounds in feet b/l . NEUROLOGICAL: CN 2-12 intact PSYCH: Normal mood, normal affect. SKIN: No rashes or lesions appreciated Laboratory Results - last 24 hr 07/03/18 07/03/18 07/03/18 00:48 00:48 01:16 WBC 5.6 RBC 3.41 L Hgb 10.5 L Hct 29.4 L MCV 86.1 MCH 30.6 MCHC 35.6 RDW 16.1 H Plt Count 216 D MPV 9.2 Absolute Neuts (auto) 2.8 Neutrophils % 50.0 Lymphocytes % 35.4 Monocytes % 8.1 Eosinophils % 4.2 Basophils % 2.3 H D Nucleated RBC % 0 Sodium 139 Potassium 4.0 Chloride 105 Carbon Dioxide 25 Anion Gap 8 BUN 34 H Creatinine 1.6 H Creat Clearance w eGFR 32.77 POC Glucometer Random Glucose 321 H* Calcium 8.9 Total Bilirubin 0.1 L AST 13 L ALT 23 Alkaline Phosphatase 80 Total Protein 6.5 Albumin 3.1 L Urine Color Yellow Urine Appearance Cloudy Urine pH 5.[address] 1.015 Urine Protein 2+ H Urine Glucose (UA) 3+ H Urine Ketones Negative Urine Blood 2+ H Urine Nitrite Negative Urine Bilirubin Negative Urine Urobilinogen Negative Ur Leukocyte Esterase 2+ H Urine WBC (Auto) 108 Urine RBC (Auto) 2 Ur Epithelial Cells Rare Urine Bacteria Few Urine Mucus Rare 07/03/18 07/03/18 05:50 13:32 WBC RBC Hgb Hct MCV MCH MCHC RDW Plt Count MPV Absolute Neuts (auto) Neutrophils % Lymphocytes % Monocytes % Eosinophils % Basophils % Nucleated RBC % Sodium Potassium Chloride Carbon Dioxide Anion Gap BUN Creatinine Creat Clearance w eGFR POC Glucometer [phone] Random Glucose Calcium Total Bilirubin AST ALT Alkaline Phosphatase Total Protein Albumin Urine Color Urine Appearance Urine pH Ur Specific [place] Urine Protein Urine Glucose (UA) Urine Ketones Urine Blood Urine Nitrite Urine Bilirubin Urine Urobilinogen Ur Leukocyte Esterase Urine WBC (Auto) Urine RBC (Auto) Ur Epithelial Cells Urine Bacteria Urine Mucus Active Medications Generic Name Dose Route Start Last Admin Trade Name Freq PRN Reason Stop Dose Admin Alprazolam 2 mg 07/03/18 04:55 Xanax - PO BID PRN ANXIETY Amlodipine Besylate 10 mg 07/03/18 10:00 07/03/18 10:05 Norvasc - PO 10 mg DAILY CONCETTA Administration Artificial Tears 1 drop 07/03/18 04:55 Artificial Tears OU QID PRN DRY EYES Aspirin 81 mg 07/03/18 10:00 07/03/18 10:00 Asa - PO 81 mg DAILY CONCETTA Administration Atorvastatin Calcium 20 mg 07/03/18 22:00 Lipitor - PO HS CONCETTA Furosemide 20 mg 07/03/18 10:00 07/03/18 10:00 Lasix - PO 20 mg DAILY CONCETTA Administration Heparin Sodium (Porcine) 5,000 unit 07/03/18 06:00 07/03/18 06:53 Heparin - SQ 5,000 unit TID CONCETTA Administration Hydralazine HCl 50 mg 07/03/18 10:00 07/03/18 10:00 Apresoline - PO 50 mg BID CONCETTA Administration Ceftriaxone Sodium 2 gm/ 100 mls @ 200 mls/hr 07/03/18 10:00 07/03/18 11:00 Dextrose IVPB 200 mls/hr DAILY CONCETTA Administration Protocol Insulin Aspart 1 vial 07/03/18 07:00 07/03/18 13:45 Novolog Vial Sliding Scale - SQ Not Given ACHS CONCETTA Protocol Insulin Detemir 30 units 07/03/18 07:00 07/03/18 07:00 Levemir Vial SQ 30 units BID@0700,2200 CONCETTA Administration Losartan Potassium 100 mg 07/03/18 10:00 07/03/18 10:00 Cozaar - PO 100 mg DAILY CONCETTA Administration Non-Formulary Medication 2 inh 07/03/18 10:00 Fluticasone/Salmeterol [Advair Hfa 115-21 Mcg Inhaler] PO BID CONCETTA Non-Formulary Medication 30 mg 07/03/18 04:55 Oxycodone Hcl [Oxycodone Hcl] PO BID PRN PAIN Pantoprazole Sodium 40 mg 07/03/18 10:00 07/03/18 11:10 Protonix - PO 40 mg DAILY CONCETTA Administration Timolol Maleate 1 drop 07/03/18 10:00 07/03/18 10:00 Timoptic 0.5% OU 1 drop BID CONCETTA Administration ASSESSMENT/PLAN: 63yF with PMH HTN, HLD, COPD, IDDM, CKD, recurrent UTIs, fibroids, constipations , anxiety, spinal stenosis, sciatica presented to the ED with back pain, dysuria , frequency, urgency. # UTI - failed outpatient therapy, was on 2 rounds of macrobid - Ertrapenem D/C'ed - Consider ID consult - Urine culture from PMD's clinic, Dr Rosie Mosher, POSITIVE for E. Coli. Sensitive to Ceftriaxone. # HTN/HLD - pt reports that her water pill was stopped last admission but reports weight gain since DC on 05/23. States she has been consuming more calories, endorses very poor diet consisting of fried foods. Restarted on lasix. - cont home norvasc, hydralazine, losartan, atorvastatin #IDDM - home lantus converted to formulary levemir - hold home metformin while inpatient - BGM AC/HS with novolog ss # spinal stenosis/sciatica - Oxycodone home medication continue # anxiety - cont home xanax 0.25 mg po bid prn #DVT PPX - Hep SQ TID #FEN Diabetic diet Monitor Electrolytes No Fluids Dispo: Med Surg. Visit type - Emergency Visit Emergency Visit: Yes ED Registration Date: 07/03/18 Care time: The patient presented to the Emergency Department on the above date and was hospitalized for further evaluation of their emergent condition. - New Patient This patient is new to me today: Yes Date on this admission: 07/03/18 - Critical Care Critical Care patient: No - Discharge Referral Referred to [facility] Med P.C.: No
[2018-07-03] MEDS ORDERED: BISACODYL 5 MG TABLET.DR (FP) PO ONE (17:19)
--- NOTE | 2018-07-03 17:19 | PN ---
Teaching Attending Note Name of Resident: Berhane Donis ATTENDING PHYSICIAN STATEMENT I saw and evaluated the patient. I reviewed the resident's note and discussed the case with the resident. I agree with the resident's findings and plan as documented. SUBJECTIVE:c/o constipation. states she has been having a hard time moving her bowels since starting iron supplements. also reports decreased water intake. continues to have dysuria. denies Cp, SOB, fever, chills, N/v/C/d. OBJECTIVE: Last Vital Signs Temp Pulse Resp BP Pulse Ox 97.4 F L 78 16 132/78 98 07/03/18 14:00 07/03/18 14:00 07/03/18 14:00 07/03/18 14:00 07/03/18 14:00 General NAd CV s1 s2 RRR no murmur/rub/gallop Lungs CTA B/L no wheezing/rales/rhonchi Abdomen soft NT/ND obese ASSESSMENT AND PLAN: 63yo f with PMH DM, HTN and frequent UTI with recent hospitalization for PNA presented to the ER with persistent dysuria after multiple course of oral abx. 1. UTI- failed outpatient therapy. according to prvious visit and records obtained from PMD pt has +Ecoli with resistance to amox/quinolones. will start ceftriaxone 2g daily. f/u Cx 2. Constipation- start ducolax. cont miralax/senna. consider enema if no BM 3. HNT- controlled. cont home medicaitons 4. DM- hold oral agents. iss and BGM 5. DVT ppx-hep sq
[2018-07-03 19:21] VITALS: BMI 45.6
[2018-07-03] MEDS ORDERED: oxyCODONE HCL 5 MG TABLET PO PRN (19:41)
[2018-07-03] MEDS ORDERED: ERTAPENEM SODIUM 1 GM in SODIUM CHLORIDE 50 ML IVPB SCH (22:00)
[2018-07-03] MEDS: FLUTICASONE/SALMETEROL 100 MCG/50 MCG DISKUS IH SCH (22:20)
[2018-07-03] MEDS: POLYETHYLENE GLYCOL 3350 119 GM BTL PO SCH (22:21)
[2018-07-03] MEDS: ATORVASTATIN CA 20 MG TABLET (FP) PO SCH (22:21)
[2018-07-03] MEDS: SENNOSIDES 8.6MG TABLET (FP) PO SCH (22:22)
[2018-07-03] MEDS: ALPRAZolam 0.25 MG TABLET PO PRN (22:36)
[2018-07-04] MEDS: INSULIN SLIDING SCALE (NOVOLOG) 1 VIAL SQ SCH ×4 (07:04→22:20)
[2018-07-04] MEDS: HEPARIN NA (PORCINE) 5,000 UNITS/ML 1ML VIAL SQ SCH ×3 (07:08→22:18)
[2018-07-04] MEDS: INSULIN (LEVEMIR) 100 UNITS/ML UNITS SQ SCH ×2 (07:16→22:19)
[2018-07-04 08:19] LABS: BASO % 0.8 % (0-2.0); EOS % 5.1 % (0-4.5); HEMATOCRIT 33.3 % (32.4-45.2); HEMOGLOBIN 11.2 GM/dL (10.7-15.3); LYMPH % 54.2 % (8-40); MCH 28.9 pg (25.7-33.7); MCHC 33.8 g/dl (32.0-36.0); MEAN CELL VOLUME 85.5 fl (80-96); MEAN PLT VOLUME 9.2 fl (7.5-11.1); MONO % 9.2 % (3.8-10.2); NEUT % 30.7 % (42.8-82.8); PLATELET COUNT 213 K/MM3 (134-434); RBC 3.89 M/mm3 (3.60-5.2); RDW 16.1 % (11.6-15.6); WHITE BLOOD COUNT 6.1 K/mm3 (4.0-10.0)
[2018-07-04 08:38] LABS: ANION GAP 9 MMOL/L (8-16); BLOOD UREA NITROGEN 37 mg/dL (7-18); CALCIUM 9.2 mg/dL (8.5-10.1); CHLORIDE 104 mmol/L (98-107); CO2 28 mmol/L (21-32); CREATININE 1.2 mg/dL (0.55-1.3); GLUCOSE,RANDOM 56 mg/dL (74-106); MAGNESIUM 2.1 mg/dL (1.8-2.4); PHOSPHOROUS 4.3 mg/dL (2.5-4.9); POTASSIUM 4.2 mmol/L (3.5-5.1); SODIUM 141 mmol/L (136-145)
[2018-07-04] MEDS ORDERED: DEXTROSE 5%-WATER 100 ML IVPB ONE (09:10)
[2018-07-04] MEDS: LOSARTAN POTASSIUM 50 MG TABLET (FP) PO SCH (10:26)
[2018-07-04] MEDS: CEFTRIAXONE 2 GM in DEXTROSE 5%-WATER 100 ML IVPB SCH (10:26)
[2018-07-04] MEDS: amLODIPine BESYLATE 10 MG TABLET (FP) PO SCH (10:27)
[2018-07-04] MEDS: FUROSEMIDE 20 MG TABLET (FP) PO SCH (10:27)
[2018-07-04] MEDS: hydrALAZINE HCL 50 MG TABLET (FP) PO SCH ×2 (10:27→22:18)
[2018-07-04] MEDS: FLUTICASONE/SALMETEROL 100 MCG/50 MCG DISKUS IH SCH ×2 (10:27→22:17)
[2018-07-04] MEDS: ASPIRIN 81 MG CHEWABLE TABLETS PO SCH (10:27)
[2018-07-04] MEDS: PANTOPRAZOLE 40 MG TABLET (FP) PO SCH (10:27)
[2018-07-04] MEDS: TIMOLOL 0.5% OPHTHALMIC SOL 5 ML BOTTLE OU SCH ×2 (10:28→22:21)
[2018-07-04] MEDS: POLYETHYLENE GLYCOL 3350 119 GM BTL PO SCH ×2 (10:29→22:19)
[2018-07-04] MEDS: ALPRAZolam 0.25 MG TABLET PO PRN (12:20)
[2018-07-04] MEDS ORDERED: PANTOPRAZOLE 20 MG TABLET (FP) PO ONE (17:47)
--- NOTE | 2018-07-04 18:18 | PN ---
Teaching Attending Note Name of Resident: Berhane Donis ATTENDING PHYSICIAN STATEMENT I saw and evaluated the patient. I reviewed the resident's note and discussed the case with the resident. I agree with the resident's findings and plan as documented. SUBJECTIVE: OBJECTIVE: Vital Signs Period Temp Pulse Resp BP Sys/Maurer Pulse Ox Last 24 Hr 97.8 F-98.2 F 64-78 8-18 101-139/50-69 97 Laboratory Results - last 24 hr 07/03/18 07/03/18 07/04/18 18:46 20:12 03:42 WBC RBC Hgb Hct MCV MCH MCHC RDW Plt Count MPV Absolute Neuts (auto) Neutrophils % Lymphocytes % Monocytes % Eosinophils % Basophils % Nucleated RBC % Sodium Potassium Chloride Carbon Dioxide Anion Gap BUN Creatinine Creat Clearance w eGFR POC Glucometer 211 167 68 Random Glucose Calcium Phosphorus Magnesium 07/04/18 07/04/18 07/04/18 05:57 08:00 08:00 WBC 6.1 RBC 3.89 Hgb 11.2 Hct 33.3 MCV 85.5 MCH 28.9 MCHC 33.8 RDW 16.1 H Plt Count 213 MPV 9.2 Absolute Neuts (auto) 1.9 Neutrophils % 30.7 L D Lymphocytes % 54.2 H D Monocytes % 9.2 Eosinophils % 5.1 H Basophils % 0.8 Nucleated RBC % 0 Sodium 141 Potassium 4.2 Chloride 104 Carbon Dioxide 28 Anion Gap 9 BUN 37 H Creatinine 1.2 Creat Clearance w eGFR 45.67 POC Glucometer 101 Random Glucose 56 L Calcium 9.2 Phosphorus 4.3 Magnesium 2.1 07/04/18 07/04/18 11:52 17:29 WBC RBC Hgb Hct MCV MCH MCHC RDW Plt Count MPV Absolute Neuts (auto) Neutrophils % Lymphocytes % Monocytes % Eosinophils % Basophils % Nucleated RBC % Sodium Potassium Chloride Carbon Dioxide Anion Gap BUN Creatinine Creat Clearance w eGFR POC Glucometer 155 180 Random Glucose Calcium Phosphorus Magnesium Current Medications Generic Name Dose Route Start Last Admin Trade Name Freq PRN Reason Stop Dose Admin Alprazolam 0.25 mg 07/03/18 18:22 07/04/18 12:20 Xanax - PO 0.25 mg Q12H PRN Administration ANXIETY Amlodipine Besylate 10 mg 07/03/18 10:00 07/04/18 10:27 Norvasc - PO 10 mg DAILY CONCETTA Administration Artificial Tears 1 drop 07/03/18 04:55 Artificial Tears OU QID PRN DRY EYES Aspirin 81 mg 07/03/18 10:00 07/04/18 10:27 Asa - PO 81 mg DAILY CONCETAT Administration Atorvastatin Calcium 20 mg 07/03/18 22:00 07/03/18 22:21 Lipitor - PO 20 mg HS CONCETTA Administration Furosemide 20 mg 07/03/18 10:00 07/04/18 10:27 Lasix - PO 20 mg DAILY CONCETTA Administration Heparin Sodium (Porcine) 5,000 unit 07/03/18 06:00 07/04/18 14:52 Heparin - SQ 5,000 unit TID CONCETTA Administration Hydralazine HCl 50 mg 07/03/18 10:00 07/04/18 10:27 Apresoline - PO 50 mg BID CONCETTA Administration Ceftriaxone Sodium 2 gm/ 100 mls @ 200 mls/hr 07/04/18 09:00 07/04/18 10:26 Dextrose IVPB 200 mls/hr DAILY CONCETTA Administration Protocol Insulin Aspart 1 vial 07/03/18 07:00 07/04/18 17:33 Novolog Vial Sliding Scale - SQ 2 units ACHS CONCETTA Administration Protocol Insulin Detemir 30 units 07/03/18 07:00 07/04/18 07:16 Levemir Vial SQ Not Given BID@0700,2200 CONCETTA Losartan Potassium 100 mg 07/03/18 10:00 07/04/18 10:26 Cozaar - PO 100 mg DAILY CONCETTA Administration Oxycodone HCl 5 mg 07/03/18 19:41 07/04/18 07:11 Roxicodone - PO 5 mg Q6H PRN Administration PAIN LEVEL 7 - 10 Pantoprazole Sodium 40 mg 07/03/18 10:00 07/04/18 10:27 Protonix - PO 40 mg DAILY CONCETTA Administration Polyethylene Glycol 17 gm 07/03/18 22:00 07/04/18 10:29 Miralax (For Daily Use) - PO 17 grams BID CONCETTA Administration Fluticasone/Salmeterol 1 puff 07/03/18 22:00 07/04/18 10:27 Advair 100mcg/50mcg - IH 1 puff BID CONCETTA Administration Senna 2 tab 07/03/18 22:00 07/03/18 22:22 Senna - PO 2 tab HS CONCETTA Administration Timolol Maleate 1 drop 07/03/18 10:00 07/04/18 10:28 Timoptic 0.5% OU 1 drop BID CONCETTA Administration ASSESSMENT AND PLAN:
--- NOTE | 2018-07-04 20:11 | PN ---
Physical Exam: SUBJECTIVE: Patient seen and examined at bedside. No acute events overnight. Endorses dysuria. OBJECTIVE: Vital Signs Period Temp Pulse Resp BP Sys/Maurer Pulse Ox Last 24 Hr 97.5 F-98.2 F 64-72 8-18 101-139/50-59 97 GENERAL: AAOx3 NAD HEAD: NC/AT EYES: PERRLA EOMI ENT: MMM NECK: Trachea midline, full range of motion, supple. LUNGS: CTA B/L HEART: RRR No MRG S1S2 ABDOMEN: No tenderness or distension rebound, no hepatosplenomegaly, no masses. EXTREMITIES:No CCE NEUROLOGICAL: Cranial nerves II through XII grossly intact. Normal speech, gait not observed. PSYCH: Normal mood, normal affect. SKIN: no rashes or lesions appreciated Laboratory Results - last 24 hr 07/03/18 07/04/18 07/04/18 20:12 03:42 05:57 WBC RBC Hgb Hct MCV MCH MCHC RDW Plt Count MPV Absolute Neuts (auto) Neutrophils % Lymphocytes % Monocytes % Eosinophils % Basophils % Nucleated RBC % Sodium Potassium Chloride Carbon Dioxide Anion Gap BUN Creatinine Creat Clearance w eGFR POC Glucometer 167 68 101 Random Glucose Calcium Phosphorus Magnesium 07/04/18 07/04/18 07/04/18 08:00 08:00 11:52 WBC 6.1 RBC 3.89 Hgb 11.2 Hct 33.3 MCV 85.5 MCH 28.9 MCHC 33.8 RDW 16.1 H Plt Count 213 MPV 9.2 Absolute Neuts (auto) 1.9 Neutrophils % 30.7 L D Lymphocytes % 54.2 H D Monocytes % 9.2 Eosinophils % 5.1 H Basophils % 0.8 Nucleated RBC % 0 Sodium 141 Potassium 4.2 Chloride 104 Carbon Dioxide 28 Anion Gap 9 BUN 37 H Creatinine 1.2 Creat Clearance w eGFR 45.67 POC Glucometer 155 Random Glucose 56 L Calcium 9.2 Phosphorus 4.3 Magnesium 2.1 07/04/18 17:29 WBC RBC Hgb Hct MCV MCH MCHC RDW Plt Count MPV Absolute Neuts (auto) Neutrophils % Lymphocytes % Monocytes % Eosinophils % Basophils % Nucleated RBC % Sodium Potassium Chloride Carbon Dioxide Anion Gap BUN Creatinine Creat Clearance w eGFR POC Glucometer 180 Random Glucose Calcium Phosphorus Magnesium Active Medications Generic Name Dose Route Start Last Admin Trade Name Freq PRN Reason Stop Dose Admin Alprazolam 0.25 mg 07/03/18 18:22 07/04/18 12:20 Xanax - PO 0.25 mg Q12H PRN Administration ANXIETY Amlodipine Besylate 10 mg 07/03/18 10:00 07/04/18 10:27 Norvasc - PO 10 mg DAILY CONCETTA Administration Artificial Tears 1 drop 07/03/18 04:55 Artificial Tears OU QID PRN DRY EYES Aspirin 81 mg 07/03/18 10:00 07/04/18 10:27 Asa - PO 81 mg DAILY CONCETTA Administration Atorvastatin Calcium 20 mg 07/03/18 22:00 07/03/18 22:21 Lipitor - PO 20 mg HS CONCETTA Administration Furosemide 20 mg 07/03/18 10:00 07/04/18 10:27 Lasix - PO 20 mg DAILY CONCETTA Administration Heparin Sodium (Porcine) 5,000 unit 07/03/18 06:00 07/04/18 14:52 Heparin - SQ 5,000 unit TID CONCETTA Administration Hydralazine HCl 50 mg 07/03/18 10:00 07/04/18 10:27 Apresoline - PO 50 mg BID CONCETTA Administration Ceftriaxone Sodium 2 gm/ 100 mls @ 200 mls/hr 07/04/18 09:00 07/04/18 10:26 Dextrose IVPB 200 mls/hr DAILY CONCETTA Administration Protocol Insulin Aspart 1 vial 07/03/18 07:00 07/04/18 17:33 Novolog Vial Sliding Scale - SQ 2 units ACHS CONCETTA Administration Protocol Insulin Detemir 30 units 07/03/18 07:00 07/04/18 07:16 Levemir Vial SQ Not Given BID@0700,2200 [facility] Losartan Potassium 100 mg 07/03/18 10:00 07/04/18 10:26 Cozaar - PO 100 mg DAILY CONCETTA Administration Oxycodone HCl 5 mg 07/03/18 19:41 07/04/18 07:11 Roxicodone - PO 5 mg Q6H PRN Administration PAIN LEVEL 7 - 10 Pantoprazole Sodium 40 mg 07/03/18 10:00 07/04/18 10:27 Protonix - PO 40 mg DAILY CONCETTA Administration Polyethylene Glycol 17 gm 07/03/18 22:00 07/04/18 10:29 Miralax (For Daily Use) - PO 17 grams BID CONCETTA Administration Fluticasone/Salmeterol 1 puff 07/03/18 22:00 07/04/18 10:27 Advair 100mcg/50mcg - IH 1 puff BID CONCETTA Administration Senna 2 tab 07/03/18 22:00 07/03/18 22:22 Senna - PO 2 tab HS CONCETTA Administration Timolol Maleate 1 drop 07/03/18 10:00 07/04/18 10:28 Timoptic 0.5% OU 1 drop BID CONCETTA Administration ASSESSMENT/PLAN: 63yF with PMH HTN, HLD, COPD, IDDM, CKD, recurrent UTIs, fibroids, constipations , anxiety, spinal stenosis, sciatica presented to the ED with back pain, dysuria , frequency, urgency. # UTI - failed outpatient therapy, was on 2 rounds of macrobid - Ertrapenem D/C'ed - Consider ID consult - Urine culture from PMD's clinic, Dr Rosie Mosher, POSITIVE for E. Coli. Sensitive to Ceftriaxone. - Ceftriaxone 2g daily # HTN/HLD - pt reports that her water pill was stopped last admission but reports weight gain since DC on 05/23. States she has been consuming more calories, endorses very poor diet consisting of fried foods. Restarted on lasix. - cont home norvasc, hydralazine, losartan, atorvastatin #IDDM - levemir 30 U SQ BID - Withold metformin while admitted - BGM ACHS with novolog ss # spinal stenosis/sciatica - Oxycodone home medication continue # anxiety - cont home xanax 0.25 mg po bid prn #DVT PPX - Hep SQ TID #FEN Diabetic diet Monitor Electrolytes No Fluids Dispo: Med Surg. Visit type - Emergency Visit Emergency Visit: Yes ED Registration Date: 07/03/18 Care time: The patient presented to the Emergency Department on the above date and was hospitalized for further evaluation of their emergent condition. - New Patient This patient is new to me today: No - Critical Care Critical Care patient: No - Discharge Referral Referred to [facility] Med P.C.: No
[2018-07-04] MEDS: ATORVASTATIN CA 20 MG TABLET (FP) PO SCH (22:19)
[2018-07-04] MEDS: SENNOSIDES 8.6MG TABLET (FP) PO SCH (22:20)
[2018-07-05] MEDS ORDERED: PT OWN MED DRAWER 7, Y5N ONE ×2 (00:05→09:42)
[2018-07-05] MEDS: ALPRAZolam 0.25 MG TABLET PO PRN (03:44)
[2018-07-05 03:51] VITALS: TEMP 98
[2018-07-05] MEDS: HEPARIN NA (PORCINE) 5,000 UNITS/ML 1ML VIAL SQ SCH (06:31)
[2018-07-05] MEDS: INSULIN SLIDING SCALE (NOVOLOG) 1 VIAL SQ SCH ×2 (06:31→12:17)
[2018-07-05] MEDS: INSULIN (LEVEMIR) 100 UNITS/ML UNITS SQ SCH (06:31)
[2018-07-05 07:22] VITALS: PULSE 67
[2018-07-05] MEDS: TIMOLOL 0.5% OPHTHALMIC SOL 5 ML BOTTLE OU SCH (10:10)
[2018-07-05] MEDS: FLUTICASONE/SALMETEROL 100 MCG/50 MCG DISKUS IH SCH (10:10)
[2018-07-05] MEDS: LOSARTAN POTASSIUM 50 MG TABLET (FP) PO SCH (10:11)
[2018-07-05] MEDS: ASPIRIN 81 MG CHEWABLE TABLETS PO SCH (10:11)
[2018-07-05] MEDS: hydrALAZINE HCL 50 MG TABLET (FP) PO SCH (10:12)
[2018-07-05] MEDS: PANTOPRAZOLE 40 MG TABLET (FP) PO SCH (10:12)
[2018-07-05] MEDS: FUROSEMIDE 20 MG TABLET (FP) PO SCH (10:12)
[2018-07-05] MEDS: POLYETHYLENE GLYCOL 3350 119 GM BTL PO SCH (10:12)
[2018-07-05] MEDS: amLODIPine BESYLATE 10 MG TABLET (FP) PO SCH (10:13)
[2018-07-05] MEDS ORDERED: DEXTROSE 5%-WATER 100 ML IVPB ONE (10:15)
[2018-07-05] MEDS: CEFTRIAXONE 2 GM in DEXTROSE 5%-WATER 100 ML IVPB SCH (10:17)
[2018-07-05 12:51] VITALS: BP 125/48
--- NOTE | 2018-07-05 12:59 | PN ---
Teaching Attending Note Name of Resident: Berhane Donis ATTENDING PHYSICIAN STATEMENT I saw and evaluated the patient. I reviewed the resident's note and discussed the case with the resident. I agree with the resident's findings and plan as documented. SUBJECTIVE: OBJECTIVE: Vital Signs Period Temp Pulse Resp BP Sys/Maurer Pulse Ox Last 24 Hr 97.5 F-98.2 F 65-72 8-18 123-144/48-66 97 Laboratory Results - last 24 hr 07/04/18 07/04/18 07/05/18 17:29 21:16 05:45 POC Glucometer 180 295 131 07/05/18 11:58 POC Glucometer 311 Current Medications Generic Name Dose Route Start Last Admin Trade Name Freq PRN Reason Stop Dose Admin Alprazolam 0.25 mg 07/03/18 18:22 07/05/18 03:44 Xanax - PO 0.25 mg Q12H PRN Administration ANXIETY Amlodipine Besylate 10 mg 07/03/18 10:00 07/05/18 10:13 Norvasc - PO 10 mg DAILY CONCETTA Administration Artificial Tears 1 drop 07/03/18 04:55 Artificial Tears OU QID PRN DRY EYES Aspirin 81 mg 07/03/18 10:00 07/05/18 10:11 Asa - PO 81 mg DAILY CONCETTA Administration Atorvastatin Calcium 20 mg 07/03/18 22:00 07/04/18 22:19 Lipitor - PO 20 mg HS CONCETTA Administration Furosemide 20 mg 07/03/18 10:00 07/05/18 10:12 Lasix - PO 20 mg DAILY CONCETTA Administration Heparin Sodium (Porcine) 5,000 unit 07/03/18 06:00 07/05/18 06:31 Heparin - SQ 5,000 unit TID CONCETTA Administration Hydralazine HCl 50 mg 07/03/18 10:00 07/05/18 10:12 Apresoline - PO 50 mg BID CONCETTA Administration Ceftriaxone Sodium 2 gm/ 100 mls @ 200 mls/hr 07/04/18 09:00 07/05/18 10:17 Dextrose IVPB 200 mls/hr DAILY CONCETTA Administration Protocol Insulin Aspart 1 vial 07/03/18 07:00 07/05/18 12:17 Novolog Vial Sliding Scale - SQ 6 units ACHS CONCETTA Administration Protocol Insulin Detemir 30 units 07/03/18 07:00 07/05/18 06:31 Levemir Vial SQ 30 units BID@0700,2200 CONCETTA Administration Losartan Potassium 100 mg 07/03/18 10:00 07/05/18 10:11 Cozaar - PO 100 mg DAILY CONCETTA Administration Oxycodone HCl 5 mg 07/03/18 19:41 07/04/18 07:11 Roxicodone - PO 5 mg Q6H PRN Administration PAIN LEVEL 7 - 10 Pantoprazole Sodium 40 mg 07/03/18 10:00 07/05/18 10:12 Protonix - PO 40 mg DAILY CONCETTA Administration Polyethylene Glycol 17 gm 07/03/18 22:00 07/05/18 10:12 Miralax (For Daily Use) - PO 17 grams BID CONCETTA Administration Fluticasone/Salmeterol 1 puff 07/03/18 22:00 07/05/18 10:10 Advair 100mcg/50mcg - IH 1 puff BID CONCETTA Administration Senna 2 tab 07/03/18 22:00 07/04/18 22:20 Senna - PO 2 tab HS CONCETTA Administration Timolol Maleate 1 drop 07/03/18 10:00 07/05/18 10:10 Timoptic 0.5% OU 1 drop BID CONCETTA Administration ASSESSMENT AND PLAN:
--- NOTE | 2018-07-05 14:20 | DS ---
Physical Exam: SUBJECTIVE: Patient seen and examined OBJECTIVE: Vital Signs Period Temp Pulse Resp BP Sys/Maurer Pulse Ox Last 24 Hr 97.5 F-98.0 F 65-72 18-18 123-144/48-66 95-97 PHYSICAL EXAM GENERAL: The patient is awake, alert, and fully oriented, in no acute distress. HEAD: Normal with no signs of trauma. EYES: PERRL, extraocular movements intact, sclera anicteric, conjunctiva clear. ENT: Ears normal, nares patent, oropharynx clear without exudates, moist mucous membranes. NECK: Trachea midline, full range of motion, supple. LUNGS: Breath sounds equal, clear to auscultation bilaterally, no wheezes, no crackles, no accessory muscle use. HEART: Regular rate and rhythm, S1, S2 without murmur, rub or gallop. ABDOMEN: Soft, nontender, nondistended, normoactive bowel sounds, no guarding, no rebound, no hepatosplenomegaly, no masses. EXTREMITIES: 2+ pulses, warm, well-perfused, no edema. NEUROLOGICAL: Cranial nerves II through XII grossly intact. Normal speech, gait not observed. PSYCH: Normal mood, normal affect. SKIN: Warm, dry, normal turgor, no rashes or lesions noted. LABS Laboratory Results - last 24 hr 07/04/18 07/04/18 07/05/18 17:29 21:16 05:45 POC Glucometer 180 295 131 07/05/18 11:58 POC Glucometer 311 HOSPITAL COURSE: Date of Admission:07/03/18 Date of Discharge: 07/05/18 Discharge Summary Reason For Visit: URINARY TRACT INFECTION Condition: Improved - Instructions Diet, Activity, Other Instructions: you were treated in the hospital for urinary tract infection. Please complete 7 days of cefpodoxime 100 mg twice per day for an additional 7 days We will give you a referral to a urogynecologist, Dr Jose Rafael Ambriz for evaluation as to why you may getting recurrent urinary tract infections. If you continue to have burning on urination, please call your doctor, Dr Mosher. If you experience fevers, chills, severe nausea or vomiting, please return to the emergency department immediately. Referrals: Rosie Mosher [Primary Care Provider] - 1 Week Jose Rafael Ambriz [Staff Physician] - 1 Week Disposition: HOME - Home Medications Comprehensive Discharge Medication List: Ambulatory Orders Atorvastatin Ca [Lipitor] 20 mg PO HS 05/14/18 Hydralazine HCl 50 mg PO BID 05/14/18 Losartan Potassium 100 mg PO DAILY 05/14/18 Alprazolam 0.25 mg PO BID PRN 05/15/18 Amlodipine Besylate 10 mg PO DAILY 05/15/18 Aspirin [ASA -] 81 mg PO DAILY 05/15/18 Fluticasone/Salmeterol [Advair Hfa 115-21 Mcg Inhaler] 2 inh PO BID 05/15/18 Insulin Glargine,Hum.rec.anlog [Lantus] 30 units SQ Q12H 05/15/18 Metformin HCl [Glucophage] 1,000 mg PO BID 05/15/18 Omeprazole Magnesium 40 mg PO DAILY 05/15/18 Oxycodone HCl 30 mg PO BID PRN 05/15/18 Polyvinyl Alcohol [Artificial Tears] 1 drop OU QID PRN 05/15/18 Timolol 0.5% [Timoptic 0.5%] 1 drop OU BID 05/15/18 Cefpodoxime Proxetil [Vantin -] 100 mg PO BID #14 tablet 07/05/18 - Discharge Referral Referred to [facility] No
== END 2018-07-05 13:28 | disposition home or self-care (01) | DRG 690 ==
LOC: JER 22:37 → OBSVTOIN 07-03 03:45 → JERBED 07-03 03:45 → J5S 07-03 16:10
PROVIDERS: ADMIT Internal Medicine; ATTEND Internal Medicine
DX: N39.0 Urinary tract infection, site not specified (principal); J44.9 Chronic obstructive pulmonary disease, unspecified; E55.9 Vitamin D deficiency, unspecified; I12.9 Hypertensive chronic kidney disease with stage 1 through stage 4 chronic kidney disease, or unspecified chronic kidney disease; E11.22 Type 2 diabetes mellitus with diabetic chronic kidney disease; E78.5 Hyperlipidemia, unspecified; N18.9 Chronic kidney disease, unspecified; F41.9 Anxiety disorder, unspecified; K59.00 Constipation, unspecified; M54.30 Sciatica, unspecified side; Z88.0 Allergy status to penicillin; M48.00 Spinal stenosis, site unspecified; B35.1 Tinea unguium
CPT/HCPCS: 36415; 71046-TC-FY; 80048; 80053; 81003; 81015; 82962; 83735; 84100; 85025; 87040; 87086; 87186; 93005; 93010; 99283-25; J1644

== ENCOUNTER 2019-01-27 13:56 | Inpatient (IN) | payer OTHER ==
[2019-01-27] MEDS ORDERED: ALBUTEROL SO4 2.5/IPRATROPIUM 0.5 INH SOL 3 ML VIAL.NEB. NEB ONE ×5 (14:15→14:42)
--- NOTE | 2019-01-27 14:21 | PDOC ---
History of Present Illness - General Chief Complaint: Respiratory Stated Complaint: SOB Time Seen by Provider: 01/27/19 14:05 - History of Present Illness Initial Comments: 01/27/19 14:21 The patient is a 63 year old female with a PMH of CKD, PNA, Asthma (multiple hospitalizations, no intubations), COPD (not on home O2), IDDM, recurrent UTI, Fibroids, Spinal Stenosis, Sciatica who presents to our ED this afternoon c/o 2 day h/o chest tightness, shortness of breath and worsening cough. Patient states her symptoms started suddenly on evening when she was at [facility] and after the air conditioner was turned on she noticed she started feeling short of breath and coughing. Also c/o intermittent chest tightness and congestion. No increased NAVARRO from baseline. No increased leg swelling from baseline. Patient of Dr. Mosher's but states she has not visited her PMD for 3 months because she is afraid of finding out her chronic conditions are worsening. Allergy: Flagyll, Rantidine, Penicillin As per EMR, patient last evaluated in our ED in 06/2018 for back pain, dysuria, admitted for UTI and IV Abx. Previous admission in 04/2018 for UTI at which time patient developed shortness of breath progressing acute hypoxic respiratory failure 2/2 to B/L PNA + COPD Exacerbation. Past History - Past Medical History Allergies/Adverse Reactions: Allergies Allergy/AdvReac Type Severity Reaction Status Date / Time ranitidine [From Zantac] Allergy Intermediate Hives Verified 01/27/19 13:59 metronidazole [From Flagyl] Allergy Mild Hives Verified 01/27/19 13:59 Metronidazole HCl Allergy Mild Hives Verified 01/27/19 13:59 [From Flagyl] Penicillins Allergy Mild Hives Verified 01/27/19 13:59 Home Medications: Ambulatory Orders Atorvastatin Ca [Lipitor] 20 mg PO HS 05/14/18 Hydralazine HCl 50 mg PO BID 05/14/18 Losartan Potassium 100 mg PO DAILY 05/14/18 Alprazolam 200 mg PO BID PRN 05/15/18 Amlodipine Besylate 10 mg PO DAILY 05/15/18 Aspirin [ASA -] 81 mg PO DAILY 05/15/18 Fluticasone/Salmeterol [Advair Hfa 115-21 Mcg Inhaler] 2 inh PO BID 05/15/18 Insulin Glargine,Hum.rec.anlog [Lantus] 30 units SQ Q12H 05/15/18 Metformin HCl [Glucophage] 500 mg PO BID 05/15/18 Omeprazole Magnesium 40 mg PO DAILY 05/15/18 Polyvinyl Alcohol [Artificial Tears] 1 drop OU QID PRN 05/15/18 Timolol 0.5% [Timoptic 0.5%] 1 drop OU BID 05/15/18 Oxycodone HCl/Acetaminophen [Percocet 10-325 mg Tablet] 1 each PO DAILY PRN 09/16 Anemia: Yes Asthma: Yes COPD: No Dementia: No Diabetes: Yes Disorders: Yes (UTI) HTN: Yes Hypercholesterolemia: Yes Psychiatric Problems: Yes (ANXIETY.) - Surgical History Abdominal Surgery: Yes - Immunization History Immunization Up to Date: Yes - Suicide/Smoking/Psychosocial Hx Smoking Status: Yes Smoking History: Smoker current status UNK Have you smoked in the past 12 months: No Number of Cigarettes Smoked Daily: 10 If you are a former smoker, when did you quit?: 2012 Hx Alcohol Use: Yes (STOPPED 10 YEARS AGO) Drug/Substance Use Hx: No Substance Use Type: None Hx Substance Use Treatment: No Review of Systems - Review of Systems Constitutional: No: Chills, Fever Respiratory: Yes: Cough, Shortness of Breath, Wheezing Cardiac (ROS): Yes: Chest Tightness ABD/GI: No: Constipated, Diarrhea, Nausea, Vomiting : No: Burning, Dysuria *Physical Exam - Vital Signs Last Vital Signs Temp Pulse Resp BP Pulse Ox 98.7 F 76 22 H 103/49 L 93 L 01/27/19 13:57 01/27/19 13:57 01/27/19 13:57 01/27/19 13:57 01/27/19 13:57 - Physical Exam General Appearance: Yes: Nourished, Appropriately Dressed, Other (Anxious) HEENT: positive: Normal Voice, Hearing Grossly Normal Neck: positive: Trachea midline, Supple Respiratory/Chest: positive: Other (scattered wheezes B/L) Cardiovascular: positive: Other (S1, S2, RRR, systolic murmur) Vascular Pulses: Dorsalis-Pedis (R): 2+, Doralis-Pedis (L): 2+ Gastrointestinal/Abdominal: positive: Normal Bowel Sounds, Soft Extremity: positive: Normal Capillary Refill, Normal Inspection Integumentary: positive: Normal Color, Dry, Warm Neurologic: positive: cilnical scientist II-XII NML intact, Fully Oriented, Alert Heart Score/ECG Review - ECG Impressions Comment:: 01/27/19 15:13 HR 73, Sinus Rhythm, no deviations, normal intervals, no MASSIMO/STD/TWI ED Treatment Course - LABORATORY CBC & Chemistry Diagram: 01/27/19 14:47 01/27/19 14:47 Medical Decision Making - Medical Decision Making 01/27/19 14:22 63 year old female with chest tightness, shortness of breath, worsening cough. Hypoxic (SpO2 93%), Tachypneic (RR 22) Will evaluate for r/o ACS, also consider PNA, Bronchitis, COPD exacerbation, Asthma exacerbation, Viral URI. 01/27/19 15:14 EKG non-ischemic as documented in EKG section of EMR 01/27/19 15:19 Patient reassessed @ bedside SpO2 low 90's s/p Duo Neb x3 Will give IV Mg, Albuterol inhalation and obtain CT Chest to r/o PNA 01/27/19 15:56 Troponin (-) CT chest pending 01/27/19 16:14 Patient has exacerbation of underlying reactive airway disease (COPD, Asthma) and requires admission for further monitoring. Hospitalist microblogged 01/27/19 16:39 Attending discussed case w/hospitalist service, will admit for further evaluation including pulmonary evaluation. CT chest pending. Patient counseled on plan of care, amenable to admission. Clinical Impression: Hypoxia 2/2 to reactive airway disease *DC/Admit/Observation/Transfer Diagnosis at time of Disposition: Acute exacerbation of chronic obstructive pulmonary disease (COPD) - Discharge Dispostion Condition at time of disposition: Fair Decision to Admit order: Yes - Referrals Referrals: Rosie Mosher [Primary Care Provider] - - Patient Instructions - Post Discharge Activity
[2019-01-27] MEDS ORDERED: methylPREDNISolone NA SUCC 125 MG/2 ML VIAL IVPUSH ONE (14:24)
[2019-01-27] MEDS ORDERED: methylPREDNISolone NA SUCC 125 MG/2 ML VIAL ONE (14:35)
--- NOTE | 2019-01-27 14:44 | PDOC ---
Documentation entered by Holley Espinosa SCRIBE, acting as scribe for Nancy Alex DO. Nancy Alex DO: This documentation has been prepared by the Francisca narayanan Sammi, SCRIBE, under my direction and personally reviewed by me in its entirety. I confirm that the documentation accurately reflects all work, treatment, procedures, and medical decision making performed by me. Attending Attestation - Resident Resident Name: Lalitha Mancuso - ED Attending Attestation I have performed the following: I have examined & evaluated the patient, The case was reviewed & discussed with the resident, I agree w/resident's findings & plan, Exceptions are as noted - HPI HPI: 01/27/19 14:27 The patient is a 63 year old female, with a significant PMH of CKD, PNA, Asthma (multiple hospitalizations, no intubations), who presents to the emergency department for evaluation of 2 days of SOB and wheezing. The patient states she was at [facility] on , when they turned on the air conditioning. She reports not soon after she began to cough. The patient states she has had worsening SOB, cough, and chest tightness since. The patient denies headache and dizziness. Denies fever, chills, nausea, vomit, diarrhea and constipation. Denies dysuria, frequency, urgency and hematuria. Allergies: ranitidine, metronidazole, penicillins PCP: Nomi - Physicial Exam PE: 01/27/19 15:11 Constitutional: Awake, alert, oriented. No acute distress. Head: Normocephalic. Atraumatic Eyes: PERRL. EOMI. Conjunctivae are not pale. ENT: (+) Nasal congestion. (+) Posterior pharynx with mild redness. Mucous membranes are moist and intact. Uvula midline. Neck: Supple. Full ROM. No lymphadenopathy. Cardiovascular: Regular rate. Regular rhythm. S1, S2 regular. Distal pulses are 2+ and symmetric. Pulmonary/Chest: (+) Conversational dyspnea. (+) Diffuse wheezing Clear to auscultation bilaterally No rales or rhonchi. Abdominal: (+) Obese. Soft and non-distended. There is no tenderness. No rebound, guarding or rigidity. No organomegaly. No palpable masses. Good bowel sounds. Back: No CVA tenderness. Musculoskeletal: (+)Trace ankle edema No cyanosis. No clubbing. Full range of motion in all extremities. No calf tenderness. Radial/pedal pulses are intact and 2+ bilaterally Skin: Skin is warm and dry. No petechiae. No purpura. Neurological: Alert and oriented to person, place, and time. Cranial nerves II -XII are grossly intact. Normal speech. Strength is grossly symmetric. No sensory deficits. Psychiatric: Good eye contact. Normal interaction, affect and behavior. - Medical Decision Making 01/27/19 14:18 I, Dr. Nancy Alex, DO, attest that this document has been prepared under my direction and personally reviewed by me in its entirety. I further attest, that it accurately reflects all work, treatment, procedures and medical decision -making performed by me. 01/27/19 14:43 a/p: 63yo female with hx of asthma with sob/cough/congestion/wheezing -pt states rhinorrhea, sore throat, cough/wheezing/sob/chest tightness since being in the air conditioning last weekend while playing bingo -pt with nasal congestion/wheezing on exam -conversational dyspnea -pt states chest feels tight, hx of pna in apr 2018 -no fevers at home -will send labs, ekg, cxr, nebs, steroids -will monitor and reassess 01/27/19 15:25 pulse ox 92 after 3duonebs pt feeling better, still with wheezing cxr poor inspiratory effort will obtain chest ct 01/27/19 16:13 pt with copd/asthma exacerbation and sob microblog sent to [facility] for admission 01/27/19 16:26 case discussed with [facility] ALEXANDRU Garcia who accepts pt to service *DC/Admit/Observation/Transfer Diagnosis at time of Disposition: Acute exacerbation of chronic obstructive pulmonary disease (COPD) - Discharge Dispostion Condition at time of disposition: Fair Decision to Admit order: Yes - Referrals Referrals: Rosie Mosher [Primary Care Provider] - - Patient Instructions - Post Discharge Activity Heart Score/ECG Review - ECG Intrepretation Comment:: 01/27/19 14:18 sinus at 73, nl axis, nl interval, no acute st/t wave findings
[2019-01-27] MEDS ORDERED: ALBUTEROL SO4 2.5/IPRATROPIUM 0.5 INH SOL 3 ML VIAL.NEB. NEB SCH (14:45)
[2019-01-27 14:57] LABS: BASO % 1.6 % (0-2.0); EOS % 5.3 % (0-4.5); HEMATOCRIT 32.4 % (32.4-45.2); LYMPH % 34.8 % (8-40); MCH 29.4 pg (25.7-33.7); MCHC 33.9 g/dl (32.0-36.0); MEAN CELL VOLUME 86.8 fl (80-96); MEAN PLT VOLUME 9.6 fl (7.5-11.1); MONO % 9.9 % (3.8-10.2); NEUT % 48.4 % (42.8-82.8); PLATELET COUNT 208 K/MM3 (134-434); RBC 3.73 M/mm3 (3.60-5.2); WHITE BLOOD COUNT 5.5 K/mm3 (4.0-10.0)
[2019-01-27] MEDS ORDERED: MAGNESIUM SULF 50% (8.12 MEQ/2 ML-1 GM VIAL) IVPB ONE (15:22)
[2019-01-27] MEDS ORDERED: ALBUTEROL SO4 8 GM HFA INHALER IH ONE (15:22)
[2019-01-27] MEDS ORDERED: AZITHROMYCIN IVPB 500 MG in DEXTROSE 5%-WATER - 250 ML IVPB ONE (15:26)
[2019-01-27 15:32] LABS: ALBUMIN 3.2 g/dl (3.4-5.0); ALK PHOS 81 U/L (45-117); ANION GAP 7 MMOL/L (8-16); BILIRUBIN,TOTAL 0.2 mg/dL (0.2-1); BLOOD UREA NITROGEN 18 mg/dL (7-18); CALCIUM 9.2 mg/dL (8.5-10.1); CHLORIDE 103 mmol/L (98-107); CO2 29 mmol/L (21-32); CREATININE 1.3 mg/dL (0.55-1.3); GLUCOSE,RANDOM 233 mg/dL (74-106); POTASSIUM 4.5 mmol/L (3.5-5.1); SGOT/AST 17 U/L (15-37); SGPT/ALT 24 U/L (13-61); SODIUM 139 mmol/L (136-145); TOT PROT 6.6 g/dl (6.4-8.2)
[2019-01-27] MEDS ORDERED: AZITHROMYCIN IVPB 500 MG/250 ML BAG IVPB ONE (15:40)
[2019-01-27] MEDS ORDERED: MAGNESIUM 1GM/D5W - 1 GM/100 ML IVPB IVPB ONE (15:41)
--- NOTE | 2019-01-27 18:17 | HP ---
Admitting History and Physical - Primary Care Physician PCP: Rosie Mosher E - Admission Chief Complaint: shortness of breath History of Present Illness: Patient is a 63 year old female with a significant past medical history of CKD, pneumonia, asthma (multiple hospitalizations for asthma), chronic UTIs, anxiety , hypertension, hyperlipidemia, obesity, COPD (ex smoker-no home oxygen), diabetes mellitus II and uterine fibroids. She presents to the ED after experiencing worsening shortness of breath and wheezing. Patient reports that her shortness of breath began two days ago and worsened. She was at an event on and when the air conditioner was turned on, she felt as thought she could not breathe and began to cough. Since , she has had worsening shortness of breath with any physical exertion. She is unable to lay flat and can hear herself wheezing. Today her chest became very tight prompting an ED visit. On visit of 04/2018, patient became short of breath and was found to have bilateral pneumonia. On the 04/2018 hospitalization, she was transferred to the ICU for closer monitoring, but not intubated. In the Ed she was given multiple breathing treatments, magnesium and steriods but patient still was not stable for discharge home. She is not home oxygen dependent. The patient denies headache and dizziness. Denies fever, chills, nausea, vomit, diarrhea and constipation, dysuria, frequency, urgency and hematuria. History Source: Patient, Medical Record Limitations to Obtaining History: No Limitations - Past Medical History Pulmonary: Yes: Bronchitis, COPD, Other (Likely OSAS ). No: O2 Dependent Psych: Yes: Addictions, Anxiety, Depression, Panic - Smoking History Smoking history: Former smoker Have you smoked in the past 12 months: No Aproximately how many cigarettes per day: 10 If you are a former smoker, when did you quit?: 2012 - Alcohol/Substance Use Hx Alcohol Use: Yes (STOPPED 10 YEARS AGO) History of Substance Use: reports: None - Social History Usual Living Arrangement: Yes: With Significant Other ADL: Independent History of Recent Travel: No Home Medications - Allergies Allergies/Adverse Reactions: Allergies Allergy/AdvReac Type Severity Reaction Status Date / Time ranitidine [From Zantac] Allergy Intermediate Hives Verified 01/27/19 13:59 metronidazole [From Flagyl] Allergy Mild Hives Verified 01/27/19 13:59 Metronidazole HCl Allergy Mild Hives Verified 01/27/19 13:59 [From Flagyl] Penicillins Allergy Mild Hives Verified 01/27/19 13:59 - Home Medications Home Medications: Ambulatory Orders Atorvastatin Ca [Lipitor] 20 mg PO HS 05/14/18 Hydralazine HCl 50 mg PO BID 05/14/18 Losartan Potassium 100 mg PO DAILY 05/14/18 Alprazolam 200 mg PO BID PRN 05/15/18 Amlodipine Besylate 10 mg PO DAILY 05/15/18 Aspirin [ASA -] 81 mg PO DAILY 05/15/18 Fluticasone/Salmeterol [Advair Hfa 115-21 Mcg Inhaler] 2 inh PO BID 05/15/18 Insulin Glargine,Hum.rec.anlog [Lantus] 30 units SQ Q12H 05/15/18 Metformin HCl [Glucophage] 500 mg PO BID 05/15/18 Omeprazole Magnesium 40 mg PO DAILY 05/15/18 Polyvinyl Alcohol [Artificial Tears] 1 drop OU QID PRN 05/15/18 Timolol 0.5% [Timoptic 0.5%] 1 drop OU BID 05/15/18 Oxycodone HCl/Acetaminophen [Percocet 10-325 mg Tablet] 1 each PO DAILY PRN 09/16 Review of Systems - Review of Systems Constitutional: reports: Chills, Lethargy, Malaise, Weakness Eyes: reports: No Symptoms HENT: reports: Nasal Congestion Neck: reports: No Symptoms Cardiovascular: reports: Shortness of Breath Respiratory: reports: Cough, Exercise Intolerance, Orthopnea, SOB, SOB on Exertion, Wheezing Gastrointestinal: reports: Bloating Genitourinary: reports: No Symptoms Musculoskeletal: reports: No Symptoms Integumentary: reports: No Symptoms Neurological: reports: No Symptoms Endocrine: reports: No Symptoms Hematology/Lymphatic: reports: No Symptoms Psychiatric: reports: Anxiety, Depression, Panic, Other (recent admission 4 months ago at inpatient psyche at [facility] for worsening anxiety) Physical Examination Vital Signs: Vital Signs Temperature 98 F 01/27/19 17:46 Pulse Rate 79 01/27/19 17:46 Respiratory Rate 17 01/27/19 17:46 Blood Pressure 138/58 L 01/27/19 17:46 O2 Sat by Pulse Oximetry (%) 99 01/27/19 17:46 Constitutional: Yes: Well Nourished, Anxious Eyes: Yes: WNL, Tearing HENT: Yes: Nasal Congestion Neck: Yes: WNL, Supple Cardiovascular: Yes: WNL, Regular Rate and Rhythm Respiratory: Yes: Accessory Muscle Use, Cough, Diminished, On Nasal O2, Orthopnea, Poor Air Entry, Rales, SOB, SOB on Exertion, Tachypnea, Wheezes Gastrointestinal: Yes: Normal Bowel Sounds, Soft, Abdomen, Obese ...Rectal Exam: Yes: Deferred Renal/: Yes: WNL Edema: Yes Edema: LLE: Trace, RLE: Trace Integumentary: Yes: WNL Psychiatric: Yes: Alert, Oriented Labs: CBC, BMP 01/27/19 14:47 01/27/19 14:47 Imaging - Results Cat Scan: Pending Problem List - Problems (1) Acute exacerbation of chronic obstructive pulmonary disease (COPD) Assessment/Plan: Will start on solumedrol taper, duonebs and supplemental oxygen to maintain oxygen levels above 92%. Will start on Azithromycin IV prophlaxis as patient with history of extensive pneumonia on last admission. Pulmonary consult. CT of chest completed, pending official read. Her WBC is within normal limits and she is without fever and vitals are stable. . Code(s): J44.1 - CHRONIC OBSTRUCTIVE PULMONARY DISEASE W (ACUTE) EXACERBATION (2) Respiratory failure Assessment/Plan: Respiratory failure/COPD exacerbation. monitor airway closely supplemental oxygen, scheduled duonebs. Code(s): J96.90 - RESPIRATORY FAILURE, UNSP, UNSP W HYPOXIA OR HYPERCAPNIA (3) Anxiety Code(s): F41.9 - ANXIETY DISORDER, UNSPECIFIED (4) Hypertension Assessment/Plan: Hypertension: On cozaar, hydralazine bid, norvasc Code(s): I10 - ESSENTIAL (PRIMARY) HYPERTENSION (5) Hyperlipemia Assessment/Plan: continue home medications Hyperlipidemia: on lipitor Code(s): E78.5 - HYPERLIPIDEMIA, UNSPECIFIED (6) Diabetes Assessment/Plan: Monitor bgms. On novolog sliding scale Code(s): E11.9 - TYPE 2 DIABETES MELLITUS WITHOUT COMPLICATIONS (7) Obesity Assessment/Plan: Obesity: Has other risk factors for heart disease: hld, htn, dm. Code(s): E66.9 - OBESITY, UNSPECIFIED (8) Prophylactic measure Assessment/Plan: fen tolerating po monitor electrolytes diabetic diet prophy heparin bid protonix full code Code(s): Z29.9 - ENCOUNTER FOR PROPHYLACTIC MEASURES, UNSPECIFIED Visit type - Emergency Visit Emergency Visit: Yes ED Registration Date: 01/27/19 Care time: The patient presented to the Emergency Department on the above date and was hospitalized for further evaluation of their emergent condition. - New Patient This patient is new to me today: Yes Date on this admission: 01/27/19 - Critical Care Critical Care patient: No
[2019-01-27] MEDS: ALBUTEROL SO4 2.5/IPRATROPIUM 0.5 INH SOL 3 ML VIAL.NEB. NEB SCH (21:12)
[2019-01-27] MEDS ORDERED: INSULIN (LEVEMIR) 100 UNITS/ML UNITS SQ SCH (22:00)
[2019-01-27] MEDS: methylPREDNISolone NA SUCC 40 MG/1 ML VIAL IVPUSH SCH (22:27)
[2019-01-27] MEDS: hydrALAZINE HCL 50 MG TABLET (FP) PO SCH (22:28)
[2019-01-27] MEDS: ATORVASTATIN CA 20 MG TABLET (FP) PO SCH (22:28)
[2019-01-27] MEDS: ALPRAZolam 2 MG TABLET PO PRN (22:28)
[2019-01-27] MEDS: INSULIN SLIDING SCALE (NOVOLOG) 1 VIAL SQ SCH (22:29)
[2019-01-27] MEDS: TIMOLOL 0.5% OPHTHALMIC SOL 5 ML BOTTLE OU SCH (23:14)
[2019-01-28] MEDS: methylPREDNISolone NA SUCC 40 MG/1 ML VIAL IVPUSH SCH ×4 (03:06→22:28)
[2019-01-28] MEDS: ALBUTEROL SO4 2.5/IPRATROPIUM 0.5 INH SOL 3 ML VIAL.NEB. NEB SCH ×4 (06:30→21:10)
[2019-01-28] MEDS: INSULIN SLIDING SCALE (NOVOLOG) 1 VIAL SQ SCH ×4 (06:51→22:26)
[2019-01-28 08:25] LABS: HEMATOCRIT 33.8 % (32.4-45.2); HEMOGLOBIN 11.2 GM/dL (10.7-15.3); MCH 29.1 pg (25.7-33.7); MEAN PLT VOLUME 9.9 fl (7.5-11.1); PLATELET COUNT 219 K/MM3 (134-434); RBC 3.84 M/mm3 (3.60-5.2); WHITE BLOOD COUNT 7.1 K/mm3 (4.0-10.0)
[2019-01-28 08:28] LABS: ALBUMIN 3.1 g/dl (3.4-5.0); BILIRUBIN,TOTAL 0.1 mg/dL (0.2-1); CALCIUM 8.9 mg/dL (8.5-10.1); CREATININE 1.3 mg/dL (0.55-1.3); MAGNESIUM 2.3 mg/dL (1.8-2.4); POTASSIUM 4.8 mmol/L (3.5-5.1); TOT PROT 6.8 g/dl (6.4-8.2)
[2019-01-28] MEDS ORDERED: PT OWN MED DRAWER 7, Y5N ONE ×2 (09:16→11:10)
[2019-01-28] MEDS: ASPIRIN 81 MG CHEWABLE TABLETS PO SCH (09:20)
[2019-01-28] MEDS: hydrALAZINE HCL 50 MG TABLET (FP) PO SCH ×2 (09:20→22:28)
[2019-01-28] MEDS: HEPARIN NA (PORCINE) 5,000 UNITS/ML 1ML VIAL SQ SCH ×2 (09:20→22:28)
[2019-01-28] MEDS: amLODIPine BESYLATE 10 MG TABLET (FP) PO SCH (09:20)
[2019-01-28] MEDS ORDERED: LOSARTAN POTASSIUM 100 MG TABLET PO SCH (10:00)
[2019-01-28] MEDS: TIMOLOL 0.5% OPHTHALMIC SOL 5 ML BOTTLE OU SCH ×2 (10:17→22:29)
[2019-01-28] MEDS: AZITHROMYCIN IVPB 500 MG/250 ML BAG IVPB SCH (10:45)
[2019-01-28] MEDS ORDERED: LOSARTAN POTASSIUM 50 MG TABLET (FP) PO SCH (11:11)
[2019-01-28] MEDS: ALPRAZolam 2 MG TABLET PO PRN ×2 (11:16→22:28)
[2019-01-28] MEDS: LOSARTAN POTASSIUM 50 MG TABLET (FP) PO SCH (11:39)
--- NOTE | 2019-01-28 12:51 | EKG ---
Test Reason : Blood Pressure : / mmHG Vent. Rate : 073 BPM Atrial Rate : 073 BPM P-R Int : 124 ms QRS Dur : 076 ms QT Int : 372 ms P-R-T Axes : 060 -20 024 degrees QTc Int : 409 ms NORMAL SINUS RHYTHM NONSPECIFIC T WAVE ABNORMALITY POOR R WAVE PROGRESSION ABNORMAL ECG WHEN COMPARED WITH ECG OF 03-JUL-2018 03:12, NO SIGNIFICANT CHANGE WAS FOUND Confirmed by ARIELLE SHAVER MD ([id number]) on 01/28/2019 12:50:27 PM Referred By: Confirmed By:ARIELLE SHAVER MD
--- NOTE | 2019-01-28 13:58 | PN ---
Progress Note, Physician History of Present Illness: Patient is a 63 year old female with a significant past medical history of CKD, pneumonia, asthma (multiple hospitalizations for asthma), chronic UTIs, anxiety , hypertension, hyperlipidemia, obesity, COPD (ex smoker-no home oxygen), diabetes mellitus II and uterine fibroids. She presents to the ED after experiencing worsening shortness of breath and wheezing. Patient reports that her shortness of breath began two days ago and worsened. She was at an event on and when the air conditioner was turned on, she felt as thought she could not breathe and began to cough. Since , she has had worsening shortness of breath with any physical exertion. She was unable to lay flat and can hear herself wheezing, her chest became very tight prompting an ED visit. On visit of 04/2018, patient became short of breath and was found to have bilateral pneumonia. On the 04/2018 hospitalization, she was transferred to the ICU for closer monitoring, but not intubated. In the Ed she was given multiple breathing treatments, magnesium and steriods but patient still was not stable for discharge home. She is not home oxygen dependent. The patient denies headache and dizziness. Denies fever, chills, nausea, vomit, diarrhea and constipation, dysuria, frequency, urgency and hematuria. chest ct 01/27/2019: david air space opacities/pneumonic infiltrates in the right and lower left lobe without evidence of pneumothorax or pleural eff. 5mm pulmonary nodule in the right lung base, posteriorly unchanged since the prior exam. tiny pleural based nodule present in superior segment of the left lower lobe measuring 2-3mm , follow up Ct in 6-12 months recommended. - Current Medication List Current Medications: Active Medications Albuterol/Ipratropium (Duoneb -) 1 amp NEB RQID [facility] Last Admin: 01/28/19 11:02 Dose: 1 amp Alprazolam (Xanax -) 2 mg PO Q12H PRN PRN Reason: ANXIETY Last Admin: 01/28/19 11:16 Dose: 2 mg Amlodipine Besylate (Norvasc -) 10 mg PO DAILY [facility] Last Admin: 01/28/19 09:20 Dose: 10 mg Aspirin (Asa -) 81 mg PO DAILY [facility] Last Admin: 01/28/19 09:20 Dose: 81 mg Atorvastatin Calcium (Lipitor -) 20 mg PO HS [facility] Last Admin: 01/27/19 22:28 Dose: 20 mg Heparin Sodium (Porcine) (Heparin -) 5,000 unit SQ BID [facility] Last Admin: 01/28/19 09:20 Dose: 5,000 unit Hydralazine HCl (Apresoline -) 50 mg PO BID [facility] Last Admin: 01/28/19 09:20 Dose: 50 mg Azithromycin (Zithromax 500mg Ivpb (Pre-Docked)) 500 mg in 250 mls @ 250 mls/ hr IVPB DAILY [facility] Last Admin: 01/28/19 10:45 Dose: 250 mls/hr Insulin Aspart (Novolog Vial Sliding Scale -) 1 vial SQ [facility]; Protocol Last Admin: 01/28/19 11:16 Dose: 8 units Insulin Detemir (Levemir Vial) 10 units SQ HS [facility] Last Admin: 01/27/19 22:30 Dose: 10 units Losartan Potassium (Cozaar -) 100 mg PO DAILY [facility] Last Admin: 01/28/19 11:39 Dose: 100 mg Methylprednisolone Sodium Succinate (Solu-Medrol -) 40 mg IVPUSH Q6H-IV [facility] Last Admin: 01/28/19 08:23 Dose: 40 mg Timolol Maleate (Timoptic 0.5%) 1 drop OU BID [facility] Last Admin: 01/28/19 10:17 Dose: 1 drop - Objective Vital Signs: Vital Signs Temperature 97.6 F 01/28/19 10:00 Pulse Rate 76 01/28/19 10:00 Respiratory Rate 20 01/28/19 10:00 Blood Pressure 142/75 01/28/19 10:00 O2 Sat by Pulse Oximetry (%) 97 01/28/19 09:00 Constitutional: Yes: Well Nourished, No Distress, Calm Eyes: Yes: WNL HENT: Yes: WNL, Atraumatic Neck: Yes: WNL, Supple Cardiovascular: Yes: Regular Rate and Rhythm Respiratory: Yes: Cough, On Nasal O2, Rhonchi, SOB Gastrointestinal: Yes: Normal Bowel Sounds, Abdomen, Obese ...Rectal Exam: Yes: Deferred Genitourinary: Yes: WNL Breast(s): Yes: WNL Musculoskeletal: Yes: WNL Extremities: Yes: WNL Edema: No Neurological: Yes: WNL Labs: CBC, BMP 01/28/19 06:20 01/28/19 06:20 Problem List - Problems (1) Pneumonia Assessment/Plan: Per CT: patchy air space opacities/pneumonic infiltrates in the right and lower left lobe without evidence of pneumothorax. On Azithromycin and Ceftriaxone antibiotics. Followed by ID and pulmonary. Maintain oxygen sats above 92% Code(s): J18.9 - PNEUMONIA, UNSPECIFIED ORGANISM (2) Acute exacerbation of chronic obstructive pulmonary disease (COPD) Assessment/Plan: On solumedrol taper, duonebs and supplemental oxygen to maintain oxygen levels above 92%. On Azithromycin IV daily and started on Ceftriaxone daily per ID. Patient with history of extensive pneumonia on last admission. Pulmonary consulted and following. Chest Ct as noted above: patchy airspace opacitiy, pulmonary nodules that need outpatient follow up with repeat CT in 6- 12 months. Her WBC is within normal limits and she is without fever and vitals are stable. Code(s): J44.1 - CHRONIC OBSTRUCTIVE PULMONARY DISEASE W (ACUTE) EXACERBATION (3) Respiratory failure Assessment/Plan: Respiratory failure/COPD exacerbation. monitor airway closely supplemental oxygen, scheduled duonebs. Code(s): J96.90 - RESPIRATORY FAILURE, UNSP, UNSP W HYPOXIA OR HYPERCAPNIA (4) Anxiety Assessment/Plan: on home dose of xanax Code(s): F41.9 - ANXIETY DISORDER, UNSPECIFIED (5) Hypertension Assessment/Plan: Hypertension: On cozaar, hydralazine bid, norvasc Code(s): I10 - ESSENTIAL (PRIMARY) HYPERTENSION (6) Hyperlipemia Assessment/Plan: continue home medications Hyperlipidemia: on lipitor Code(s): E78.5 - HYPERLIPIDEMIA, UNSPECIFIED (7) Diabetes Assessment/Plan: Monitor bgms. On novolog sliding scale Code(s): E11.9 - TYPE 2 DIABETES MELLITUS WITHOUT COMPLICATIONS (8) Obesity Assessment/Plan: Obesity: Has other risk factors for heart disease: hld, htn, dm. Code(s): E66.9 - OBESITY, UNSPECIFIED Qualifiers: Body mass index: BMI 45.0-49.9 (9) Prophylactic measure Assessment/Plan: fen tolerating po monitor electrolytes diabetic diet prophy heparin bid protonix full code Code(s): Z29.9 - ENCOUNTER FOR PROPHYLACTIC MEASURES, UNSPECIFIED Visit type - Emergency Visit Emergency Visit: Yes ED Registration Date: 01/27/19 Care time: The patient presented to the Emergency Department on the above date and was hospitalized for further evaluation of their emergent condition. - New Patient This patient is new to me today: Yes Date on this admission: 01/28/19 - Critical Care Critical Care patient: No - Discharge Referral Referred to [facility] Med P.C.: No
--- NOTE | 2019-01-28 14:07 | PN ---
Progress Note (short form) - Note Progress Note: PULMONARY CONSULTATION DICTATED 01/28/19 IMP ACUTE ASTHMA/COPD EXACERBATION BILATERAL PNEUMONIA RLL NODULE STABLE HTN DM OBESITY LIKELY CYNDIE PLAN ABX O2 INHALED BRONCHODILATORS STEROIDS CULTURES MONITOR PEAK FLOW F/U CHEST CT 6-8 WKS TO CONFIRM RESOLUTION OF INFILTRATES PFTS OUTPATIENT YEARLY LOW DOSE CHEST FOR LUNG CANCER SCREENING OUTPATIENT SLEEP STUDIES DR FAIRCHILD Problem List - Problems (1) Pneumonia Code(s): J18.9 - PNEUMONIA, UNSPECIFIED ORGANISM (2) Acute exacerbation of chronic obstructive pulmonary disease (COPD) Code(s): J44.1 - CHRONIC OBSTRUCTIVE PULMONARY DISEASE W (ACUTE) EXACERBATION (3) Diabetes Code(s): E11.9 - TYPE 2 DIABETES MELLITUS WITHOUT COMPLICATIONS (4) Hyperlipemia Code(s): E78.5 - HYPERLIPIDEMIA, UNSPECIFIED (5) Hypertension Code(s): I10 - ESSENTIAL (PRIMARY) HYPERTENSION (6) Obesity Code(s): E66.9 - OBESITY, UNSPECIFIED (7) Pulmonary vascular congestion Code(s): R09.89 - OTH SYMPTOMS AND SIGNS INVOLVING THE CIRC AND RESP SYSTEMS (8) Asthma, chronic obstructive, with acute exacerbation Code(s): J44.1 - CHRONIC OBSTRUCTIVE PULMONARY DISEASE W (ACUTE) EXACERBATION; J45.901 - UNSPECIFIED ASTHMA WITH (ACUTE) EXACERBATION (9) Pneumonia Code(s): J18.9 - PNEUMONIA, UNSPECIFIED ORGANISM
--- NOTE | 2019-01-28 14:32 | CON.ID ---
Consult Consult Specialty:: infectious diseases Referred by:: Radha Reason for Consultation:: pneumonia - History of Present Illness Chief Complaint: sob - Past Medical History Pulmonary: Yes: Bronchitis, COPD, Other (Likely OSAS ). No: O2 Dependent Psych: Yes: Addictions, Anxiety, Depression, Panic - Alcohol/Substance Use Hx Alcohol Use: Yes (STOPPED 10 YEARS AGO) History of Substance Use: reports: None - Smoking History Smoking history: Former smoker Have you smoked in the past 12 months: No Aproximately how many cigarettes per day: 10 If you are a former smoker, when did you quit?: 2013 - Social History ADL: Independent History of Recent Travel: No Home Medications - Allergies Allergies/Adverse Reactions: Allergies Allergy/AdvReac Type Severity Reaction Status Date / Time ranitidine [From Zantac] Allergy Intermediate Hives Verified 01/27/19 13:59 metronidazole [From Flagyl] Allergy Mild Hives Verified 01/27/19 13:59 Metronidazole HCl Allergy Mild Hives Verified 01/27/19 13:59 [From Flagyl] Penicillins Allergy Mild Hives Verified 01/27/19 13:59 - Home Medications Home Medications: Ambulatory Orders Atorvastatin Ca [Lipitor] 20 mg PO HS 05/14/18 Hydralazine HCl 50 mg PO BID 05/14/18 Losartan Potassium 100 mg PO DAILY 05/14/18 Alprazolam 200 mg PO BID PRN 05/15/18 Amlodipine Besylate 10 mg PO DAILY 05/15/18 Aspirin [ASA -] 81 mg PO DAILY 05/15/18 Fluticasone/Salmeterol [Advair Hfa 115-21 Mcg Inhaler] 2 inh PO BID 05/15/18 Insulin Glargine,Hum.rec.anlog [Lantus] 30 units SQ Q12H 05/15/18 Metformin HCl [Glucophage] 500 mg PO BID 05/15/18 Omeprazole Magnesium 40 mg PO DAILY 05/15/18 Polyvinyl Alcohol [Artificial Tears] 1 drop OU QID PRN 05/15/18 Timolol 0.5% [Timoptic 0.5%] 1 drop OU BID 05/15/18 Oxycodone HCl/Acetaminophen [Percocet 10-325 mg Tablet] 1 each PO DAILY PRN 09/16 Physical Exam Vital Signs: Vital Signs Temperature 97.6 F 01/28/19 10:00 Pulse Rate 76 01/28/19 10:00 Respiratory Rate 20 01/28/19 10:00 Blood Pressure 142/75 01/28/19 10:00 O2 Sat by Pulse Oximetry (%) 97 01/28/19 09:00 Labs: CBC, BMP 01/28/19 06:20 01/28/19 06:20
[2019-01-28] MEDS: CEFTRIAXONE 1 GM in DEXTROSE 5%-WATER - 50 ML IVPB SCH (14:45)
--- NOTE | 2019-01-28 15:06 | CONS ---
DATE OF CONSULTATION: 01/28/2019 REFERRING PROVIDER: BERNARDA Albert The patient is a 63-year-old black female with a past medical history of chronic kidney disease, pneumonia in 2018, asthma, multiple hospitalizations, never intubated, COPD, insulin-dependent diabetes mellitus, recurrent UTIs, thyroid, spinal stenosis, hypertension, sciatica, admitted to [facility] on January 27 with complaints of 2-day history of chest tightness, shortness of breath, cough, productive, brownish sputum. Patient states that she was at [facility] the other day , and she started developing increasing chest congestion and shortness of breath after being exposed to cold air secondary to air conditioning. She also complained of chest tightness, congestion. She presented to emergency room with the above. In the ER, she was noted to be in moderate respiratory distress. She was started on inhaled bronchodilators and steroids, with some improvement, was admitted for further therapy. She had a CT scan of the chest, which revealed bibasilar infiltrates. She was also noted to be hypoxic on admission. She was placed on supplemental O2. The patient has a history of tobacco use, approximately 1-1/2 packs per day for many years, quit 7 years ago. She denies any history of occupational exposure to chemicals or fumes. There is no history of recent travel. There is no history of DVT or PE in the past. Past medical history, again, includes hypertension, diabetes, chronic kidney disease, pneumonia, asthma/COPD. REVIEW OF SYSTEMS: Positive cough; positive chest congestion; positive fever, low grade. No chest pain, no nausea, no vomiting, no hemoptysis, no abdominal pain. FAMILY HISTORY: Brother with history of liver CA. Current medications include Solu-Medrol 40 q.6, Cozaar, Zithromax, heparin, Xanax, DuoNeb, Timoptic, Norvasc, Apresoline, Lipitor, NovoLog, Levemir, and aspirin. PHYSICAL EXAMINATION: General: The patient is an obese female, awake, alert, in no acute distress. Vital Signs: She is afebrile. Blood pressure 142/75. Respiratory rate is 20. O2 saturation is 97% on 2 L. HEENT: Normocephalic, atraumatic. Neck: Supple. Heart: Regular, S1, S2. Chest: Bilateral wheezes and rhonchi throughout. Abdomen: Soft. Bowel sounds positive. Extremities: No cyanosis or edema. LABORATORY DATA: BUN 24, creatinine 1.3, hemoglobin A1c is 8.7, LDL is 102. WBC 7.1, hemoglobin 11.2, hematocrit 33.8, with a platelet count of 219,000. Chest CT revealed patchy airspace opacities bilaterally, right lower lobe and left lower lobe; a 5-mm nodule at right base, unchanged from previous exam of May 16, 2018. IMPRESSION: Acute respiratory distress secondary to: 1. Acute asthma/chronic obstructive pulmonary disease exacerbation, likely secondary to bilateral pneumonia. 2. Right lower lobe nodule, stable. 3. Hypertension. 4. Diabetes. 5. Morbid obesity. PLAN: Antibiotic, supplemental O2, inhaled bronchodilators, IV steroids. Obtain cultures, monitor peak flow, follow up chest CT as outpatient in 6 to 8 weeks. HARJINDER FAIRCHILD M.D. [id number] MTDD
[2019-01-28] MEDS ORDERED: DEXTROSE 5%-WATER - 50 ML IVPB ONE (16:02)
[2019-01-28] MEDS ORDERED: cefTRIAXone SODIUM 1 GM VIAL ONE (16:02)
[2019-01-28] MEDS: PANTOPRAZOLE 40 MG TABLET (FP) PO SCH (16:15)
[2019-01-28] MEDS ORDERED: INSULIN (LEVEMIR) 100 UNITS/ML UNITS SQ SCH (16:51)
[2019-01-28] MEDS: ATORVASTATIN CA 20 MG TABLET (FP) PO SCH (22:28)
[2019-01-28] MEDS ORDERED: SODIUM CHLORIDE 1,000 ML IV SCH (23:00)
--- NOTE | 2019-01-28 23:20 | HOSP ---
Physical Examination Vital Signs: Vital Signs Temperature 97.6 F 01/28/19 18:20 Pulse Rate 72 01/28/19 18:20 Respiratory Rate 18 01/28/19 18:20 Blood Pressure 142/56 L 01/28/19 18:20 O2 Sat by Pulse Oximetry (%) 97 01/28/19 09:00 Labs: CBC, BMP 01/28/19 06:20 01/28/19 06:20 Hospitalist Encounter Assessment: Decreased dose of solumedrol to 40mg IV q12hrs since patient has severe hyperglycemia.
[2019-01-29] MEDS ORDERED: INSULIN (NOVOLOG) ASPART 100 UNITS/ML 10ML VIAL SQ ONE
[2019-01-29] MEDS: INSULIN SLIDING SCALE (NOVOLOG) 1 VIAL SQ SCH ×4 (07:04→21:14)
[2019-01-29] MEDS: ALBUTEROL SO4 2.5/IPRATROPIUM 0.5 INH SOL 3 ML VIAL.NEB. NEB SCH ×4 (07:35→21:00)
[2019-01-29] MEDS ORDERED: PT OWN MED DRAWER 7, Y5N ONE (09:14)
[2019-01-29 09:15] LABS: BASO % 0.3 % (0-2.0); HEMATOCRIT 32.2 % (32.4-45.2); HEMOGLOBIN 10.8 GM/dL (10.7-15.3); MCH 29.1 pg (25.7-33.7); MCHC 33.6 g/dl (32.0-36.0); MEAN CELL VOLUME 86.6 fl (80-96); MEAN PLT VOLUME 9.3 fl (7.5-11.1); MONO % 5.8 % (3.8-10.2); NEUT % 82.9 % (42.8-82.8); PLATELET COUNT 244 K/MM3 (134-434); RBC 3.71 M/mm3 (3.60-5.2); RDW 14.7 % (11.6-15.6); WHITE BLOOD COUNT 11.5 K/mm3 (4.0-10.0)
[2019-01-29] MEDS ORDERED: cefTRIAXone SODIUM 1 GM VIAL ONE (09:16)
[2019-01-29] MEDS ORDERED: DEXTROSE 5%-WATER - 50 ML IVPB ONE (09:16)
[2019-01-29] MEDS: CEFTRIAXONE 1 GM in DEXTROSE 5%-WATER - 50 ML IVPB SCH (09:22)
[2019-01-29] MEDS: HEPARIN NA (PORCINE) 5,000 UNITS/ML 1ML VIAL SQ SCH ×2 (09:22→21:11)
[2019-01-29] MEDS: hydrALAZINE HCL 50 MG TABLET (FP) PO SCH ×2 (09:23→21:15)
[2019-01-29] MEDS: LOSARTAN POTASSIUM 50 MG TABLET (FP) PO SCH (09:23)
[2019-01-29] MEDS: ASPIRIN 81 MG CHEWABLE TABLETS PO SCH (09:24)
[2019-01-29] MEDS: PANTOPRAZOLE 40 MG TABLET (FP) PO SCH (09:24)
[2019-01-29] MEDS: amLODIPine BESYLATE 10 MG TABLET (FP) PO SCH (09:24)
[2019-01-29 09:58] LABS: ALBUMIN 3.2 g/dl (3.4-5.0); ALK PHOS 79 U/L (45-117); ANION GAP 3 MMOL/L (8-16); BILIRUBIN,TOTAL 0.2 mg/dL (0.2-1); BLOOD UREA NITROGEN 35 mg/dL (7-18); CALCIUM 9.3 mg/dL (8.5-10.1); CHLORIDE 101 mmol/L (98-107); CO2 29 mmol/L (21-32); CREATININE 1.4 mg/dL (0.55-1.3); GLUCOSE,RANDOM 218 mg/dL (74-106); MAGNESIUM 2.6 mg/dL (1.8-2.4); POTASSIUM 4.8 mmol/L (3.5-5.1); SGOT/AST 11 U/L (15-37); SGPT/ALT 20 U/L (13-61); SODIUM 134 mmol/L (136-145); TOT PROT 7.1 g/dl (6.4-8.2)
[2019-01-29] MEDS ORDERED: methylPREDNISolone NA SUCC 40 MG/1 ML VIAL IVPUSH SCH (10:00)
[2019-01-29] MEDS: AZITHROMYCIN IVPB 500 MG/250 ML BAG IVPB SCH (10:22)
--- NOTE | 2019-01-29 10:31 | PN ---
Progress Note, Physician History of Present Illness: patient stable had greenish sputum this morning but minimal still wheezing - Current Medication List Current Medications: Active Medications Albuterol/Ipratropium (Duoneb -) 1 amp NEB RQID [facility] Last Admin: 01/29/19 07:35 Dose: 1 amp Alprazolam (Xanax -) 2 mg PO Q12H PRN PRN Reason: ANXIETY Last Admin: 01/28/19 22:28 Dose: 2 mg Amlodipine Besylate (Norvasc -) 10 mg PO DAILY [facility] Last Admin: 01/29/19 09:24 Dose: 10 mg Aspirin (Asa -) 81 mg PO DAILY [facility] Last Admin: 01/29/19 09:24 Dose: 81 mg Atorvastatin Calcium (Lipitor -) 20 mg PO HS [facility] Last Admin: 01/28/19 22:28 Dose: 20 mg Heparin Sodium (Porcine) (Heparin -) 5,000 unit SQ BID [facility] Last Admin: 01/29/19 09:22 Dose: 5,000 unit Hydralazine HCl (Apresoline -) 50 mg PO BID [facility] Last Admin: 01/29/19 09:23 Dose: 50 mg Azithromycin (Zithromax 500mg Ivpb (Pre-Docked)) 500 mg in 250 mls @ 250 mls/ hr IVPB DAILY [facility] Last Admin: 01/29/19 10:22 Dose: 250 mls/hr Ceftriaxone Sodium 1 gm/ (Dextrose) 50 mls @ 100 mls/hr IVPB DAILY [facility]; Protocol Last Admin: 01/29/19 09:22 Dose: 100 mls/hr Insulin Aspart (Novolog Vial Sliding Scale -) 1 vial SQ [facility]; Protocol Insulin Detemir (Levemir Vial) 15 units SQ [facility] Last Admin: 01/28/19 22:27 Dose: 15 units Losartan Potassium (Cozaar -) 100 mg PO DAILY [facility] Last Admin: 01/29/19 09:23 Dose: 100 mg Methylprednisolone Sodium Succinate (Solu-Medrol -) 40 mg IVPUSH BID [facility] Last Admin: 01/29/19 09:23 Dose: 40 mg Pantoprazole Sodium (Protonix -) 40 mg PO DAILY [facility] Last Admin: 01/29/19 09:24 Dose: 40 mg Timolol Maleate (Timoptic 0.5%) 1 drop OU BID [facility] Last Admin: 01/28/19 22:29 Dose: 1 drop - Objective Vital Signs: Vital Signs Temperature 97.5 F L 01/29/19 06:00 Pulse Rate 64 01/29/19 09:15 Respiratory Rate 18 01/29/19 09:15 Blood Pressure 124/50 L 01/29/19 09:15 O2 Sat by Pulse Oximetry (%) 98 01/28/19 21:00 Constitutional: Yes: Calm, Mild Distress Cardiovascular: Yes: S1, S2 Respiratory: Yes: Regular, On Nasal O2, Wheezes Gastrointestinal: Yes: Normal Bowel Sounds, Soft Musculoskeletal: Yes: WNL Extremities: Yes: WNL Neurological: Yes: Alert, Oriented Psychiatric: Yes: Alert, Oriented Labs: CBC, BMP 01/29/19 08:42 01/29/19 08:42 Assessment/Plan Problem List - Problems (1) Acute exacerbation of chronic obstructive pulmonary disease (COPD) Code(s): J44.1 - CHRONIC OBSTRUCTIVE PULMONARY DISEASE W (ACUTE) EXACERBATION (2) Respiratory failure Code(s): J96.90 - RESPIRATORY FAILURE, UNSP, UNSP W HYPOXIA OR HYPERCAPNIA (3) Anxiety Code(s): F41.9 - ANXIETY DISORDER, UNSPECIFIED (4) Hypertension Code(s): I10 - ESSENTIAL (PRIMARY) HYPERTENSION (5) Hyperlipemia Code(s): E78.5 - HYPERLIPIDEMIA, UNSPECIFIED (6) Diabetes Code(s): E11.9 - TYPE 2 DIABETES MELLITUS WITHOUT COMPLICATIONS (7) Obesity Code(s): E66.9 - OBESITY, UNSPECIFIED plan continue current mgmt steroids incentive devon rest as per the team
[2019-01-29] MEDS: TIMOLOL 0.5% OPHTHALMIC SOL 5 ML BOTTLE OU SCH ×2 (11:48→23:57)
[2019-01-29] MEDS: ALPRAZolam 2 MG TABLET PO PRN ×2 (11:52→23:58)
--- NOTE | 2019-01-29 13:39 | PN ---
Progress Note, Physician History of Present Illness: PULMONARY ALERT,FEELING BETTER,LESS DYSPNEIC - Current Medication List Current Medications: Active Medications Albuterol/Ipratropium (Duoneb -) 1 amp NEB RQID [facility] Last Admin: 01/29/19 11:20 Dose: 1 amp Alprazolam (Xanax -) 2 mg PO Q12H PRN PRN Reason: ANXIETY Last Admin: 01/29/19 11:52 Dose: 2 mg Amlodipine Besylate (Norvasc -) 10 mg PO DAILY [facility] Last Admin: 01/29/19 09:24 Dose: 10 mg Aspirin (Asa -) 81 mg PO DAILY [facility] Last Admin: 01/29/19 09:24 Dose: 81 mg Atorvastatin Calcium (Lipitor -) 20 mg PO HS [facility] Last Admin: 01/28/19 22:28 Dose: 20 mg Heparin Sodium (Porcine) (Heparin -) 5,000 unit SQ BID [facility] Last Admin: 01/29/19 09:22 Dose: 5,000 unit Hydralazine HCl (Apresoline -) 50 mg PO BID [facility] Last Admin: 01/29/19 09:23 Dose: 50 mg Azithromycin (Zithromax 500mg Ivpb (Pre-Docked)) 500 mg in 250 mls @ 250 mls/ hr IVPB DAILY [facility] Last Admin: 01/29/19 10:22 Dose: 250 mls/hr Ceftriaxone Sodium 1 gm/ (Dextrose) 50 mls @ 100 mls/hr IVPB DAILY [facility]; Protocol Last Admin: 01/29/19 09:22 Dose: 100 mls/hr Insulin Aspart (Novolog Vial Sliding Scale -) 1 vial SQ [facility]; Protocol Last Admin: 01/29/19 12:39 Dose: 12 units Insulin Detemir (Levemir Vial) 15 units SQ HS [facility] Last Admin: 01/28/19 22:27 Dose: 15 units Losartan Potassium (Cozaar -) 100 mg PO DAILY [facility] Last Admin: 01/29/19 09:23 Dose: 100 mg Methylprednisolone Sodium Succinate (Solu-Medrol -) 40 mg IVPUSH BID [facility] Last Admin: 01/29/19 09:23 Dose: 40 mg Pantoprazole Sodium (Protonix -) 40 mg PO DAILY [facility] Last Admin: 01/29/19 09:24 Dose: 40 mg Timolol Maleate (Timoptic 0.5%) 1 drop OU BID [facility] Last Admin: 01/29/19 11:48 Dose: 1 drop - Objective Vital Signs: Vital Signs Temperature 97.5 F L 01/29/19 06:00 Pulse Rate 64 01/29/19 09:15 Respiratory Rate 18 01/29/19 09:15 Blood Pressure 124/50 L 01/29/19 09:15 O2 Sat by Pulse Oximetry (%) 98 01/28/19 21:00 Constitutional: Yes: Well Nourished, Calm, Obese Eyes: Yes: WNL HENT: Yes: WNL Neck: Yes: WNL Cardiovascular: Yes: Regular Rate and Rhythm, S1, S2 Respiratory: Yes: Wheezes (BILATERAL WHEEZES) Gastrointestinal: Yes: Normal Bowel Sounds, Soft Extremities: Yes: WNL Edema: Yes Labs: CBC, BMP 01/29/19 08:42 01/29/19 08:42 Problem List - Problems (1) Pneumonia Code(s): J18.9 - PNEUMONIA, UNSPECIFIED ORGANISM (2) Acute exacerbation of chronic obstructive pulmonary disease (COPD) Code(s): J44.1 - CHRONIC OBSTRUCTIVE PULMONARY DISEASE W (ACUTE) EXACERBATION (3) Diabetes Code(s): E11.9 - TYPE 2 DIABETES MELLITUS WITHOUT COMPLICATIONS (4) Hyperlipemia Code(s): E78.5 - HYPERLIPIDEMIA, UNSPECIFIED (5) Hypertension Code(s): I10 - ESSENTIAL (PRIMARY) HYPERTENSION (6) Obesity Code(s): E66.9 - OBESITY, UNSPECIFIED Qualifiers: Body mass index: BMI 45.0-49.9 (7) Pulmonary vascular congestion Code(s): R09.89 - OTH SYMPTOMS AND SIGNS INVOLVING THE CIRC AND RESP SYSTEMS (8) Asthma, chronic obstructive, with acute exacerbation Code(s): J44.1 - CHRONIC OBSTRUCTIVE PULMONARY DISEASE W (ACUTE) EXACERBATION; J45.901 - UNSPECIFIED ASTHMA WITH (ACUTE) EXACERBATION (9) Pneumonia Code(s): J18.9 - PNEUMONIA, UNSPECIFIED ORGANISM Assessment/Plan IMP ACUTE ASTHMA/COPD EXACERBATION BILATERAL PNEUMONIA RLL NODULE STABLE HTN DM OBESITY LIKELY CYNDIE PLAN ABX O2 INHALED BRONCHODILATORS STEROIDS SAME DOSE CULTURES MONITOR PEAK FLOW F/U CHEST CT 6-8 WKS TO CONFIRM RESOLUTION OF INFILTRATES PFTS OUTPATIENT YEARLY LOW DOSE CHEST FOR LUNG CANCER SCREENING OUTPATIENT SLEEP STUDIES DR FAIRCHILD Problem List - Problems (1) Pneumonia Code(s): J18.9 - PNEUMONIA, UNSPECIFIED ORGANISM (2) Acute exacerbation of chronic obstructive pulmonary disease (COPD) Code(s): J44.1 - CHRONIC OBSTRUCTIVE PULMONARY DISEASE W (ACUTE) EXACERBATION (3) Diabetes Code(s): E11.9 - TYPE 2 DIABETES MELLITUS WITHOUT COMPLICATIONS (4) Hyperlipemia Code(s): E78.5 - HYPERLIPIDEMIA, UNSPECIFIED (5) Hypertension Code(s): I10 - ESSENTIAL (PRIMARY) HYPERTENSION (6) Obesity Code(s): E66.9 - OBESITY, UNSPECIFIED (7) Pulmonary vascular congestion Code(s): R09.89 - OTH SYMPTOMS AND SIGNS INVOLVING THE CIRC AND RESP SYSTEMS (8) Asthma, chronic obstructive, with acute exacerbation Code(s): J44.1 - CHRONIC OBSTRUCTIVE PULMONARY DISEASE W (ACUTE) EXACERBATION; J45.901 - UNSPECIFIED ASTHMA WITH (ACUTE) EXACERBATION (9) Pneumonia Code(s): J18.9 - PNEUMONIA, UNSPECIFIED ORGANISM
--- NOTE | 2019-01-29 16:56 | PN ---
Progress Note, Physician History of Present Illness: Patient is a 63 year old female with a significant past medical history of CKD, pneumonia, asthma (multiple hospitalizations for asthma), chronic UTIs, anxiety , hypertension, hyperlipidemia, obesity, COPD (ex smoker-no home oxygen), diabetes mellitus II and uterine fibroids. She presents to the ED after experiencing worsening shortness of breath and wheezing. Patient reports that her shortness of breath began two days ago and worsened. She was at an event on and when the air conditioner was turned on, she felt as thought she could not breathe and began to cough. Since , she has had worsening shortness of breath with any physical exertion. She was unable to lay flat and can hear herself wheezing, her chest became very tight prompting an ED visit. On visit of 04/2018, patient became short of breath and was found to have bilateral pneumonia. On the 04/2018 hospitalization, she was transferred to the ICU for closer monitoring, but not intubated. In the Ed she was given multiple breathing treatments, magnesium and steriods but patient still was not stable for discharge home. She is not home oxygen dependent. The patient denies headache and dizziness. Denies fever, chills, nausea, vomit, diarrhea and constipation, dysuria, frequency, urgency and hematuria. chest ct 01/27/2019: david air space opacities/pneumonic infiltrates in the right and lower left lobe without evidence of pneumothorax or pleural eff. 5mm pulmonary nodule in the right lung base, posteriorly unchanged since the prior exam. tiny pleural based nodule present in superior segment of the left lower lobe measuring 2-3mm , follow up Ct in 6-12 months recommended. - Current Medication List Current Medications: Active Medications Albuterol/Ipratropium (Duoneb -) 1 amp NEB RQID [facility] Last Admin: 01/29/19 15:24 Dose: 1 amp Alprazolam (Xanax -) 2 mg PO Q12H PRN PRN Reason: ANXIETY Last Admin: 01/29/19 11:52 Dose: 2 mg Amlodipine Besylate (Norvasc -) 10 mg PO DAILY [facility] Last Admin: 01/29/19 09:24 Dose: 10 mg Aspirin (Asa -) 81 mg PO DAILY [facility] Last Admin: 01/29/19 09:24 Dose: 81 mg Atorvastatin Calcium (Lipitor -) 20 mg PO HS [facility] Last Admin: 01/28/19 22:28 Dose: 20 mg Heparin Sodium (Porcine) (Heparin -) 5,000 unit SQ BID [facility] Last Admin: 01/29/19 09:22 Dose: 5,000 unit Hydralazine HCl (Apresoline -) 50 mg PO BID [facility] Last Admin: 01/29/19 09:23 Dose: 50 mg Azithromycin (Zithromax 500mg Ivpb (Pre-Docked)) 500 mg in 250 mls @ 250 mls/ hr IVPB DAILY [facility] Last Admin: 01/29/19 10:22 Dose: 250 mls/hr Ceftriaxone Sodium 1 gm/ (Dextrose) 50 mls @ 100 mls/hr IVPB DAILY [facility]; Protocol Last Admin: 01/29/19 09:22 Dose: 100 mls/hr Insulin Aspart (Novolog Vial Sliding Scale -) 1 vial SQ ACHS [facility]; Protocol Last Admin: 01/29/19 12:39 Dose: 12 units Insulin Detemir (Levemir Vial) 15 units SQ HS [facility] Last Admin: 01/28/19 22:27 Dose: 15 units Losartan Potassium (Cozaar -) 100 mg PO DAILY [facility] Last Admin: 01/29/19 09:23 Dose: 100 mg Methylprednisolone Sodium Succinate (Solu-Medrol -) 40 mg IVPUSH Q8H-IV [facility] Pantoprazole Sodium (Protonix -) 40 mg PO DAILY [facility] Last Admin: 01/29/19 09:24 Dose: 40 mg Timolol Maleate (Timoptic 0.5%) 1 drop OU BID [facility] Last Admin: 01/29/19 11:48 Dose: 1 drop - Objective Vital Signs: Vital Signs Temperature 97.4 F L 01/29/19 14:30 Pulse Rate 64 01/29/19 09:15 Respiratory Rate 20 01/29/19 14:30 Blood Pressure 101/54 L 01/29/19 14:30 O2 Sat by Pulse Oximetry (%) 98 01/29/19 09:00 Labs: CBC, BMP 01/29/19 08:42 01/29/19 08:42 Problem List - Problems (1) Pneumonia Assessment/Plan: Per CT: patchy air space opacities/pneumonic infiltrates in the right and lower left lobe without evidence of pneumothorax. On Azithromycin and Ceftriaxone antibiotics. Followed by ID and pulmonary. Maintain oxygen sats above 92% Code(s): J18.9 - PNEUMONIA, UNSPECIFIED ORGANISM (2) Acute exacerbation of chronic obstructive pulmonary disease (COPD) Assessment/Plan: On solumedrol taper, duonebs and supplemental oxygen to maintain oxygen levels above 92%. On Azithromycin IV daily and started on Ceftriaxone daily per ID. Patient with history of extensive pneumonia on last admission. Pulmonary consulted and following. Chest Ct as noted above: patchy airspace opacitiy, pulmonary nodules that need outpatient follow up with repeat CT in 6- 12 months. Her WBC is within normal limits and she is without fever and vitals are stable. Code(s): J44.1 - CHRONIC OBSTRUCTIVE PULMONARY DISEASE W (ACUTE) EXACERBATION (3) Respiratory failure Assessment/Plan: Respiratory failure/COPD exacerbation. monitor airway closely supplemental oxygen, scheduled duonebs. Code(s): J96.90 - RESPIRATORY FAILURE, UNSP, UNSP W HYPOXIA OR HYPERCAPNIA (4) Anxiety Assessment/Plan: on home dose of xanax Code(s): F41.9 - ANXIETY DISORDER, UNSPECIFIED (5) Hypertension Assessment/Plan: Hypertension: On cozaar, hydralazine bid, norvasc Code(s): I10 - ESSENTIAL (PRIMARY) HYPERTENSION (6) Hyperlipemia Assessment/Plan: continue home medications Hyperlipidemia: on lipitor Code(s): E78.5 - HYPERLIPIDEMIA, UNSPECIFIED (7) Diabetes Assessment/Plan: Monitor bgms. On novolog sliding scale Code(s): E11.9 - TYPE 2 DIABETES MELLITUS WITHOUT COMPLICATIONS (8) Obesity Assessment/Plan: Obesity: Has other risk factors for heart disease: hld, htn, dm. Code(s): E66.9 - OBESITY, UNSPECIFIED Qualifiers: Body mass index: BMI 45.0-49.9 (9) Prophylactic measure Assessment/Plan: fen tolerating po monitor electrolytes diabetic diet prophy heparin bid protonix full code Code(s): Z29.9 - ENCOUNTER FOR PROPHYLACTIC MEASURES, UNSPECIFIED Visit type - Emergency Visit Emergency Visit: Yes ED Registration Date: 01/27/19 Care time: The patient presented to the Emergency Department on the above date and was hospitalized for further evaluation of their emergent condition. - New Patient This patient is new to me today: No - Critical Care Critical Care patient: No - Discharge Referral Referred to [facility] Med P.C.: No
[2019-01-29] MEDS: methylPREDNISolone NA SUCC 40 MG/1 ML VIAL IVPUSH SCH (17:28)
[2019-01-29] MEDS ORDERED: INSULIN (LEVEMIR) 100 UNITS/ML UNITS SQ SCH (17:54)
[2019-01-29] MEDS: ATORVASTATIN CA 20 MG TABLET (FP) PO SCH (21:15)
[2019-01-30] MEDS: methylPREDNISolone NA SUCC 40 MG/1 ML VIAL IVPUSH SCH ×3 (01:57→18:03)
[2019-01-30] MEDS: INSULIN SLIDING SCALE (NOVOLOG) 1 VIAL SQ SCH ×4 (06:20→22:17)
[2019-01-30] MEDS ORDERED: INSULIN (NOVOLOG) ASPART 100 UNITS/ML 10ML VIAL ONE ×3 (06:58→18:22)
[2019-01-30] MEDS ORDERED: PT OWN MED DRAWER 7, Y5N ONE ×2 (06:58→12:24)
[2019-01-30] MEDS: ALBUTEROL SO4 2.5/IPRATROPIUM 0.5 INH SOL 3 ML VIAL.NEB. NEB SCH ×4 (07:25→20:20)
--- NOTE | 2019-01-30 07:43 | PN ---
Progress Note, Physician Chief Complaint: SOB History of Present Illness: Patient is a 63 year old female with a significant past medical history of CKD, pneumonia, asthma (multiple hospitalizations for asthma), chronic UTIs, anxiety , hypertension, hyperlipidemia, obesity, COPD (ex smoker-no home oxygen), diabetes mellitus II and uterine fibroids. She presents to the ED after experiencing worsening shortness of breath and wheezing. She was at [facility] on and when the air conditioner was turned on, she felt as thought she could not breathe and began to cough. Since , she has had worsening shortness of breath with any physical exertion. On visit of 04/2018, patient became short of breath and was found to have bilateral pneumonia. On the 04/2018 hospitalization, she was transferred to the ICU for closer monitoring, but not intubated. In the Ed she was given multiple breathing treatments, magnesium and steriods but patient still was not stable for discharge home. She is not home oxygen dependent. - Current Medication List Current Medications: Active Medications Albuterol/Ipratropium (Duoneb -) 1 amp NEB RQID [facility] Last Admin: 01/29/19 21:00 Dose: 1 amp Alprazolam (Xanax -) 2 mg PO Q12H PRN PRN Reason: ANXIETY Last Admin: 01/29/19 23:58 Dose: 2 mg Amlodipine Besylate (Norvasc -) 10 mg PO DAILY [facility] Last Admin: 01/29/19 09:24 Dose: 10 mg Aspirin (Asa -) 81 mg PO DAILY [facility] Last Admin: 01/29/19 09:24 Dose: 81 mg Atorvastatin Calcium (Lipitor -) 20 mg PO HS [facility] Last Admin: 01/29/19 21:15 Dose: 20 mg Heparin Sodium (Porcine) (Heparin -) 5,000 unit SQ BID [facility] Last Admin: 01/29/19 21:11 Dose: 5,000 unit Hydralazine HCl (Apresoline -) 50 mg PO BID [facility] Last Admin: 01/29/19 21:15 Dose: 50 mg Azithromycin (Zithromax 500mg Ivpb (Pre-Docked)) 500 mg in 250 mls @ 250 mls/ hr IVPB DAILY [facility] Last Admin: 01/29/19 10:22 Dose: 250 mls/hr Ceftriaxone Sodium 1 gm/ (Dextrose) 50 mls @ 100 mls/hr IVPB DAILY [facility]; Protocol Last Admin: 01/29/19 09:22 Dose: 100 mls/hr Insulin Aspart (Novolog Vial Sliding Scale -) 1 vial SQ ACHS [facility]; Protocol Last Admin: 01/30/19 06:20 Dose: 10 units Insulin Detemir (Levemir Vial) 20 units SQ HS [facility] Last Admin: 01/29/19 21:13 Dose: 20 units Losartan Potassium (Cozaar -) 100 mg PO DAILY [facility] Last Admin: 01/29/19 09:23 Dose: 100 mg Methylprednisolone Sodium Succinate (Solu-Medrol -) 40 mg IVPUSH Q8H-IV [facility] Last Admin: 01/30/19 01:57 Dose: 40 mg Pantoprazole Sodium (Protonix -) 40 mg PO DAILY [facility] Last Admin: 01/29/19 09:24 Dose: 40 mg Timolol Maleate (Timoptic 0.5%) 1 drop OU BID [facility] Last Admin: 01/29/19 23:57 Dose: 1 drop - Objective Vital Signs: Vital Signs Temperature 97.7 F 01/30/19 06:00 Pulse Rate 74 01/30/19 06:00 Respiratory Rate 20 01/30/19 06:00 Blood Pressure 111/54 L 01/30/19 06:00 O2 Sat by Pulse Oximetry (%) 98 01/29/19 21:00 Constitutional: Yes: Well Nourished, No Distress, Calm Eyes: Yes: WNL, Conjunctiva Clear, EOM Intact HENT: Yes: WNL, Atraumatic, Normocephalic Neck: Yes: WNL, Supple, Trachea Midline Cardiovascular: Yes: WNL, Regular Rate and Rhythm Respiratory: Yes: Diminished (at bases BL), On Nasal O2, SOB on Exertion, Wheezes (BL left greater than right) Gastrointestinal: Yes: WNL, Normal Bowel Sounds, Soft ...Rectal Exam: Yes: Deferred Genitourinary: Yes: WNL Musculoskeletal: Yes: WNL, Muscle Weakness Extremities: Yes: WNL Edema: No Peripheral Pulses WNL: Yes Integumentary: Yes: WNL Neurological: Yes: WNL, Alert, Oriented ...Motor Strength: WNL Psychiatric: Yes: WNL, Alert, Oriented Labs: CBC, BMP 01/29/19 08:42 01/29/19 08:42 - ....Imaging Cat Scan: Report Reviewed (chest 01/27/2019: david air space opacities/pneumonic infiltrates in the right and lower left lobe without evidence of pneumothorax or pleural eff. 5mm pulmonary nodule in the right lung base, posteriorly unchanged since the prior exam. tiny pleural based nodule present in superior segment of the left lower lobe measuring 2-3mm, follow up Ct in 6-12 months recommended.) Problem List - Problems (1) Acute exacerbation of chronic obstructive pulmonary disease (COPD) Assessment/Plan: On solumedrol taper, duonebs and supplemental oxygen to maintain oxygen levels above 92%. On Azithromycin IV daily and started on Ceftriaxone daily per ID. -outpt f/u of chest imaging to ensure resolution of infiltrates, outpt PFTs, PSG as per pulmonary Code(s): J44.1 - CHRONIC OBSTRUCTIVE PULMONARY DISEASE W (ACUTE) EXACERBATION (2) Asthma, chronic obstructive, with acute exacerbation Code(s): J44.1 - CHRONIC OBSTRUCTIVE PULMONARY DISEASE W (ACUTE) EXACERBATION; J45.901 - UNSPECIFIED ASTHMA WITH (ACUTE) EXACERBATION (3) Diabetes Assessment/Plan: BG in mid 200-300, in IV steroids -FS AC/HS -novolog SS -will tighten scale for coverage while on steroids Code(s): E11.9 - TYPE 2 DIABETES MELLITUS WITHOUT COMPLICATIONS (4) Hyperlipemia Assessment/Plan: continue on home statin Code(s): E78.5 - HYPERLIPIDEMIA, UNSPECIFIED (5) Hypertension Assessment/Plan: BP stable -continue on home doses of cozaa, hydralazine, norvasc Code(s): I10 - ESSENTIAL (PRIMARY) HYPERTENSION (6) Obesity Assessment/Plan: Obesity: Has other risk factors for heart disease: hld, htn, dm. -weight loss counseling Code(s): E66.9 - OBESITY, UNSPECIFIED Qualifiers: Body mass index: BMI 45.0-49.9 (7) Pneumonia Assessment/Plan: BL infilatrates on CT chest -continue on zithromax & ceftriaxone -appreciate ID and pulmonary input Code(s): J18.9 - PNEUMONIA, UNSPECIFIED ORGANISM (8) Anxiety Assessment/Plan: continue with home dose of Xanax Code(s): F41.9 - ANXIETY DISORDER, UNSPECIFIED (9) Prophylactic measure Assessment/Plan: Prophy heparin bid protonix Dispp: maintain as inpatient full code Code(s): Z29.9 - ENCOUNTER FOR PROPHYLACTIC MEASURES, UNSPECIFIED Visit type - Emergency Visit Emergency Visit: Yes ED Registration Date: 01/27/19 Care time: The patient presented to the Emergency Department on the above date and was hospitalized for further evaluation of their emergent condition. - New Patient This patient is new to me today: Yes Date on this admission: 01/30/19 - Critical Care Critical Care patient: No - Discharge Referral Referred to [facility] Med P.C.: No
[2019-01-30] MEDS ORDERED: DEXTROSE 5%-WATER - 50 ML IVPB ONE (08:46)
[2019-01-30] MEDS ORDERED: cefTRIAXone SODIUM 1 GM VIAL ONE (08:46)
--- NOTE | 2019-01-30 08:58 | PN ---
Progress Note, Physician - Current Medication List Current Medications: Active Medications Albuterol/Ipratropium (Duoneb -) 1 amp NEB RQID [facility] Last Admin: 01/30/19 07:25 Dose: 1 amp Alprazolam (Xanax -) 2 mg PO Q12H PRN PRN Reason: ANXIETY Last Admin: 01/29/19 23:58 Dose: 2 mg Amlodipine Besylate (Norvasc -) 10 mg PO DAILY [facility] Last Admin: 01/29/19 09:24 Dose: 10 mg Aspirin (Asa -) 81 mg PO DAILY [facility] Last Admin: 01/29/19 09:24 Dose: 81 mg Atorvastatin Calcium (Lipitor -) 20 mg PO HS [facility] Last Admin: 01/29/19 21:15 Dose: 20 mg Heparin Sodium (Porcine) (Heparin -) 5,000 unit SQ BID [facility] Last Admin: 01/29/19 21:11 Dose: 5,000 unit Hydralazine HCl (Apresoline -) 50 mg PO BID [facility] Last Admin: 01/29/19 21:15 Dose: 50 mg Azithromycin (Zithromax 500mg Ivpb (Pre-Docked)) 500 mg in 250 mls @ 250 mls/ hr IVPB DAILY [facility] Last Admin: 01/29/19 10:22 Dose: 250 mls/hr Ceftriaxone Sodium 1 gm/ (Dextrose) 50 mls @ 100 mls/hr IVPB DAILY [facility]; Protocol Last Admin: 01/29/19 09:22 Dose: 100 mls/hr Insulin Aspart (Novolog Vial Sliding Scale -) 1 vial SQ ACHS [facility]; Protocol Last Admin: 01/30/19 06:20 Dose: 10 units Insulin Detemir (Levemir Vial) 20 units SQ HS [facility] Last Admin: 01/29/19 21:13 Dose: 20 units Losartan Potassium (Cozaar -) 100 mg PO DAILY [facility] Last Admin: 01/29/19 09:23 Dose: 100 mg Methylprednisolone Sodium Succinate (Solu-Medrol -) 40 mg IVPUSH Q8H-IV [facility] Last Admin: 01/30/19 01:57 Dose: 40 mg Pantoprazole Sodium (Protonix -) 40 mg PO DAILY [facility] Last Admin: 01/29/19 09:24 Dose: 40 mg Timolol Maleate (Timoptic 0.5%) 1 drop OU BID [facility] Last Admin: 01/29/19 23:57 Dose: 1 drop - Objective Vital Signs: Vital Signs Temperature 97.7 F 01/30/19 06:00 Pulse Rate 74 01/30/19 06:00 Respiratory Rate 20 01/30/19 06:00 Blood Pressure 111/54 L 01/30/19 06:00 O2 Sat by Pulse Oximetry (%) 98 01/29/19 21:00 Labs: CBC, BMP 01/29/19 08:42 01/29/19 08:42
[2019-01-30] MEDS: CEFTRIAXONE 1 GM in DEXTROSE 5%-WATER - 50 ML IVPB SCH (09:25)
[2019-01-30] MEDS: ASPIRIN 81 MG CHEWABLE TABLETS PO SCH (09:25)
[2019-01-30] MEDS: hydrALAZINE HCL 50 MG TABLET (FP) PO SCH ×2 (09:25→22:16)
[2019-01-30] MEDS: PANTOPRAZOLE 40 MG TABLET (FP) PO SCH (09:25)
[2019-01-30] MEDS: HEPARIN NA (PORCINE) 5,000 UNITS/ML 1ML VIAL SQ SCH ×2 (09:25→22:18)
[2019-01-30] MEDS: amLODIPine BESYLATE 10 MG TABLET (FP) PO SCH (09:25)
[2019-01-30] MEDS: LOSARTAN POTASSIUM 50 MG TABLET (FP) PO SCH (09:25)
[2019-01-30 09:44] LABS: ACETONE SERUM NEGATIVE (NEGATIVE)
--- NOTE | 2019-01-30 11:22 | PN ---
Progress Note (short form) - Note Progress Note: PULMONARY States breathing is improving but still with shortness of breath, cough and wheezing. Vital Signs Period Temp Pulse Resp BP Sys/Maurer Pulse Ox Last 24 Hr 97.4 F-97.7 F 63-74 20-20 101-140/49-54 98 Gen: NAD at rest Heart: RRR Lung: diffuse wheezes Abd: soft, nontender Ext: no edema CBC, BMP 01/29/19 08:42 01/29/19 08:42 Active Medications Albuterol/Ipratropium (Duoneb -) 1 amp NEB RQID [facility] Last Admin: 01/30/19 07:25 Dose: 1 amp Alprazolam (Xanax -) 2 mg PO Q12H PRN PRN Reason: ANXIETY Last Admin: 01/29/19 23:58 Dose: 2 mg Amlodipine Besylate (Norvasc -) 10 mg PO DAILY [facility] Last Admin: 01/30/19 09:25 Dose: 10 mg Aspirin (Asa -) 81 mg PO DAILY [facility] Last Admin: 01/30/19 09:25 Dose: 81 mg Atorvastatin Calcium (Lipitor -) 20 mg PO HS [facility] Last Admin: 01/29/19 21:15 Dose: 20 mg Heparin Sodium (Porcine) (Heparin -) 5,000 unit SQ BID [facility] Last Admin: 01/30/19 09:25 Dose: 5,000 unit Hydralazine HCl (Apresoline -) 50 mg PO BID [facility] Last Admin: 01/30/19 09:25 Dose: 50 mg Azithromycin (Zithromax 500mg Ivpb (Pre-Docked)) 500 mg in 250 mls @ 250 mls/ hr IVPB DAILY [facility] Last Admin: 01/29/19 10:22 Dose: 250 mls/hr Ceftriaxone Sodium 1 gm/ (Dextrose) 50 mls @ 100 mls/hr IVPB DAILY [facility]; Protocol Last Admin: 01/30/19 09:25 Dose: 100 mls/hr Insulin Aspart (Novolog Vial Sliding Scale -) 1 vial SQ ACHS [facility]; Protocol Last Admin: 01/30/19 06:20 Dose: 10 units Insulin Detemir (Levemir Vial) 20 units SQ HS [facility] Last Admin: 01/29/19 21:13 Dose: 20 units Losartan Potassium (Cozaar -) 100 mg PO DAILY [facility] Last Admin: 01/30/19 09:25 Dose: 100 mg Methylprednisolone Sodium Succinate (Solu-Medrol -) 40 mg IVPUSH Q8H-IV [facility] Last Admin: 01/30/19 01:57 Dose: 40 mg Pantoprazole Sodium (Protonix -) 40 mg PO DAILY [facility] Last Admin: 01/30/19 09:25 Dose: 40 mg Timolol Maleate (Timoptic 0.5%) 1 drop OU BID [facility] Last Admin: 01/29/19 23:57 Dose: 1 drop A/P Acute COPD Exacerbation Pneumonia Lung Nodule HTN DM Likely CYNDIE - continue antibiotics - continue medrol at current dose - inhaled bronchodilators - O2 to keep SpO2 >90% - outpt f/u of chest imaging to ensure resolution of infiltrates - outpt PFTs, PSG - DVT prophylaxis
[2019-01-30] MEDS: AZITHROMYCIN IVPB 500 MG/250 ML BAG IVPB SCH (12:19)
[2019-01-30 12:30] VITALS: BMI 45.3
[2019-01-30] MEDS: ALPRAZolam 2 MG TABLET PO PRN (12:30)
[2019-01-30] MEDS: TIMOLOL 0.5% OPHTHALMIC SOL 5 ML BOTTLE OU SCH ×2 (13:34→22:22)
[2019-01-30 13:51] LABS: ALBUMIN 3.4 g/dl (3.4-5.0); BILIRUBIN,TOTAL 0.2 mg/dL (0.2-1); CALCIUM 9.6 mg/dL (8.5-10.1); CREATININE 1.4 mg/dL (0.55-1.3); MAGNESIUM 2.7 mg/dL (1.8-2.4); POTASSIUM 4.7 mmol/L (3.5-5.1); TOT PROT 7.4 g/dl (6.4-8.2)
[2019-01-30 14:26] LABS: BASO % 0.5 % (0-2.0); EOS % 0.1 % (0-4.5); HEMOGLOBIN 11.4 GM/dL (10.7-15.3); LYMPH % 10.2 % (8-40); MCH 29.5 pg (25.7-33.7); MCHC 33.6 g/dl (32.0-36.0); MEAN CELL VOLUME 87.7 fl (80-96); MEAN PLT VOLUME 10.5 fl (7.5-11.1); NEUT % 86.2 % (42.8-82.8); PLATELET COUNT 249 K/MM3 (134-434); RBC 3.87 M/mm3 (3.60-5.2); WHITE BLOOD COUNT 9.6 K/mm3 (4.0-10.0)
[2019-01-30 15:39] LABS: ANISOCYTOSIS 1+; MACROCYTOSIS 0; PLATELET ESTIMATE NORMAL
[2019-01-30] MEDS ORDERED: INSULIN (LEVEMIR) 100 UNITS/ML UNITS SQ SCH (22:00)
[2019-01-30] MEDS: ATORVASTATIN CA 20 MG TABLET (FP) PO SCH (22:16)
[2019-01-31] MEDS: methylPREDNISolone NA SUCC 40 MG/1 ML VIAL IVPUSH SCH ×3 (01:09→18:00)
[2019-01-31] MEDS: INSULIN SLIDING SCALE (NOVOLOG) 1 VIAL SQ SCH ×4 (06:28→22:12)
[2019-01-31] MEDS ORDERED: PT OWN MED DRAWER 7, Y5N ONE ×2 (06:50→09:23)
[2019-01-31] MEDS ORDERED: INSULIN (NOVOLOG) ASPART 100 UNITS/ML 10ML VIAL ONE ×2 (06:50→18:26)
--- NOTE | 2019-01-31 07:45 | PN ---
Progress Note, Physician Chief Complaint: SOB History of Present Illness: Patient is a 63 year old female with a significant past medical history of CKD, pneumonia, asthma (multiple hospitalizations for asthma), chronic UTIs, anxiety , hypertension, hyperlipidemia, obesity, COPD (ex smoker-no home oxygen), diabetes mellitus II and uterine fibroids. She presents to the ED after experiencing worsening shortness of breath and wheezing. She was at [facility] on and when the air conditioner was turned on, she felt as thought she could not breathe and began to cough. Since , she has had worsening shortness of breath with any physical exertion. On visit of 04/2018, patient became short of breath and was found to have bilateral pneumonia. On the 04/2018 hospitalization, she was transferred to the ICU for closer monitoring, but not intubated. In the ED she was given multiple breathing treatments, magnesium and steriods but patient still was not stable for discharge home. She is not home oxygen dependent. - Current Medication List Current Medications: Active Medications Albuterol/Ipratropium (Duoneb -) 1 amp NEB RQID [facility] Last Admin: 01/30/19 20:20 Dose: 1 amp Alprazolam (Xanax -) 2 mg PO Q12H PRN PRN Reason: ANXIETY Last Admin: 01/30/19 12:30 Dose: 2 mg Amlodipine Besylate (Norvasc -) 10 mg PO DAILY [facility] Last Admin: 01/30/19 09:25 Dose: 10 mg Aspirin (Asa -) 81 mg PO DAILY [facility] Last Admin: 01/30/19 09:25 Dose: 81 mg Atorvastatin Calcium (Lipitor -) 20 mg PO HS [facility] Last Admin: 01/30/19 22:16 Dose: 20 mg Heparin Sodium (Porcine) (Heparin -) 5,000 unit SQ BID [facility] Last Admin: 01/30/19 22:18 Dose: 5,000 unit Hydralazine HCl (Apresoline -) 50 mg PO BID [facility] Last Admin: 01/30/19 22:16 Dose: 50 mg Azithromycin (Zithromax 500mg Ivpb (Pre-Docked)) 500 mg in 250 mls @ 250 mls/ hr IVPB DAILY [facility] Last Admin: 01/30/19 12:19 Dose: 250 mls/hr Ceftriaxone Sodium 1 gm/ (Dextrose) 50 mls @ 100 mls/hr IVPB DAILY [facility]; Protocol Last Admin: 01/30/19 09:25 Dose: 100 mls/hr Insulin Aspart (Novolog Vial Sliding Scale -) 1 vial SQ ACHS [facility]; Protocol Last Admin: 01/31/19 06:28 Dose: 10 units Insulin Detemir (Levemir Vial) 30 units SQ 0700,2200 [facility] Losartan Potassium (Cozaar -) 100 mg PO DAILY [facility] Last Admin: 01/30/19 09:25 Dose: 100 mg Methylprednisolone Sodium Succinate (Solu-Medrol -) 40 mg IVPUSH Q8H-IV [facility] Last Admin: 01/31/19 01:09 Dose: 40 mg Pantoprazole Sodium (Protonix -) 40 mg PO DAILY [facility] Last Admin: 01/30/19 09:25 Dose: 40 mg Timolol Maleate (Timoptic 0.5%) 1 drop OU BID [facility] Last Admin: 01/30/19 22:22 Dose: 1 drop - Objective Vital Signs: Vital Signs Temperature 97.7 F 01/30/19 18:00 Pulse Rate 63 01/30/19 22:00 Respiratory Rate 20 01/30/19 22:00 Blood Pressure 140/58 L 01/30/19 22:00 O2 Sat by Pulse Oximetry (%) 96 01/30/19 21:00 Constitutional: Yes: Well Nourished, No Distress, Calm Eyes: Yes: WNL, Conjunctiva Clear, EOM Intact HENT: Yes: WNL, Atraumatic, Normocephalic Neck: Yes: WNL, Supple, Trachea Midline Cardiovascular: Yes: WNL, Regular Rate and Rhythm Respiratory: Yes: WNL, Regular, CTA Bilaterally, Wheezes (BL decreased from previous day) Gastrointestinal: Yes: WNL, Normal Bowel Sounds, Soft ...Rectal Exam: Yes: Deferred Genitourinary: Yes: WNL Musculoskeletal: Yes: WNL Extremities: Yes: WNL Edema: No Peripheral Pulses WNL: Yes Integumentary: Yes: WNL Neurological: Yes: WNL, Alert, Oriented ...Motor Strength: WNL Psychiatric: Yes: WNL, Alert, Oriented Labs: CBC, BMP 01/30/19 12:40 01/30/19 12:40 - ....Imaging Chest X-ray: Report Reviewed, Image Reviewed Cat Scan: Report Reviewed (CTA) EKG: Report Reviewed, Image Reviewed (no specefic ST abnormalities) Problem List - Problems (1) Acute exacerbation of chronic obstructive pulmonary disease (COPD) Assessment/Plan: On solumedrol taper, duonebs and supplemental oxygen to maintain oxygen levels above 92%. On Azithromycin IV daily and started on Ceftriaxone daily per ID. -outpt f/u of chest imaging to ensure resolution of infiltrates, outpt PFTs, PSG as per pulmonary Code(s): J44.1 - CHRONIC OBSTRUCTIVE PULMONARY DISEASE W (ACUTE) EXACERBATION (2) Asthma, chronic obstructive, with acute exacerbation Code(s): J44.1 - CHRONIC OBSTRUCTIVE PULMONARY DISEASE W (ACUTE) EXACERBATION; J45.901 - UNSPECIFIED ASTHMA WITH (ACUTE) EXACERBATION (3) Diabetes Assessment/Plan: BG in mid 200-300, in IV steroids -FS AC/HS -novolog SS -will tighten scale for coverage while on steroids Levemir increased to 30 u BID to obtain better glycemic control (ranging form 200-340) Code(s): E11.9 - TYPE 2 DIABETES MELLITUS WITHOUT COMPLICATIONS (4) Hyperlipemia Assessment/Plan: continue on home statin Code(s): E78.5 - HYPERLIPIDEMIA, UNSPECIFIED (5) Hypertension Assessment/Plan: BP stable -continue on home doses of cozaa, hydralazine, norvasc Code(s): I10 - ESSENTIAL (PRIMARY) HYPERTENSION (6) Obesity Assessment/Plan: Obesity: Has other risk factors for heart disease: hld, htn, dm. -weight loss counseling Code(s): E66.9 - OBESITY, UNSPECIFIED Qualifiers: Body mass index: BMI 45.0-49.9 (7) Pneumonia Assessment/Plan: BL infilatrates on CT chest -continue on zithromax & ceftriaxone -appreciate ID and pulmonary input Code(s): J18.9 - PNEUMONIA, UNSPECIFIED ORGANISM (8) Anxiety Assessment/Plan: continue with home dose of Xanax Code(s): F41.9 - ANXIETY DISORDER, UNSPECIFIED (9) Prophylactic measure Assessment/Plan: Prophy heparin bid protonix Dispp: maintain as inpatient full code Code(s): Z29.9 - ENCOUNTER FOR PROPHYLACTIC MEASURES, UNSPECIFIED Visit type - Emergency Visit Emergency Visit: Yes ED Registration Date: 01/27/19 Care time: The patient presented to the Emergency Department on the above date and was hospitalized for further evaluation of their emergent condition. - New Patient This patient is new to me today: No - Critical Care Critical Care patient: No - Discharge Referral Referred to [facility] Med P.C[facility] No
[2019-01-31] MEDS: ALBUTEROL SO4 2.5/IPRATROPIUM 0.5 INH SOL 3 ML VIAL.NEB. NEB SCH ×4 (08:15→20:41)
[2019-01-31 08:41] LABS: BASO % 0.2 % (0-2.0); EOS % 0.1 % (0-4.5); HEMATOCRIT 34.1 % (32.4-45.2); HEMOGLOBIN 11.5 GM/dL (10.7-15.3); LYMPH % 12.9 % (8-40); MCH 29.3 pg (25.7-33.7); MCHC 33.7 g/dl (32.0-36.0); MEAN CELL VOLUME 86.9 fl (80-96); MEAN PLT VOLUME 9.6 fl (7.5-11.1); MONO % 3.7 % (3.8-10.2); NEUT % 83.1 % (42.8-82.8); PLATELET COUNT 256 K/MM3 (134-434); RBC 3.93 M/mm3 (3.60-5.2); WHITE BLOOD COUNT 9.4 K/mm3 (4.0-10.0)
[2019-01-31] MEDS ORDERED: INSULIN (LEVEMIR) 100 UNITS/ML UNITS SQ ONE ×2 (09:03→18:26)
[2019-01-31] MEDS: INSULIN (LEVEMIR) 100 UNITS/ML UNITS SQ SCH ×2 (09:07→22:13)
[2019-01-31 09:11] LABS: ALBUMIN 3.2 g/dl (3.4-5.0); BILIRUBIN,TOTAL 0.3 mg/dL (0.2-1); CREATININE 1.4 mg/dL (0.55-1.3); MAGNESIUM 2.7 mg/dL (1.8-2.4); POTASSIUM 4.6 mmol/L (3.5-5.1); TOT PROT 6.9 g/dl (6.4-8.2)
[2019-01-31] MEDS ORDERED: cefTRIAXone SODIUM 1 GM VIAL ONE (09:23)
[2019-01-31] MEDS ORDERED: DEXTROSE 5%-WATER - 50 ML IVPB ONE (09:24)
[2019-01-31] MEDS: ALPRAZolam 2 MG TABLET PO PRN ×2 (09:27→22:12)
[2019-01-31] MEDS: hydrALAZINE HCL 50 MG TABLET (FP) PO SCH ×2 (10:41→22:12)
[2019-01-31] MEDS: amLODIPine BESYLATE 10 MG TABLET (FP) PO SCH (10:42)
[2019-01-31] MEDS: LOSARTAN POTASSIUM 50 MG TABLET (FP) PO SCH (10:44)
[2019-01-31] MEDS: HEPARIN NA (PORCINE) 5,000 UNITS/ML 1ML VIAL SQ SCH ×2 (10:44→22:12)
[2019-01-31] MEDS: ASPIRIN 81 MG CHEWABLE TABLETS PO SCH (10:44)
[2019-01-31] MEDS: PANTOPRAZOLE 40 MG TABLET (FP) PO SCH (10:44)
[2019-01-31] MEDS: CEFTRIAXONE 1 GM in DEXTROSE 5%-WATER - 50 ML IVPB SCH (10:55)
[2019-01-31] MEDS: TIMOLOL 0.5% OPHTHALMIC SOL 5 ML BOTTLE OU SCH ×2 (11:48→22:19)
[2019-01-31] MEDS: AZITHROMYCIN IVPB 500 MG/250 ML BAG IVPB SCH ×2 (11:49→12:00)
--- NOTE | 2019-01-31 11:55 | PN ---
Progress Note, Physician History of Present Illness: stable no new issues - Current Medication List Current Medications: Active Medications Albuterol/Ipratropium (Duoneb -) 1 amp NEB RQID [facility] Last Admin: 01/31/19 08:15 Dose: 1 amp Alprazolam (Xanax -) 2 mg PO Q12H PRN PRN Reason: ANXIETY Last Admin: 01/31/19 09:27 Dose: 2 mg Amlodipine Besylate (Norvasc -) 10 mg PO DAILY [facility] Last Admin: 01/31/19 10:42 Dose: 10 mg Aspirin (Asa -) 81 mg PO DAILY [facility] Last Admin: 01/31/19 10:44 Dose: 81 mg Atorvastatin Calcium (Lipitor -) 20 mg PO HS [facility] Last Admin: 01/30/19 22:16 Dose: 20 mg Heparin Sodium (Porcine) (Heparin -) 5,000 unit SQ BID [facility] Last Admin: 01/31/19 10:44 Dose: 5,000 unit Hydralazine HCl (Apresoline -) 50 mg PO BID [facility] Last Admin: 01/31/19 10:41 Dose: 50 mg Azithromycin (Zithromax 500mg Ivpb (Pre-Docked)) 500 mg in 250 mls @ 250 mls/ hr IVPB DAILY [facility] Last Admin: 01/31/19 11:49 Dose: 250 mls/hr Ceftriaxone Sodium 1 gm/ (Dextrose) 50 mls @ 100 mls/hr IVPB DAILY [facility]; Protocol Last Admin: 01/31/19 10:55 Dose: 100 mls/hr Insulin Aspart (Novolog Vial Sliding Scale -) 1 vial SQ ACHS [facility]; Protocol Last Admin: 01/31/19 06:28 Dose: 10 units Insulin Detemir (Levemir Vial) 30 units SQ 0700,2200 [facility] Last Admin: 01/31/19 09:07 Dose: 30 units Losartan Potassium (Cozaar -) 100 mg PO DAILY [facility] Last Admin: 01/31/19 10:44 Dose: 100 mg Methylprednisolone Sodium Succinate (Solu-Medrol -) 40 mg IVPUSH Q8H-IV [facility] Last Admin: 01/31/19 10:52 Dose: 40 mg Pantoprazole Sodium (Protonix -) 40 mg PO DAILY [facility] Last Admin: 01/31/19 10:44 Dose: 40 mg Timolol Maleate (Timoptic 0.5%) 1 drop OU BID [facility] Last Admin: 01/31/19 11:48 Dose: 1 drop - Objective Vital Signs: Vital Signs Temperature 97.8 F 01/31/19 06:00 Pulse Rate 64 01/31/19 06:00 Respiratory Rate 20 01/31/19 06:00 Blood Pressure 132/56 L 01/31/19 06:00 O2 Sat by Pulse Oximetry (%) 96 01/30/19 21:00 Constitutional: Yes: No Distress, Calm Cardiovascular: Yes: Regular Rate and Rhythm Respiratory: Yes: Regular, Wheezes (improving) Gastrointestinal: Yes: Normal Bowel Sounds, Soft Musculoskeletal: Yes: WNL Extremities: Yes: WNL Neurological: Yes: Alert, Oriented Psychiatric: Yes: Alert, Oriented Labs: CBC, BMP 01/31/19 08:29 01/31/19 08:29 Assessment/Plan Problem List - Problems (1) Acute exacerbation of chronic obstructive pulmonary disease (COPD) Code(s): J44.1 - CHRONIC OBSTRUCTIVE PULMONARY DISEASE W (ACUTE) EXACERBATION (2) Respiratory failure Code(s): J96.90 - RESPIRATORY FAILURE, UNSP, UNSP W HYPOXIA OR HYPERCAPNIA (3) Anxiety Code(s): F41.9 - ANXIETY DISORDER, UNSPECIFIED (4) Hypertension Code(s): I10 - ESSENTIAL (PRIMARY) HYPERTENSION (5) Hyperlipemia Code(s): E78.5 - HYPERLIPIDEMIA, UNSPECIFIED (6) Diabetes Code(s): E11.9 - TYPE 2 DIABETES MELLITUS WITHOUT COMPLICATIONS (7) Obesity Code(s): E66.9 - OBESITY, UNSPECIFIED plan continue current mgmt steroids incentive devon rest as per the team
--- NOTE | 2019-01-31 12:18 | PN ---
Progress Note, Physician History of Present Illness: pulmonary alert ,feeling better,less congested - Current Medication List Current Medications: Active Medications Albuterol/Ipratropium (Duoneb -) 1 amp NEB RQID [facility] Last Admin: 01/31/19 08:15 Dose: 1 amp Alprazolam (Xanax -) 2 mg PO Q12H PRN PRN Reason: ANXIETY Last Admin: 01/31/19 09:27 Dose: 2 mg Amlodipine Besylate (Norvasc -) 10 mg PO DAILY [facility] Last Admin: 01/31/19 10:42 Dose: 10 mg Aspirin (Asa -) 81 mg PO DAILY [facility] Last Admin: 01/31/19 10:44 Dose: 81 mg Atorvastatin Calcium (Lipitor -) 20 mg PO HS [facility] Last Admin: 01/30/19 22:16 Dose: 20 mg Heparin Sodium (Porcine) (Heparin -) 5,000 unit SQ BID [facility] Last Admin: 01/31/19 10:44 Dose: 5,000 unit Hydralazine HCl (Apresoline -) 50 mg PO BID [facility] Last Admin: 01/31/19 10:41 Dose: 50 mg Azithromycin (Zithromax 500mg Ivpb (Pre-Docked)) 500 mg in 250 mls @ 250 mls/ hr IVPB DAILY [facility] Last Admin: 01/31/19 11:49 Dose: 250 mls/hr Ceftriaxone Sodium 1 gm/ (Dextrose) 50 mls @ 100 mls/hr IVPB DAILY [facility]; Protocol Last Admin: 01/31/19 10:55 Dose: 100 mls/hr Insulin Aspart (Novolog Vial Sliding Scale -) 1 vial SQ ACHS [facility]; Protocol Last Admin: 01/31/19 06:28 Dose: 10 units Insulin Detemir (Levemir Vial) 30 units SQ 0700,2200 [facility] Last Admin: 01/31/19 09:07 Dose: 30 units Losartan Potassium (Cozaar -) 100 mg PO DAILY [facility] Last Admin: 01/31/19 10:44 Dose: 100 mg Methylprednisolone Sodium Succinate (Solu-Medrol -) 40 mg IVPUSH Q8H-IV [facility] Last Admin: 01/31/19 10:52 Dose: 40 mg Pantoprazole Sodium (Protonix -) 40 mg PO DAILY [facility] Last Admin: 01/31/19 10:44 Dose: 40 mg Timolol Maleate (Timoptic 0.5%) 1 drop OU BID [facility] Last Admin: 01/31/19 11:48 Dose: 1 drop - Objective Vital Signs: Vital Signs Temperature 97.8 F 01/31/19 06:00 Pulse Rate 64 01/31/19 06:00 Respiratory Rate 20 01/31/19 06:00 Blood Pressure 132/56 L 01/31/19 06:00 O2 Sat by Pulse Oximetry (%) 96 01/30/19 21:00 Constitutional: Yes: Well Nourished, Calm Eyes: Yes: WNL HENT: Yes: WNL Neck: Yes: WNL Cardiovascular: Yes: Regular Rate and Rhythm, S1, S2 Respiratory: Yes: Wheezes (dejan wheezes) Gastrointestinal: Yes: Normal Bowel Sounds, Soft Extremities: Yes: WNL Edema: No Labs: CBC, BMP 01/31/19 08:29 01/31/19 08:29 Problem List - Problems (1) Pneumonia Code(s): J18.9 - PNEUMONIA, UNSPECIFIED ORGANISM (2) Acute exacerbation of chronic obstructive pulmonary disease (COPD) Code(s): J44.1 - CHRONIC OBSTRUCTIVE PULMONARY DISEASE W (ACUTE) EXACERBATION (3) Diabetes Code(s): E11.9 - TYPE 2 DIABETES MELLITUS WITHOUT COMPLICATIONS (4) Hyperlipemia Code(s): E78.5 - HYPERLIPIDEMIA, UNSPECIFIED (5) Hypertension Code(s): I10 - ESSENTIAL (PRIMARY) HYPERTENSION (6) Obesity Code(s): E66.9 - OBESITY, UNSPECIFIED Qualifiers: Body mass index: BMI 45.0-49.9 (7) Pulmonary vascular congestion Code(s): R09.89 - OTH SYMPTOMS AND SIGNS INVOLVING THE CIRC AND RESP SYSTEMS (8) Asthma, chronic obstructive, with acute exacerbation Code(s): J44.1 - CHRONIC OBSTRUCTIVE PULMONARY DISEASE W (ACUTE) EXACERBATION; J45.901 - UNSPECIFIED ASTHMA WITH (ACUTE) EXACERBATION (9) Pneumonia Code(s): J18.9 - PNEUMONIA, UNSPECIFIED ORGANISM Assessment/Plan IMP ACUTE ASTHMA/COPD EXACERBATION BILATERAL PNEUMONIA RLL NODULE STABLE HTN DM OBESITY LIKELY CYNDIE PLAN ABX O2 INHALED BRONCHODILATORS STEROIDS SAME DOSE CULTURES MONITOR PEAK FLOW F/U CHEST CT 6-8 WKS TO CONFIRM RESOLUTION OF INFILTRATES PFTS OUTPATIENT YEARLY LOW DOSE CHEST FOR LUNG CANCER SCREENING OUTPATIENT SLEEP STUDIES DR FAIRCHILD Problem List - Problems (1) Pneumonia Code(s): J18.9 - PNEUMONIA, UNSPECIFIED ORGANISM (2) Acute exacerbation of chronic obstructive pulmonary disease (COPD) Code(s): J44.1 - CHRONIC OBSTRUCTIVE PULMONARY DISEASE W (ACUTE) EXACERBATION (3) Diabetes Code(s): E11.9 - TYPE 2 DIABETES MELLITUS WITHOUT COMPLICATIONS (4) Hyperlipemia Code(s): E78.5 - HYPERLIPIDEMIA, UNSPECIFIED (5) Hypertension Code(s): I10 - ESSENTIAL (PRIMARY) HYPERTENSION (6) Obesity Code(s): E66.9 - OBESITY, UNSPECIFIED (7) Pulmonary vascular congestion Code(s): R09.89 - OTH SYMPTOMS AND SIGNS INVOLVING THE CIRC AND RESP SYSTEMS (8) Asthma, chronic obstructive, with acute exacerbation Code(s): J44.1 - CHRONIC OBSTRUCTIVE PULMONARY DISEASE W (ACUTE) EXACERBATION; J45.901 - UNSPECIFIED ASTHMA WITH (ACUTE) EXACERBATION (9) Pneumonia Code(s): J18.9 - PNEUMONIA, UNSPECIFIED ORGANISM
[2019-01-31 12:19] LABS: ANISOCYTOSIS 0; MACROCYTOSIS 0; PLATELET ESTIMATE NORMAL
[2019-01-31] MEDS: AZITHROMYCIN 250 MG TABLET PO SCH (15:46)
[2019-01-31] MEDS ORDERED: MAGNESIUM CITRATE 300 ML BOTTLE PO ONE (17:54)
--- NOTE | 2019-01-31 17:58 | PN ---
Progress Note (short form) - Note Progress Note: FABRICE Patricio informed me of BG of 420. Will cover with 16 units of novvlog insulin. No need to send serum glucose. Will monitor fingerstick. Problem List - Problems (1) Acute exacerbation of chronic obstructive pulmonary disease (COPD) Code(s): J44.1 - CHRONIC OBSTRUCTIVE PULMONARY DISEASE W (ACUTE) EXACERBATION (2) Asthma, chronic obstructive, with acute exacerbation Code(s): J44.1 - CHRONIC OBSTRUCTIVE PULMONARY DISEASE W (ACUTE) EXACERBATION; J45.901 - UNSPECIFIED ASTHMA WITH (ACUTE) EXACERBATION (3) Diabetes Assessment/Plan: BG in mid 200-300, in IV steroids -FS AC/HS -novolog SS -will tighten scale for coverage while on steroids Levemir increased to 30 u BID to obtain better glycemic control (ranging form 200-340) Code(s): E11.9 - TYPE 2 DIABETES MELLITUS WITHOUT COMPLICATIONS (4) Hyperlipemia Code(s): E78.5 - HYPERLIPIDEMIA, UNSPECIFIED (5) Hypertension Code(s): I10 - ESSENTIAL (PRIMARY) HYPERTENSION (6) Obesity Code(s): E66.9 - OBESITY, UNSPECIFIED Qualifiers: Body mass index: BMI 45.0-49.9 (7) Pneumonia Code(s): J18.9 - PNEUMONIA, UNSPECIFIED ORGANISM (8) Anxiety Code(s): F41.9 - ANXIETY DISORDER, UNSPECIFIED (9) Prophylactic measure Code(s): Z29.9 - ENCOUNTER FOR PROPHYLACTIC MEASURES, UNSPECIFIED
[2019-01-31] MEDS: ATORVASTATIN CA 20 MG TABLET (FP) PO SCH (22:12)
[2019-02-01] MEDS: methylPREDNISolone NA SUCC 40 MG/1 ML VIAL IVPUSH SCH ×3 (02:09→21:14)
[2019-02-01] MEDS: INSULIN SLIDING SCALE (NOVOLOG) 1 VIAL SQ SCH ×4 (06:44→21:26)
[2019-02-01] MEDS: INSULIN (LEVEMIR) 100 UNITS/ML UNITS SQ SCH ×2 (06:44→21:19)
--- NOTE | 2019-02-01 07:27 | PN ---
Progress Note, Physician Chief Complaint: SOB History of Present Illness: Patient is a 63 year old female with a significant past medical history of CKD, pneumonia, asthma (multiple hospitalizations for asthma), chronic UTIs, anxiety , hypertension, hyperlipidemia, obesity, COPD (ex smoker-no home oxygen), diabetes mellitus II and uterine fibroids. She presents to the ED after experiencing worsening shortness of breath and wheezing. She was at [facility] on and when the air conditioner was turned on, she felt as thought she could not breathe and began to cough. Since , she has had worsening shortness of breath with any physical exertion. On visit of 04/2018, patient became short of breath and was found to have bilateral pneumonia. On the 04/2018 hospitalization, she was transferred to the ICU for closer monitoring, but not intubated. In the ED she was given multiple breathing treatments, magnesium and steriods but patient still was not stable for discharge home. She is not home oxygen dependent. - Current Medication List Current Medications: Active Medications Albuterol/Ipratropium (Duoneb -) 1 amp NEB RQID [facility] Last Admin: 01/31/19 20:41 Dose: 1 amp Alprazolam (Xanax -) 2 mg PO Q12H PRN PRN Reason: ANXIETY Last Admin: 01/31/19 22:12 Dose: 2 mg Amlodipine Besylate (Norvasc -) 10 mg PO DAILY [facility] Last Admin: 01/31/19 10:42 Dose: 10 mg Aspirin (Asa -) 81 mg PO DAILY [facility] Last Admin: 01/31/19 10:44 Dose: 81 mg Atorvastatin Calcium (Lipitor -) 20 mg PO HS [facility] Last Admin: 01/31/19 22:12 Dose: 20 mg Azithromycin (Zithromax -) 500 mg PO DAILY [facility] Last Admin: 01/31/19 15:46 Dose: 500 mg Heparin Sodium (Porcine) (Heparin -) 5,000 unit SQ BID [facility] Last Admin: 01/31/19 22:12 Dose: 5,000 unit Hydralazine HCl (Apresoline -) 50 mg PO BID [facility] Last Admin: 01/31/19 22:12 Dose: 50 mg Ceftriaxone Sodium 1 gm/ (Dextrose) 50 mls @ 100 mls/hr IVPB DAILY [facility]; Protocol Last Admin: 01/31/19 10:55 Dose: 100 mls/hr Insulin Aspart (Novolog Vial Sliding Scale -) 1 vial SQ ACHS [facility]; Protocol Last Admin: 02/01/19 06:44 Dose: 8 units Insulin Detemir (Levemir Vial) 30 units SQ 0700,2200 [facility] Last Admin: 02/01/19 06:44 Dose: 30 units Losartan Potassium (Cozaar -) 100 mg PO DAILY [facility] Last Admin: 01/31/19 10:44 Dose: 100 mg Methylprednisolone Sodium Succinate (Solu-Medrol -) 40 mg IVPUSH Q8H-IV [facility] Last Admin: 02/01/19 02:09 Dose: 40 mg Pantoprazole Sodium (Protonix -) 40 mg PO DAILY [facility] Last Admin: 01/31/19 10:44 Dose: 40 mg Timolol Maleate (Timoptic 0.5%) 1 drop OU BID [facility] Last Admin: 01/31/19 22:19 Dose: 1 drop - Objective Vital Signs: Vital Signs Temperature 98.9 F 02/01/19 06:00 Pulse Rate 100 H 02/01/19 06:00 Respiratory Rate 18 02/01/19 06:00 Blood Pressure 125/56 L 02/01/19 06:00 O2 Sat by Pulse Oximetry (%) 99 01/31/19 21:00 Constitutional: Yes: Well Nourished, No Distress, Calm Eyes: Yes: WNL, Conjunctiva Clear, EOM Intact HENT: Yes: WNL, Atraumatic, Normocephalic Neck: Yes: WNL, Supple, Trachea Midline Cardiovascular: Yes: WNL, Regular Rate and Rhythm Respiratory: Yes: WNL, Wheezes (BL) Gastrointestinal: Yes: WNL, Normal Bowel Sounds, Abdomen, Obese ...Rectal Exam: Yes: Deferred Genitourinary: Yes: WNL Musculoskeletal: Yes: WNL Extremities: Yes: WNL Edema: No Peripheral Pulses WNL: Yes Integumentary: Yes: WNL Neurological: Yes: WNL, Alert, Oriented ...Motor Strength: WNL Psychiatric: Yes: WNL, Alert, Oriented Labs: CBC, BMP 01/31/19 08:29 01/31/19 08:29 - ....Imaging Chest X-ray: Report Reviewed, Image Reviewed Problem List - Problems (1) Acute exacerbation of chronic obstructive pulmonary disease (COPD) Assessment/Plan: On solumedrol taper, duonebs and supplemental oxygen to maintain oxygen levels above 92%. -if continues to improve, can likely change steroids to PO prednisone 40mg dailyin AM and taper as outpt -On Azithromycin IV daily and started on Ceftriaxone daily per ID. Can start to desecelated on 02/02 (5 days total) -outpt f/u of chest imaging to ensure resolution of infiltrates, outpt PFTs, PSG as per pulmonary Code(s): J44.1 - CHRONIC OBSTRUCTIVE PULMONARY DISEASE W (ACUTE) EXACERBATION (2) Asthma, chronic obstructive, with acute exacerbation Code(s): J44.1 - CHRONIC OBSTRUCTIVE PULMONARY DISEASE W (ACUTE) EXACERBATION; J45.901 - UNSPECIFIED ASTHMA WITH (ACUTE) EXACERBATION (3) Diabetes Assessment/Plan: BG in mid 200-300, in IV steroids -FS AC/HS -novolog SS -will tighten scale for coverage while on steroids Levemir increased to 30 u BID to obtain better glycemic control (ranging form 200-340) -pt states she has been eating what she thought was sugar free ices-counseled patient in diet and will cont to follow BG Code(s): E11.9 - TYPE 2 DIABETES MELLITUS WITHOUT COMPLICATIONS (4) Hyperlipemia Assessment/Plan: continue on home statin Code(s): E78.5 - HYPERLIPIDEMIA, UNSPECIFIED (5) Hypertension Assessment/Plan: BP stable -continue on home doses of cozaa, hydralazine, norvasc Code(s): I10 - ESSENTIAL (PRIMARY) HYPERTENSION (6) Obesity Assessment/Plan: Obesity: Has other risk factors for heart disease: hld, htn, dm. -weight loss counseling Code(s): E66.9 - OBESITY, UNSPECIFIED Qualifiers: Body mass index: BMI 45.0-49.9 (7) Pneumonia Assessment/Plan: BL infilatrates on CT chest -continue on zithromax & ceftriaxone, will de-escelate tomorrow -appreciate ID and pulmonary input Code(s): J18.9 - PNEUMONIA, UNSPECIFIED ORGANISM (8) Anxiety Assessment/Plan: continue with home dose of Xanax Code(s): F41.9 - ANXIETY DISORDER, UNSPECIFIED (9) Prophylactic measure Assessment/Plan: Prophy heparin bid protonix Dispp: maintain as inpatient full code Code(s): Z29.9 - ENCOUNTER FOR PROPHYLACTIC MEASURES, UNSPECIFIED Visit type - Emergency Visit Emergency Visit: Yes ED Registration Date: 01/27/19 Care time: The patient presented to the Emergency Department on the above date and was hospitalized for further evaluation of their emergent condition. - New Patient This patient is new to me today: No - Critical Care Critical Care patient: No - Discharge Referral Referred to [facility] No
[2019-02-01] MEDS: ALBUTEROL SO4 2.5/IPRATROPIUM 0.5 INH SOL 3 ML VIAL.NEB. NEB SCH ×3 (07:30→16:14)
[2019-02-01] MEDS ORDERED: cefTRIAXone SODIUM 1 GM VIAL ONE (10:00)
[2019-02-01] MEDS ORDERED: DEXTROSE 5%-WATER - 50 ML IVPB ONE (10:00)
[2019-02-01] MEDS ORDERED: SODIUM CHLORIDE NASAL SPRAY 44 ML BOTTLE NS PRN (10:04)
[2019-02-01] MEDS: ASPIRIN 81 MG CHEWABLE TABLETS PO SCH (10:20)
[2019-02-01] MEDS: hydrALAZINE HCL 50 MG TABLET (FP) PO SCH ×2 (10:20→21:13)
[2019-02-01] MEDS: PANTOPRAZOLE 40 MG TABLET (FP) PO SCH (10:20)
[2019-02-01] MEDS: LOSARTAN POTASSIUM 50 MG TABLET (FP) PO SCH (10:20)
[2019-02-01] MEDS: AZITHROMYCIN 250 MG TABLET PO SCH (10:20)
[2019-02-01] MEDS: amLODIPine BESYLATE 10 MG TABLET (FP) PO SCH (10:20)
[2019-02-01] MEDS: HEPARIN NA (PORCINE) 5,000 UNITS/ML 1ML VIAL SQ SCH ×2 (10:21→21:13)
[2019-02-01] MEDS: CEFTRIAXONE 1 GM in DEXTROSE 5%-WATER - 50 ML IVPB SCH (10:21)
[2019-02-01] MEDS: TIMOLOL 0.5% OPHTHALMIC SOL 5 ML BOTTLE OU SCH ×2 (10:39→21:14)
[2019-02-01 10:54] LABS: BASO % 0.6 % (0-2.0); EOS % 0.1 % (0-4.5); HEMATOCRIT 35.9 % (32.4-45.2); HEMOGLOBIN 11.9 GM/dL (10.7-15.3); LYMPH % 18.5 % (8-40); MCH 28.9 pg (25.7-33.7); MEAN CELL VOLUME 87.5 fl (80-96); MEAN PLT VOLUME 9.6 fl (7.5-11.1); MONO % 6.2 % (3.8-10.2); NEUT % 74.6 % (42.8-82.8); PLATELET COUNT 272 K/MM3 (134-434); RBC 4.11 M/mm3 (3.60-5.2)
[2019-02-01 11:27] LABS: ALBUMIN 3.3 g/dl (3.4-5.0); BILIRUBIN,TOTAL 0.2 mg/dL (0.2-1); CALCIUM 10.2 mg/dL (8.5-10.1); CREATININE 1.1 mg/dL (0.55-1.3); MAGNESIUM 3.4 mg/dL (1.8-2.4); POTASSIUM 5.2 mmol/L (3.5-5.1); TOT PROT 7.1 g/dl (6.4-8.2)
--- NOTE | 2019-02-01 11:54 | PN ---
Progress Note (short form) - Note Progress Note: PULMONARY States breathing is improving but now with runny nose, cough. Vital Signs Period Temp Pulse Resp BP Sys/Maurer Pulse Ox Last 24 Hr 97.8 F-98.9 F 53-63 18-20 118-156/54-80 99 Gen: NAD at rest Heart: RRR Lung: scattered wheezes Abd: soft, nontender Ext: no edema CBC, BMP 02/01/19 10:00 02/01/19 10:00 Active Medications Albuterol/Ipratropium (Duoneb -) 1 amp NEB RQID [facility] Last Admin: 02/01/19 11:39 Dose: 1 amp Alprazolam (Xanax -) 2 mg PO Q12H PRN PRN Reason: ANXIETY Last Admin: 01/31/19 22:12 Dose: 2 mg Amlodipine Besylate (Norvasc -) 10 mg PO DAILY [facility] Last Admin: 02/01/19 10:20 Dose: 10 mg Aspirin (Asa -) 81 mg PO DAILY [facility] Last Admin: 02/01/19 10:20 Dose: 81 mg Atorvastatin Calcium (Lipitor -) 20 mg PO HS [facility] Last Admin: 01/31/19 22:12 Dose: 20 mg Azithromycin (Zithromax -) 500 mg PO DAILY [facility] Last Admin: 02/01/19 10:20 Dose: 500 mg Heparin Sodium (Porcine) (Heparin -) 5,000 unit SQ BID [facility] Last Admin: 02/01/19 10:21 Dose: 5,000 unit Hydralazine HCl (Apresoline -) 50 mg PO BID [facility] Last Admin: 02/01/19 10:20 Dose: 50 mg Ceftriaxone Sodium 1 gm/ (Dextrose) 50 mls @ 100 mls/hr IVPB DAILY [facility]; Protocol Last Admin: 02/01/19 10:21 Dose: 100 mls/hr Insulin Aspart (Novolog Vial Sliding Scale -) 1 vial SQ ACHS [facility]; Protocol Last Admin: 02/01/19 06:44 Dose: 8 units Insulin Detemir (Levemir Vial) 30 units SQ 0700,2200 [facility] Last Admin: 02/01/19 06:44 Dose: 30 units Losartan Potassium (Cozaar -) 100 mg PO DAILY [facility] Last Admin: 02/01/19 10:20 Dose: 100 mg Methylprednisolone Sodium Succinate (Solu-Medrol -) 40 mg IVPUSH Q8H-IV [facility] Last Admin: 02/01/19 10:20 Dose: 40 mg Montelukast Sodium (Singulair -) 10 mg PO HS [facility] Pantoprazole Sodium (Protonix -) 40 mg PO DAILY [facility] Last Admin: 02/01/19 10:20 Dose: 40 mg Sodium Chloride (Eleva [place] Nasal [place] -) 2 spray NS TID PRN PRN Reason: NASAL CONGESTION Timolol Maleate (Timoptic 0.5%) 1 drop OU BID [facility] Last Admin: 02/01/19 10:39 Dose: 1 drop A/P Acute COPD Exacerbation Pneumonia Lung Nodule HTN DM Likely CYNDIE - continue antibiotics - will decrease medrol to q12h - if continues to improve, can likely change steroids to PO prednisone 40mg dailyin AM and taper as outpt - inhaled bronchodilators - O2 to keep SpO2 >90% - outpt f/u of chest imaging to ensure resolution of infiltrates - outpt PFTs, PSG - DVT prophylaxis
[2019-02-01 11:57] LABS: ANISOCYTOSIS 0; MACROCYTOSIS 0; PLATELET ESTIMATE NORMAL
[2019-02-01] MEDS: ALPRAZolam 2 MG TABLET PO PRN (12:42)
--- NOTE | 2019-02-01 13:31 | PN ---
Progress Note, Physician History of Present Illness: stable still wiht some wheeze - Current Medication List Current Medications: Active Medications Albuterol/Ipratropium (Duoneb -) 1 amp NEB RQID [facility] Last Admin: 02/01/19 11:39 Dose: 1 amp Alprazolam (Xanax -) 2 mg PO Q12H PRN PRN Reason: ANXIETY Last Admin: 02/01/19 12:42 Dose: 2 mg Amlodipine Besylate (Norvasc -) 10 mg PO DAILY [facility] Last Admin: 02/01/19 10:20 Dose: 10 mg Aspirin (Asa -) 81 mg PO DAILY [facility] Last Admin: 02/01/19 10:20 Dose: 81 mg Atorvastatin Calcium (Lipitor -) 20 mg PO HS [facility] Last Admin: 01/31/19 22:12 Dose: 20 mg Azithromycin (Zithromax -) 500 mg PO DAILY [facility] Last Admin: 02/01/19 10:20 Dose: 500 mg Heparin Sodium (Porcine) (Heparin -) 5,000 unit SQ BID [facility] Last Admin: 02/01/19 10:21 Dose: 5,000 unit Hydralazine HCl (Apresoline -) 50 mg PO BID [facility] Last Admin: 02/01/19 10:20 Dose: 50 mg Ceftriaxone Sodium 1 gm/ (Dextrose) 50 mls @ 100 mls/hr IVPB DAILY [facility]; Protocol Last Admin: 02/01/19 10:21 Dose: 100 mls/hr Insulin Aspart (Novolog Vial Sliding Scale -) 1 vial SQ ACHS [facility]; Protocol Last Admin: 02/01/19 11:59 Dose: 8 units Insulin Detemir (Levemir Vial) 30 units SQ 0700,2200 [facility] Last Admin: 02/01/19 06:44 Dose: 30 units Losartan Potassium (Cozaar -) 100 mg PO DAILY [facility] Last Admin: 02/01/19 10:20 Dose: 100 mg Methylprednisolone Sodium Succinate (Solu-Medrol -) 40 mg IVPUSH Q12H [facility] Montelukast Sodium (Singulair -) 10 mg PO HS [facility] Pantoprazole Sodium (Protonix -) 40 mg PO DAILY [facility] Last Admin: 02/01/19 10:20 Dose: 40 mg Sodium Chloride (Cameron [place] Nasal [place] -) 2 spray NS TID PRN PRN Reason: NASAL CONGESTION Timolol Maleate (Timoptic 0.5%) 1 drop OU BID [facility] Last Admin: 02/01/19 10:39 Dose: 1 drop - Objective Vital Signs: Vital Signs Temperature 98.1 F 02/01/19 10:17 Pulse Rate 60 02/01/19 10:17 Respiratory Rate 20 02/01/19 10:17 Blood Pressure 148/62 02/01/19 10:17 O2 Sat by Pulse Oximetry (%) 99 01/31/19 21:00 Constitutional: Yes: No Distress, Calm Cardiovascular: Yes: S1, S2 Respiratory: Yes: Regular, Poor Air Entry Gastrointestinal: Yes: Normal Bowel Sounds, Soft Musculoskeletal: Yes: WNL Extremities: Yes: WNL Neurological: Yes: Alert, Oriented Labs: CBC, BMP 02/01/19 10:00 02/01/19 10:00 Assessment/Plan Problem List - Problems (1) Acute exacerbation of chronic obstructive pulmonary disease (COPD) Code(s): J44.1 - CHRONIC OBSTRUCTIVE PULMONARY DISEASE W (ACUTE) EXACERBATION (2) Respiratory failure Code(s): J96.90 - RESPIRATORY FAILURE, UNSP, UNSP W HYPOXIA OR HYPERCAPNIA (3) Anxiety Code(s): F41.9 - ANXIETY DISORDER, UNSPECIFIED (4) Hypertension Code(s): I10 - ESSENTIAL (PRIMARY) HYPERTENSION (5) Hyperlipemia Code(s): E78.5 - HYPERLIPIDEMIA, UNSPECIFIED (6) Diabetes Code(s): E11.9 - TYPE 2 DIABETES MELLITUS WITHOUT COMPLICATIONS (7) Obesity Code(s): E66.9 - OBESITY, UNSPECIFIED plan continue current mgmt steroids incentive devon rest as per the team will deescalte after 5 days
[2019-02-01] MEDS ORDERED: INSULIN (NOVOLOG) ASPART 100 UNITS/ML 10ML VIAL ONE ×2 (16:50→17:07)
[2019-02-01] MEDS: POLYETHYLENE GLYCOL 3350 119 GM BTL PO SCH (16:51)
[2019-02-01] MEDS ORDERED: PT OWN MED DRAWER 7, Y5N ONE (17:06)
[2019-02-01] MEDS: MONTELUKAST NA 10 MG TABLET PO SCH (21:13)
[2019-02-01] MEDS: ATORVASTATIN CA 20 MG TABLET (FP) PO SCH (21:13)
[2019-02-01] MEDS: DOCUSATE SODIUM 100 MG CAPSULE (FP) PO SCH (21:13)
[2019-02-02] MEDS: DOCUSATE SODIUM 100 MG CAPSULE (FP) PO SCH ×3 (06:24→21:26)
[2019-02-02] MEDS: INSULIN (LEVEMIR) 100 UNITS/ML UNITS SQ SCH ×2 (06:29→21:26)
[2019-02-02] MEDS: INSULIN SLIDING SCALE (NOVOLOG) 1 VIAL SQ SCH ×4 (06:29→21:27)
--- NOTE | 2019-02-02 07:56 | PN ---
Progress Note, Physician Chief Complaint: SOB History of Present Illness: Patient is a 63 year old female with a significant past medical history of CKD, pneumonia, asthma (multiple hospitalizations for asthma), chronic UTIs, anxiety , hypertension, hyperlipidemia, obesity, COPD (ex smoker-no home oxygen), diabetes mellitus II and uterine fibroids. She presents to the ED after experiencing worsening shortness of breath and wheezing. She was at [facility] on and when the air conditioner was turned on, she felt as thought she could not breathe and began to cough. Since , she has had worsening shortness of breath with any physical exertion. On visit of 04/2018, patient became short of breath and was found to have bilateral pneumonia. On the 04/2018 hospitalization, she was transferred to the ICU for closer monitoring, but not intubated. In the ED she was given multiple breathing treatments, magnesium and steriods but patient still was not stable for discharge home. She is not home oxygen dependent. - Current Medication List Current Medications: Active Medications Amlodipine Besylate (Norvasc -) 10 mg PO DAILY [facility] Last Admin: 02/01/19 10:20 Dose: 10 mg Aspirin (Asa -) 81 mg PO DAILY [facility] Last Admin: 02/01/19 10:20 Dose: 81 mg Atorvastatin Calcium (Lipitor -) 20 mg PO HS [facility] Last Admin: 02/01/19 21:13 Dose: 20 mg Azithromycin (Zithromax -) 500 mg PO DAILY [facility] Last Admin: 02/01/19 10:20 Dose: 500 mg Docusate Sodium (Colace -) 100 mg PO TID [facility] Last Admin: 02/02/19 06:24 Dose: 100 mg Heparin Sodium (Porcine) (Heparin -) 5,000 unit SQ BID [facility] Last Admin: 02/01/19 21:13 Dose: 5,000 unit Hydralazine HCl (Apresoline -) 50 mg PO BID [facility] Last Admin: 02/01/19 21:13 Dose: 50 mg Ceftriaxone Sodium 1 gm/ (Dextrose) 50 mls @ 100 mls/hr IVPB DAILY [facility]; Protocol Stop: 02/02/19 14:45 Last Admin: 02/01/19 10:21 Dose: 100 mls/hr Insulin Aspart (Novolog Vial Sliding Scale -) 1 vial SQ ACHS [facility]; Protocol Last Admin: 02/02/19 06:29 Dose: 12 units Insulin Detemir (Levemir Vial) 30 units SQ 0700,2200 [facility] Last Admin: 02/02/19 06:29 Dose: 30 units Losartan Potassium (Cozaar -) 100 mg PO DAILY [facility] Last Admin: 02/01/19 10:20 Dose: 100 mg Methylprednisolone Sodium Succinate (Solu-Medrol -) 40 mg IVPUSH Q12H [facility] Last Admin: 02/01/19 21:14 Dose: 40 mg Montelukast Sodium (Singulair -) 10 mg PO HS [facility] Last Admin: 02/01/19 21:13 Dose: 10 mg Pantoprazole Sodium (Protonix -) 40 mg PO DAILY [facility] Last Admin: 02/01/19 10:20 Dose: 40 mg Polyethylene Glycol (Miralax (For Daily Use) -) 17 gm PO DAILY [facility] Last Admin: 02/01/19 16:51 Dose: 17 grams Sodium Chloride ([place] Nasal [place] -) 2 spray NS TID PRN PRN Reason: NASAL CONGESTION Timolol Maleate (Timoptic 0.5%) 1 drop OU BID [facility] Last Admin: 02/01/19 21:14 Dose: 1 drop - Objective Vital Signs: Vital Signs Temperature 97.7 F 02/02/19 06:00 Pulse Rate 57 L 02/02/19 06:00 Respiratory Rate 20 02/02/19 06:00 Blood Pressure 130/62 02/02/19 06:00 O2 Sat by Pulse Oximetry (%) 100 02/01/19 21:00 Constitutional: Yes: Well Nourished, No Distress, Calm, Obese Eyes: Yes: WNL, Conjunctiva Clear, EOM Intact HENT: Yes: WNL, Atraumatic, Normocephalic, Nasal Congestion Neck: Yes: WNL, Supple, Trachea Midline Cardiovascular: Yes: WNL, Regular Rate and Rhythm Respiratory: Yes: WNL, Regular, Wheezes (R>L) Gastrointestinal: Yes: WNL, Normal Bowel Sounds, Abdomen, Obese ...Rectal Exam: Yes: Deferred Genitourinary: Yes: WNL Musculoskeletal: Yes: WNL Extremities: Yes: WNL Edema: No Peripheral Pulses WNL: Yes Integumentary: Yes: WNL Neurological: Yes: WNL, Alert, Oriented ...Motor Strength: WNL Psychiatric: Yes: WNL, Alert, Oriented Labs: CBC, BMP 02/01/19 10:00 - ....Imaging Chest X-ray: Report Reviewed, Image Reviewed Problem List - Problems (1) Acute exacerbation of chronic obstructive pulmonary disease (COPD) Assessment/Plan: On duonebs and supplemental oxygen to maintain oxygen levels above 92% --continue prednisone 40mg daily and taper as outpt -On Azithromycin IV daily and on Ceftriaxone to stop today as per ID. -outpt f/u of chest imaging to ensure resolution of infiltrates, outpt PFTs, PSG as per pulmonary Code(s): J44.1 - CHRONIC OBSTRUCTIVE PULMONARY DISEASE W (ACUTE) EXACERBATION (2) Asthma, chronic obstructive, with acute exacerbation Code(s): J44.1 - CHRONIC OBSTRUCTIVE PULMONARY DISEASE W (ACUTE) EXACERBATION; J45.901 - UNSPECIFIED ASTHMA WITH (ACUTE) EXACERBATION (3) Diabetes Assessment/Plan: BG in mid 200-300, on steroids -FS AC/HS -novolog SS -will tighten scale for coverage while on steroids Levemir increased to 30 u BID to obtain better glycemic control (ranging form 200-340) -pt states she has been eating what she thought was sugar free ices and bannanas -counseled patient in diet and will cont to follow BG Code(s): E11.9 - TYPE 2 DIABETES MELLITUS WITHOUT COMPLICATIONS (4) Hyperlipemia Assessment/Plan: continue on home statin Code(s): E78.5 - HYPERLIPIDEMIA, UNSPECIFIED (5) Hypertension Assessment/Plan: BP stable -continue on home doses of cozaa, hydralazine, norvasc Code(s): I10 - ESSENTIAL (PRIMARY) HYPERTENSION (6) Obesity Assessment/Plan: Obesity: Has other risk factors for heart disease: hld, htn, dm. -weight loss counseling Code(s): E66.9 - OBESITY, UNSPECIFIED Qualifiers: Body mass index: BMI 45.0-49.9 (7) Pneumonia Assessment/Plan: BL infilatrates on CT chest, resolved -continue on zithromax & ceftriaxone (to stop today) -appreciate ID and pulmonary input Code(s): J18.9 - PNEUMONIA, UNSPECIFIED ORGANISM (8) Anxiety Assessment/Plan: continue with home dose of Xanax Code(s): F41.9 - ANXIETY DISORDER, UNSPECIFIED (9) Prophylactic measure Assessment/Plan: Prophy heparin bid protonix Dispp: maintain as inpatient full code dc tmrw Code(s): Z29.9 - ENCOUNTER FOR PROPHYLACTIC MEASURES, UNSPECIFIED (10) Hyperkalemia Assessment/Plan: K 5.2 today, pt states she has been eating 2-3 banannas per day the past few days Kaexelate given will repeat in am EKG done with slight peaked T waves Code(s): E87.5 - HYPERKALEMIA Visit type - Emergency Visit Emergency Visit: Yes ED Registration Date: 01/27/19 Care time: The patient presented to the Emergency Department on the above date and was hospitalized for further evaluation of their emergent condition. - New Patient This patient is new to me today: No - Critical Care Critical Care patient: No - Discharge Referral Referred to [facility] Med P.C.: No
[2019-02-02 08:07] LABS: BILIRUBIN,TOTAL 0.2 mg/dL (0.2-1); CALCIUM 9.8 mg/dL (8.5-10.1); CREATININE 1.5 mg/dL (0.55-1.3); POTASSIUM 5.6 mmol/L (3.5-5.1); TOT PROT 6.6 g/dl (6.4-8.2)
[2019-02-02] MEDS ORDERED: INSULIN (LEVEMIR) 100 UNITS/ML UNITS SQ ONE (08:27)
[2019-02-02] MEDS ORDERED: INSULIN (NOVOLOG) ASPART 100 UNITS/ML 10ML VIAL ONE ×2 (08:27→21:07)
[2019-02-02 09:03] LABS: MAGNESIUM 2.9 mg/dL (1.8-2.4)
[2019-02-02 09:14] LABS: BASO % 0.2 % (0-2.0); EOS % 0.2 % (0-4.5); HEMOGLOBIN 11.4 GM/dL (10.7-15.3); LYMPH % 17.1 % (8-40); MCH 28.8 pg (25.7-33.7); MCHC 32.6 g/dl (32.0-36.0); MEAN CELL VOLUME 88.4 fl (80-96); MEAN PLT VOLUME 10.3 fl (7.5-11.1); MONO % 6.6 % (3.8-10.2); NEUT % 75.9 % (42.8-82.8); RBC 3.96 M/mm3 (3.60-5.2); RDW 14.7 % (11.6-15.6); WHITE BLOOD COUNT 11.7 K/mm3 (4.0-10.0)
[2019-02-02] MEDS ORDERED: SODIUM POLYSTYRENE SULFONATE 15 GM/60 ML BOTTLE PO ONE ×2 (09:28→17:36)
--- NOTE | 2019-02-02 09:35 | PN ---
Progress Note, Physician History of Present Illness: stable walking around - Current Medication List Current Medications: Active Medications Amlodipine Besylate (Norvasc -) 10 mg PO DAILY [facility] Last Admin: 02/01/19 10:20 Dose: 10 mg Aspirin (Asa -) 81 mg PO DAILY [facility] Last Admin: 02/01/19 10:20 Dose: 81 mg Atorvastatin Calcium (Lipitor -) 20 mg PO HS [facility] Last Admin: 02/01/19 21:13 Dose: 20 mg Azithromycin (Zithromax -) 500 mg PO DAILY [facility] Last Admin: 02/01/19 10:20 Dose: 500 mg Docusate Sodium (Colace -) 100 mg PO TID [facility] Last Admin: 02/02/19 06:24 Dose: 100 mg Heparin Sodium (Porcine) (Heparin -) 5,000 unit SQ BID [facility] Last Admin: 02/01/19 21:13 Dose: 5,000 unit Hydralazine HCl (Apresoline -) 50 mg PO BID [facility] Last Admin: 02/01/19 21:13 Dose: 50 mg Ceftriaxone Sodium 1 gm/ (Dextrose) 50 mls @ 100 mls/hr IVPB DAILY [facility]; Protocol Stop: 02/02/19 14:45 Last Admin: 02/01/19 10:21 Dose: 100 mls/hr Insulin Aspart (Novolog Vial Sliding Scale -) 1 vial SQ ACHS [facility]; Protocol Last Admin: 02/02/19 06:29 Dose: 12 units Insulin Detemir (Levemir Vial) 30 units SQ 0700,2200 [facility] Last Admin: 02/02/19 06:29 Dose: 30 units Losartan Potassium (Cozaar -) 100 mg PO DAILY [facility] Last Admin: 02/01/19 10:20 Dose: 100 mg Methylprednisolone Sodium Succinate (Solu-Medrol -) 40 mg IVPUSH Q12H [facility] Last Admin: 02/01/19 21:14 Dose: 40 mg Montelukast Sodium (Singulair -) 10 mg PO HS [facility] Last Admin: 02/01/19 21:13 Dose: 10 mg Pantoprazole Sodium (Protonix -) 40 mg PO DAILY [facility] Last Admin: 02/01/19 10:20 Dose: 40 mg Polyethylene Glycol (Miralax (For Daily Use) -) 17 gm PO DAILY [facility] Last Admin: 02/01/19 16:51 Dose: 17 grams Sodium Chloride ([place] Nasal [place] -) 2 spray NS TID PRN PRN Reason: NASAL CONGESTION Timolol Maleate (Timoptic 0.5%) 1 drop OU BID [facility] Last Admin: 02/01/19 21:14 Dose: 1 drop - Objective Vital Signs: Vital Signs Temperature 97.7 F 02/02/19 06:00 Pulse Rate 57 L 02/02/19 06:00 Respiratory Rate 20 02/02/19 06:00 Blood Pressure 130/62 02/02/19 06:00 O2 Sat by Pulse Oximetry (%) 100 02/01/19 21:00 Constitutional: Yes: No Distress, Calm Cardiovascular: Yes: Regular Rate and Rhythm Respiratory: Yes: Regular Gastrointestinal: Yes: Normal Bowel Sounds, Soft Musculoskeletal: Yes: WNL Extremities: Yes: WNL Neurological: Yes: Alert, Oriented Psychiatric: Yes: Alert, Oriented Labs: CBC, BMP 02/02/19 06:00 02/02/19 06:00 Assessment/Plan Problem List - Problems (1) Acute exacerbation of chronic obstructive pulmonary disease (COPD) Code(s): J44.1 - CHRONIC OBSTRUCTIVE PULMONARY DISEASE W (ACUTE) EXACERBATION (2) Respiratory failure Code(s): J96.90 - RESPIRATORY FAILURE, UNSP, UNSP W HYPOXIA OR HYPERCAPNIA (3) Anxiety Code(s): F41.9 - ANXIETY DISORDER, UNSPECIFIED (4) Hypertension Code(s): I10 - ESSENTIAL (PRIMARY) HYPERTENSION (5) Hyperlipemia Code(s): E78.5 - HYPERLIPIDEMIA, UNSPECIFIED (6) Diabetes Code(s): E11.9 - TYPE 2 DIABETES MELLITUS WITHOUT COMPLICATIONS (7) Obesity Code(s): E66.9 - OBESITY, UNSPECIFIED plan continue current mgmt steroids incentive devon rest as per the team stop abx today
[2019-02-02] MEDS: methylPREDNISolone NA SUCC 40 MG/1 ML VIAL IVPUSH SCH (09:40)
[2019-02-02] MEDS ORDERED: cefTRIAXone SODIUM 1 GM VIAL ONE (09:40)
[2019-02-02] MEDS ORDERED: DEXTROSE 5%-WATER - 50 ML IVPB ONE (09:40)
[2019-02-02] MEDS: CEFTRIAXONE 1 GM in DEXTROSE 5%-WATER - 50 ML IVPB SCH (09:44)
[2019-02-02] MEDS: HEPARIN NA (PORCINE) 5,000 UNITS/ML 1ML VIAL SQ SCH ×2 (09:45→21:28)
[2019-02-02] MEDS: ASPIRIN 81 MG CHEWABLE TABLETS PO SCH (09:46)
[2019-02-02] MEDS: amLODIPine BESYLATE 10 MG TABLET (FP) PO SCH (09:46)
[2019-02-02] MEDS: hydrALAZINE HCL 50 MG TABLET (FP) PO SCH ×2 (09:46→21:26)
[2019-02-02] MEDS: AZITHROMYCIN 250 MG TABLET PO SCH (09:48)
[2019-02-02] MEDS: PANTOPRAZOLE 40 MG TABLET (FP) PO SCH (09:49)
[2019-02-02] MEDS: LOSARTAN POTASSIUM 50 MG TABLET (FP) PO SCH (09:49)
[2019-02-02] MEDS: TIMOLOL 0.5% OPHTHALMIC SOL 5 ML BOTTLE OU SCH ×2 (12:01→21:29)
--- NOTE | 2019-02-02 12:26 | EKG ---
Test Reason : Blood Pressure : / mmHG Vent. Rate : 061 BPM Atrial Rate : 061 BPM P-R Int : 116 ms QRS Dur : 084 ms QT Int : 386 ms P-R-T Axes : 062 -19 -26 degrees QTc Int : 388 ms NORMAL SINUS RHYTHM MINIMAL VOLTAGE CRITERIA FOR LVH, MAY BE NORMAL VARIANT NONSPECIFIC ST ABNORMALITY ABNORMAL ECG WHEN COMPARED WITH ECG OF 27-JAN-2019 13:57, NONSPECIFIC T WAVE ABNORMALITY NO LONGER EVIDENT IN LATERAL LEADS Confirmed by JOE SOL MD ([id number]) on 02/02/2019 12:26:18 PM Referred By: TASHI ZARAGOZA DR Confirmed By:JOE SOL MD
--- NOTE | 2019-02-02 14:01 | PN ---
Progress Note (short form) - Note Progress Note: PULMONARY VSS/AFEBRILE Constitutional: Yes: Well Nourished, Calm Eyes: Yes: WNL HENT: Yes: WNL Neck: Yes: WNL Cardiovascular: Yes: Regular Rate and Rhythm, S1, S2 Respiratory: Yes: Wheezes (dejan wheezes) Gastrointestinal: Yes: Normal Bowel Sounds, Soft Extremities: Yes: WNL Edema: No Labs: REVIEWED IMP ACUTE ASTHMA/COPD EXACERBATION RESOLVING BILATERAL PNEUMONIA RLL NODULE STABLE HTN DM OBESITY LIKELY CYNDIE PLAN ABX O2 INHALED BRONCHODILATORS STEROIDS SAME DOSE CULTURES MONITOR PEAK FLOW F/U CHEST CT 6-8 WKS TO CONFIRM RESOLUTION OF INFILTRATES PFTS OUTPATIENT YEARLY LOW DOSE CHEST FOR LUNG CANCER SCREENING OUTPATIENT SLEEP STUDIES Husam BERMUDEZ MD
[2019-02-02 14:11] LABS: ANISOCYTOSIS 2+; MACROCYTOSIS 0; PLATELET ESTIMATE NORMAL; TARGET CELLS 1+
[2019-02-02 14:13] LABS: PLATELET COUNT 262 K/MM3 (134-434)
[2019-02-02] MEDS: POLYETHYLENE GLYCOL 3350 119 GM BTL PO SCH (15:02)
[2019-02-02] MEDS ORDERED: predniSONE 20 MG TABLET (UD) PO ONE (21:15)
[2019-02-02] MEDS: ATORVASTATIN CA 20 MG TABLET (FP) PO SCH (21:26)
[2019-02-02] MEDS: MONTELUKAST NA 10 MG TABLET PO SCH (21:26)
[2019-02-03] MEDS: INSULIN (LEVEMIR) 100 UNITS/ML UNITS SQ SCH ×2 (06:22→21:22)
[2019-02-03] MEDS: DOCUSATE SODIUM 100 MG CAPSULE (FP) PO SCH ×3 (06:22→21:19)
[2019-02-03] MEDS: INSULIN SLIDING SCALE (NOVOLOG) 1 VIAL SQ SCH ×4 (06:23→21:21)
[2019-02-03] MEDS ORDERED: ARTIFICIAL TEARS (POLYVINYL ALCOHOL) OPTH DROPS OU PRN (08:15)
--- NOTE | 2019-02-03 08:16 | DS ---
Physical Examination Vital Signs: Vital Signs Temperature 98.1 F 02/03/19 05:59 Pulse Rate 71 02/03/19 05:59 Respiratory Rate 20 02/03/19 05:59 Blood Pressure 130/58 L 02/03/19 05:59 O2 Sat by Pulse Oximetry (%) 95 02/02/19 21:00 Constitutional: Yes: Well Nourished, No Distress, Calm Eyes: Yes: WNL, Conjunctiva Clear, EOM Intact, Occular Prosthesis HENT: Yes: WNL, Atraumatic, Normocephalic, Tonsillar Exudate Neck: Yes: WNL, Supple, Trachea Midline Cardiovascular: Yes: WNL, Regular Rate and Rhythm Respiratory: Yes: WNL, Regular, CTA Bilaterally Gastrointestinal: Yes: WNL, Normal Bowel Sounds, Abdomen, Obese Discharge Summary Reason For Visit: ACUTE EXACERBATION OF CHRONIC OBSTRUCTION Current Active Problems Acute exacerbation of chronic obstructive pulmonary disease (COPD) (Acute) Asthma, chronic obstructive, with acute exacerbation (Acute) Diabetes (Acute) Hyperkalemia (Acute) Hyperlipemia (Acute) Hypertension (Acute) Obesity (Acute) Pneumonia (Acute) Pneumonia (Acute) Prophylactic measure (Acute) Respiratory failure (Acute) Condition: Good - Instructions Diet, Activity, Other Instructions: Prednisone Taper 02/03--- 40mg 02/04--- 40mg 02/05-- 40mg 02/06-- 30mg 02/07-- 30mg 02/08-- 30mg 02/09-- 20mg 02/10-- 20mg 02/11-- 20mg 02/12-- 10mg 02/13-- 10mg 02/14-- 10mg 02/15-- 5mg 02/16-- 5mg 02/17-- 5mg COMPLETED Resume diet that case mgr discussed with you Disposition: HOME - Home Medications Comprehensive Discharge Medication List: Ambulatory Orders Atorvastatin Ca [Lipitor] 20 mg PO HS 05/14/18 Hydralazine HCl 50 mg PO BID 05/14/18 Losartan Potassium 100 mg PO DAILY 05/14/18 Alprazolam 200 mg PO BID PRN 05/15/18 Amlodipine Besylate 10 mg PO DAILY 05/15/18 Aspirin [ASA -] 81 mg PO DAILY 05/15/18 Fluticasone/Salmeterol [Advair Hfa 115-21 Mcg Inhaler] 2 inh PO BID 05/15/18 Insulin Glargine,Hum.rec.anlog [Lantus] 30 units SQ Q12H 05/15/18 Metformin HCl [Glucophage] 500 mg PO BID 05/15/18 Omeprazole Magnesium 40 mg PO DAILY 05/15/18 Polyvinyl Alcohol [Artificial Tears] 1 drop OU QID PRN 05/15/18 Timolol 0.5% [Timoptic 0.5%] 1 drop OU BID 05/15/18 Docusate Sodium [Colace -] 100 mg PO TID capsule 02/02/19 Insulin Sliding Scale [Novolog Vial Sliding Scale -] 1 vial SQ ACHS units 02/02 Losartan Potassium [Cozaar -] 100 mg PO DAILY #0 tablet 02/02/19 Montelukast Na [Singulair -] 10 mg PO HS tablet 02/02/19 Polyethylene Glycol 3350 [Miralax 119 gm Btl -] 17 gm PO DAILY bottle 02/02/19 Sodium Chloride Nasal [place] [[place] Nasal [place] -] 2 spray NS TID PRN spray 02/02/19 predniSONE [Deltasone -] 5 mg PO DAILY #3 tablet 02/02/19 predniSONE [Deltasone -] 10 mg PO DAILY #3 tablet 02/02/19 predniSONE [Deltasone -] 20 mg PO DAILY #3 tablet 02/02/19 predniSONE [Deltasone -] 30 mg PO DAILY #3 tablet 02/02/19 predniSONE [Deltasone -] 40 mg PO DAILY #3 tablet 02/02/19 - Discharge Referral Referred to [facility] No
[2019-02-03 08:22] LABS: BASO % 0.6 % (0-2.0); EOS % 0.4 % (0-4.5); HEMATOCRIT 33.2 % (32.4-45.2); HEMOGLOBIN 11.5 GM/dL (10.7-15.3); LYMPH % 20.9 % (8-40); MCH 29.5 pg (25.7-33.7); MCHC 34.7 g/dl (32.0-36.0); MEAN CELL VOLUME 85.1 fl (80-96); MEAN PLT VOLUME 9.4 fl (7.5-11.1); MONO % 5.3 % (3.8-10.2); NEUT % 72.8 % (42.8-82.8); PLATELET COUNT 289 K/MM3 (134-434); RBC 3.91 M/mm3 (3.60-5.2); RDW 14.9 % (11.6-15.6); WHITE BLOOD COUNT 11.3 K/mm3 (4.0-10.0)
[2019-02-03 08:51] LABS: ALBUMIN 3.1 g/dl (3.4-5.0); BILIRUBIN,TOTAL 0.2 mg/dL (0.2-1); CALCIUM 9.8 mg/dL (8.5-10.1); CREATININE 1.1 mg/dL (0.55-1.3); MAGNESIUM 2.4 mg/dL (1.8-2.4); POTASSIUM 4.2 mmol/L (3.5-5.1); TOT PROT 6.4 g/dl (6.4-8.2)
[2019-02-03] MEDS ORDERED: ALBUTEROL SO4 2.5/IPRATROPIUM 0.5 INH SOL 3 ML VIAL.NEB. NEB ONE (09:00)
[2019-02-03] MEDS: amLODIPine BESYLATE 10 MG TABLET (FP) PO SCH (09:44)
[2019-02-03] MEDS: predniSONE 20 MG TABLET (UD) PO SCH (09:45)
[2019-02-03] MEDS: HEPARIN NA (PORCINE) 5,000 UNITS/ML 1ML VIAL SQ SCH ×2 (09:45→21:20)
[2019-02-03] MEDS: ASPIRIN 81 MG CHEWABLE TABLETS PO SCH (09:45)
[2019-02-03] MEDS: hydrALAZINE HCL 50 MG TABLET (FP) PO SCH ×2 (09:45→21:19)
[2019-02-03] MEDS: LOSARTAN POTASSIUM 50 MG TABLET (FP) PO SCH (09:45)
[2019-02-03] MEDS: PANTOPRAZOLE 40 MG TABLET (FP) PO SCH (09:45)
[2019-02-03] MEDS: AZITHROMYCIN 250 MG TABLET PO SCH (09:46)
[2019-02-03] MEDS: TIMOLOL 0.5% OPHTHALMIC SOL 5 ML BOTTLE OU SCH ×2 (09:47→21:31)
[2019-02-03] MEDS: POLYETHYLENE GLYCOL 3350 119 GM BTL PO SCH (09:56)
[2019-02-03] MEDS ORDERED: PANTOPRAZOLE 40 MG TABLET (FP) PO SCH (10:00)
[2019-02-03] MEDS ORDERED: INSULIN (NOVOLOG) ASPART 100 UNITS/ML 10ML VIAL ONE ×2 (12:08→21:01)
[2019-02-03] MEDS: ALBUTEROL SO4 2.5/IPRATROPIUM 0.5 INH SOL 3 ML VIAL.NEB. NEB SCH ×3 (13:05→20:45)
--- NOTE | 2019-02-03 13:35 | PN ---
Progress Note (short form) - Note Progress Note: PULMONARY States breathing is improving but still with shortness of breath, cough and wheezing. Vital Signs Period Temp Pulse Resp BP Sys/Maurer Pulse Ox Last 24 Hr 97.6 F-98.1 F 66-74 18-20 126-147/58-76 95 Gen: NAD at rest Heart: RRR Lung: scattered wheezes Abd: soft, nontender Ext: no edema CBC, BMP 02/03/19 07:45 02/03/19 07:45 Active Medications Albuterol/Ipratropium (Duoneb -) 1 amp NEB RQ4H [facility] Stop: 02/03/19 20:01 Last Admin: 02/03/19 13:05 Dose: 1 amp Amlodipine Besylate (Norvasc -) 10 mg PO DAILY [facility] Last Admin: 02/03/19 09:44 Dose: 10 mg Artificial Tears (Artificial Tears) 1 drop OU QID PRN PRN Reason: DRY EYES Aspirin (Asa -) 81 mg PO DAILY [facility] Last Admin: 02/03/19 09:45 Dose: 81 mg Atorvastatin Calcium (Lipitor -) 20 mg PO HS [facility] Last Admin: 02/02/19 21:26 Dose: 20 mg Azithromycin (Zithromax -) 500 mg PO DAILY [facility] Last Admin: 02/03/19 09:46 Dose: 500 mg Docusate Sodium (Colace -) 100 mg PO TID [facility] Last Admin: 02/03/19 06:22 Dose: 100 mg Heparin Sodium (Porcine) (Heparin -) 5,000 unit SQ BID [facility] Last Admin: 02/03/19 09:45 Dose: 5,000 unit Hydralazine HCl (Apresoline -) 50 mg PO BID [facility] Last Admin: 02/03/19 09:45 Dose: 50 mg Insulin Aspart (Novolog Vial Sliding Scale -) 1 vial SQ ACHS [facility]; Protocol Last Admin: 02/03/19 12:22 Dose: 8 units Insulin Detemir (Levemir Vial) 30 units SQ 0700,2200 [facility] Losartan Potassium (Cozaar -) 100 mg PO DAILY [facility] Last Admin: 02/03/19 09:45 Dose: 100 mg Metformin HCl (Glucophage -) 500 mg PO BIDAC [facility] Montelukast Sodium (Singulair -) 10 mg PO [facility] Last Admin: 02/02/19 21:26 Dose: 10 mg Non-Formulary Medication (Fluticasone/Salmeterol [Advair Hfa 115-21 Mcg Inhaler] ) 2 inh PO BID [facility] Pantoprazole Sodium (Protonix -) 40 mg PO DAILY [facility] Last Admin: 02/03/19 09:45 Dose: 40 mg Polyethylene Glycol (Miralax (For Daily Use) -) 17 gm PO DAILY [facility] Last Admin: 02/03/19 09:56 Dose: 17 grams Prednisone (Deltasone -) 40 mg PO DAILY [facility] Stop: 02/05/19 10:01 Last Admin: 02/03/19 09:45 Dose: 40 mg Prednisone (Deltasone -) 30 mg PO DAILY [facility] Stop: 02/08/19 10:01 Prednisone (Deltasone -) 20 mg PO DAILY [facility] Stop: 02/11/19 10:01 Prednisone (Deltasone -) 10 mg PO DAILY [facility] Stop: 02/14/19 10:01 Prednisone (Deltasone -) 5 mg PO DAILY [facility] Stop: 02/17/19 10:01 Sodium Chloride ([place] Nasal [place] -) 2 spray NS TID PRN PRN Reason: NASAL CONGESTION Timolol Maleate (Timoptic 0.5%) 1 drop OU BID [facility] Last Admin: 02/03/19 09:47 Dose: 1 drop A/P Acute COPD Exacerbation Pneumonia Lung Nodule HTN DM Likely CYNDIE - continue antibiotics - prednisone taper - inhaled bronchodilators - O2 to keep SpO2 >90% - outpt f/u of chest imaging to ensure resolution of infiltrates - outpt PFTs, PSG - DVT prophylaxis
--- NOTE | 2019-02-03 14:24 | PN ---
Progress Note, Physician History of Present Illness: Pt seen and examined, events noted. Labs/imaging results reviewed. She states she is feeling better, has less cough. No other specific complaints. - Current Medication List Current Medications: Active Medications Albuterol/Ipratropium (Duoneb -) 1 amp NEB RQ4H [facility] Stop: 02/03/19 20:01 Last Admin: 02/03/19 13:05 Dose: 1 amp Amlodipine Besylate (Norvasc -) 10 mg PO DAILY [facility] Last Admin: 02/03/19 09:44 Dose: 10 mg Artificial Tears (Artificial Tears) 1 drop OU QID PRN PRN Reason: DRY EYES Aspirin (Asa -) 81 mg PO DAILY [facility] Last Admin: 02/03/19 09:45 Dose: 81 mg Atorvastatin Calcium (Lipitor -) 20 mg PO HS [facility] Last Admin: 02/02/19 21:26 Dose: 20 mg Docusate Sodium (Colace -) 100 mg PO TID [facility] Last Admin: 02/03/19 06:22 Dose: 100 mg Heparin Sodium (Porcine) (Heparin -) 5,000 unit SQ BID [facility] Last Admin: 02/03/19 09:45 Dose: 5,000 unit Hydralazine HCl (Apresoline -) 50 mg PO BID [facility] Last Admin: 02/03/19 09:45 Dose: 50 mg Insulin Aspart (Novolog Vial Sliding Scale -) 1 vial SQ ACHS [facility]; Protocol Last Admin: 02/03/19 12:22 Dose: 8 units Insulin Detemir (Levemir Vial) 30 units SQ 0700,2200 [facility] Losartan Potassium (Cozaar -) 100 mg PO DAILY [facility] Last Admin: 02/03/19 09:45 Dose: 100 mg Metformin HCl (Glucophage -) 500 mg PO BIDAC [facility] Montelukast Sodium (Singulair -) 10 mg PO HS [facility] Last Admin: 02/02/19 21:26 Dose: 10 mg Non-Formulary Medication (Fluticasone/Salmeterol [Advair Hfa 115-21 Mcg Inhaler] ) 2 inh PO BID [facility] Pantoprazole Sodium (Protonix -) 40 mg PO DAILY [facility] Last Admin: 02/03/19 09:45 Dose: 40 mg Polyethylene Glycol (Miralax (For Daily Use) -) 17 gm PO DAILY [facility] Last Admin: 02/03/19 09:56 Dose: 17 grams Prednisone (Deltasone -) 40 mg PO DAILY [facility] Stop: 02/05/19 10:01 Last Admin: 02/03/19 09:45 Dose: 40 mg Prednisone (Deltasone -) 30 mg PO DAILY [facility] Stop: 02/08/19 10:01 Prednisone (Deltasone -) 20 mg PO DAILY [facility] Stop: 02/11/19 10:01 Prednisone (Deltasone -) 10 mg PO DAILY [facility] Stop: 02/14/19 10:01 Prednisone (Deltasone -) 5 mg PO DAILY [facility] Stop: 02/17/19 10:01 Sodium Chloride ([place] Nasal [place] -) 2 spray NS TID PRN PRN Reason: NASAL CONGESTION Timolol Maleate (Timoptic 0.5%) 1 drop OU BID [facility] Last Admin: 02/03/19 09:47 Dose: 1 drop - Objective Vital Signs: Vital Signs Temperature 97.9 F 02/03/19 09:45 Pulse Rate 74 02/03/19 09:45 Respiratory Rate 20 02/03/19 09:45 Blood Pressure 126/65 02/03/19 09:45 O2 Sat by Pulse Oximetry (%) 95 02/02/19 21:00 Constitutional: Yes: No Distress, Calm Cardiovascular: Yes: Regular Rate and Rhythm Respiratory: Yes: Wheezes Gastrointestinal: Yes: Normal Bowel Sounds, Soft, Abdomen, Obese Extremities: Yes: WNL Integumentary: Yes: WNL Neurological: Yes: Alert, Oriented Labs: CBC, BMP 02/03/19 07:45 02/03/19 07:45 Problem List - Problems (1) Acute exacerbation of chronic obstructive pulmonary disease (COPD) Code(s): J44.1 - CHRONIC OBSTRUCTIVE PULMONARY DISEASE W (ACUTE) EXACERBATION (2) Diabetes Code(s): E11.9 - TYPE 2 DIABETES MELLITUS WITHOUT COMPLICATIONS (3) Hyperlipemia Code(s): E78.5 - HYPERLIPIDEMIA, UNSPECIFIED (4) Hypertension Code(s): I10 - ESSENTIAL (PRIMARY) HYPERTENSION (5) Obesity Code(s): E66.9 - OBESITY, UNSPECIFIED Qualifiers: Body mass index: BMI 45.0-49.9 (6) Pneumonia Code(s): J18.9 - PNEUMONIA, UNSPECIFIED ORGANISM Assessment/Plan Pneumonia Acute Asthma/COPD Exacerbation DM Obesity PRISCILLA -- pt clinically improving, afebrile -- d/c antibiotics -- on Prednisone -- Pulmonary following -- renal function improving
[2019-02-03] MEDS: metFORMIN HCL 500 MG TABLET (FP) PO SCH (16:49)
[2019-02-03 21:07] LABS: PLATELET ESTIMATE ADEQUATE
[2019-02-03] MEDS: MONTELUKAST NA 10 MG TABLET PO SCH (21:19)
[2019-02-03] MEDS: ATORVASTATIN CA 20 MG TABLET (FP) PO SCH (21:19)
[2019-02-03] MEDS ORDERED: PT OWN MED DRAWER 7, Y5N ONE ×2 (21:35→21:49)
[2019-02-03] MEDS: BUDESONIDE/FORMETEROL FUMARATE 80/4.5 mcg INHALER IH SCH (21:41)
--- NOTE | 2019-02-03 22:34 | PN ---
Progress Note, Physician Chief Complaint: SOB History of Present Illness: Patient is a 63 year old female with a significant past medical history of CKD, pneumonia, asthma (multiple hospitalizations for asthma), chronic UTIs, anxiety , hypertension, hyperlipidemia, obesity, COPD (ex smoker-no home oxygen), diabetes mellitus II and uterine fibroids. She presents to the ED after experiencing worsening shortness of breath and wheezing. She was at [facility] on and when the air conditioner was turned on, she felt as thought she could not breathe and began to cough. Since , she has had worsening shortness of breath with any physical exertion. On visit of 04/2018, patient became short of breath and was found to have bilateral pneumonia. On the 04/2018 hospitalization, she was transferred to the ICU for closer monitoring, but not intubated. In the ED she was given multiple breathing treatments, magnesium and steriods but patient still was not stable for discharge home. She is not home oxygen dependent. - Current Medication List Current Medications: Active Medications Amlodipine Besylate (Norvasc -) 10 mg PO DAILY [facility] Last Admin: 02/03/19 09:44 Dose: 10 mg Artificial Tears (Artificial Tears) 1 drop OU QID PRN PRN Reason: DRY EYES Aspirin (Asa -) 81 mg PO DAILY [facility] Last Admin: 02/03/19 09:45 Dose: 81 mg Atorvastatin Calcium (Lipitor -) 20 mg PO HS [facility] Last Admin: 02/03/19 21:19 Dose: 20 mg Budesonide/Formoterol Fumarate (Symbicort 80/4.5mcg -) 2 puff IH BID [facility] Last Admin: 02/03/19 21:41 Dose: 2 puff Docusate Sodium (Colace -) 100 mg PO TID [facility] Last Admin: 02/03/19 21:19 Dose: 100 mg Heparin Sodium (Porcine) (Heparin -) 5,000 unit SQ BID [facility] Last Admin: 02/03/19 21:20 Dose: 5,000 unit Hydralazine HCl (Apresoline -) 50 mg PO BID [facility] Last Admin: 02/03/19 21:19 Dose: 50 mg Insulin Aspart (Novolog Vial Sliding Scale -) 1 vial SQ ACHS [facility]; Protocol Last Admin: 02/03/19 21:21 Dose: 8 units Insulin Detemir (Levemir Vial) 30 units SQ 0700,2200 [facility] Last Admin: 02/03/19 21:22 Dose: 30 units Losartan Potassium (Cozaar -) 100 mg PO DAILY [facility] Last Admin: 02/03/19 09:45 Dose: 100 mg Metformin HCl (Glucophage -) 500 mg PO BIDAC [facility] Last Admin: 02/03/19 16:49 Dose: 500 mg Montelukast Sodium (Singulair -) 10 mg PO HS [facility] Last Admin: 02/03/19 21:19 Dose: 10 mg Pantoprazole Sodium (Protonix -) 40 mg PO DAILY [facility] Last Admin: 02/03/19 09:45 Dose: 40 mg Polyethylene Glycol (Miralax (For Daily Use) -) 17 gm PO DAILY [facility] Last Admin: 02/03/19 09:56 Dose: 17 grams Prednisone (Deltasone -) 40 mg PO DAILY [facility] Stop: 02/05/19 10:01 Last Admin: 02/03/19 09:45 Dose: 40 mg Prednisone (Deltasone -) 30 mg PO DAILY [facility] Stop: 02/08/19 10:01 Prednisone (Deltasone -) 20 mg PO DAILY [facility] Stop: 02/11/19 10:01 Prednisone (Deltasone -) 10 mg PO DAILY [facility] Stop: 02/14/19 10:01 Prednisone (Deltasone -) 5 mg PO DAILY [facility] Stop: 02/17/19 10:01 Sodium Chloride ([place] Nasal [place] -) 2 spray NS TID PRN PRN Reason: NASAL CONGESTION Timolol Maleate (Timoptic 0.5%) 1 drop OU BID [facility] Last Admin: 02/03/19 21:31 Dose: 1 drop - Objective Vital Signs: Vital Signs Temperature 97.6 F 02/03/19 18:42 Pulse Rate 62 02/03/19 18:42 Respiratory Rate 18 02/03/19 18:42 Blood Pressure 152/65 02/03/19 18:42 O2 Sat by Pulse Oximetry (%) 100 02/03/19 09:00 Constitutional: Yes: Well Nourished, No Distress, Calm Eyes: Yes: WNL, Conjunctiva Clear, EOM Intact HENT: Yes: WNL, Atraumatic, Normocephalic Neck: Yes: WNL, Supple, Trachea Midline Cardiovascular: Yes: WNL, Regular Rate and Rhythm Respiratory: Yes: Regular, Wheezes (R>L) Gastrointestinal: Yes: WNL, Normal Bowel Sounds, Soft, Abdomen, Obese ...Rectal Exam: Yes: Deferred Genitourinary: Yes: WNL Breast(s): Yes: WNL Musculoskeletal: Yes: WNL Extremities: Yes: WNL Edema: No Peripheral Pulses WNL: Yes Integumentary: Yes: WNL Neurological: Yes: WNL, Alert, Oriented ...Motor Strength: WNL Psychiatric: Yes: WNL, Alert, Oriented Labs: CBC, BMP 02/03/19 07:45 02/03/19 07:45 - ....Imaging Chest X-ray: Report Reviewed, Image Reviewed Problem List - Problems (1) Acute exacerbation of chronic obstructive pulmonary disease (COPD) Assessment/Plan: On duonebs and supplemental oxygen to maintain oxygen levels above 92% --continue prednisone taper continue as as outpt -ABX stopped yesterday-afebrile -outpt f/u of chest imaging to ensure resolution of infiltrates, outpt PFTs, PSG as per pulmonary Code(s): J44.1 - CHRONIC OBSTRUCTIVE PULMONARY DISEASE W (ACUTE) EXACERBATION (2) Asthma, chronic obstructive, with acute exacerbation Assessment/Plan: patient still with wheezing BL R>L continue duo nebs Code(s): J44.1 - CHRONIC OBSTRUCTIVE PULMONARY DISEASE W (ACUTE) EXACERBATION; J45.901 - UNSPECIFIED ASTHMA WITH (ACUTE) EXACERBATION (3) Diabetes Assessment/Plan: BG in mid 200-300, when on steroids, but 140S now -FS AC/HS -novolog SS -Levemir increased to 30 u BID to obtain better glycemic control (ranging form 200-340) -Given kaexylate yesterday for K 5.2-bad BM overnight and now $.4. Monitor K Code(s): E11.9 - TYPE 2 DIABETES MELLITUS WITHOUT COMPLICATIONS (4) Hyperlipemia Assessment/Plan: continue on home statin Code(s): E78.5 - HYPERLIPIDEMIA, UNSPECIFIED (5) Hypertension Assessment/Plan: BP stable -continue on home doses of cozaa, hydralazine, norvasc Code(s): I10 - ESSENTIAL (PRIMARY) HYPERTENSION (6) Obesity Code(s): E66.9 - OBESITY, UNSPECIFIED Qualifiers: Body mass index: BMI 45.0-49.9 (7) Pneumonia Assessment/Plan: BL infilatrates on CT chest, resolved completed abx course-no further nened as per Dr Suarez/ID -appreciate ID and pulmonary input Code(s): J18.9 - PNEUMONIA, UNSPECIFIED ORGANISM (8) Anxiety Assessment/Plan: continue with home dose of Xanax Code(s): F41.9 - ANXIETY DISORDER, UNSPECIFIED (9) Prophylactic measure Assessment/Plan: Prophy heparin bid protonix Dispp: maintain as inpatient full code dc tmrw if wheezing better Code(s): Z29.9 - ENCOUNTER FOR PROPHYLACTIC MEASURES, UNSPECIFIED (10) Hyperkalemia Assessment/Plan: resolved Code(s): E87.5 - HYPERKALEMIA Visit type - Emergency Visit Emergency Visit: Yes ED Registration Date: 01/27/19 Care time: The patient presented to the Emergency Department on the above date and was hospitalized for further evaluation of their emergent condition. - New Patient This patient is new to me today: No - Critical Care Critical Care patient: No - Discharge Referral Referred to [facility] No
[2019-02-03] MEDS ORDERED: ALBUTEROL SO4 2.5/IPRATROPIUM 0.5 INH SOL 3 ML VIAL.NEB. NEB PRN (22:37)
[2019-02-04] MEDS: metFORMIN HCL 500 MG TABLET (FP) PO SCH (06:25)
[2019-02-04] MEDS: DOCUSATE SODIUM 100 MG CAPSULE (FP) PO SCH ×2 (06:25→14:06)
[2019-02-04] MEDS: INSULIN (LEVEMIR) 100 UNITS/ML UNITS SQ SCH (06:26)
[2019-02-04] MEDS: INSULIN SLIDING SCALE (NOVOLOG) 1 VIAL SQ SCH ×2 (06:26→11:46)
[2019-02-04 06:40] LABS: BASO % 0.5 % (0-2.0); HEMATOCRIT 30.2 % (32.4-45.2); HEMOGLOBIN 10.5 GM/dL (10.7-15.3); LYMPH % 29.9 % (8-40); MCH 29.8 pg (25.7-33.7); MCHC 34.9 g/dl (32.0-36.0); MEAN CELL VOLUME 85.5 fl (80-96); MEAN PLT VOLUME 9.3 fl (7.5-11.1); NEUT % 60.6 % (42.8-82.8); RBC 3.54 M/mm3 (3.60-5.2); RDW 14.6 % (11.6-15.6); WHITE BLOOD COUNT 10.3 K/mm3 (4.0-10.0)
[2019-02-04 07:16] LABS: ALBUMIN 2.7 g/dl (3.4-5.0); BILIRUBIN,TOTAL 0.2 mg/dL (0.2-1); BLOOD UREA NITROGEN 33.5 mg/dL (7-18); CALCIUM 9.2 mg/dL (8.5-10.1); CREATININE 1.2 mg/dL (0.55-1.3); MAGNESIUM 2.3 mg/dL (1.8-2.4); POTASSIUM 3.7 mmol/L (3.5-5.1); TOT PROT 5.6 g/dl (6.4-8.2)
--- NOTE | 2019-02-04 08:16 | PN ---
Progress Note, Physician Chief Complaint: Patient feels improved comfortable History of Present Illness: 63 yrs old F morbidly obese , HTN, T2DM, CKD stgae 3 , COPD/asthma, HTN admitted with COPD exacerbation in the setting of Bronchitis, completed abx on prednisone taper. - Current Medication List Current Medications: Active Medications Albuterol/Ipratropium (Duoneb -) 1 amp NEB Q6H PRN PRN Reason: ASTHMA Amlodipine Besylate (Norvasc -) 10 mg PO DAILY [facility] Last Admin: 02/03/19 09:44 Dose: 10 mg Artificial Tears (Artificial Tears) 1 drop OU QID PRN PRN Reason: DRY EYES Aspirin (Asa -) 81 mg PO DAILY [facility] Last Admin: 02/03/19 09:45 Dose: 81 mg Atorvastatin Calcium (Lipitor -) 20 mg PO HS [facility] Last Admin: 02/03/19 21:19 Dose: 20 mg Budesonide/Formoterol Fumarate (Symbicort 80/4.5mcg -) 2 puff IH BID [facility] Last Admin: 02/03/19 21:41 Dose: 2 puff Docusate Sodium (Colace -) 100 mg PO TID [facility] Last Admin: 02/04/19 06:25 Dose: 100 mg Heparin Sodium (Porcine) (Heparin -) 5,000 unit SQ BID [facility] Last Admin: 02/03/19 21:20 Dose: 5,000 unit Hydralazine HCl (Apresoline -) 50 mg PO BID [facility] Last Admin: 02/03/19 21:19 Dose: 50 mg Insulin Aspart (Novolog Vial Sliding Scale -) 1 vial SQ ACHS [facility]; Protocol Last Admin: 02/04/19 06:26 Dose: Not Given Insulin Detemir (Levemir Vial) 30 units SQ 0700,2200 [facility] Last Admin: 02/04/19 06:26 Dose: 30 units Losartan Potassium (Cozaar -) 100 mg PO DAILY [facility] Last Admin: 02/03/19 09:45 Dose: 100 mg Metformin HCl (Glucophage -) 500 mg PO BIDAC [facility] Last Admin: 02/04/19 06:25 Dose: 500 mg Montelukast Sodium (Singulair -) 10 mg PO HS [facility] Last Admin: 02/03/19 21:19 Dose: 10 mg Pantoprazole Sodium (Protonix -) 40 mg PO DAILY [facility] Last Admin: 02/03/19 09:45 Dose: 40 mg Polyethylene Glycol (Miralax (For Daily Use) -) 17 gm PO DAILY [facility] Last Admin: 02/03/19 09:56 Dose: 17 grams Prednisone (Deltasone -) 40 mg PO DAILY [facility] Stop: 02/05/19 10:01 Last Admin: 02/03/19 09:45 Dose: 40 mg Prednisone (Deltasone -) 30 mg PO DAILY [facility] Stop: 02/08/19 10:01 Prednisone (Deltasone -) 20 mg PO DAILY [facility] Stop: 02/11/19 10:01 Prednisone (Deltasone -) 10 mg PO DAILY [facility] Stop: 02/14/19 10:01 Prednisone (Deltasone -) 5 mg PO DAILY [facility] Stop: 02/17/19 10:01 Sodium Chloride ([place] Nasal [place] -) 2 spray NS TID PRN PRN Reason: NASAL CONGESTION Timolol Maleate (Timoptic 0.5%) 1 drop OU BID [facility] Last Admin: 02/03/19 21:31 Dose: 1 drop - Objective Vital Signs: Vital Signs Temperature 98.1 F 02/03/19 22:00 Pulse Rate 63 02/03/19 22:00 Respiratory Rate 18 02/03/19 22:00 Blood Pressure 143/74 02/03/19 22:00 O2 Sat by Pulse Oximetry (%) 100 02/03/19 21:00 Middle aged F comfortable HEENT: Mm most, no anemia, PERRLA EOMI NECK: No JVD No Bruit CHEST: Conducted throat sound good AE CVS: S1S2 R ABD: obese, non teminder BS + EXT: Trace edema [employer]: AOX3 non focal Labs: CBC, BMP 02/04/19 05:50 02/04/19 05:50 Problem List - Problems (1) Acute exacerbation of chronic obstructive pulmonary disease (COPD) Assessment/Plan: Inproved with Po prednisone and abx cont current management completed abx cont Prednisone taper. Code(s): J44.1 - CHRONIC OBSTRUCTIVE PULMONARY DISEASE W (ACUTE) EXACERBATION (2) Diabetes Assessment/Plan: T2DM needs optimization of Glycemic control. Code(s): E11.9 - TYPE 2 DIABETES MELLITUS WITHOUT COMPLICATIONS (3) Hypertension Assessment/Plan: Well controlled needs spacing of meds Code(s): I10 - ESSENTIAL (PRIMARY) HYPERTENSION (4) Obesity Assessment/Plan: Nutrition consult sa out patient Code(s): E66.9 - OBESITY, UNSPECIFIED Qualifiers: Body mass index: BMI 45.0-49.9
[2019-02-04 09:02] VITALS: TEMP 98.3
[2019-02-04] MEDS: PANTOPRAZOLE 40 MG TABLET (FP) PO SCH (09:03)
[2019-02-04] MEDS: predniSONE 20 MG TABLET (UD) PO SCH (09:03)
[2019-02-04] MEDS: amLODIPine BESYLATE 10 MG TABLET (FP) PO SCH ×2 (09:04→11:46)
[2019-02-04] MEDS: BUDESONIDE/FORMETEROL FUMARATE 80/4.5 mcg INHALER IH SCH (09:04)
[2019-02-04] MEDS: hydrALAZINE HCL 50 MG TABLET (FP) PO SCH (09:04)
[2019-02-04] MEDS: LOSARTAN POTASSIUM 50 MG TABLET (FP) PO SCH ×2 (09:04→09:48)
[2019-02-04] MEDS: ASPIRIN 81 MG CHEWABLE TABLETS PO SCH (09:04)
[2019-02-04] MEDS: TIMOLOL 0.5% OPHTHALMIC SOL 5 ML BOTTLE OU SCH (09:07)
[2019-02-04] MEDS: HEPARIN NA (PORCINE) 5,000 UNITS/ML 1ML VIAL SQ SCH (09:08)
[2019-02-04] MEDS: POLYETHYLENE GLYCOL 3350 119 GM BTL PO SCH (09:10)
[2019-02-04 09:25] LABS: ANISOCYTOSIS 2+; MACROCYTOSIS 0; OVALOCYTE 1+; PLATELET ESTIMATE NORMAL; TARGET CELLS 1+; TEAR DROP CELLS 1+
[2019-02-04 09:54] LABS: PLATELET COUNT 259.9 K/MM3 (134-434)
[2019-02-04 11:49] VITALS: BP 130/61; PULSE 60
--- NOTE | 2019-02-04 13:49 | PN ---
Progress Note (short form) - Note Progress Note: PULMONARY States breathing is improving but still with mild shortness of breath, cough and wheezing. Vital Signs Period Temp Pulse Resp BP Sys/Maurer Pulse Ox Last 24 Hr 97.6 F-98.3 F 56-68 18-20 102-152/50-74 100 Gen: NAD at rest Heart: RRR Lung: scattered wheezes Abd: soft, nontender Ext: no edema CBC, BMP 02/04/19 05:50 02/04/19 05:50 Active Medications Albuterol/Ipratropium (Duoneb -) 1 amp NEB Q6H PRN PRN Reason: ASTHMA Amlodipine Besylate (Norvasc -) 10 mg PO DAILY [facility] Last Admin: 02/04/19 11:46 Dose: 10 mg Artificial Tears (Artificial Tears) 1 drop OU QID PRN PRN Reason: DRY EYES Aspirin (Asa -) 81 mg PO DAILY [facility] Last Admin: 02/04/19 09:04 Dose: 81 mg Atorvastatin Calcium (Lipitor -) 20 mg PO HS [facility] Last Admin: 02/03/19 21:19 Dose: 20 mg Budesonide/Formoterol Fumarate (Symbicort 80/4.5mcg -) 2 puff IH BID [facility] Last Admin: 02/04/19 09:04 Dose: 2 puff Docusate Sodium (Colace -) 100 mg PO TID [facility] Last Admin: 02/04/19 06:25 Dose: 100 mg Heparin Sodium (Porcine) (Heparin -) 5,000 unit SQ BID [facility] Last Admin: 02/04/19 09:08 Dose: 5,000 unit Hydralazine HCl (Apresoline -) 50 mg PO BID [facility] Last Admin: 02/04/19 09:04 Dose: Not Given Insulin Aspart (Novolog Vial Sliding Scale -) 1 vial SQ ACHS [facility]; Protocol Last Admin: 02/04/19 11:46 Dose: Not Given Insulin Detemir (Levemir Vial) 30 units SQ 0700,2200 [facility] Last Admin: 02/04/19 06:26 Dose: 30 units Losartan Potassium (Cozaar -) 100 mg PO DAILY [facility] Last Admin: 02/04/19 09:48 Dose: 100 mg Metformin HCl (Glucophage -) 500 mg PO BIDAC [facility] Last Admin: 02/04/19 06:25 Dose: 500 mg Montelukast Sodium (Singulair -) 10 mg PO HS [facility] Last Admin: 02/03/19 21:19 Dose: 10 mg Pantoprazole Sodium (Protonix -) 40 mg PO DAILY [facility] Last Admin: 02/04/19 09:03 Dose: 40 mg Polyethylene Glycol (Miralax (For Daily Use) -) 17 gm PO DAILY [facility] Last Admin: 02/04/19 09:10 Dose: 17 grams Prednisone (Deltasone -) 40 mg PO DAILY [facility] Stop: 02/05/19 10:01 Last Admin: 02/04/19 09:03 Dose: 40 mg Prednisone (Deltasone -) 30 mg PO DAILY [facility] Stop: 02/08/19 10:01 Prednisone (Deltasone -) 20 mg PO DAILY [facility] Stop: 02/11/19 10:01 Prednisone (Deltasone -) 10 mg PO DAILY [facility] Stop: 02/14/19 10:01 Prednisone (Deltasone -) 5 mg PO DAILY [facility] Stop: 02/17/19 10:01 Sodium Chloride ([place] Nasal [place] -) 2 spray NS TID PRN PRN Reason: NASAL CONGESTION Timolol Maleate (Timoptic 0.5%) 1 drop OU BID [facility] Last Admin: 02/04/19 09:07 Dose: 1 drop A/P Acute COPD Exacerbation Pneumonia Lung Nodule HTN DM Likely CYNDIE - continue antibiotics - prednisone taper - inhaled bronchodilators - O2 to keep SpO2 >90% - outpt f/u of chest imaging to ensure resolution of infiltrates - outpt PFTs, PSG - DVT prophylaxis - d/c planning
--- NOTE | 2019-02-04 14:36 | PN ---
Progress Note, Physician History of Present Illness: Pt is alert, doing well. No SOB, cough improved. For d/c home today. - Current Medication List Current Medications: Active Medications Albuterol/Ipratropium (Duoneb -) 1 amp NEB Q6H PRN PRN Reason: ASTHMA Amlodipine Besylate (Norvasc -) 10 mg PO DAILY [facility] Last Admin: 02/04/19 11:46 Dose: 10 mg Artificial Tears (Artificial Tears) 1 drop OU QID PRN PRN Reason: DRY EYES Aspirin (Asa -) 81 mg PO DAILY [facility] Last Admin: 02/04/19 09:04 Dose: 81 mg Atorvastatin Calcium (Lipitor -) 20 mg PO HS [facility] Last Admin: 02/03/19 21:19 Dose: 20 mg Budesonide/Formoterol Fumarate (Symbicort 80/4.5mcg -) 2 puff IH BID [facility] Last Admin: 02/04/19 09:04 Dose: 2 puff Docusate Sodium (Colace -) 100 mg PO TID [facility] Last Admin: 02/04/19 14:06 Dose: 100 mg Heparin Sodium (Porcine) (Heparin -) 5,000 unit SQ BID [facility] Last Admin: 02/04/19 09:08 Dose: 5,000 unit Hydralazine HCl (Apresoline -) 50 mg PO BID [facility] Last Admin: 02/04/19 09:04 Dose: Not Given Insulin Aspart (Novolog Vial Sliding Scale -) 1 vial SQ [facility]; Protocol Last Admin: 02/04/19 11:46 Dose: Not Given Insulin Detemir (Levemir Vial) 30 units SQ 0700,2200 [facility] Last Admin: 02/04/19 06:26 Dose: 30 units Losartan Potassium (Cozaar -) 100 mg PO DAILY [facility] Last Admin: 02/04/19 09:48 Dose: 100 mg Metformin HCl (Glucophage -) 500 mg PO BIDAC [facility] Last Admin: 02/04/19 06:25 Dose: 500 mg Montelukast Sodium (Singulair -) 10 mg PO HS [facility] Last Admin: 02/03/19 21:19 Dose: 10 mg Pantoprazole Sodium (Protonix -) 40 mg PO DAILY [facility] Last Admin: 02/04/19 09:03 Dose: 40 mg Polyethylene Glycol (Miralax (For Daily Use) -) 17 gm PO DAILY [facility] Last Admin: 02/04/19 09:10 Dose: 17 grams Prednisone (Deltasone -) 40 mg PO DAILY [facility] Stop: 02/05/19 10:01 Last Admin: 02/04/19 09:03 Dose: 40 mg Prednisone (Deltasone -) 30 mg PO DAILY [facility] Stop: 02/08/19 10:01 Prednisone (Deltasone -) 20 mg PO DAILY [facility] Stop: 02/11/19 10:01 Prednisone (Deltasone -) 10 mg PO DAILY [facility] Stop: 02/14/19 10:01 Prednisone (Deltasone -) 5 mg PO DAILY [facility] Stop: 02/17/19 10:01 Sodium Chloride ([place] Nasal [place] -) 2 spray NS TID PRN PRN Reason: NASAL CONGESTION Timolol Maleate (Timoptic 0.5%) 1 drop OU BID [facility] Last Admin: 02/04/19 09:07 Dose: 1 drop - Objective Vital Signs: Vital Signs Temperature 98.3 F 02/04/19 08:59 Pulse Rate 60 02/04/19 11:45 Respiratory Rate 20 02/04/19 11:45 Blood Pressure 130/61 02/04/19 11:45 O2 Sat by Pulse Oximetry (%) 100 02/03/19 21:00 Constitutional: Yes: No Distress, Calm Cardiovascular: Yes: Regular Rate and Rhythm Respiratory: Yes: Wheezes (minimal) Gastrointestinal: Yes: Normal Bowel Sounds, Soft, Abdomen, Obese Genitourinary: Yes: WNL Integumentary: Yes: WNL Neurological: Yes: Alert Labs: CBC, BMP 02/04/19 05:50 02/04/19 05:50 Problem List - Problems (1) Acute exacerbation of chronic obstructive pulmonary disease (COPD) Code(s): J44.1 - CHRONIC OBSTRUCTIVE PULMONARY DISEASE W (ACUTE) EXACERBATION (2) Diabetes Code(s): E11.9 - TYPE 2 DIABETES MELLITUS WITHOUT COMPLICATIONS (3) Hyperlipemia Code(s): E78.5 - HYPERLIPIDEMIA, UNSPECIFIED (4) Hypertension Code(s): I10 - ESSENTIAL (PRIMARY) HYPERTENSION (5) Obesity Code(s): E66.9 - OBESITY, UNSPECIFIED Qualifiers: Body mass index: BMI 45.0-49.9 (6) Pneumonia Code(s): J18.9 - PNEUMONIA, UNSPECIFIED ORGANISM Assessment/Plan Pneumonia Acute Asthma/COPD Exacerbation DM Obesity PRISCILLA - improved -- pt clinically improving, no respiratory distress -- completed course of antibiotics -- on Prednisone -- Pulmonary follow up f/u with PMD as outpt, repeat imaging as outpt to assess for resolution of infiltrates
[2019-02-06] MEDS ORDERED: predniSONE 10 MG TABLET (UD) PO SCH (10:00)
[2019-02-09] MEDS ORDERED: predniSONE 20 MG TABLET (UD) PO SCH (10:00)
[2019-02-12] MEDS ORDERED: predniSONE 10 MG TABLET (UD) PO SCH (10:00)
[2019-02-15] MEDS ORDERED: predniSONE 5 MG TABLET (UD) PO SCH (10:00)
== END 2019-02-04 15:31 | disposition home or self-care (01) | DRG 193 ==
LOC: JER 13:56 → JERBED 16:27 → J5S 19:05
PROVIDERS: ADMIT Internal Medicine; ATTEND Internal Medicine
DX: J18.9 Pneumonia, unspecified organism (principal); J96.90 Respiratory failure, unspecified, unspecified whether with hypoxia or hypercapnia; J44.1 Chronic obstructive pulmonary disease with (acute) exacerbation; Z68.42 Body mass index [BMI] 45.0-49.9, adult; N17.9 Acute kidney failure, unspecified; J45.901 Unspecified asthma with (acute) exacerbation; E66.01 Morbid (severe) obesity due to excess calories; N18.3 Chronic kidney disease, stage 3 (moderate); E78.5 Hyperlipidemia, unspecified; R91.8 Other nonspecific abnormal finding of lung field; I12.9 Hypertensive chronic kidney disease with stage 1 through stage 4 chronic kidney disease, or unspecified chronic kidney disease; E11.22 Type 2 diabetes mellitus with diabetic chronic kidney disease; E87.5 Hyperkalemia; F41.9 Anxiety disorder, unspecified
CPT/HCPCS: 36415; 71045-TC-FY; 71250-TC; 80053; 80061; 82009; 82550; 82553; 82962; 83036; 83721; 83735; 83880; 84484; 85025; 85027; 87040; 87070; 87205; 87899; 93005; 93010; 94640; 99283-25; J1644

== ENCOUNTER 2019-02-21 16:23 | Emergency (ER) | payer OTHER ==
[2019-02-21] MEDS ORDERED: ASPIRIN 81 MG CHEWABLE TABLETS PO ONE (16:39)
--- NOTE | 2019-02-21 16:40 | PDOC ---
Rapid Medical Evaluation Time Seen by Provider: 02/21/19 16:37 Medical Evaluation: Allergies Allergy/AdvReac Type Severity Reaction Status Date / Time ranitidine [From Zantac] Allergy Intermediate Hives Verified 01/27/19 13:59 metronidazole [From Flagyl] Allergy Mild Hives Verified 01/27/19 13:59 Metronidazole HCl Allergy Mild Hives Verified 01/27/19 13:59 [From Flagyl] Penicillins Allergy Mild Hives Verified 01/27/19 13:59 02/21/19 16:37 HPI: Recently discharged with pneumonia 02/04, now having R eye redness and SOB, CP last night PE: No gross deficits, R eye erythema ORDERS: Cardiac work up Discharge Disposition - Diagnosis Chest pain - Referrals - Patient Instructions - Post Discharge Activity
[2019-02-21 16:43] VITALS: BP 102/48; PULSE 60; TEMP 98.2; BMI 44.2
[2019-02-21] MEDS ORDERED: ASPIRIN 81 MG CHEWABLE TABLETS ONE (17:02)
[2019-02-21 17:33] LABS: EOS % 8.5 % (0-4.5); HEMATOCRIT 31.1 % (32.4-45.2); HEMOGLOBIN 10.4 GM/dL (10.7-15.3); LYMPH % 35.5 % (8-40); MCH 29.8 pg (25.7-33.7); MCHC 33.4 g/dl (32.0-36.0); MEAN CELL VOLUME 89.3 fl (80-96); MEAN PLT VOLUME 9.8 fl (7.5-11.1); MONO % 7.1 % (3.8-10.2); NEUT % 47.9 % (42.8-82.8); PLATELET COUNT 207 K/MM3 (134-434); RBC 3.49 M/mm3 (3.60-5.2); RDW 15.8 % (11.6-15.6); WHITE BLOOD COUNT 4.9 K/mm3 (4.0-10.0)
--- NOTE | 2019-02-21 17:36 | PDOC ---
History of Present Illness - General Chief Complaint: Shortness of Breath Stated Complaint: COPD Time Seen by Provider: 02/21/19 16:37 History Source: Patient Exam Limitations: No Limitations - History of Present Illness Initial Comments: 02/21/19 17:57 63 year old female with PMH obesity, HTN, HLD, DM, CKD, pneumonia, COPD, glaucoma presented to ED for right eye redness since she awoke this AM. Pt denied eye discharge, eye pain. Pt also admitted to SOB, NAVARRO, lower extremity swelling since her recent discharge from [facility] for pneumonia. Pt reported she was on a strict no salt diet in the hospital, which improved her LE swelling, but since discharge she has "cheated" on her diet and eaten more salt. Past History - Past Medical History Allergies/Adverse Reactions: Allergies Allergy/AdvReac Type Severity Reaction Status Date / Time ranitidine [From Zantac] Allergy Intermediate Hives Verified 02/21/19 16:39 metronidazole [From Flagyl] Allergy Mild Hives Verified 02/21/19 16:39 Metronidazole HCl Allergy Mild Hives Verified 02/21/19 16:39 [From Flagyl] Penicillins Allergy Mild Hives Verified 02/21/19 16:39 Home Medications: Ambulatory Orders Atorvastatin Ca [Lipitor] 20 mg PO HS 05/14/18 Hydralazine HCl 50 mg PO BID 05/14/18 Losartan Potassium 100 mg PO DAILY 05/14/18 Alprazolam 200 mg PO BID PRN 05/15/18 Amlodipine Besylate 10 mg PO DAILY 05/15/18 Aspirin [ASA -] 81 mg PO DAILY 05/15/18 Fluticasone/Salmeterol [Advair Hfa 115-21 Mcg Inhaler] 2 inh PO BID 05/15/18 Insulin Glargine,Hum.rec.anlog [Lantus] 30 units SQ Q12H 05/15/18 Metformin HCl [Glucophage] 500 mg PO BID 05/15/18 Omeprazole Magnesium 40 mg PO DAILY 05/15/18 Polyvinyl Alcohol [Artificial Tears] 1 drop OU QID PRN 05/15/18 Timolol 0.5% [Timoptic 0.5%] 1 drop OU BID 05/15/18 Docusate Sodium [Colace -] 100 mg PO TID capsule 02/02/19 Insulin Sliding Scale [Novolog Vial Sliding Scale -] 1 vial SQ ACHS units 02/02 Losartan Potassium [Cozaar -] 100 mg PO DAILY #0 tablet 02/02/19 Montelukast Na [Singulair -] 10 mg PO HS tablet 02/02/19 Polyethylene Glycol 3350 [Miralax 119 gm Btl -] 17 gm PO DAILY bottle 02/02/19 Sodium Chloride Nasal [place] [[place] Nasal [place] -] 2 spray NS TID PRN spray 02/02/19 predniSONE [Deltasone -] 5 mg PO DAILY #3 tablet 02/02/19 predniSONE [Deltasone -] 10 mg PO DAILY #3 tablet 02/02/19 predniSONE [Deltasone -] 20 mg PO DAILY #3 tablet 02/02/19 predniSONE [Deltasone -] 30 mg PO DAILY #3 tablet 02/02/19 predniSONE [Deltasone -] 40 mg PO DAILY #3 tablet 02/02/19 Albuterol Sulfate Inhaler - [Ventolin HFA Inhaler -] 1 - 2 inh PO Q4H #1 inhaler 02/22/19 Anemia: Yes Asthma: Yes COPD: No Dementia: No Diabetes: Yes Disorders: Yes (UTI) HTN: Yes Hypercholesterolemia: Yes Psychiatric Problems: Yes (ANXIETY.) - Surgical History Abdominal Surgery: Yes - Immunization History Immunization Up to Date: Yes - Suicide/Smoking/Psychosocial Hx Smoking Status: Yes Smoking History: Never smoked Have you smoked in the past 12 months: No Number of Cigarettes Smoked Daily: 10 If you are a former smoker, when did you quit?: 2012 Information on smoking cessation initiated: No Hx Alcohol Use: No Drug/Substance Use Hx: No Substance Use Type: None Hx Substance Use Treatment: No Review of Systems - Review of Systems Able to Perform ROS?: Yes Comments:: 02/21/19 17:55 General: denied fever, chills, generalized weakness. HEENT: denied sore throat, rhinorrhea, ear pain. Eyes: admitted to right eye redness. Heart: admitted to lower extremity swelling. denied chest pain, palpitations, syncope, diaphoresis. Respiratory: admitted to shortness of breath. denied cough, sputum production, hemoptysis. Abdomen: denied abdominal pain, nausea, vomiting, diarrhea, constipation, blood in stool. : denied dysuria, increased urinary frequency, hematuria, urinary incontinence , flank pain. Back: denied back pain. Musculoskeletal: denied joint pain, muscle pain, joint swelling. Neurological: denied headache, dizziness, numbness, tingling, weakness. Skin: denied rash, laceration, abrasion. *Physical Exam - Vital Signs Last Vital Signs Temp Pulse Resp BP Pulse Ox 98.2 F 60 17 102/48 L 97 02/21/19 16:39 02/21/19 16:39 02/21/19 16:39 02/21/19 16:39 02/21/19 17:27 - Physical Exam Comments: 02/21/19 17:55 Constitutional: Well-nourished, Well-developed, appearing stated age. obese. HEENT: head is normocephalic, atraumatic. EOMI. PERRLA. subconjuctival hematoma to right sclera. Neck: supple. Full ROM. Heart: regular rhythm. no murmurs, rubs or gallops. Lungs: clear to auscultation bilaterally. no crackles, rhonchi or wheezing. no stridor. Abdomen: soft, nontender. normal bowel sounds. no rebound, guarding, masses. Extremities: peripheral pulses intact. 4+ pitting edema bilaterally. Neurological: CN 2-12 grossly intact. moves all four extremities. Psych: awake, alert, oriented x3. follows commands. answers questions appropriately. ED Treatment Course - LABORATORY CBC & Chemistry Diagram: 02/21/19 17:03 02/21/19 21:32 - ADDITIONAL ORDERS Additional order review: Laboratory Results 02/21/19 17:03 PT with INR Cancelled INR Cancelled - Medications Given in the ED: ED Medications Discontinued Medications Generic Name Dose Route Start Last Admin Trade Name Demi PRN Reason Stop Dose Admin Aspirin 162 mg 02/21/19 16:39 02/21/19 17:03 Asa - PO 02/21/19 16:40 162 mg ONCE ONE Administration Medical Decision Making - Medical Decision Making 02/21/19 17:56 63 year old female with above PMH presented to ED for right eye redness since this AM. Pt also reported SOB and lower extremity swelling since discharge. Initial Vital Signs Temp Pulse Resp BP Pulse Ox 98.2 F 60 17 102/48 L 97 02/21/19 16:39 02/21/19 16:39 02/21/19 16:39 02/21/19 16:39 02/21/19 16:39 Afebrile. No tachycardia. No tachypnea. Mild hypotension. No hypoxia on room air. Labs ordered: CBC, CMP, troponin, BNP, mag, coags Medications ordered: duonebx1, ASA 162 mg PO chew once Imaging ordered: CXR COPD vs CHF vs PNA vs ACS vs electrolyte abnormality. EKG performed at 1719: rate 58, regular rhythm, normal axis, normal intervals, flat T V1/aVF, flipped T III. EKG comparison performed 02/02/19 - flat T in aVF. flipped T in III. 02/21/19 18:02 CBC WBC 4.9 K/mm3 (4.0-10.0) 02/21/19 17:03 RBC 3.49 M/mm3 (3.60-5.2) L 02/21/19 17:03 Hgb 10.4 GM/dL (10.7-15.3) L 02/21/19 17:03 Hct 31.1 % (32.4-45.2) L 02/21/19 17:03 MCV 89.3 fl (80-96) 02/21/19 17:03 MCH 29.8 pg (25.7-33.7) 02/21/19 17:03 MCHC 33.4 g/dl (32.0-36.0) 02/21/19 17:03 RDW 15.8 % (11.6-15.6) H 02/21/19 17:03 Plt Count 207 K/MM3 (134-434) D 02/21/19 17:03 MPV 9.8 fl (7.5-11.1) 02/21/19 17:03 Absolute Neuts (auto) 2.3 K/mm3 (1.5-8.0) 02/21/19 17:03 Neutrophils % 47.9 % (42.8-82.8) D 02/21/19 17:03 Lymphocytes % 35.5 % (8-40) 02/21/19 17:03 Monocytes % 7.1 % (3.8-10.2) 02/21/19 17:03 Eosinophils % 8.5 % (0-4.5) H D 02/21/19 17:03 Basophils % 1.0 % (0-2.0) 02/21/19 17:03 Nucleated RBC % 0 % (0-0) 02/21/19 17:03 No leukocytosis. Mild normocytic anemia. Eosinophilia. CMP and coags hemolyzed. Pending re-draw. 02/21/19 19:00 [facility] Dr[facility] W[facility]. Appreciate his note. Pending: -CMP -VBG -CXR -Disposition *DC/Admit/Observation/Transfer Diagnosis at time of Disposition: Chest pain, Asthma, chronic obstructive, with acute exacerbation, Shortness of breath, Subconjunctival hematoma - Discharge Dispostion Disposition: HOME Condition at time of disposition: Improved - Prescriptions Prescriptions: Albuterol Sulfate Inhaler - [Ventolin HFA Inhaler -] 1 - 2 inh PO Q4H #1 inhaler - Referrals Referrals: Rosie Mosher [Primary Care Provider] - Noman Pastrana MD [Staff Physician] - Berlin Gonzalez MD [Staff Physician] - - Patient Instructions Printed Discharge Instructions: DI for Asthma -- Adult, DI for Subconjunctival Hemorrhage Additional Instructions: You came into the ER with a red eye. We believe this is a sub-conjunctival hemorrhage. Please see attached handout for further explanation. We also believe you were experiencing an asthma exacerbation today. Please make sure to follow up with your primary care doctor in the next 2 days like we discussed. Come back to the Er immediately if your pain worsens, you have chest pain, shortness of breath or difficulty breathing, or any other new or worsening concerns. Thank you for coming to the [facility] ER. We hope you feel better soon! Print Language: PALESTINIAN - Post Discharge Activity
[2019-02-21] MEDS ORDERED: ALBUTEROL SO4 2.5/IPRATROPIUM 0.5 INH SOL 3 ML VIAL.NEB. NEB ONE ×5 (18:07→23:19)
[2019-02-21 18:41] LABS: VENOUS PH 7.32 (7.31-7.41)
[2019-02-21 18:43] LABS: PROTHROMBIN TIME (PATIENT) 11.8 SEC (9.7-13.0)
[2019-02-21 18:45] LABS: ACTIVATED PTT 30.1 SECONDS (25.2-36.5)
--- NOTE | 2019-02-21 19:08 | PDOC ---
Documentation entered by Chel Garrett SCRIBE, acting as scribe for Annamaria Butler MD. Annamaria Butler MD: This documentation has been prepared by the Gerry narayanan Adrianna, SCRIBE, under my direction and personally reviewed by me in its entirety. I confirm that the documentation accurately reflects all work, treatment, procedures, and medical decision making performed by me. Attending Attestation - Resident Resident Name: Neda Lynn - ED Attending Attestation I have performed the following: I have examined & evaluated the patient, The case was reviewed & discussed with the resident, I agree w/resident's findings & plan, Exceptions are as noted - HPI HPI: The patient is a 63 year old female, with a significant PMH of HTN, HLD, DM, CKD , COPD, pneumonia, obesity, and glaucoma, who presents to the ED for bilateral leg swelling, SOB, and dyspnea since her discharge for pneumonia for 3 weeks, and right eye erythema for one day. Patient complains of shortness of breath, dyspnea on exertion, and bilateral LE since she was discharged from [facility] this month for pneumonia. She states her edema worsened after eating popeyes when she was on a no-salt diet. Patient notes her right eye was red this morning, but denies any pain or itching of the eye. The developing of erythema in the eye is what prompted her visit to the ED today. Allergies: Ranitidine, metronidazole, penicillins Surgical History: None reported Social History: None reported PCP: NOS 02/21/19 18:59 - Physicial Exam PE: GENERAL: +Tearful. +Obese. Awake, alert, and oriented. The patient is in no acute distress. HEAD: Normal with no signs of trauma. EYES: PERRLA, EOMI, sclera anicteric, conjunctiva clear. ENT: Ears normal, nares patent, oropharynx clear without exudates. Moist mucous membranes. NECK: Normal range of motion, supple without lymphadenopathy, JVD, or masses. LUNGS: +Respiratory wheezing. Breath sounds equal, clear to auscultation bilaterally. No crackles. HEART:Regular rate and rhythm, normal S1 and S2 without murmur, rub or gallop. ABDOMEN: +Obese. Soft, nontender, normoactive bowel sounds. No guarding, no rebound. No masses palpable. EXTREMITIES: +BIlateral 3+ pitting edema of the lower extremities. Normal range of motion. No clubbing or cyanosis. No erythema, or tenderness. NEUROLOGICAL: Cranial nerves II through XII grossly intact. Normal speech. No focal neurological deficits. MUSCULOSKELETAL: Back non-tender to palpation, no CVA tenderness SKIN: Warm, Dry, normal turgor, no rashes or lesions noted. 02/21/19 19:06 - Medical Decision Making 02/23/19 14:41 63 yo F presenting with a complaint of shortness of breath Pt admits that she has been non compliant with a low sodium diet When this happens , she notes leg swelling She denies fevers or chills She denies recent travel 02/23/19 14:44 DD: CHF, COPD, Pneumonia, Bronchitis Will do: labs, CXR, Neb treatments, Re Assess Pt signed out to the [facility] team pending Labs, CXR, Re Assessment
[2019-02-21 22:16] LABS: ALBUMIN 3.1 g/dl (3.4-5.0); ALK PHOS 69 U/L (45-117); ANION GAP 6 MMOL/L (8-16); BILIRUBIN,TOTAL 0.2 mg/dL (0.2-1); BLOOD UREA NITROGEN 21.5 mg/dL (7-18); CALCIUM 9.6 mg/dL (8.5-10.1); CHLORIDE 108 mmol/L (98-107); CO2 28 mmol/L (21-32); CREATININE 1.2 mg/dL (0.55-1.3); GLUCOSE,RANDOM 117 mg/dL (74-106); N-TERMINAL BNP 53.6 pg/ml (5-125); POTASSIUM 4.2 mmol/L (3.5-5.1); SGOT/AST 12 U/L (15-37); SGPT/ALT 20 U/L (13-61); SODIUM 142 mmol/L (136-145); TOT PROT 6.4 g/dl (6.4-8.2)
[2019-02-21] MEDS ORDERED: DEXAMETHASONE SOD PHOSPHATE 10 MG/1 ML VIAL IVPUSH ONE (22:43)
[2019-02-21] MEDS ORDERED: DEXAMETHASONE SOD PHOSPHATE 10 MG/1 ML VIAL ONE (23:25)
--- NOTE | 2019-02-21 23:42 | PDOC ---
*Physical Exam - Vital Signs Last Vital Signs Temp Pulse Resp BP Pulse Ox 98.2 F 60 17 102/48 L 97 02/21/19 16:39 02/21/19 16:39 02/21/19 16:39 02/21/19 16:39 02/21/19 17:27 - Physical Exam General Appearance: Yes: Nourished, Appropriately Dressed. No: Apparent Distress HEENT: positive: Normal ENT Inspection, Normal Voice Neck: positive: Supple Respiratory/Chest: positive: Labored Respiration, Wheezing (right sided) Cardiovascular: positive: Regular Rhythm, Regular Rate Vascular Pulses: Dorsalis-Pedis (R): 2+, Doralis-Pedis (L): 2+ Gastrointestinal/Abdominal: positive: Soft Lymphatic: negative: Adenopathy Musculoskeletal: positive: Normal Inspection. negative: CVA Tenderness Extremity: positive: Normal Capillary Refill, Normal Inspection, Normal Range of Motion Integumentary: positive: Normal Color, Dry, Warm Neurologic: positive: Fully Oriented, Alert, Normal Mood/Affect, Normal Response , Motor Strength /5 ED Treatment Course - LABORATORY CBC & Chemistry Diagram: 02/21/19 17:03 02/21/19 21:32 - ADDITIONAL ORDERS Additional order review: Laboratory Results 02/21/19 02/21/19 02/21/19 21:32 18:19 18:17 PT with INR INR PTT (Actin FS) VBG pH 7.32 POC VBG pCO2 55.0 H POC VBG pO2 46.0 H VBG HCO3 27.2 VBG O2 Sat (Lani) 77.1 VBG Base Excess 1.0 Sodium 142 Potassium 4.2 Chloride 108 H Carbon Dioxide 28 Anion Gap 6 L BUN 21.5 H Creatinine 1.2 Est GFR (CKD-EPI)AfAm 56.49 Est GFR (CKD-EPI)NonAf 48.74 Random Glucose 117 H Calcium 9.6 Magnesium 1.8 Total Bilirubin 0.2 AST 12 L ALT 20 Alkaline Phosphatase 69 Creatine Kinase Troponin I < 0.02 B-Natriuretic Peptide 53.6 Total Protein 6.4 Albumin 3.1 L 02/21/19 02/21/19 02/21/19 18:17 17:03 17:03 PT with INR 11.80 Cancelled INR 1.00 Cancelled PTT (Actin FS) 30.1 VBG pH POC VBG pCO2 POC VBG pO2 VBG HCO3 VBG O2 Sat (Lani) VBG Base Excess Sodium Cancelled Potassium Cancelled Chloride Cancelled Carbon Dioxide Cancelled Anion Gap Cancelled BUN Cancelled Creatinine Cancelled Est GFR (CKD-EPI)AfAm Cancelled Est GFR (CKD-EPI)NonAf Cancelled Random Glucose Cancelled Calcium Cancelled Magnesium Cancelled Total Bilirubin Cancelled AST Cancelled ALT Cancelled Alkaline Phosphatase Cancelled Creatine Kinase Cancelled Troponin I Cancelled B-Natriuretic Peptide Total Protein Cancelled Albumin Cancelled 02/21/19 17:03 RBC 3.49 L MCV 89.3 MCHC 33.4 RDW 15.8 H MPV 9.8 Neutrophils % 47.9 D Lymphocytes % 35.5 Monocytes % 7.1 Eosinophils % 8.5 H D Basophils % 1.0 - Medications Given in the ED: ED Medications Discontinued Medications Generic Name Dose Route Start Last Admin Trade Name Freq PRN Reason Stop Dose Admin Albuterol/Ipratropium 1 amp 02/21/19 18:07 02/21/19 18:28 Duoneb - NEB 02/21/19 18:08 1 amp ONCE ONE Administration Albuterol/Ipratropium 3 amp 02/21/19 22:43 02/21/19 23:26 Duoneb - NEB 02/21/19 22:44 3 amp ONCE ONE Administration Aspirin 162 mg 02/21/19 16:39 02/21/19 17:03 Asa - PO 02/21/19 16:40 162 mg ONCE ONE Administration Dexamethasone Sodium Phosphate 10 mg 02/21/19 22:43 02/21/19 23:26 Decadron Injection - IVPUSH 02/21/19 22:44 10 mg ONCE ONE Administration Medical Decision Making - Medical Decision Making Received patient as sign out from day team pending -CMP: Unremarkable. Mild elevation in BUN which appears to be patient's baseline per chart review. -VBG: Mild CO2 retention -CXR: Possible right sided congestion When I went to evaluate the patient she was very calm and collected. Her vitals were normal. On my exam she had mid right sided lung wheezes. She states that she feels like she has been experiencing an asthma exacerbation for the past few weeks because the seasonal allergies are really hitting her hard. She also admits that she did not complete her course of steroids after her recent hospital visit. - Her chemistry was hemolysed originally so I resent her CMP, Trop, and BNP. - trop and BNP were normal. Plan: duonebs, steroids, re-assess. Re-assessment: Patient feels much better after the meds and requests to be discharged. She states she will schedule a follow up Appt with her PCP in the next 2 days. - Return precautions discussed with patient. Patient requested to have a referal to a new spa assistant manager and a new PCP Gave her [facility] and Dr. Gonzalez - She states she will schedule appointments with both of them tomorrow. *DC/Admit/Observation/Transfer Diagnosis at time of Disposition: Chest pain, Asthma, chronic obstructive, with acute exacerbation, Shortness of breath, Subconjunctival hematoma - Discharge Dispostion Disposition: HOME Condition at time of disposition: Improved Decision to Admit order: No - Prescriptions Prescriptions: Albuterol Sulfate Inhaler - [Ventolin HFA Inhaler -] 1 - 2 inh PO Q4H #1 inhaler - Referrals Referrals: Rosie Mosher [Primary Care Provider] - Noman Pastrana MD [Staff Physician] - Berlin Gonzalez MD [Staff Physician] - - Patient Instructions Printed Discharge Instructions: DI for Asthma -- Adult, DI for Subconjunctival Hemorrhage Additional Instructions: You came into the ER with a red eye. We believe this is a sub-conjunctival hemorrhage. Please see attached handout for further explanation. We also believe you were experiencing an asthma exacerbation today. Please make sure to follow up with your primary care doctor in the next 2 days like we discussed. Come back to the Er immediately if your pain worsens, you have chest pain, shortness of breath or difficulty breathing, or any other new or worsening concerns. Thank you for coming to the [facility] ER. We hope you feel better soon! Print Language: CENTRAL AFRICAN - Post Discharge Activity
--- NOTE | 2019-02-22 13:40 | EKG ---
Test Reason : Blood Pressure : / mmHG Vent. Rate : 058 BPM Atrial Rate : 058 BPM P-R Int : 126 ms QRS Dur : 088 ms QT Int : 420 ms P-R-T Axes : 062 -16 006 degrees QTc Int : 412 ms SINUS BRADYCARDIA OTHERWISE NORMAL ECG WHEN COMPARED WITH ECG OF 02-FEB-2019 09:26, NO SIGNIFICANT CHANGE WAS FOUND Confirmed by NARCISO OSHEA MD ([id number]) on 02/22/2019 1:39:40 PM Referred By: Confirmed By:NARCISO OSHEA MD
== END 2019-02-22 00:17 | disposition home or self-care (01) ==
LOC: JER 16:23
PROC: 3E0F7GC Introduction of Other Therapeutic Substance into Respiratory Tract, Via Natural or Artificial Opening (ICD-10-PCS; principal; 2019-02-21)
PROC: 3E0F7GC Introduction of Other Therapeutic Substance into Respiratory Tract, Via Natural or Artificial Opening (ICD-10-PCS; 2019-02-21)
PROC: 3E0333Z Introduction of Anti-inflammatory into Peripheral Vein, Percutaneous Approach (ICD-10-PCS; 2019-02-21)
DX: J44.1 Chronic obstructive pulmonary disease with (acute) exacerbation (principal); H11.31 Conjunctival hemorrhage, right eye; I12.9 Hypertensive chronic kidney disease with stage 1 through stage 4 chronic kidney disease, or unspecified chronic kidney disease; E11.22 Type 2 diabetes mellitus with diabetic chronic kidney disease; N18.9 Chronic kidney disease, unspecified; Z79.4 Long term (current) use of insulin; E78.5 Hyperlipidemia, unspecified; H40.9 Unspecified glaucoma; Z87.01 Personal history of pneumonia (recurrent)
CPT/HCPCS: 36415; 71046-TC-FY; 80053; 82803; 83735; 83880; 84484; 85025; 85610; 85730; 93005; 93010; 99285-25; J1100

== ENCOUNTER 2019-04-20 22:32 | Emergency (ER) | payer OTHER | END 2019-04-21 02:48 | disposition home or self-care (01) | LOC: JER 22:32 ==

== ENCOUNTER 2019-05-04 00:47 | Observation (INO) | payer OTHER ==
[2019-05-04 01:12] VITALS: BMI 45.5
--- NOTE | 2019-05-04 04:00 | PDOC ---
Attending Attestation - Resident Resident Name: Patricio Dobbs - ED Attending Attestation I have performed the following: I have examined & evaluated the patient, The case was reviewed & discussed with the resident, I agree w/resident's findings & plan, Exceptions are as noted - HPI HPI: 05/04/19 07:43 64F pmh DM, HTN, HLD, CKD, COPD, recently treated uti, here with 1 week of R sided abdominal/flank pain. Px is sharp, burning, radiating to her R flank. Sofi Bray is a 64F with PMH IDDM, HLD, HTN, CKD, obesity, anxiety, and COPD presenting with 1 week of R-sided abdominal pain. - Physicial Exam PE: 05/04/19 07:44 +RUQ and + LLQ ttp, no guarding, no rebound +CVAT Agree with detailed exam as documented by resident - Medical Decision Making 05/04/19 07:45 Consider acute pernell, ?nephrolithiasis, pancreatitis, less likely colitis f/u labs, dry ct ap if ct neg, will need RUQ US dispo per clinical course
[2019-05-04] MEDS ORDERED: SODIUM CHLORIDE 0.9% 500 ML INFUS.BAG IV ONE (04:16)
[2019-05-04] MEDS ORDERED: ACETAMINOPHEN 1000 MG/100 ML VIAL (NON FORMULARY) IVPB ONE (04:16)
[2019-05-04] MEDS ORDERED: ACETAMINOPHEN INJECTION 100 ML IVPB ONE (04:25)
[2019-05-04 04:49] LABS: PH,URINE 5.5 (5.0-8.0); URINE APPEARANCE CLEAR; URINE BILIRUBIN NEGATIVE (NEGATIVE); URINE COLOR YELLOW; URINE GLUCOSE (UA) 3+ (NEGATIVE); URINE KETONE NEGATIVE (NEGATIVE); URINE LEUK ESTERASE NEGATIVE (NEGATIVE); URINE NITRITE NEGATIVE (NEGATIVE); URINE PROTEIN TRACE (NEGATIVE); URINE UROBILINOGEN 0.2 mg/dL (0.2-1.0)
--- NOTE | 2019-05-04 05:06 | PDOC ---
History of Present Illness - General Chief Complaint: Pain, Acute Stated Complaint: ABD PAIN Time Seen by Provider: 05/04/19 02:32 History Source: Patient Exam Limitations: No Limitations - History of Present Illness Initial Comments: 05/04/19 04:56 Sofi Bray is a 64F with PMH IDDM, HLD, HTN, CKD, obesity, anxiety, and COPD presenting with 1 week of R-sided abdominal pain. Patient reports that for the last week, has had right upper quadrant abdominal pain on and off, describes as sharp/burning and which radiates to the R back every once in a while. Denies association with meals or a time of day. Says her PCP told her she has a history of gallbladder disease and will likely need to get it removed. Has had fevers to 101F last week, was diagnosed with UTI on UA after seeing her PCP and fevers resolved with Abx, treated with Bactrim initially but PCP switched to Keflex and finished course 3 days ago. Has urinary frequency but also takes water pill. Has no history of renal stones. Saw [facility] last week and was told she has enlarged uterus 2/2 fibroid burden. Denies chest pain, SOB, C/D, dizziness, headache, N/V. Allergy to flagyl, zantac, PCN, reactions all hives, possibly throat swelling. Past History - Past Medical History Allergies/Adverse Reactions: Allergies Allergy/AdvReac Type Severity Reaction Status Date / Time ranitidine [From Zantac] Allergy Intermediate Hives Verified 05/04/19 01:07 metronidazole [From Flagyl] Allergy Mild Hives Verified 05/04/19 01:07 Penicillins Allergy Mild Hives Verified 05/04/19 01:07 Home Medications: Ambulatory Orders Atorvastatin Ca [Lipitor] 20 mg PO HS 05/14/18 Hydralazine HCl 50 mg PO BID 05/14/18 Alprazolam 2 mg PO BID PRN 05/15/18 Amlodipine Besylate 10 mg PO DAILY 05/15/18 Aspirin [ASA -] 81 mg PO DAILY 05/15/18 Fluticasone/Salmeterol [Advair Hfa 115-21 Mcg Inhaler] 2 inh PO BID 05/15/18 Insulin Glargine,Hum.rec.anlog [Lantus] 30 units SQ Q12H 09/17/18 Metformin HCl [Glucophage] 500 mg PO BID 05/15/18 Omeprazole Magnesium 40 mg PO DAILY 05/15/18 Polyvinyl Alcohol [Artificial Tears] 1 drop OU QID PRN 05/15/18 Timolol 0.5% [Timoptic 0.5%] 1 drop OU BID 05/15/18 Polyethylene Glycol 3350 [Miralax 119 gm Btl -] 17 gm PO DAILY bottle 02/02/19 Albuterol Sulfate Inhaler - [Ventolin HFA Inhaler -] 1 - 2 inh PO Q4H #1 inhaler 02/22/19 Docusate Sodium [Colace -] 100 mg PO DAILY 05/04/19 Losartan Potassium 100 mg PO DAILY 05/04/19 Anemia: Yes Asthma: Yes COPD: No Dementia: No Diabetes: Yes Disorders: Yes (UTI) HTN: Yes Hypercholesterolemia: Yes Psychiatric Problems: Yes (ANXIETY.) - Surgical History Abdominal Surgery: Yes - Immunization History Immunization Up to Date: Yes - Suicide/Smoking/Psychosocial Hx Smoking Status: Yes Smoking History: Never smoked Have you smoked in the past 12 months: No Number of Cigarettes Smoked Daily: 10 If you are a former smoker, when did you quit?: 2012 Hx Alcohol Use: No Drug/Substance Use Hx: No Substance Use Type: None Hx Substance Use Treatment: No Review of Systems - Review of Systems Able to Perform ROS?: Yes Is the patient limited Iranian proficient: No Constitutional: Yes: Fever. No: Chills, Weakness HEENTM: No: Blurred Vision, Double Vision, Hearing Loss, Throat Pain, Dental Problems Respiratory: No: Cough, Orthopnea, Shortness of Breath Cardiac (ROS): Yes: Edema, Palpitations. No: Chest Pain, Irregular Heart Rate, Syncope ABD/GI: No: Constipated, Diarrhea, Nausea, Vomiting : Yes: Frequency. No: Burning, Dysuria, Discharge, Flank Pain, Hematuria, Incontinence, Pain, Urgency Musculoskeletal: Yes: Back Pain (chronic, sees pain specialist) Integumentary: No: Bruising, Change in Color, Change in Hair/Nails, Rash Neurological: No: Headache, Numbness, Paresthesia Psychiatric: Yes: Anxiety Endocrine: No: Symptoms Reported Hematologic/Lymphatic: No: Symptoms Reported All Other Systems: Reviewed and Negative *Physical Exam - Vital Signs Last Vital Signs Temp Pulse Resp BP Pulse Ox 97.9 F 72 18 151/63 100 09/06/19 01:07 05/04/19 01:07 05/04/19 01:07 05/04/19 01:07 05/04/19 01:07 - Physical Exam General Appearance: Yes: Nourished, Appropriately Dressed, Obese. No: Apparent Distress HEENT: positive: EOMI, OSCAR, Normal Voice, Symmetrical, Pharynx Normal, Hearing Grossly Normal. negative: Scleral Icterus (R), Scleral Icterus (L), Muffled/ Hoarse voice, Rhinorrhea Neck: positive: Trachea midline, Normal Thyroid, Supple. negative: Tender, Rigid, Lymphadenopathy (R), Lymphadenopathy (L) Respiratory/Chest: positive: Lungs Clear, Normal Breath Sounds. negative: Respiratory Distress, Labored Respiration, Crackles, Rales, Rhonchi Cardiovascular: positive: Regular Rhythm, Regular Rate, Edema. negative: Murmur Gastrointestinal/Abdominal: positive: Normal Bowel Sounds, Tender (RUQ subcostal , no CVA tenderness, +Dailey sign), Soft, Protuberent. negative: Organomegaly, Guarding, Rebound, Hernia, Mass Musculoskeletal: positive: Normal Inspection. negative: CVA Tenderness Extremity: positive: Normal Capillary Refill, Normal Inspection, Normal Range of Motion, Pedal Edema (1+ BLE edema), Swelling. negative: Tender Integumentary: positive: Normal Color, Dry, Warm Neurologic: positive: Fully Oriented, Alert, Normal Mood/Affect, Normal Response ED Treatment Course - LABORATORY CBC & Chemistry Diagram: 05/04/19 05:00 05/04/19 11:10 - ADDITIONAL ORDERS Additional order review: Laboratory Results 05/04/19 04:38 Urine Color Yellow Urine Appearance Clear Urine pH 5.5 Ur Specific [place] 1.021 Urine Protein Trace Urine Glucose (UA) 3+ H Urine Ketones Negative Urine Blood Negative Urine Nitrite Negative Urine Bilirubin Negative Urine Urobilinogen 0.2 Ur Leukocyte Esterase Negative - RADIOLOGY Radiology Studies Ordered: Category Date Time Status ABDOMEN & PELVIS CT W/O CONTR [CT] Stat CT Scan 05/04/19 04:25 Ordered CHEST X-RAY PORTABLE* [RAD] Stat Radiology 05/04/19 04:15 Ordered ABDOMEN US -LIMITED [US] Stat Ultrasound 05/04/19 04:26 Ordered Medical Decision Making - Medical Decision Making 05/04/19 04:56 Sofi Bray is a 64F with PMH IDDM, HLD, HTN, CKD, obesity, anxiety, and COPD presenting with 1 week of R-sided abdominal pain. Presentation with RUQ pain with recent fever and UTI raises concerns for pyelo vs. renal calculus vs. choledocholithiasis/cholecystitis/cholangitis vs. appendicitis vs. hepatitis vs. pancreatitis. Will evaluate via: CMP CBC CP Lipase ECG CXR BNP CT abdomen/pelvis noncon RUQ US in the morning 05/04/19 07:[address] Khalil. *DC/Admit/Observation/Transfer Diagnosis at time of Disposition: Abdominal pain Qualifiers: Abdominal location: right upper quadrant Qualified Code(s): R10.11 - Right upper quadrant pain - Referrals - Patient Instructions - Post Discharge Activity
[2019-05-04 05:17] LABS: BASO % 2.3 % (0-2.0); EOS % 4.6 % (0-4.5); HEMATOCRIT 32.1 % (32.4-45.2); HEMOGLOBIN 10.9 GM/dL (10.7-15.3); LYMPH % 39.9 % (8-40); MCH 29.3 pg (25.7-33.7); MEAN CELL VOLUME 86.2 fl (80-96); MEAN PLT VOLUME 9.7 fl (7.5-11.1); MONO % 10.9 % (3.8-10.2); NEUT % 42.3 % (42.8-82.8); PLATELET COUNT 232 K/MM3 (134-434); RBC 3.73 M/mm3 (3.60-5.2); RDW 15.3 % (11.6-15.6); WHITE BLOOD COUNT 5.2 K/mm3 (4.0-10.0)
[2019-05-04 05:37] LABS: N-TERMINAL BNP 29.7 pg/ml (5-125)
[2019-05-04 05:41] LABS: ALBUMIN 3.2 g/dl (3.4-5.0); BILIRUBIN,TOTAL 0.1 mg/dL (0.2-1); CALCIUM 8.9 mg/dL (8.5-10.1); CREATININE 1.7 mg/dL (0.55-1.3); POTASSIUM 5.1 mmol/L (3.5-5.1); TOT PROT 6.4 g/dl (6.4-8.2)
--- NOTE | 2019-05-04 07:13 | PDOC ---
*Physical Exam - Vital Signs Last Vital Signs Temp Pulse Resp BP Pulse Ox 97.9 F 72 18 151/63 100 05/04/19 01:07 05/04/19 01:07 05/04/19 01:07 05/04/19 01:07 05/04/19 01:07 - Physical Exam Comments: 05/04/19 07:10 Received sign out from day team. 64 yo F with a hx of CKD, HTN, COPD, HLD, and DM presents to the emergency department with RUQ and LLQ pain x 7 days. Of note, the patient had a UTI last week s/p treatment with keflex. Pending exams at time of sign out: RUQ US. CT read pending. 05/04/19 07:14 ED Treatment Course - LABORATORY CBC & Chemistry Diagram: 05/04/19 05:00 05/05/19 06:45 - ADDITIONAL ORDERS Additional order review: Laboratory Results 05/04/19 05/04/19 05/04/19 05:00 05:00 05:00 Sodium 139 Potassium 5.1 Chloride 105 Carbon Dioxide 30 Anion Gap 3 L BUN 32.0 H Creatinine 1.7 H Est GFR (CKD-EPI)AfAm 36.81 Est GFR (CKD-EPI)NonAf 31.76 Random Glucose 316 H Calcium 8.9 Total Bilirubin 0.1 L AST 15 ALT 20 Alkaline Phosphatase 83 Creatine Kinase 197 H Troponin I < 0.02 B-Natriuretic Peptide 29.7 Total Protein 6.4 Albumin 3.2 L Lipase 206 Urine Color Urine Appearance Urine pH Ur Specific [place] Urine Protein Urine Glucose (UA) Urine Ketones Urine Blood Urine Nitrite Urine Bilirubin Urine Urobilinogen Ur Leukocyte Esterase 05/04/19 04:38 Sodium Potassium Chloride Carbon Dioxide Anion Gap BUN Creatinine Est GFR (CKD-EPI)AfAm Est GFR (CKD-EPI)NonAf Random Glucose Calcium Total Bilirubin AST ALT Alkaline Phosphatase Creatine Kinase Troponin I B-Natriuretic Peptide Total Protein Albumin Lipase Urine Color Yellow Urine Appearance Clear Urine pH 5.5 Ur Specific [place] 1.021 Urine Protein Trace Urine Glucose (UA) 3+ H Urine Ketones Negative Urine Blood Negative Urine Nitrite Negative Urine Bilirubin Negative Urine Urobilinogen 0.2 Ur Leukocyte Esterase Negative 05/04/19 05:00 RBC 3.73 MCV 86.2 MCHC 34.0 RDW 15.3 MPV 9.7 Neutrophils % 42.3 L Lymphocytes % 39.9 Monocytes % 10.9 H Eosinophils % 4.6 H Basophils % 2.3 H - Medications Given in the ED: ED Medications Discontinued Medications Generic Name Dose Route Start Last Admin Trade Name Demi PRN Reason Stop Dose Admin Acetaminophen 1,000 mg 05/04/19 04:16 05/04/19 05:06 Ofirmev Injection - IVPB 05/04/19 04:17 1,000 mg ONCE ONE Administration Sodium Chloride 1,000 ml 05/04/19 04:16 05/04/19 05:05 Normal Saline - IV 05/04/19 04:17 1,000 ml ONCE ONE Administration Medical Decision Making - Medical Decision Making 05/04/19 12:58 Patient was reassessed. US shows cholelithiasis and CT shows air in the bladder. Patient denies recent catheter use but endorses finishing her keflex abx yesterday for UTI. Patient had resolution of PRISCILLA following 1.5 L of NS after repeat BMP. Upon discharge the patient was stating she had significant improvement of pain. After the patient consulted with her primary care physician , the patient stated her pain was 10/10 and that her pain was uncontrollable with the morphine and tylenol x2 that was given. The patient was ordered another 4 mg of morphine for pain control. patient to be admitted for uncontrollable pain likely secondary to cholelithiasis. 05/04/19 13:00 *DC/Admit/Observation/Transfer Diagnosis at time of Disposition: Abdominal pain Qualifiers: Abdominal location: right upper quadrant Qualified Code(s): R10.11 - Right upper quadrant pain - Discharge Dispostion Condition at time of disposition: Stable - Referrals - Patient Instructions - Post Discharge Activity
[2019-05-04] MEDS ORDERED: SODIUM CHLORIDE 1,000 ML IV STA (08:51)
[2019-05-04] MEDS ORDERED: SODIUM CHLORIDE 500 ML IV STA (09:05)
[2019-05-04] MEDS ORDERED: morphine CARPU-JECT 4 MG/1 ML DISP.SYRIN IVPUSH ONE ×2 (09:34→12:46)
[2019-05-04] MEDS ORDERED: morphine SULFATE 4 MG/ML VIAL ONE ×2 (09:42→13:23)
[2019-05-04 11:49] LABS: BLOOD UREA NITROGEN 27.1 mg/dL (7-18); CALCIUM 8.8 mg/dL (8.5-10.1); CREATININE 1.3 mg/dL (0.55-1.3); POTASSIUM 4.7 mmol/L (3.5-5.1)
[2019-05-04] MEDS ORDERED: ACETAMINOPHEN 325 MG TABLET (FP) PO ONE (12:20)
[2019-05-04] MEDS ORDERED: ONDANSETRON 4 MG/2 ML VIAL IVPUSH ONE (12:20)
[2019-05-04] MEDS ORDERED: ACETAMINOPHEN 325 MG TABLET (FP) ONE (13:23)
[2019-05-04] MEDS ORDERED: ONDANSETRON 4 MG/2 ML VIAL ONE (13:23)
--- NOTE | 2019-05-04 14:00 | EKG ---
Test Reason : Blood Pressure : / mmHG Vent. Rate : 074 BPM Atrial Rate : 074 BPM P-R Int : 130 ms QRS Dur : 080 ms QT Int : 388 ms P-R-T Axes : 059 -24 006 degrees QTc Int : 430 ms SINUS RHYTHM WITH OCCASIONAL PREMATURE VENTRICULAR COMPLEXES NONSPECIFIC T WAVE ABNORMALITY ABNORMAL ECG WHEN COMPARED WITH ECG OF 21-FEB-2019 17:19, PREMATURE VENTRICULAR COMPLEXES ARE NOW PRESENT NONSPECIFIC T WAVE ABNORMALITY NOW EVIDENT IN ANTEROLATERAL LEADS Confirmed by JOE SOL MD ([id number]) on 05/04/2019 1:59:51 PM Referred By: Confirmed By:JOE SOL MD
--- NOTE | 2019-05-04 14:35 | CONSULT ---
- Consultation REQUESTING PROVIDER: Dr. Rebollar - General Surgery CONSULT REQUEST: We have been asked to surgically evaluate this patient for RUQ pain radiating to right flank Hospitalist: Lo Ruano NP HPI: Called to eval 64 yo female with PMHx as noted below. Presents to [facility] ED w / c/o right sided abd pain radiating to flank x 1 week. Patient recently at 04/20/19 for possible recurrent PNA. Noted during that visit that she ad a UTI and was treated. Initially treated with Bacrtim but then switched to Keflex by her PCP. Urine culture was sent as well. Patient had CT scan which identified calcified GB without an acute process or other intrabd pathology. CT compared to 05/16/18 and remains unchanged. U/S also confirms calcified GB without acute pernell. Denies CP, palpitations, SOb or NAVARRO. PMHx: IDDM, HLD, HTN, CKD, Morbid Obesity, Anxiety, COPD PSHx: Denies. Home Meds Atorvastatin Ca [Lipitor] 20 mg PO HS 05/14/18 Hydralazine HCl 50 mg PO BID 05/14/18 Alprazolam 200 mg PO BID PRN 05/15/18 Amlodipine Besylate 10 mg PO DAILY 05/15/18 Aspirin [ASA -] 81 mg PO DAILY 05/15/18 Fluticasone/Salmeterol [Advair Hfa 115-21 Mcg Inhaler] 2 inh PO BID 05/15/18 Insulin Glargine,Hum.rec.anlog [Lantus] 30 units SQ Q12H 05/15/18 Metformin HCl [Glucophage] 500 mg PO BID 05/15/18 Omeprazole Magnesium 40 mg PO DAILY 05/15/18 Polyvinyl Alcohol [Artificial Tears] 1 drop OU QID PRN 05/15/18 Timolol 0.5% [Timoptic 0.5%] 1 drop OU BID 05/15/18 Docusate Sodium [Colace -] 100 mg PO TID capsule 02/02/19 Montelukast Na [Singulair -] 10 mg PO HS tablet 02/02/19 Polyethylene Glycol 3350 [Miralax 119 gm Btl -] 17 gm PO DAILY bottle 02/02/19 Sodium Chloride Nasal [place] [[place] Nasal [place] -] 2 spray NS TID PRN spray 02/02/19 predniSONE [Deltasone -] 5 mg PO DAILY #3 tablet 02/02/19 predniSONE [Deltasone -] 10 mg PO DAILY #3 tablet 02/02/19 predniSONE [Deltasone -] 20 mg PO DAILY #3 tablet 02/02/19 predniSONE [Deltasone -] 30 mg PO DAILY #3 tablet 02/02/19 predniSONE [Deltasone -] 40 mg PO DAILY #3 tablet 02/02/19 Albuterol Sulfate Inhaler - [Ventolin HFA Inhaler -] 1 - 2 inh PO Q4H #1 inhaler 02/22/19 Sulfamethoxazole/Trimethoprim [Bactrim Ds Tablet] 1 each PO BID 7 Days #14 tablet 04/21/19 Nitrofurantoin Monohyd/M-Cryst [Macrobid -] 100 mg PO BID #14 capsule 04/23/19 Allergies Zantac - hives Flagyl - hives PCNs - hives ROS: Unremarkable. Except for what's contained in the HPI. PE: GENERAL: Awake, alert, and fully oriented, NAD HEAD: NC. AT. EYES: Sclera anicteric, conjunctiva clear. LUNGS: CTA bilat HEART: RRR ABDOMEN: Soft, nontender, not distended, normoactive bowel sounds, no guarding, no rebound, no masses. No organomegaly. MUSCULOSKELETAL: Right side CVAT UE: 2+ pulses, warm, well-perfused. No cyanosis. Cap refill <2 seconds. No peripheral edema. LE: 2+ pulses, warm, well-perfused. No calf tenderness. No peripheral edema. NEUROLOGICAL: Normal speech, gait not observed. PSYCH: Cooperative. Good eye contact. Appropriate mood and affect. SKIN: Warm, dry, normal turgor, no rashes or lesions noted. Last Vital Signs Temp Pulse Resp BP Pulse Ox 97.8 F 70 18 155/62 99 05/04/19 08:52 05/04/19 08:52 05/04/19 08:52 05/04/19 08:52 05/04/19 08:52 CBC, BMP 05/04/19 05:00 05/04/19 11:10 Hepatic Panel Total Bilirubin 0.1 mg/dL (0.2-1) L 05/04/19 05:00 AST 15 U/L (15-37) 05/04/19 05:00 ALT 20 U/L (13-61) 05/04/19 05:00 Alkaline Phosphatase 83 U/L (45-117) 05/04/19 05:00 Albumin 3.2 g/dl (3.4-5.0) L 05/04/19 05:00 Urine Test Results Urine Color Yellow 05/04/19 04:38 Urine Appearance Clear 05/04/19 04:38 Urine pH 5.5 (5.0-8.0) 05/04/19 04:38 Ur Specific [place] 1.021 (1.010-1.035) 05/04/19 04:38 Urine Protein Trace (NEGATIVE) 05/04/19 04:38 Urine Glucose (UA) 3+ (NEGATIVE) H 05/04/19 04:38 Urine Ketones Negative (NEGATIVE) 05/04/19 04:38 Urine Blood Negative (NEGATIVE) 05/04/19 04:38 Urine Nitrite Negative (NEGATIVE) 05/04/19 04:38 Urine Bilirubin Negative (NEGATIVE) 05/04/19 04:38 Ur Leukocyte Esterase Negative (NEGATIVE) 05/04/19 04:38 Problem List - Problems (1) Abdominal pain Assessment/Plan: 64 yo female with comes to [facility] ED for c/o RUQ pain with radiation to her right flank. No leukocytosis. Afebrile. CT A/P calcified GB without signs of acute process. No other intrabd pathology identified. (remains unchanged when compared to CT A/P 04/15/18). Also, patient had U/S which confirms calcified GB as well without acute process. Patient should f/u w/ Dr. Rebollar regarding elective out-patient laprascopic cholecystectomy No surgical intervention. Cont care per medicine. Reconsult PRN. On behalf of Dr. Rebollar, thank you for the opportunity to participate in your patient's care. Code(s): R10.9 - UNSPECIFIED ABDOMINAL PAIN (2) Anxiety Code(s): F41.9 - ANXIETY DISORDER, UNSPECIFIED (3) Diabetes Code(s): E11.9 - TYPE 2 DIABETES MELLITUS WITHOUT COMPLICATIONS (4) Hypertension Code(s): I10 - ESSENTIAL (PRIMARY) HYPERTENSION (5) Morbid obesity Code(s): E66.01 - MORBID (SEVERE) OBESITY DUE TO EXCESS CALORIES (6) UTI (urinary tract infection) Code(s): N39.0 - URINARY TRACT INFECTION, SITE NOT SPECIFIED Qualifiers: Urinary tract infection type: acute cystitis Hematuria presence: without hematuria Qualified Code(s): N30.00 - Acute cystitis without hematuria Visit type - Case Type Case Type: ED Admission - Emergency Emergency Visit: Yes ED Registration Date: 05/04/19 Care time: The patient presented to the Emergency Department on the above date and was hospitalized for further evaluation of their emergent condition. - New patient This patient is new to me today: Yes Date on this admission: 05/04/19
--- NOTE | 2019-05-04 16:17 | HP ---
Admitting History and Physical - Past Medical History Pulmonary: Yes: Bronchitis, COPD, Other (Likely OSAS ). No: O2 Dependent Psych: Yes: Addictions, Anxiety, Depression, Panic - Smoking History Smoking history: Never smoked Have you smoked in the past 12 months: No Aproximately how many cigarettes per day: 10 If you are a former smoker, when did you quit?: 2013 - Alcohol/Substance Use Hx Alcohol Use: No History of Substance Use: reports: None - Social History ADL: Independent History of Recent Travel: No Home Medications - Allergies Allergies/Adverse Reactions: Allergies Allergy/AdvReac Type Severity Reaction Status Date / Time ranitidine [From Zantac] Allergy Intermediate Hives Verified 05/04/19 01:07 metronidazole [From Flagyl] Allergy Mild Hives Verified 05/04/19 01:07 Penicillins Allergy Mild Hives Verified 05/04/19 01:07 - Home Medications Home Medications: Ambulatory Orders Atorvastatin Ca [Lipitor] 20 mg PO HS 05/14/18 Hydralazine HCl 50 mg PO BID 05/14/18 Alprazolam 2 mg PO BID PRN 05/15/18 Amlodipine Besylate 10 mg PO DAILY 05/15/18 Aspirin [ASA -] 81 mg PO DAILY 05/15/18 Fluticasone/Salmeterol [Advair Hfa 115-21 Mcg Inhaler] 2 inh PO BID 05/15/18 Insulin Glargine,Hum.rec.anlog [Lantus] 30 units SQ Q12H 05/15/18 Metformin HCl [Glucophage] 500 mg PO BID 05/15/18 Omeprazole Magnesium 40 mg PO DAILY 05/15/18 Polyvinyl Alcohol [Artificial Tears] 1 drop OU QID PRN 05/15/18 Timolol 0.5% [Timoptic 0.5%] 1 drop OU BID 05/15/18 Polyethylene Glycol 3350 [Miralax 119 gm Btl -] 17 gm PO DAILY bottle 02/02/19 Albuterol Sulfate Inhaler - [Ventolin HFA Inhaler -] 1 - 2 inh PO Q4H #1 inhaler 02/22/19 Docusate Sodium [Colace -] 100 mg PO DAILY 05/04/19 Losartan Potassium 100 mg PO DAILY 05/04/19 Physical Examination Vital Signs: Vital Signs Temperature 98.4 F 05/04/19 15:49 Pulse Rate 71 05/04/19 15:49 Respiratory Rate 14 05/04/19 15:49 Blood Pressure 109/50 L 05/04/19 15:49 O2 Sat by Pulse Oximetry (%) 97 05/04/19 15:49 Labs: CBC, BMP 05/04/19 05:00 05/04/19 11:10
[2019-05-04] MEDS ORDERED: ALPRAZolam 2 MG TABLET PO PRN (16:31)
[2019-05-04] MEDS ORDERED: ALBUTEROL SO4 2.5/IPRATROPIUM 0.5 INH SOL 3 ML VIAL.NEB. NEB PRN (16:45)
[2019-05-04] MEDS: hydrALAZINE HCL 50 MG TABLET (FP) PO SCH (21:17)
[2019-05-04] MEDS: INSULIN SLIDING SCALE (NOVOLOG) 1 VIAL SQ SCH (21:19)
[2019-05-04] MEDS: KETOROLAC TROMETHAMINE 30 MG/1 ML VIAL IVPUSH PRN (21:20)
[2019-05-04] MEDS ORDERED: traMADol HCL 50 MG TABLET PO ONE (21:43)
[2019-05-04] MEDS ORDERED: PATIENT'S OWN MEDICATION (NON-FORMULARY) (Fluticasone/Salmeterol [Advair Hfa 115-21 Mcg In PO SCH (22:00)
[2019-05-04] MEDS ORDERED: INSULIN (LEVEMIR) 100 UNITS/ML UNITS SQ SCH (22:00)
[2019-05-04] MEDS ORDERED: ATORVASTATIN CA 20 MG TABLET (FP) PO SCH (22:00)
[2019-05-05] MEDS ORDERED: ONDANSETRON 4 MG/2 ML VIAL IVPUSH PRN (03:05)
[2019-05-05] MEDS: KETOROLAC TROMETHAMINE 30 MG/1 ML VIAL IVPUSH PRN (03:33)
[2019-05-05] MEDS: INSULIN SLIDING SCALE (NOVOLOG) 1 VIAL SQ SCH (06:28)
[2019-05-05 08:43] LABS: BLOOD UREA NITROGEN 17.9 mg/dL (7-18); POTASSIUM 4.3 mmol/L (3.5-5.1)
[2019-05-05] MEDS: hydrALAZINE HCL 50 MG TABLET (FP) PO SCH (09:32)
--- NOTE | 2019-05-05 09:38 | PN ---
Progress Note, Physician - Current Medication List Current Medications: Active Medications Albuterol/Ipratropium (Duoneb -) 1 amp NEB Q6H PRN PRN Reason: SHORTNESS OF BREATH Alprazolam (Xanax -) 2 mg PO Q12H PRN PRN Reason: ANXIETY Amlodipine Besylate (Norvasc -) 10 mg PO DAILY [facility] Last Admin: 05/05/19 09:32 Dose: 10 mg Aspirin (Asa -) 81 mg PO DAILY [facility] Last Admin: 05/05/19 09:32 Dose: 81 mg Atorvastatin Calcium (Lipitor -) 20 mg PO [facility] Last Admin: 05/04/19 21:17 Dose: 20 mg Docusate Sodium (Colace -) 100 mg PO DAILY [facility] Last Admin: 05/05/19 09:32 Dose: 100 mg Hydralazine HCl (Apresoline -) 50 mg PO BID [facility] Last Admin: 05/05/19 09:32 Dose: 50 mg Insulin Aspart (Novolog Vial Sliding Scale -) [address] [facility]; Protocol Last Admin: 05/05/19 06:28 Dose: Not Given Insulin Detemir (Levemir Vial) 10 units SQ [facility] Last Admin: 05/04/19 21:17 Dose: 10 units Ketorolac Tromethamine (Toradol Injection -) 30 mg IVPUSH Q6H PRN PRN Reason: PAIN LEVEL 7 - 10 Stop: 05/09/19 16:29 Last Admin: 05/05/19 03:33 Dose: 30 mg Losartan Potassium (Cozaar -) 100 mg PO DAILY [facility] Last Admin: 05/05/19 09:32 Dose: 100 mg Non-Formulary Medication (Fluticasone/Salmeterol [Advair Hfa 115-21 Mcg Inhaler] ) 2 inh PO BID [facility] Ondansetron HCl (Zofran Injection) 4 mg IVPUSH Q6H PRN PRN Reason: NAUSEA AND/OR VOMITING Last Admin: 05/05/19 03:23 Dose: 4 mg - Objective Vital Signs: Vital Signs Temperature 97.6 F 05/05/19 06:00 Pulse Rate 81 05/05/19 06:00 Respiratory Rate 20 05/05/19 06:00 Blood Pressure 133/57 L 05/05/19 06:00 O2 Sat by Pulse Oximetry (%) 96 05/04/19 21:00 Labs: CBC, BMP 05/04/19 05:00 05/05/19 06:45
--- NOTE | 2019-05-05 09:39 | DS ---
Physical Exam: SUBJECTIVE: Patient seen and examined OBJECTIVE: Vital Signs Period Temp Pulse Resp BP Sys/Maurer Pulse Ox Last 24 Hr 97.6 F-98.4 F 66-81 14-20 109-150/50-85 96-97 PHYSICAL EXAM GENERAL: The patient is awake, alert, and fully oriented, in no acute distress. HEAD: Normal with no signs of trauma. EYES: PERRL, extraocular movements intact, sclera anicteric, conjunctiva clear. ENT: Ears normal, nares patent, oropharynx clear without exudates, moist mucous membranes. NECK: Trachea midline, full range of motion, supple. LUNGS: Breath sounds equal, clear to auscultation bilaterally, no wheezes, no crackles, no accessory muscle use. HEART: Regular rate and rhythm, S1, S2 without murmur, rub or gallop. ABDOMEN: Soft, nontender, nondistended, normoactive bowel sounds, no guarding, no rebound, no hepatosplenomegaly, no masses. EXTREMITIES: 2+ pulses, warm, well-perfused, no edema. NEUROLOGICAL: Cranial nerves II through XII grossly intact. Normal speech, gait not observed. PSYCH: Normal mood, normal affect. SKIN: Warm, dry, normal turgor, no rashes or lesions noted. LABS Laboratory Results - last 24 hr 05/04/19 05/04/19 05/05/19 11:10 21:08 06:26 Sodium 141 Potassium 4.7 Chloride 107 Carbon Dioxide 29 Anion Gap 5 L BUN 27.1 H Creatinine 1.3 Est GFR (CKD-EPI)AfAm 50.92 Est GFR (CKD-EPI)NonAf 43.93 POC Glucometer 232 142 Random Glucose 201 H Calcium 8.8 05/05/19 06:45 Sodium 142 Potassium 4.3 Chloride 103 Carbon Dioxide 29 Anion Gap 10 BUN 17.9 Creatinine 1.0 Est GFR (CKD-EPI)AfAm 69.92 Est GFR (CKD-EPI)NonAf 60.33 POC Glucometer Random Glucose 142 H Calcium 9.0 HOSPITAL COURSE: Date of Admission:05/04/19 Date of Discharge: 05/05/19 Discharge Summary Reason For Visit: ABDOMINAL PAIN Current Active Problems Abdominal pain (Acute) Condition: Stable - Instructions Diet, Activity, Other Instructions: Mrs Bray: You were admitted for abdominal pain and were evaluated overnight at [facility]. You had a CT scan which identified calcified GB without an acute process or pathology. You had a CT on 05/16/18 and remains unchanged. An ultrasound also confirms calcified gall bladder without acute process. Please follow up with your PCP and Dr. Rebollar (surgery). Thank you for allowing us to care for you. We will be sending you home with Zofran (anti nausea) and Toradol (pain medications). Diet: Please follow a low salt, low cholesterol diet and you can stay on liquids for now until you feel better. Avoid any fried foods or foods high in sugar. Consider the DASH diet for weight loss. Referrals: Carl Rebollar MD [Staff Physician] - (plse call for an appointment. ) Disposition: HOME - Home Medications Comprehensive Discharge Medication List: Ambulatory Orders Atorvastatin Ca [Lipitor] 20 mg PO HS 05/14/18 Hydralazine HCl 50 mg PO BID 05/14/18 Alprazolam 2 mg PO BID PRN 05/15/18 Amlodipine Besylate 10 mg PO DAILY 05/15/18 Aspirin [ASA -] 81 mg PO DAILY 05/15/18 Fluticasone/Salmeterol [Advair Hfa 115-21 Mcg Inhaler] 2 inh PO BID 05/15/18 Insulin Glargine,Hum.rec.anlog [Lantus] 30 units SQ Q12H 05/15/18 Metformin HCl [Glucophage] 500 mg PO BID 05/15/18 Omeprazole Magnesium 40 mg PO DAILY 05/15/18 Polyvinyl Alcohol [Artificial Tears] 1 drop OU QID PRN 05/15/18 Timolol 0.5% [Timoptic 0.5%] 1 drop OU BID 05/15/18 Polyethylene Glycol 3350 [Miralax 119 gm Btl -] 17 gm PO DAILY bottle 02/02/19 Albuterol Sulfate Inhaler - [Ventolin HFA Inhaler -] 1 - 2 inh PO Q4H #1 inhaler 02/22/19 Docusate Sodium [Colace -] 100 mg PO DAILY 05/04/19 Losartan Potassium 100 mg PO DAILY 05/04/19 Ketorolac Tromethamine [Toradol] 10 mg PO Q6H #20 tablet 05/05/19 Ondansetron [Zofran *Odt*] 4 mg GT BID #30 tab.rapdis 05/05/19
[2019-05-05] MEDS ORDERED: amLODIPine BESYLATE 10 MG TABLET (FP) PO SCH (10:00)
[2019-05-05] MEDS ORDERED: PATIENT'S OWN MEDICATION (NON-FORMULARY) (Losartan Potassium [Losartan Potassium] 100 MG) PO SCH (10:00)
[2019-05-05] MEDS ORDERED: LOSARTAN POTASSIUM 50 MG TABLET (FP) PO SCH (10:00)
[2019-05-05] MEDS ORDERED: DOCUSATE SODIUM 100 MG CAPSULE (FP) PO SCH (10:00)
[2019-05-05] MEDS ORDERED: ASPIRIN 81 MG CHEWABLE TABLETS PO SCH (10:00)
[2019-05-05 10:21] VITALS: BP 130/63; PULSE 75; TEMP 98
== END 2019-05-05 13:20 | disposition home or self-care (01) ==
LOC: JER 00:47 → JERBED 13:15 → J8W 15:59
PROVIDERS: ADMIT Internal Medicine; ATTEND Nurse Practitioner Family
PROC: 3E0333Z Introduction of Anti-inflammatory into Peripheral Vein, Percutaneous Approach (ICD-10-PCS; principal; 2019-05-04)
PROC: 3E033NZ Introduction of Analgesics, Hypnotics, Sedatives into Peripheral Vein, Percutaneous Approach (ICD-10-PCS; 2019-05-04)
PROC: 3E0337Z Introduction of Electrolytic and Water Balance Substance into Peripheral Vein, Percutaneous Approach (ICD-10-PCS; 2019-05-04)
PROC: 3E033GC Introduction of Other Therapeutic Substance into Peripheral Vein, Percutaneous Approach (ICD-10-PCS; 2019-05-04)
PROC: 3E013VG Introduction of Insulin into Subcutaneous Tissue, Percutaneous Approach (ICD-10-PCS; 2019-05-04)
DX: R10.11 Right upper quadrant pain (principal); E11.22 Type 2 diabetes mellitus with diabetic chronic kidney disease; I12.9 Hypertensive chronic kidney disease with stage 1 through stage 4 chronic kidney disease, or unspecified chronic kidney disease; N18.9 Chronic kidney disease, unspecified; Z79.4 Long term (current) use of insulin; E78.5 Hyperlipidemia, unspecified; J44.9 Chronic obstructive pulmonary disease, unspecified; F41.9 Anxiety disorder, unspecified; D64.9 Anemia, unspecified; N30.00 Acute cystitis without hematuria; E66.01 Morbid (severe) obesity due to excess calories; Z68.42 Body mass index [BMI] 45.0-49.9, adult; Z88.0 Allergy status to penicillin; Z88.8 Allergy status to other drugs, medicaments and biological substances; Z79.82 Long term (current) use of aspirin; Z79.84 Long term (current) use of oral hypoglycemic drugs
CPT/HCPCS: 36415; 74176-TC; 76705-TC; 80048; 80053; 81003; 82550; 82553; 82962; 83690; 83880; 84484; 85025; 87086; 87186; 93005; 93010; 96361; 96372; 96374; 96375; 96376; 99285-25; G0378; J0131

== ENCOUNTER 2020-02-21 19:00 | Emergency (ER) | payer OTHER ==
[2020-02-21 19:11] VITALS: BMI 29.5
[2020-02-21] MEDS ORDERED: methylPREDNISolone NA SUCC 125 MG/2 ML VIAL IVPB ONE (19:24)
[2020-02-21] MEDS ORDERED: methylPREDNISolone NA SUCC 125 MG/2 ML VIAL ONE (19:53)
[2020-02-21] MEDS ORDERED: ALBUTEROL SO4 2.5/IPRATROPIUM 0.5 INH SOL 3 ML VIAL.NEB. NEB ONE (19:53)
[2020-02-21] MEDS: ALBUTEROL SO4 2.5/IPRATROPIUM 0.5 INH SOL 3 ML VIAL.NEB. NEB SCH (20:05)
[2020-02-21 20:09] LABS: EOS % 3.7 % (0-4.5); HEMATOCRIT 30.3 % (32.4-45.2); HEMOGLOBIN 10.3 GM/dL (10.7-15.3); MCH 29.6 pg (25.7-33.7); MCHC 33.9 g/dl (32.0-36.0); MEAN CELL VOLUME 87.2 fl (80-96); MEAN PLT VOLUME 10.1 fl (7.5-11.1); NEUT % 50.3 % (42.8-82.8); PLATELET COUNT 214 K/MM3 (134-434); RBC 3.48 M/mm3 (3.60-5.2); RDW 15.5 % (11.6-15.6); WHITE BLOOD COUNT 6.1 K/mm3 (4.0-10.0)
[2020-02-21 20:27] LABS: ALBUMIN 3.2 g/dl (3.4-5.0); ALK PHOS 74 U/L (45-117); ANION GAP 7 MMOL/L (8-16); BILIRUBIN,TOTAL 0.3 mg/dL (0.2-1); BLOOD UREA NITROGEN 25.5 mg/dL (7-18); CALCIUM 9.7 mg/dL (8.5-10.1); CHLORIDE 106 mmol/L (98-107); CO2 28 mmol/L (21-32); CREATININE 1.4 mg/dL (0.55-1.3); GLUCOSE,RANDOM 64 mg/dL (74-106); N-TERMINAL BNP 57.4 pg/ml (5-125); POTASSIUM 3.8 mmol/L (3.5-5.1); SGOT/AST 17 U/L (15-37); SGPT/ALT 24 U/L (13-61); SODIUM 141 mmol/L (136-145); TOT PROT 6.7 g/dl (6.4-8.2)
[2020-02-21 22:05] VITALS: BP 125/71; PULSE 63; TEMP 98.6
== END 2020-02-21 22:18 | disposition home or self-care (01) ==
LOC: JER 19:00
PROC: 3E033NZ Introduction of Analgesics, Hypnotics, Sedatives into Peripheral Vein, Percutaneous Approach (ICD-10-PCS; principal; 2020-02-21)
PROC: 3E0F7GC Introduction of Other Therapeutic Substance into Respiratory Tract, Via Natural or Artificial Opening (ICD-10-PCS; 2020-02-21)
DX: J44.1 Chronic obstructive pulmonary disease with (acute) exacerbation (principal); E16.2 Hypoglycemia, unspecified; F41.9 Anxiety disorder, unspecified
CPT/HCPCS: 36415; 71045-TC-FY; 80053; 82962; 83880; 84484; 85025; 93005; 93010; 99285-25

== ENCOUNTER 2020-05-07 18:19 | Inpatient (IN) | payer OTHER ==
--- NOTE | 2020-05-07 18:27 | PDOC ---
Rapid Medical Evaluation Time Seen by Provider: 05/07/20 18:22 Medical Evaluation: Allergies Allergy/AdvReac Type Severity Reaction Status Date / Time ranitidine [From Zantac] Allergy Intermediate Hives Verified 02/21/20 19:10 metronidazole [From Flagyl] Allergy Mild Hives Verified 02/21/20 19:10 Penicillins Allergy Mild Hives Verified 02/21/20 19:10 05/07/20 18:24 I performed a brief in-person evaluation of this patient. Pt with COPD, vertigo, CKD who presents with dizziness, weakness and shortness of breath for the last 12 days. It has been worsening over the last 12 days. She states she is having trouble walking because she feels so weak. She denies any fevers or chills. Denies COVID contacts in the last 2 weeks. Pertinent physical exam findings: Walking slowly, clear lungs, speaking in full sentences, nontoxic I have ordered the following: cxr, ekg, labs, saline lock Patient to proceed to ED for further evaluation. Discharge Disposition - Diagnosis Dizziness - Referrals - Patient Instructions - Post Discharge Activity
--- NOTE | 2020-05-07 19:15 | PDOC ---
History of Present Illness - General Chief Complaint: Weakness Stated Complaint: DIFFICULTY BREATHING Time Seen by Provider: 05/07/20 18:22 History Source: Patient Exam Limitations: No Limitations - History of Present Illness Initial Comments: 05/07/20 19:32 65F PMH DM, COPD, HTN, vertigo, anxiety presenting with progressive 3 weeks of symmetric b/l distal leg weakness, NAVARRO, and vertigo. Weakness elvie when walking, also states chest tightness and shortness of breath after taking 10 up-hill steps. Denies f/c, cough, recent illness, n/v, abd pain, dysuria, diarrhea, bloody stool. Denies chest pain. Denies new-onset numbness, tingling. Allergies reviewed w/ patient. Past History - Medical History Allergies/Adverse Reactions: Allergies Allergy/AdvReac Type Severity Reaction Status Date / Time ranitidine [From Zantac] Allergy Intermediate Hives Verified 05/07/20 18:31 metronidazole [From Flagyl] Allergy Mild Hives Verified 05/07/20 18:31 Penicillins Allergy Mild Hives Verified 05/07/20 18:31 Home Medications: Ambulatory Orders Atorvastatin Ca [Lipitor] 20 mg PO HS 05/14/18 Alprazolam 2 mg PO BID PRN 05/15/18 Amlodipine Besylate 10 mg PO DAILY 05/15/18 Aspirin [ASA -] 81 mg PO DAILY 05/15/18 Fluticasone/Salmeterol [Advair Hfa 115-21 Mcg Inhaler] 2 inh PO BID 05/15/18 Insulin Glargine,Hum.rec.anlog [Lantus] 30 units SQ Q12H 05/15/18 Omeprazole Magnesium 40 mg PO DAILY 05/15/18 Albuterol Sulfate Inhaler - [Ventolin HFA Inhaler -] 1 - 2 inh PO Q4H #1 inhaler 02/22/19 Losartan Potassium 100 mg PO DAILY 05/04/19 Metformin HCl [Glucophage] 1,000 mg PO BID 11/08/19 Oxycodone HCl/Acetaminophen [Oxycodone-Acetaminophen 10-325] 1 tablet PO DAILY 11/08/19 predniSONE [Deltasone -] 40 mg PO DAILY #8 tablet 02/21/20 Albuterol 2.5/Ipratropium 0.5 [Duoneb -] 1 amp NEB Q6H PRN 30 Days #120 amp 05/10/20 Amlodipine Besylate [Norvasc -] 10 mg PO DAILY 30 Days #30 tablet 05/10/20 Hydralazine HCl 50 mg PO BID 30 Days #60 tablet 05/10/20 Insulin Sliding Scale [Novolog Vial Sliding Scale -] 1 vial SQ ACHS units 05/10/20 Losartan Potassium [Cozaar -] 100 mg PO DAILY 30 Days #30 tablet 05/10/20 Pramipexole Di-HCl [Mirapex] 0.25 mg PO BID 30 Days #60 tablet 05/10/20 Ropinirole HCl [Requip -] 0.125 mg PO BID 30 Days #60 tablet 05/10/20 Anemia: Yes Asthma: Yes COPD: Yes Dementia: No Diabetes: Yes Disorders: Yes (UTI) HTN: Yes Hypercholesterolemia: Yes Psychiatric Problems: Yes (ANXIETY.) - Surgical History Abdominal Surgery: Yes Cholecystectomy: Yes - Reproductive History Is Patient Now?: No - Immunization History Immunization Up to Date: Yes - Psycho-Social/Smoking History Smoking Status: Yes Smoking History: Never smoked Have you smoked in the past 12 months: No Number of Cigarettes Smoked Daily: 10 If you are a former smoker, when did you quit?: 2013 - Substance Abuse Hx (Audit-C & DAST Scrn) How often the patient has a drink containing alcohol: Never Score: In Men: 4 or > Positive; In Women: 3 or > Positive: 0 Screen Result (Pos requires Nsg. Audit-10AR): Negative In the last yr the pt used illegal drug/Rx for NonMed reason: No Score: Yes response is considered Positive: 0 Screen Result (Positive result requires Nsg. DAST-10): Negative Review of Systems - Review of Systems Comments:: 05/10/20 17:44 CONSTITUTIONAL: Denies F / C HEENT: + vertigo. Denies changes in vision / hearing, sore throat, rhinorrhea RESP: +chest tightness, navarro, sob. Denies cough CARD: Denies chest pain GI: Denies N / V / D, abdominal pain, bloody stool, inability to tolerate PO : Denies dysuria NEURO: + distal le weakness. Denies numbness, tingling MSK: Denies back pain SKIN: Denies rashes *Physical Exam - Vital Signs Last Vital Signs Temp Pulse Resp BP Pulse Ox 97 F L 62 16 155/65 100 05/07/20 18:20 05/07/20 18:20 05/07/20 18:20 05/07/20 18:20 05/07/20 18:20 - Physical Exam 05/10/20 17:44 GEN: Well appearing, NAD, comfortable. AAOx3. HEENT: NC/AT, EOMI, PERRL, CN II-XII intact. No facial asymmetry. Moist mucous membranes. Normal voice. Supple neck w/ FROM. CV: S1/S2, RRR, no m/r/g LUNG: no increased wob. scattered and occasional expiratory wheezes GI: Soft, ndnt, +BS, no guarding, no rebound MSK: No LE edema. No obvious deformities of all extremities. SKIN: Warm, dry, no rashes appreciated. PSYCH: Mildly anxious and tearful; cooperative, speaking fluently NEURO: Moving all extremities well. 5/5 UE and LE strength. symmetric sensation. ambulates steady w/ normal gait. ED Treatment Course - LABORATORY CBC & Chemistry Diagram: 05/09/20 05:22 05/09/20 05:22 Medical Decision Making - Medical Decision Making 05/10/20 17:44 65F with 3 weeks of b/l symmetric distal LE weakness, NAVARRO, and vertigo associated with walking / exertion. Neuro intact exam. Occasional wheezes. Wide differential including electrolyte and metabolic abnormalities, ACS, hypothyroidism, COPD exacerbation,myopathies. Less likely GBS given no recent infectious sx. - CBC, CMP, Cardiac, TSH, Mg, Phos - CXR - EKG 1839 HR 58 Sinus rhythm, bradycardia, TWI in III and V1, no MASSIMO/D - Head CT - albuterol MDI 05/07/20 20:45 after extensive discussion of risks and benefits of Head CT, patient has declined the scan. has expressed understanding of risks of doing so. Discharge - Discharge Information Problems reviewed: Yes Clinical Impression/Diagnosis: Dizziness, Chest pain, Dyspnea, Shortness of breath, Leg heaviness Condition: Improved Disposition: HOME - Admission Yes - Follow up/Referral - Patient Discharge Instructions - Post Discharge Activity
[2020-05-07] MEDS ORDERED: ALBUTEROL SO4 HFA INHALER IH ONE ×2 (19:28→19:42)
[2020-05-07 19:45] LABS: BASO % 0.8 % (0-2.0); HEMATOCRIT 31.9 % (32.4-45.2); HEMOGLOBIN 10.9 GM/dL (10.7-15.3); LYMPH % 31.5 % (8-40); MCH 30.3 pg (25.7-33.7); MCHC 34.3 g/dl (32.0-36.0); MEAN CELL VOLUME 88.5 fl (80-96); MEAN PLT VOLUME 10.5 fl (7.5-11.1); MONO % 7.6 % (3.8-10.2); NEUT % 56.1 % (42.8-82.8); PLATELET COUNT 184 K/MM3 (134-434); RDW 15.2 % (11.6-15.6); WHITE BLOOD COUNT 6.5 K/mm3 (4.0-10.0)
[2020-05-07 19:49] LABS: INR 0.88 (0.83-1.09); PROTHROMBIN TIME (PATIENT) 10.4 SEC (9.7-13.0)
[2020-05-07 19:52] LABS: ACTIVATED PTT 31.7 SECONDS (25.2-36.5)
--- NOTE | 2020-05-07 20:08 | PDOC ---
Documentation entered by Hina Kee SCRIBE, acting as scribe for Nancy Alex DO. Nancy Alex DO: This documentation has been prepared by the marileee, Hina Kee SCRIBE, under my direction and personally reviewed by me in its entirety. I confirm that the documentation accurately reflects all work, treatment, procedures, and medical decision making performed by me. Attending Attestation - Resident Resident Name: Clive Fonseca - ED Attending Attestation I have performed the following: I have examined & evaluated the patient, The case was reviewed & discussed with the resident, I agree w/resident's findings & plan, Exceptions are as noted - HPI HPI: 05/07/20 18:50 Patient is a 65 year old female with a significant past medical history of ckd, copd who presents to the ED with a month hx of starr, cp, dizzy episodes and heavy feelings in her legs. States she feels chest pressure. States she can only walk a short distance before developing the symptoms. PMD at [facility], has never seen pulm or cards. Pt denies cp at this time. States he legs feel heavy when she walks and she had difficulty ambulating as they feel weak and heavy. Patient denies: fevers, chills, cough, german, paresthesias, unilateral weakness, abd pain, n/v/d. no dysuria Allergies: ranitidine, metronidazole, penicillins 05/07/20 21:22 - Physicial Exam PE: 05/07/20 20:01 Gen: aaox3, nad heart: +s1s2 reg lungs: soft end expiratory wheezing on exam otherwise clear abd: soft, obese, nt ext: no c/c/e, no calf ttp, pulses intact, brisk cap refill Neuro: cn ii-xii grossly intact, no focal deficits, ambulatory with a steady gait - Medical Decision Making 05/07/20 20:02 a/p: 65yo female with a 1m hx of cp/sob/lightheaded/leg heaviness -symptoms when she ambulates -has to stop and catch her breath -has never seen dipti or Dr. Davison -last PMD eval was January and she was told to see cards and pulm -concern for ACS vs copd exacerbation -will send labs, ekg, cxr, tsh, head ct -will monitor and reassess -no cp at this time 05/07/20 20:34 trop neg 05/07/20 21:25 xray without acute findings- wet read 05/07/20 21:50 pt updated on cxr and labs willing to stay for obs pt refusing head ct 05/07/20 22:38 case discussed with Ceci who accepts pt to service Heart Score/ECG Review - ECG Intrepretation Comment:: 05/07/20 20:04 sinus enrrique at 58, nl axis, t wave inversions III which are nonspecific, abnl ekg, no acute st changes Discharge - Discharge Information Problems reviewed: Yes Clinical Impression/Diagnosis: Dizziness, Chest pain, Dyspnea, Shortness of breath, Leg heaviness Condition: Stable - Admission Yes - Follow up/Referral Referrals: ON STAFF,NOT [Primary Care Provider] - - Patient Discharge Instructions - Post Discharge Activity
[2020-05-07 20:13] LABS: ALBUMIN 3.3 g/dl (3.4-5.0); ALK PHOS 58 U/L (45-117); ANION GAP 6 MMOL/L (8-16); BILIRUBIN,TOTAL 0.1 mg/dL (0.2-1); BLOOD UREA NITROGEN 37.1 mg/dL (7-18); CALCIUM 9.3 mg/dL (8.5-10.1); CHLORIDE 110 mmol/L (98-107); CO2 27 mmol/L (21-32); CREATININE 1.3 mg/dL (0.55-1.3); GLUCOSE,RANDOM 81 mg/dL (74-106); POTASSIUM 4.4 mmol/L (3.5-5.1); SGOT/AST 16 U/L (15-37); SGPT/ALT 26 U/L (13-61); SODIUM 142 mmol/L (136-145); TOT PROT 6.9 g/dl (6.4-8.2)
[2020-05-07] MEDS ORDERED: LACTATED RINGERS SOLUTION 1000 ML INFUS.BAG IV ONE (20:51)
[2020-05-07] MEDS ORDERED: ASPIRIN 81 MG CHEWABLE TABLETS PO ONE (22:37)
--- NOTE | 2020-05-07 22:44 | PN ---
Teaching Attending Note Name of Resident: Teodoro Deluna ATTENDING PHYSICIAN STATEMENT I saw and evaluated the patient. I reviewed the resident's note and discussed the case with the resident. I agree with the resident's findings and plan as documented. SUBJECTIVE: Patient is a 65 year old woman with a PMH of COPD, Remote cocaine/alcohol abuse, Uterine fibroids, NIDDM, HLD, CKD (proteinuria), Penicillin allergy, HTN, Obesity, Generalized anxiety disorder, Panic disorder, Bipolar Disorder, Benzodiazepine withdrawal disorder and Schizophrenia who presents to the ER with NAVARRO, chest pain, dizzy episodes and heavy feelings in her legs for 1 month. States she feels chest pressure. States she can only walk a short distance before developing the symptoms. Was pain free on arrival in the ER. States her legs feel heavy when she walks and she had difficulty ambulating as they feel weak and heavy. Patient denies unilateral weakness, abdominal pain, headache, palpitations, fever, chills, nausea, vomiting, diarrhea, constipation, dysuria, frequency, urgency, melena, hematochezia or hematuria. Former smoker. Denies alcohol, tobacco or illicit drug use. No sick contacts or recent travels. Family history of DM in father, liver cirrhosis in mother, AIDS, CHF, DM and liver cancer in siblings. OBJECTIVE: Alert Vital Signs Period Temp Pulse Resp BP Sys/Maurer Pulse Ox Last 24 Hr 97 F 62 16 155/65 100 HEENT: No Jaundice, eye redness or discharge, PERRLA, EOMI. Normocephalic, atraumatic. External ears are normal and hearing is grossly intact. No nasal discharge. Neck: Supple, nontender. No palpable adenopathy or thyromegaly. No JVD Chest: Good effort. Fungal infection/erythema under breast folds. Expiratory wheezing. Clear to percussion. Heart: Regular. No S3, rub or murmur Abdomen: Distended abdomen; erythema/fungal infection in lower abdominal skin fold; soft, nontender and no HSM. No rebound or guarding. Normal bowel sounds. Ext: Peripheral pulses intact. No leg edema. Skin: Warm and dry. No petechiae, rash or ecchymosis. Neuro: Alert. Oriented x3. CN 2-12 grossly intact. Sensation grossly intact in all four extremities and DTR are symmetric. Psych: Appropriate mood and affect. Good insight. Home Medications Medication Instructions Recorded Atorvastatin Ca [Lipitor] 20 mg PO HS 05/14/18 Hydralazine HCl 50 mg PO BID 05/14/18 Alprazolam 2 mg PO BID PRN 05/15/18 Amlodipine Besylate 10 mg PO DAILY 05/15/18 Aspirin [ASA -] 81 mg PO DAILY 05/15/18 Fluticasone/Salmeterol [Advair Hfa 2 inh PO BID 05/15/18 115-21 Mcg Inhaler] Insulin Glargine,Hum.rec.anlog 30 units SQ Q12H 05/15/18 [Lantus] Omeprazole Magnesium 40 mg PO DAILY 05/15/18 Albuterol Sulfate Inhaler - 1 - 2 inh PO Q4H #1 inhaler 02/22/19 [Ventolin HFA Inhaler -] Losartan Potassium 100 mg PO DAILY 05/04/19 Metformin HCl [Glucophage] 1,000 mg PO BID 11/08/19 Oxycodone HCl/Acetaminophen 1 tablet PO DAILY 11/08/19 [Oxycodone-Acetaminophen 10-325] Azithromycin [Zithromax 250mg 250 mg PO UTDICT #6 tab 02/21/20 Tablets -] predniSONE [Deltasone -] 40 mg PO DAILY #8 tablet 02/21/20 Abnormal Lab Results 05/07/20 05/07/20 19:00 19:00 Hct 31.9 L Chloride 110 H Anion Gap 6 L BUN 37.1 H Total Bilirubin 0.1 L Creatine Kinase 193 H Albumin 3.3 L Current Medications Generic Name Dose Route Start Last Admin Trade Name Freq PRN Reason Stop Dose Admin Albuterol/Ipratropium 1 amp 05/08/20 02:09 Duoneb - NEB Q6H PRN SHORTNESS OF BREATH Alprazolam 2 mg 05/08/20 02:10 Xanax PO BID PRN ANXIETY Amlodipine Besylate 10 mg 05/08/20 10:00 Norvasc - PO DAILY CONCETTA Aspirin 81 mg 05/08/20 10:00 Asa - PO DAILY CONCETTA Atorvastatin Calcium 20 mg 05/08/20 22:00 Lipitor - PO HS CONCETTA Budesonide/Formoterol Fumarate 2 puff 05/08/20 02:15 05/08/20 03:47 Symbicort 80/4.5mcg - IH 2 puff BID CONCETTA Administration Heparin Sodium (Porcine) 5,000 unit 05/08/20 06:00 Heparin - SQ TID CONCETTA Hydralazine HCl 50 mg 05/08/20 10:00 Apresoline - PO BID CONCETTA Sodium Chloride 1,000 mls @ 50 mls/hr 05/08/20 02:15 05/08/20 02:26 Normal Saline - IV 05/08/20 22:14 50 mls/hr ASDIR CONCETTA Administration Losartan Potassium 100 mg 05/08/20 10:00 Cozaar - PO DAILY CONCETTA Pantoprazole Sodium 40 mg 05/08/20 07:00 Protonix - PO ACBK CONCETTA ASSESSMENT AND PLAN: 1. Chest pain/Dizziness/?COPD exacerbation - No acute abnormality on CXR. EKG shows sinus bradycardia at 58/minute with T wave inversion in III and V1 and no ischemic ST changes. Not significantly changed compared to prior EKG from 02/21/2020. Initial troponin is negative. Debility associated with morbid obesity, obstructive sleep apnea, anemia and obesity hypoventilation syndrome may all be contributing to her symptoms. ECHO from 11/08/2019 showed normal LV size, thickness and function with a LVEF of 65-70%. Will admit to telemetry, trend troponin, repeat EKG, get ECHO, carotid doppler, fasting lipids, do neurochecks and implement fall precautions. Consult Cardiology. Consult Neurology and discuss propriety of brain MRI. Will treat with Duoneb, Symbicort, consult Pulmonary and monitor peak flow. Consult Pulper Tender for fibroids. Treat fungal skin infection with Miconazole cream. Viral testing for COVID-19 ordered and patient placed on airborne, droplet and contact isolation. Will continue comprehensive care for all of patients comorbid conditions. 2. Hypoalbuminemia - Possibly due to combined effects of malnutrition and inflammation associated with comorbid conditions. Will ensure adequate dietary protein intake and also consult measurement operator. Urinalysis pending. 3. DM For now, we will hold the home diabetes drugs and implement sliding scale insulin regimen. Provide comprehensive diabetes care with patient teaching and counseling about the importance of adherence to prescribed diabetes regimen, euglycemia, eye care and foot care. 4. PRISCILLA on CKD May have mild rhabdomyolysis. Will get kidney sonogram, urine protein/creatinine ratio, hydrate gently, monitor urine output and consult Nephrology. Avoid nephrotoxic agents such as NSAIDS, aminoglycosides, contrast dyes and certain Alternative medicine products. 6. Anemia Likely multifactorial. Will do basic anemia work up including serial stool guaiacs, reticulocyte count and iron studies. 7. Morbid obesity Counseled on the risks associated with obesity. Will provide patient all the necessary assistance, counseling and positive reinforcement to facilitate weight loss. Consult measurement operator. 8. Hypertension Will restart suitable outpatient antihypertensive drugs when clinically appropriate. Subsequently, will revise regimen to ensure [id number] excellent BP control. Patient counseled on the injurious effects of uncontrolled hypertension. Nonpharmacologic measures to control hypertension like weight loss, salt restriction and exercise stressed. Importance of adherence to treatment regimen and attainment of normotension emphasized. 9. DVT prophylaxis - Heparin 5000u sq tid. 10. Advance directives - Full code
[2020-05-07] MEDS ORDERED: ASPIRIN 81 MG CHEWABLE TABLETS ONE (23:16)
[2020-05-08] MEDS ORDERED: ALBUTEROL SO4 2.5/IPRATROPIUM 0.5 INH SOL 3 ML VIAL.NEB. NEB PRN (02:09)
[2020-05-08] MEDS ORDERED: SODIUM CHLORIDE 1,000 ML IV SCH (02:15)
[2020-05-08] MEDS ORDERED: HEPARIN NA (PORCINE) 5,000 UNITS/ML 1ML VIAL ONE ×2 (02:19→14:23)
[2020-05-08] MEDS: BUDESONIDE/FORMETEROL FUMARATE 80/4.5 mcg INHALER IH SCH ×3 (03:47→22:14)
[2020-05-08] MEDS: HEPARIN NA (PORCINE) 5,000 UNITS/ML 1ML VIAL SQ SCH ×3 (06:06→22:13)
[2020-05-08 07:30] LABS: BASO % 1.1 % (0-2.0); EOS % 5.1 % (0-4.5); HEMATOCRIT 28.6 % (32.4-45.2); HEMOGLOBIN 9.8 GM/dL (10.7-15.3); LYMPH % 41.8 % (8-40); MCH 29.9 pg (25.7-33.7); MCHC 34.4 g/dl (32.0-36.0); MEAN CELL VOLUME 86.8 fl (80-96); MONO % 8.4 % (3.8-10.2); NEUT % 43.6 % (42.8-82.8); PLATELET COUNT 170 K/MM3 (134-434); RBC 3.29 M/mm3 (3.60-5.2); WHITE BLOOD COUNT 5.1 K/mm3 (4.0-10.0)
[2020-05-08 07:58] LABS: ALK PHOS 56 U/L (45-117); ANION GAP 8 MMOL/L (8-16); BILIRUBIN,TOTAL 0.2 mg/dL (0.2-1); BLOOD UREA NITROGEN 31.1 mg/dL (7-18); CALCIUM 8.6 mg/dL (8.5-10.1); CHLORIDE 112 mmol/L (98-107); CO2 23 mmol/L (21-32); GLUCOSE,RANDOM 67 mg/dL (74-106); MAGNESIUM 1.9 mg/dL (1.8-2.4); POTASSIUM 3.9 mmol/L (3.5-5.1); SGOT/AST 11 U/L (15-37); SGPT/ALT 22 U/L (13-61); SODIUM 143 mmol/L (136-145); TOT PROT 6.3 g/dl (6.4-8.2)
[2020-05-08] MEDS: PANTOPRAZOLE 40 MG TABLET PO SCH (08:00)
--- NOTE | 2020-05-08 08:19 | HP ---
CHIEF COMPLAINT: PCP: HISTORY OF PRESENT ILLNESS: 65yo F with PMHx of HTN, DM, HLD, CKD, COPD, sleep apnea, chronic LBP, anxiety, fibroids, polysubstance abuse, and recent admission for ACS r/o who presented with dizziness, bilateral leg weakness, and SOB on exertion. For about one month, she has been experiencing progressive bilateral leg weakness and noticed that the she gets out of breath when walking up some stairs. She also has occasional CP that feels like "strikes" or "lightning" and that radiates from one shoulder to the other on the anterior and posterior chest, with additional radiation down her R arm. Said that her SOB got much better when she got albuterol puffs in the ED. Endorsed palpitations and chronic constipation but denied headahces, vertigo, NVD, fever, chills. 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 Home: lives alone Allergies ranitidine [From Zantac] Allergy (Intermediate, Verified 05/07/20 18:31) Hives metronidazole [From Flagyl] Allergy (Mild, Verified 05/07/20 18:31) Hives Penicillins Allergy (Mild, Verified 05/07/20 18:31) Hives HOME MEDICATIONS: Home Medications Medication Instructions Recorded Atorvastatin Ca [Lipitor] 20 mg PO HS 05/14/18 Hydralazine HCl 50 mg PO BID 05/14/18 Alprazolam 2 mg PO BID PRN 05/15/18 Amlodipine Besylate 10 mg PO DAILY 05/15/18 Aspirin [ASA -] 81 mg PO DAILY 05/15/18 Fluticasone/Salmeterol [Advair Hfa 2 inh PO BID 05/15/18 115-21 Mcg Inhaler] Insulin Glargine,Hum.rec.anlog 30 units SQ Q12H 05/15/18 [Lantus] Omeprazole Magnesium 40 mg PO DAILY 05/15/18 Albuterol Sulfate Inhaler - 1 - 2 inh PO Q4H #1 inhaler 02/22/19 [Ventolin HFA Inhaler -] Losartan Potassium 100 mg PO DAILY 05/04/19 Metformin HCl [Glucophage] 1,000 mg PO BID 11/08/19 Oxycodone HCl/Acetaminophen 1 tablet PO DAILY 11/08/19 [Oxycodone-Acetaminophen 10-325] Azithromycin [Zithromax 250mg 250 mg PO UTDICT #6 tab 02/21/20 Tablets -] predniSONE [Deltasone -] 40 mg PO DAILY #8 tablet 02/21/20 REVIEW OF SYSTEMS as per HPI PHYSICAL EXAMINATION Vital Signs - 24 hr 05/07/20 05/08/20 05/08/20 18:20 03:35 07:30 Temperature 97 F L 97.6 F Pulse Rate 62 Pulse Rate [ 58 L 64 Apical] Respiratory 16 20 16 Rate Blood Pressure 155/65 Blood Pressure 133/64 136/61 [Left Arm] O2 Sat by Pulse 100 99 100 Oximetry (%) GENERAL: AAF, appears somewhat younger than stated age, morbid obese body habitus, AAOx4 showing no signs of acute distress HEAD: Normal with no signs of trauma, mildly poor dentition EYES: PERRL, extraocular movements intact bilaterally EARS, NOSE, THROAT:Moist mucous membranes. NECK: No lymphadenopathy LUNGS: CTAB. No wheezes HEART: RRR, normal S1 and S2 with systolic murmur ABDOMEN: Soft, nontender, severely protuberant abdomen with protuberance starting above umbilicus, hypooactive bowel sounds EXTREMITIES: 2+ radial and dorsalis pedis pulses, warm to touch bilaterally, nontender to palpation, no peripheral edema appreciated NEUROLOGICAL: Cranial nerves II-XII grossly intact. Normal speech with symmetricalfacial movements. Normal gait observed PSYCHIATRIC: Cooperative and interactive, responds mostly appropriately but often tangential thoughts. Good eye contact. Worried mood and affect congruent with stated mood SKIN: extensive erythematous pruritic rash in pelvic and groin area as well as beneath bilateral breasts Laboratory Results - last 24 hr 09/09/20 09/09/20 09/09/20 19:00 19:00 19:00 WBC 6.5 RBC 3.60 Hgb 10.9 Hct 31.9 L MCV 88.5 MCH 30.3 MCHC 34.3 RDW 15.2 Plt Count 184 MPV 10.5 Absolute Neuts (auto) 3.6 Neutrophils % 56.1 Lymphocytes % 31.5 Monocytes % 7.6 Eosinophils % 4.0 Basophils % 0.8 Nucleated RBC % 0 PT with INR 10.40 INR 0.88 PTT (Actin FS) 31.7 Sodium 142 Potassium 4.4 Chloride 110 H Carbon Dioxide 27 Anion Gap 6 L BUN 37.1 H Creatinine 1.3 Est GFR (CKD-EPI)AfAm 50.56 Est GFR (CKD-EPI)NonAf 43.62 Random Glucose 81 Calcium 9.3 Phosphorus Magnesium 2.0 Total Bilirubin 0.1 L AST 16 ALT 26 Alkaline Phosphatase 58 Creatine Kinase 193 H Creatine Kinase Index 1.2 CK-MB (CK-2) 2.4 Troponin I < 0.02 B-Natriuretic Peptide 83.0 Total Protein 6.9 Albumin 3.3 L TSH 1.79 05/08/20 06:05 WBC RBC Hgb Hct MCV MCH MCHC RDW Plt Count MPV Absolute Neuts (auto) Neutrophils % Lymphocytes % Monocytes % Eosinophils % Basophils % Nucleated RBC % PT with INR INR PTT (Actin FS) Sodium 143 Potassium 3.9 Chloride 112 H Carbon Dioxide 23 Anion Gap 8 BUN 31.1 H Creatinine 1.0 Est GFR (CKD-EPI)AfAm 69.44 Est GFR (CKD-EPI)NonAf 59.91 Random Glucose 67 L Calcium 8.6 Phosphorus 3.0 Magnesium 1.9 Total Bilirubin 0.2 AST 11 L ALT 22 Alkaline Phosphatase 56 Creatine Kinase Creatine Kinase Index CK-MB (CK-2) Troponin I < 0.02 B-Natriuretic Peptide Total Protein 6.3 L Albumin 3.0 L TSH ASSESSMENT/PLAN: 65yo F with PMHx of HTN, DM, HLD, CKD, COPD, sleep apnea, chronic LBP, anxiety, fibroids, polysubstance abuse, and recent admission for ACS r/o who presented with dizziness, bilateral leg weakness, and SOB on exertion. ED workup showed no increased troponin, BNP, or CK-MB, and EKG showed sinus bradycardia. Patient admitted for r/o ACS. *patient needs med rec - home prednisone was not re-started. #dizziness/weakness/SOB likely due to COPD in setting of anxiety and severe obesity causing hypoventilation, less likely ACS - cardiology consulted - repeat EKG and trop - carotid doppler - small possibility of lacunar/cerebellar stroke - neuro consulted (MRI warranted?) - neuro checks #Rash - likely intertrigo 2/2 jose angel - started ketoconazole cream #COPD - ordered symbicort and duonebs #DM - holding home DM meds - ISS - BGMs ACHS - ordered A1c #HTN - started home amlodipine, losartan, hydralazine #Anxiety - started home Alprazolam #Fibroids - ordered soakers supervisor consult - is hysterectomy for fibroids indicated? #FEN - one bag 50cc/h NS - replete lytes PRN - diabetic/sodium controlled diet - ordered crap game box person consult for patient nutritional education #PPX: - DVT: heparin - GI: pantoprazole #Dispo: telemetry Family Medical History Family History: As Documented Visit type - Emergency Visit Emergency Visit: Yes ED Registration Date: 05/08/20 Care time: The patient presented to the Emergency Department on the above date and was hospitalized for further evaluation of their emergent condition. - New Patient This patient is new to me today: Yes Date on this admission: 05/08/20 - Critical Care Critical Care patient: No ATTENDING PHYSICIAN STATEMENT I saw and evaluated the patient. I reviewed the resident's note and discussed the case with the resident. I agree with the resident's findings and plan as documented. SUBJECTIVE: OBJECTIVE: ASSESSMENT AND PLAN:
[2020-05-08] MEDS ORDERED: PANTOPRAZOLE 40 MG TABLET ONE (08:27)
[2020-05-08] MEDS ORDERED: hydrALAZINE HCL 25 MG TABLET (FP) ONE (09:41)
[2020-05-08] MEDS ORDERED: amLODIPine BESYLATE 5 MG TABLET (FP) ONE (09:41)
[2020-05-08] MEDS ORDERED: LOSARTAN POTASSIUM 50 MG TABLET (FP) ONE (09:41)
[2020-05-08] MEDS: amLODIPine BESYLATE 10 MG TABLET (FP) PO SCH (09:46)
[2020-05-08] MEDS: ASPIRIN 81 MG CHEWABLE TABLETS PO SCH (09:46)
[2020-05-08] MEDS: LOSARTAN POTASSIUM 50 MG TABLET (FP) PO SCH (09:46)
[2020-05-08] MEDS: hydrALAZINE HCL 50 MG TABLET (FP) PO SCH ×2 (09:46→22:12)
--- NOTE | 2020-05-08 09:49 | EKG ---
Test Reason : Blood Pressure : / mmHG Vent. Rate : 058 BPM Atrial Rate : 058 BPM P-R Int : 120 ms QRS Dur : 082 ms QT Int : 404 ms P-R-T Axes : 047 -16 -07 degrees QTc Int : 396 ms SINUS BRADYCARDIA OTHERWISE NORMAL ECG WHEN COMPARED WITH ECG OF 21-FEB-2020 19:28, NO SIGNIFICANT CHANGE WAS FOUND Confirmed by NARCISO OSHEA MD ([id number]) on 05/08/2020 9:48:47 AM Referred By: Confirmed By:NARCISO OSHEA MD
[2020-05-08] MEDS ORDERED: PATIENT'S OWN MEDICATION (NON-FORMULARY) (Losartan Potassium [Losartan Potassium] 100 MG) PO SCH (10:00)
[2020-05-08] MEDS ORDERED: PATIENT'S OWN MEDICATION (NON-FORMULARY) (Omeprazole Magnesium [Omeprazole Magnesium] 40 M PO SCH (10:00)
--- NOTE | 2020-05-08 12:30 | CON.CARD ---
Cardiology Consult (text) - Consultation Consultation Note: Chief Complaint: sob History of Present Illness: 65F h/o DM, HLD, HTN, obesity, CKD, schizophrenia, sleep apnea p/w sob. Past few weeks reports starr and weakness in legs. Occasional right sided shocking pain in chest and back. No palps dizzy loc pnd orthopnea. - Past Medical History Pulmonary: Yes: Bronchitis, COPD, Other (Likely OSAS ). No: O2 Dependent Psych: Yes: Addictions, Anxiety, Depression, Panic - Alcohol/Substance Use Hx Alcohol Use: No History of Substance Use: reports: None - Smoking History Smoking history: Never smoked Have you smoked in the past 12 months: No Aproximately how many cigarettes per day: 10 If you are a former smoker, when did you quit?: 2013 - Social History ADL: Independent History of Recent Travel: No Home Medications - Allergies Allergies/Adverse Reactions: Allergies Allergy/AdvReac Type Severity Reaction Status Date / Time ranitidine [From Zantac] Allergy Intermediate Hives Verified 05/07/20 18:31 metronidazole [From Flagyl] Allergy Mild Hives Verified 05/07/20 18:31 Penicillins Allergy Mild Hives Verified 05/07/20 18:31 Home Medications Medication Instructions Recorded Atorvastatin Ca [Lipitor] 20 mg PO HS 05/14/18 Hydralazine HCl 50 mg PO BID 05/14/18 Alprazolam 2 mg PO BID PRN 05/15/18 Amlodipine Besylate 10 mg PO DAILY 05/15/18 Aspirin [ASA -] 81 mg PO DAILY 05/15/18 Fluticasone/Salmeterol [Advair Hfa 2 inh PO BID 05/15/18 115-21 Mcg Inhaler] Insulin Glargine,Hum.rec.anlog 30 units SQ Q12H 05/15/18 [Lantus] Omeprazole Magnesium 40 mg PO DAILY 05/15/18 Albuterol Sulfate Inhaler - 1 - 2 inh PO Q4H #1 inhaler 02/22/19 [Ventolin HFA Inhaler -] Losartan Potassium 100 mg PO DAILY 05/04/19 Metformin HCl [Glucophage] 1,000 mg PO BID 11/08/19 Oxycodone HCl/Acetaminophen 1 tablet PO DAILY 11/08/19 [Oxycodone-Acetaminophen 10-325] Azithromycin [Zithromax 250mg 250 mg PO UTDICT #6 tab 02/21/20 Tablets -] predniSONE [Deltasone -] 40 mg PO DAILY #8 tablet 02/21/20 Family Medical History Family History: Unremarkable Review of Systems - Review of Systems per hpi; all others nl Vital Signs Period Temp Pulse Resp BP Sys/Maurer Pulse Ox Last 24 Hr 97 F-97.6 F 58-64 16-20 133-155/61-65 99-100 Constitutional: Yes: Well Nourished, Anxious Eyes: Yes: Conjunctiva Clear, EOM Intact HENT: Yes: Atraumatic, Normocephalic Neck: Yes: Trachea Midline Respiratory: Yes: Regular,mild wheeze bl Gastrointestinal: Yes: Normal Bowel Sounds, Soft Cardiovascular: Yes: Regular Rate and Rhythm Heart Sounds: Yes: S1, S2 Musculoskeletal: No: Back Pain Extremities: No: Cold Edema: No Integumentary: No: Jaundice Neurological: Yes: Alert, Oriented Psychiatric: No: Agitated - Other Data Labs, Other Data: CBC, BMP 05/08/20 06:05 05/08/20 06:05 Assessment/Plan EKG:sr nl intervals no ischemic changes cxr: no acute process echo 10/2019: nl lv/rv, mild as chest pain - seems atypical. ecg unremarkable. trops neg. no signs acs. - recent echo unremarkable - given risk factors planned for mibi on prior admit but pt refuses, still declining now as well. sob: -no signs chf or acs -recent echo unremarkable -has wheezing on exam, possible copd exacerbation HTN - cont current meds HLD - cont statin
--- NOTE | 2020-05-08 12:35 | EKG ---
Test Reason : Blood Pressure : / mmHG Vent. Rate : 063 BPM Atrial Rate : 063 BPM P-R Int : 118 ms QRS Dur : 080 ms QT Int : 410 ms P-R-T Axes : 057 -23 008 degrees QTc Int : 419 ms NORMAL SINUS RHYTHM NORMAL ECG WHEN COMPARED WITH ECG OF 07-MAY-2020 18:39, NO SIGNIFICANT CHANGE WAS FOUND Confirmed by NARCISO OSHEA MD ([id number]) on 05/08/2020 12:34:49 PM Referred By: Confirmed By:NARCISO OSHEA MD
[2020-05-08] MEDS: KETOCONAZOLE 2% CREAM - 60GM TUBE TP SCH (17:11)
[2020-05-08] MEDS ORDERED: MELATONIN 5 MG TABLETS PO PRN (21:29)
[2020-05-08] MEDS: ALPRAZolam 1 MG TABLET PO PRN (22:12)
[2020-05-08] MEDS: ATORVASTATIN CA 20 MG TABLET (FP) PO SCH (22:12)
--- NOTE | 2020-05-09 05:29 | PN ---
Progress Note, Physician Chief Complaint: denies CP/SOB/palps TELE: NSR, artifact History of Present Illness: 65F h/o DM, HLD, HTN, obesity, CKD, schizophrenia, sleep apnea p/w sob. Past few weeks reports starr and weakness in legs. Occasional right sided shocking pain in chest and back. No palps dizzy loc pnd orthopnea. SH: former smoker - Current Medication List Current Medications: Active Medications Albuterol/Ipratropium (Duoneb -) 1 amp NEB Q6H PRN PRN Reason: SHORTNESS OF BREATH Alprazolam (Xanax) 2 mg PO BID PRN PRN Reason: ANXIETY Last Admin: 05/08/20 22:12 Dose: 2 mg Documented by: Amlodipine Besylate (Norvasc -) 10 mg PO DAILY [facility] Last Admin: 05/08/20 09:46 Dose: 10 mg Documented by: Aspirin (Asa -) 81 mg PO DAILY [facility] Last Admin: 05/08/20 09:46 Dose: 81 mg Documented by: Atorvastatin Calcium (Lipitor -) 20 mg PO HS [facility] Last Admin: 05/08/20 22:12 Dose: 20 mg Documented by: Budesonide/Formoterol Fumarate (Symbicort 80/4.5mcg -) 2 puff IH BID [facility] Last Admin: 05/08/20 22:14 Dose: 2 puff Documented by: Heparin Sodium (Porcine) (Heparin -) 5,000 unit SQ TID [facility] Last Admin: 05/08/20 22:13 Dose: 5,000 unit Documented by: Hydralazine HCl (Apresoline -) 50 mg PO BID [facility] Last Admin: 05/08/20 22:12 Dose: 50 mg Documented by: Ketoconazole (Nizoral 2% Cream -) 1 applic TP DAILY [facility] Last Admin: 05/08/20 17:11 Dose: 1 applic Documented by: Losartan Potassium (Cozaar -) 100 mg PO DAILY [facility] Last Admin: 05/08/20 09:46 Dose: 100 mg Documented by: Pantoprazole Sodium (Protonix -) 40 mg PO ACBK [facility] Last Admin: 05/08/20 08:00 Dose: 40 mg Documented by: - Objective Vital Signs: Vital Signs Temperature 98.3 F 05/09/20 02:00 Pulse Rate 57 L 05/09/20 02:00 Respiratory Rate 18 05/09/20 02:00 Blood Pressure 121/54 L 05/09/20 02:00 O2 Sat by Pulse Oximetry (%) 99 05/08/20 23:52 Constitutional: Yes: No Distress, Calm Eyes: Yes: Conjunctiva Clear, EOM Intact Cardiovascular: Yes: Regular Rate and Rhythm Respiratory: Yes: CTA Bilaterally (no rales or wheezing) Gastrointestinal: Yes: Soft (nt), Abdomen, Obese Edema: No Peripheral Pulses WNL: Yes Neurological: Yes: Alert, Oriented ...Motor Strength: WNL Labs: CBC, BMP 05/08/20 06:05 05/08/20 06:05 INR, PTT INR 0.88 (0.83-1.09) 05/07/20 19:00 Laboratory Tests 05/07/20 05/08/20 05/09/20 19:00 06:05 05:22 WBC 4.8 Hgb 9.6 L Plt Count 182 Sodium Potassium Creatinine Creatine Kinase Index 1.2 CK-MB (CK-2) 2.4 Troponin I < 0.02 < 0.02 B-Natriuretic Peptide 83.0 05/09/20 05:22 WBC Hgb Plt Count Sodium 143 Potassium 4.2 Creatinine 1.1 Creatine Kinase Index CK-MB (CK-2) Troponin I B-Natriuretic Peptide - ....Imaging EKG: Image Reviewed Assessment/Plan Assessment/Plan EKG:sr nl intervals no ischemic changes cxr: no acute process echo 10/2019: nl lv/rv, mild as chest pain: - seems atypical. ecg unremarkable. trops neg. no signs acs. BNP WNL - recent echo unremarkable - given risk factors planned for mibi on prior admit, but pt refuses, declining now as well. She said she would f/u with her PMD at [facility] and do it as an outpatient. sob: -no signs chf or acs. BNP WNL. -recent echo unremarkable -had wheezing on exam, possible copd exacerbation- as per PMD HTN: - cont current meds HLD: - cont statin
--- NOTE | 2020-05-09 05:33 | PN ---
Physical Exam: SUBJECTIVE: Patient seen and examined sittting on edge of bed. No further episodes of chest pain. Feeling well, feels ready to go home. OBJECTIVE: Vital Signs Period Temp Pulse Resp BP Sys/Maurer Pulse Ox Last 24 Hr 97.6 F-98.3 F 57-64 16-20 120-139/47-67 99-100 GENERAL/PSYCH: The patient is awake, alert, oriented x 3; tangential thoughts, flight of ideas, wants to [facility] for diagnosing her with schizoprhenia which she says is not true LUNGS: Breath sounds equal, clear to auscultation bilaterally, HEART: Regular rate and rhythm, S1, S2 ABDOMEN: Soft, nontender, nondistended EXTREMITIES: 2+ pulses, warm, well-perfused, no edema. NEUROLOGICAL: Cranial nerves II through XII grossly intact. Normal speech, self- positions easily Laboratory Results - last 24 hr 05/08/20 05/08/20 05/08/20 06:05 06:05 06:05 WBC 5.1 RBC 3.29 L Hgb 9.8 L Hct 28.6 L MCV 86.8 MCH 29.9 MCHC 34.4 RDW 15.0 Plt Count 170 MPV 9.0 D Absolute Neuts (auto) 2.2 Neutrophils % 43.6 D Lymphocytes % 41.8 H D Monocytes % 8.4 Eosinophils % 5.1 H Basophils % 1.1 Nucleated RBC % 0 Sodium 143 Potassium 3.9 Chloride 112 H Carbon Dioxide 23 Anion Gap 8 BUN 31.1 H Creatinine 1.0 Est GFR (CKD-EPI)AfAm 69.44 Est GFR (CKD-EPI)NonAf 59.91 Random Glucose 67 L Hemoglobin A1c % 7.3 H Calcium 8.6 Phosphorus 3.0 Magnesium 1.9 Total Bilirubin 0.2 AST 11 L ALT 22 Alkaline Phosphatase 56 Troponin I < 0.02 Total Protein 6.3 L Albumin 3.0 L Active Medications Generic Name Dose Route Start Last Admin Trade Name Freq PRN Reason Stop Dose Admin Albuterol/Ipratropium 1 amp 05/08/20 02:09 Duoneb - NEB Q6H PRN SHORTNESS OF BREATH Alprazolam 2 mg 05/08/20 02:10 05/08/20 22:12 Xanax PO 2 mg BID PRN Administration ANXIETY Amlodipine Besylate 10 mg 05/08/20 10:00 05/08/20 09:46 Norvasc - PO 10 mg DAILY [facility] Administration Aspirin 81 mg 05/08/20 10:00 05/08/20 09:46 Asa - PO 81 mg DAILY [facility] Administration Atorvastatin Calcium 20 mg 05/08/20 22:00 05/08/20 22:12 Lipitor - PO 20 mg HS [facility] Administration Budesonide/Formoterol Fumarate 2 puff 05/08/20 02:15 05/08/20 22:14 Symbicort 80/4.5mcg - IH 2 puff BID [facility] Administration Heparin Sodium (Porcine) 5,000 unit 05/08/20 06:00 05/08/20 22:13 Heparin - SQ 5,000 unit TID [facility] Administration Hydralazine HCl 50 mg 05/08/20 10:00 05/08/20 22:12 Apresoline - PO 50 mg BID [facility] Administration Ketoconazole 1 applic 05/08/20 15:30 05/08/20 17:11 Nizoral 2% Cream - TP 1 applic DAILY [facility] Administration Losartan Potassium 100 mg 05/08/20 10:00 05/08/20 09:46 Cozaar - PO 100 mg DAILY [facility] Administration Pantoprazole Sodium 40 mg 05/08/20 07:00 05/08/20 08:00 Protonix - PO 40 mg ACBK [facility] Administration ASSESSMENT/PLAN 65 year-old female with a PMH significant for HTN, HLD, Type II NIDDM, COPD, CKD, schizophrenia, and polysubstance abuse (remote). Admitted for r/o ACS. Chest pain --full cardiac workup in October 2019 was negative --ECG unremarkable, serial troponins negativek, no events on tele --again offered stress mibi and declined again as in October 2019 --seen and evaluated by cardiology Hypertension --BP stable --continue amlodipine, hydralazine, losartan Hyperlipidemia --continue Lipitor Type II NIDDM --Novolog sliding scale coverage COPD --stable --continue Symbicort, duoneb PRN CKD --renal function stable Schizophrenia --hospitalized at [facility] 03/23-04/29/20 --prescribed Abilify 15mg daily on discharge but patient refuses to take FEN Fluids: PO intake adequate Electrolytes: replete as indicated Nutrition: low sodium, diabetic DVT prophylaxis: subq heparin Dispo: continues to require inpatient care. Full code. Visit type - Emergency Visit Emergency Visit: Yes ED Registration Date: 05/08/20 Care time: The patient presented to the Emergency Department on the above date and was hospitalized for further evaluation of their emergent condition. - New Patient This patient is new to me today: Yes Date on this admission: 05/10/20 - Critical Care Critical Care patient: No
[2020-05-09] MEDS: HEPARIN NA (PORCINE) 5,000 UNITS/ML 1ML VIAL SQ SCH ×3 (06:15→21:25)
[2020-05-09] MEDS: PANTOPRAZOLE 40 MG TABLET PO SCH (06:15)
[2020-05-09 06:35] LABS: BASO % 0.7 % (0-2.0); EOS % 4.7 % (0-4.5); HEMATOCRIT 28.5 % (32.4-45.2); HEMOGLOBIN 9.6 GM/dL (10.7-15.3); LYMPH % 44.5 % (8-40); MCH 29.5 pg (25.7-33.7); MCHC 33.8 g/dl (32.0-36.0); MEAN CELL VOLUME 87.3 fl (80-96); MEAN PLT VOLUME 9.5 fl (7.5-11.1); MONO % 8.9 % (3.8-10.2); NEUT % 41.2 % (42.8-82.8); PLATELET COUNT 182 K/MM3 (134-434); RBC 3.26 M/mm3 (3.60-5.2); RDW 15.2 % (11.6-15.6); WHITE BLOOD COUNT 4.8 K/mm3 (4.0-10.0)
[2020-05-09 07:01] LABS: ALBUMIN 2.6 g/dl (3.4-5.0); BILIRUBIN,TOTAL 0.2 mg/dL (0.2-1); CALCIUM 8.8 mg/dL (8.5-10.1); CREATININE 1.1 mg/dL (0.55-1.3); MAGNESIUM 1.9 mg/dL (1.8-2.4); POTASSIUM 4.2 mmol/L (3.5-5.1); TOT PROT 5.5 g/dl (6.4-8.2)
[2020-05-09] MEDS: ALPRAZolam 1 MG TABLET PO PRN ×2 (09:06→21:26)
[2020-05-09] MEDS: amLODIPine BESYLATE 10 MG TABLET (FP) PO SCH (09:06)
[2020-05-09] MEDS: hydrALAZINE HCL 50 MG TABLET (FP) PO SCH ×2 (09:06→21:25)
[2020-05-09] MEDS: LOSARTAN POTASSIUM 50 MG TABLET (FP) PO SCH (09:07)
[2020-05-09] MEDS: KETOCONAZOLE 2% CREAM - 60GM TUBE TP SCH (09:07)
[2020-05-09] MEDS: ASPIRIN 81 MG CHEWABLE TABLETS PO SCH (09:07)
[2020-05-09] MEDS: BUDESONIDE/FORMETEROL FUMARATE 80/4.5 mcg INHALER IH SCH ×2 (09:07→21:26)
[2020-05-09] MEDS ORDERED: ALBUTEROL SO4 2.5/IPRATROPIUM 0.5 INH SOL 3 ML VIAL.NEB. NEB ONE (12:54)
[2020-05-09 15:34] VITALS: BMI 42.1
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
[2020-05-09] MEDS ORDERED: MELATONIN 5 MG TABLETS PO ONE (20:54)
[2020-05-09] MEDS: INSULIN SLIDING SCALE (NOVOLOG) 1 VIAL SQ SCH (21:25)
[2020-05-09] MEDS: ATORVASTATIN CA 20 MG TABLET (FP) PO SCH (21:25)
[2020-05-10] MEDS: HEPARIN NA (PORCINE) 5,000 UNITS/ML 1ML VIAL SQ SCH (06:28)
[2020-05-10] MEDS: PANTOPRAZOLE 40 MG TABLET PO SCH (06:32)
[2020-05-10] MEDS: INSULIN SLIDING SCALE (NOVOLOG) 1 VIAL SQ SCH ×2 (06:32→11:06)
--- NOTE | 2020-05-10 07:41 | PN ---
Progress Note, Physician Chief Complaint: cp History of Present Illness: cp resolved sob/tightness ,which she attributes to copd, a bit better no leg swelling, palp - Current Medication List Current Medications: Active Medications Albuterol/Ipratropium (Duoneb -) 1 amp NEB Q6H PRN PRN Reason: SHORTNESS OF BREATH Last Admin: 05/09/20 06:34 Dose: 1 amp Documented by: Alprazolam (Xanax) 2 mg PO BID PRN PRN Reason: ANXIETY Last Admin: 05/09/20 21:26 Dose: 2 mg Documented by: Amlodipine Besylate (Norvasc -) 10 mg PO DAILY [facility] Last Admin: 05/09/20 09:06 Dose: 10 mg Documented by: Aspirin (Asa -) 81 mg PO DAILY [facility] Last Admin: 05/09/20 09:07 Dose: 81 mg Documented by: Atorvastatin Calcium (Lipitor -) 20 mg PO HS [facility] Last Admin: 05/09/20 21:25 Dose: 20 mg Documented by: Budesonide/Formoterol Fumarate (Symbicort 80/4.5mcg -) 2 puff IH BID [facility] Last Admin: 05/09/20 21:26 Dose: 2 puff Documented by: Heparin Sodium (Porcine) (Heparin -) 5,000 unit SQ TID [facility] Last Admin: 05/10/20 06:28 Dose: 5,000 unit Documented by: Hydralazine HCl (Apresoline -) 50 mg PO BID [facility] Last Admin: 05/09/20 21:25 Dose: 50 mg Documented by: Insulin Aspart (Novolog Vial Sliding Scale -) 1 vial SQ [facility]; Protocol Last Admin: 05/10/20 06:32 Dose: 2 unit Documented by: Ketoconazole (Nizoral 2% Cream -) 1 applic TP DAILY [facility] Last Admin: 05/09/20 09:07 Dose: 1 applic Documented by: Losartan Potassium (Cozaar -) 100 mg PO DAILY [facility] Last Admin: 05/09/20 09:07 Dose: 100 mg Documented by: Pantoprazole Sodium (Protonix -) 40 mg PO ACBK [facility] Last Admin: 05/10/20 06:32 Dose: 40 mg Documented by: - Objective Vital Signs: Vital Signs Temperature 97.7 F 05/10/20 06:00 Pulse Rate 59 L 05/10/20 06:00 Respiratory Rate 20 09/12/20 06:00 Blood Pressure 129/54 L 05/10/20 06:00 O2 Sat by Pulse Oximetry (%) 99 05/10/20 06:00 Constitutional: Yes: Well Nourished, No Distress, Calm Cardiovascular: Yes: Regular Rate and Rhythm, S1, S2. No: Gallop, Murmur Respiratory: Yes: Regular, CTA Bilaterally, Wheezes. No: Accessory Muscle Use, Rales Extremities: No: Cold Edema: No Neurological: Yes: Alert, Oriented Psychiatric: No: Agitated Labs: CBC, BMP 05/09/20 05:22 05/09/20 05:22 INR, PTT INR 0.88 (0.83-1.09) 05/07/20 19:00 Assessment/Plan EKG:sr nl intervals no ischemic changes cxr: no acute process echo 10/2019: nl lv/rv, mild as chest pain: - seems atypical. ecg unremarkable. trops neg. no signs acs. BNP WNL - recent echo unremarkable - given risk factors planned for mibi on prior admit, but pt refuses, declining now as well. She said she would f/u with her PMD at [facility] and do it as an outpatient. sob: -no signs chf or acs. BNP WNL. -recent echo unremarkable -had wheezing on exam, likely copd exacerbation- as per PMD HTN: - bp controlled - cont current meds HLD: - cont statin ok for d/c from cv pov
[2020-05-10] MEDS: ALPRAZolam 1 MG TABLET PO PRN (09:06)
[2020-05-10] MEDS: hydrALAZINE HCL 50 MG TABLET (FP) PO SCH (09:06)
[2020-05-10] MEDS: ASPIRIN 81 MG CHEWABLE TABLETS PO SCH (09:06)
[2020-05-10] MEDS: LOSARTAN POTASSIUM 50 MG TABLET (FP) PO SCH (09:06)
[2020-05-10] MEDS: KETOCONAZOLE 2% CREAM - 60GM TUBE TP SCH (09:07)
[2020-05-10] MEDS: amLODIPine BESYLATE 10 MG TABLET (FP) PO SCH (09:07)
[2020-05-10] MEDS: BUDESONIDE/FORMETEROL FUMARATE 80/4.5 mcg INHALER IH SCH (09:07)
--- NOTE | 2020-05-10 09:26 | PN ---
Progress Note, Physician - Current Medication List Current Medications: Active Medications Albuterol/Ipratropium (Duoneb -) 1 amp NEB Q6H PRN PRN Reason: SHORTNESS OF BREATH Last Admin: 05/09/20 06:34 Dose: 1 amp Documented by: Alprazolam (Xanax) 2 mg PO BID PRN PRN Reason: ANXIETY Last Admin: 05/10/20 09:06 Dose: 2 mg Documented by: Amlodipine Besylate (Norvasc -) 10 mg PO DAILY [facility] Last Admin: 05/10/20 09:07 Dose: 10 mg Documented by: Aspirin (Asa -) 81 mg PO DAILY [facility] Last Admin: 05/10/20 09:06 Dose: 81 mg Documented by: Atorvastatin Calcium (Lipitor -) 20 mg PO HS [facility] Last Admin: 05/09/20 21:25 Dose: 20 mg Documented by: Budesonide/Formoterol Fumarate (Symbicort 80/4.5mcg -) 2 puff IH BID [facility] Last Admin: 05/10/20 09:07 Dose: 2 puff Documented by: Heparin Sodium (Porcine) (Heparin -) 5,000 unit SQ TID [facility] Last Admin: 05/10/20 06:28 Dose: 5,000 unit Documented by: Hydralazine HCl (Apresoline -) 50 mg PO BID [facility] Last Admin: 05/10/20 09:06 Dose: 50 mg Documented by: Insulin Aspart (Novolog Vial Sliding Scale -) 1 vial SQ [facility]; Protocol Last Admin: 05/10/20 06:32 Dose: 2 unit Documented by: Ketoconazole (Nizoral 2% Cream -) 1 applic TP DAILY [facility] Last Admin: 05/10/20 09:07 Dose: 1 applic Documented by: Losartan Potassium (Cozaar -) 100 mg PO DAILY [facility] Last Admin: 05/10/20 09:06 Dose: 100 mg Documented by: Pantoprazole Sodium (Protonix -) 40 mg PO ACBK [facility] Last Admin: 05/10/20 06:32 Dose: 40 mg Documented by: - Objective Vital Signs: Vital Signs Temperature 97.7 F 05/10/20 06:00 Pulse Rate 59 L 05/10/20 06:00 Respiratory Rate 20 05/10/20 06:00 Blood Pressure 129/54 L 05/10/20 06:00 O2 Sat by Pulse Oximetry (%) 99 05/10/20 06:00 Labs: CBC, BMP 05/09/20 05:22 05/09/20 05:22 INR, PTT INR 0.88 (0.83-1.09) 05/07/20 19:00
[2020-05-10 10:40] VITALS: BP 133/77; PULSE 55; TEMP 97.9
--- NOTE | 2020-05-10 10:48 | DS ---
Physical Examination Vital Signs: Vital Signs Temperature 97.9 F 05/10/20 10:00 Pulse Rate 55 L 05/10/20 10:00 Respiratory Rate 20 05/10/20 10:00 Blood Pressure 133/77 05/10/20 10:00 O2 Sat by Pulse Oximetry (%) 98 05/10/20 10:00 Constitutional: Yes: Well Nourished, No Distress Eyes: Yes: Conjunctiva Clear, EOM Intact HENT: Yes: Atraumatic, Normocephalic Neck: Yes: Supple, Trachea Midline Cardiovascular: Yes: Regular Rate and Rhythm Respiratory: Yes: Regular, CTA Bilaterally Gastrointestinal: Yes: Normal Bowel Sounds, Soft Edema: No Neurological: Yes: WNL, Alert, Oriented ...Motor Strength: WNL Labs: CBC, BMP 05/09/20 05:22 05/09/20 05:22 Discharge Summary Problems reviewed: Yes Reason For Visit: SHORTNESS OF BREATH,DIZZINESS Current Active Problems Chest pain (Acute) Dizziness (Acute) Dyspnea (Acute) Leg heaviness (Acute) Shortness of breath (Chronic) Other Procedures: carotid doppler was negative for any significant stenosis Hospital Course: 65yo F with PMHx of HTN, DM, HLD, CKD, COPD, sleep apnea, chronic LBP, anxiety, fibroids, polysubstance abuse, and recent admission for ACS r/o who presented with dizziness, bilateral leg weakness, and SOB on exertion. had recent echo unremarkable, and also cardiac markers negative, pt refused the stress test, also was seen by the neuro for leg weakness, and lacunar infarct, and suggeted that pt has Anxiety/panic attacks Migraine headaches Restless Limbs syndrome. start premipexole, and fu with neuro, and psych as out pt, by mistake 1st ordered requip and called [facility] and spoke with the pharmacist not to dispense the requip, understand Health Concerns: none, Plan of Treatment: fu with the cardiology , neuro, and psych as outpt, Condition: Improved - Instructions Diet, Activity, Other Instructions: Return to the emergency department for any new or worsening symptoms. Referrals: Clive Muhammad MD [Staff Physician] - 2 Weeks Tamika Oneal MD [Staff Physician] - 2 Weeks Tayo Domínguez MD [Staff Physician] - Disposition: HOME - Home Medications Comprehensive Discharge Medication List: Ambulatory Orders Atorvastatin Ca [Lipitor] 20 mg PO HS 05/14/18 Hydralazine HCl 50 mg PO BID 05/14/18 Alprazolam 2 mg PO BID PRN 05/15/18 Amlodipine Besylate 10 mg PO DAILY 05/15/18 Aspirin [ASA -] 81 mg PO DAILY 05/15/18 Fluticasone/Salmeterol [Advair Hfa 115-21 Mcg Inhaler] 2 inh PO BID 05/15/18 Insulin Glargine,Hum.rec.anlog [Lantus] 30 units SQ Q12H 05/15/18 Omeprazole Magnesium 40 mg PO DAILY 05/15/18 Albuterol Sulfate Inhaler - [Ventolin HFA Inhaler -] 1 - 2 inh PO Q4H #1 inhaler 02/22/19 Losartan Potassium 100 mg PO DAILY 05/04/19 Metformin HCl [Glucophage] 1,000 mg PO BID 11/08/19 Oxycodone HCl/Acetaminophen [Oxycodone-Acetaminophen 10-325] 1 tablet PO DAILY 11/08/19 predniSONE [Deltasone -] 40 mg PO DAILY #8 tablet 02/21/20 This patient is new to me today: Yes Date on this admission: 05/10/20 Emergency Visit: No Critical Care patient: No - Discharge Referral Referred to [facility] No
== END 2020-05-10 15:18 | disposition home or self-care (01) | DRG 204 ==
LOC: JER 18:19 → JERBED 21:51 → OBSVTOIN 05-08 01:49 → J4S 05-08 20:53
PROVIDERS: ADMIT Internal Medicine; ATTEND Internal Medicine
DX: R06.02 Shortness of breath (principal); Z68.41 Body mass index [BMI] 40.0-44.9, adult; F41.0 Panic disorder [episodic paroxysmal anxiety]; R07.89 Other chest pain; J44.9 Chronic obstructive pulmonary disease, unspecified; E11.9 Type 2 diabetes mellitus without complications; E66.01 Morbid (severe) obesity due to excess calories; N18.9 Chronic kidney disease, unspecified; R00.1 Bradycardia, unspecified; G47.33 Obstructive sleep apnea (adult) (pediatric); B37.2 Candidiasis of skin and nail; E78.5 Hyperlipidemia, unspecified; G43.909 Migraine, unspecified, not intractable, without status migrainosus; G25.81 Restless legs syndrome; F20.9 Schizophrenia, unspecified; F41.8 Other specified anxiety disorders
CPT/HCPCS: 36415; 71046-TC-FY; 80053; 82550; 82553; 82962; 83036; 83735; 83880; 84100; 84443; 84484; 85025; 85610; 85730; 93005; 93010; 93880-TC; 94640; 94761; 99285-25; G0378; J1644; U0003

== ENCOUNTER 2020-08-01 17:06 | Emergency (ER) | payer OTHER ==
[2020-08-01 18:56] VITALS: BP 149/82; PULSE 89; TEMP 98.8; BMI 39.8
[2020-08-01] MEDS ORDERED: diazePAM 5 MG TABLET PO ONE (19:28)
[2020-08-01] MEDS ORDERED: ACETAMINOPHEN 325 MG TABLET (FP) PO ONE (19:29)
[2020-08-01] MEDS ORDERED: LIDOCAINE 5% TOPICAL PATCH TP ONE (19:29)
[2020-08-01] MEDS ORDERED: ACETAMINOPHEN 500 MG TABLET (FP) ONE (19:48)
[2020-08-01] MEDS ORDERED: LIDOCAINE 5% TOPICAL PATCH ONE (19:49)
[2020-08-01] MEDS ORDERED: diazePAM 5 MG TABLET ONE (19:49)
[2020-08-01 20:13] LABS: EPI CELLS 11 /uL (0-25.1); HYALINE CASTS 0 /uL (0-3.1); URINE APPEARANCE Error; URINE BACTERIA 888 /uL (0-1359); URINE BILIRUBIN NEGATIVE (NEGATIVE); URINE COLOR YELLOW; URINE GLUCOSE (UA) 3+ (NEGATIVE); URINE KETONE NEGATIVE (NEGATIVE); URINE LEUK ESTERASE NEGATIVE (NEGATIVE); URINE NITRITE NEGATIVE (NEGATIVE); URINE PROTEIN 2+ (NEGATIVE); URINE RBC 7 /uL (0-23.9); URINE UROBILINOGEN 0.2 mg/dL (0.2-1.0); URINE WBC 12 /uL (0-25.8)
[2020-08-01] MEDS ORDERED: SULFAMETHOXAZOLE/TRIMETHOPRIM 800MG/160MG D.S. TABLET PO ONE (21:03)
[2020-08-01] MEDS ORDERED: SULFAMETHOXAZOLE/TRIMETHOPRIM 800MG/160MG D.S. TABLET ONE (21:10)
== END 2020-08-01 23:45 | disposition home or self-care (01) ==
LOC: JERFT 17:06 → JER 17:06 → JERFT 23:45
DX: M54.42 Lumbago with sciatica, left side (principal); N30.00 Acute cystitis without hematuria
CPT/HCPCS: 72100-TC-FY; 81003; 87086; 99284-25

== ENCOUNTER 2020-11-05 15:52 | Emergency (ER) | payer OTHER | END 2020-11-05 17:24 | disposition home or self-care (01) | LOC: JER 15:52 | CPT/HCPCS: 99281-25 ==

== ENCOUNTER 2020-12-06 15:10 | Emergency (ER) | payer OTHER ==
[2020-12-06 15:27] VITALS: BP 140/71; PULSE 63; TEMP 98.3; BMI 43.2
== END 2020-12-06 17:15 | disposition home or self-care (01) ==
LOC: JER 15:10
DX: F41.9 Anxiety disorder, unspecified (principal)
CPT/HCPCS: 99283-25

== ENCOUNTER 2021-12-13 13:38 | Emergency (ER) | payer OTHER ==
[2021-12-13 13:50] VITALS: TEMP 98.2; BMI 43.4
[2021-12-13 16:26] VITALS: BP 138/74; PULSE 75
== END 2021-12-13 16:00 | disposition home or self-care (01) ==
LOC: JERFT 13:38
DX: R20.8 Other disturbances of skin sensation (principal)
CPT/HCPCS: 74019-TC-FY; 76705-TC; 99284-25

== ENCOUNTER 2022-07-20 16:29 | Inpatient (IN) | payer OTHER ==
[2022-07-20 17:56] VITALS: BMI 45.5
[2022-07-20] MEDS ORDERED: ONDANSETRON 4 MG/2 ML VIAL IVPUSH ONE (18:52)
[2022-07-20] MEDS ORDERED: ONDANSETRON 4 MG/2 ML VIAL ONE (19:27)
[2022-07-20] MEDS ORDERED: ACETAMINOPHEN 1000 MG/100 ML BAG IVPB ONE (19:37)
[2022-07-20] MEDS ORDERED: ACETAMINOPHEN INJECTION 100 ML IVPB ONE (19:48)
[2022-07-20 20:06] LABS: BASO % 0.3 % (0-2.0); EOS % 1.4 % (0-4.5); HEMATOCRIT 35.4 % (32.4-45.2); HEMOGLOBIN 11.9 GM/dL (10.7-15.3); LYMPH % 16.1 % (8-40); MCH 28.2 pg (25.7-33.7); MCHC 33.7 g/dl (32.0-36.0); MEAN CELL VOLUME 83.6 fl (80-96); MEAN PLT VOLUME 10.6 fl (7.5-11.1); MONO % 4.8 % (3.8-10.2); NEUT % 77.4 % (42.8-82.8); PLATELET COUNT 233 10^3/uL (134-434); RBC 4.24 M/mm3 (3.60-5.2); RDW 17.3 % (11.6-15.6); WHITE BLOOD COUNT 9.2 K/mm3 (4.0-10.0)
[2022-07-20 20:28] LABS: ALBUMIN 3.9 g/dl (3.4-5.0)
[2022-07-20 20:29] LABS: BLOOD UREA NITROGEN 31.7 mg/dL (7-18)
[2022-07-20 20:31] LABS: CREATININE 1.3 mg/dL (0.55-1.3)
[2022-07-20 20:33] LABS: BILIRUBIN,TOTAL 0.3 mg/dL (0.2-1); TOT PROT 7.9 g/dl (6.4-8.2)
[2022-07-20] MEDS ORDERED: morphine CARPU-JECT 4 MG/1 ML DISP.SYRIN IVPUSH ONE (21:22)
[2022-07-20] MEDS ORDERED: morphine SULFATE 4 MG/ML VIAL ONE (21:42)
[2022-07-20] MEDS ORDERED: LORazepam 2 MG/ML SDV VIAL IVPUSH ONE (23:42)
[2022-07-20] MEDS ORDERED: SODIUM CHLORIDE 1,000 ML IV SCH (23:45)
[2022-07-21] MEDS ORDERED: ACETAMINOPHEN INJECTION 100 ML IVPB ONE ×3 (03:14→17:32)
[2022-07-21] MEDS ORDERED: KETOROLAC TROMETHAMINE 15 MG/ML VIAL IVPUSH ONE (03:57)
[2022-07-21] MEDS ORDERED: LABETALOL HCL 5 MG/1 ML (100MG/20 ML VIAL) IVPB PRN (08:29)
[2022-07-21] MEDS ORDERED: ENOXAPARIN NA (PORCINE) 40 MG/0.4 ML DISP.SYRIN SQ ONE (09:25)
[2022-07-21 09:36] LABS: BASO % 0.3 % (0-2.0); EOS % 2.3 % (0-4.5); HEMATOCRIT 30.4 % (32.4-45.2); HEMOGLOBIN 10.4 GM/dL (10.7-15.3); LYMPH % 23.8 % (8-40); MCH 28.4 pg (25.7-33.7); MCHC 34.2 g/dl (32.0-36.0); MEAN CELL VOLUME 83.1 fl (80-96); MEAN PLT VOLUME 9.7 fl (7.5-11.1); MONO % 8.7 % (3.8-10.2); NEUT % 64.9 % (42.8-82.8); PLATELET COUNT 234 10^3/uL (134-434); RBC 3.65 M/mm3 (3.60-5.2); WHITE BLOOD COUNT 5.2 K/mm3 (4.0-10.0)
[2022-07-21] MEDS: ENOXAPARIN NA (PORCINE) 40 MG/0.4 ML DISP.SYRIN SQ SCH (09:52)
[2022-07-21] MEDS: ACETAMINOPHEN 1000 MG/100 ML BAG IVPB PRN (09:53)
[2022-07-21] MEDS: INSULIN SLIDING SCALE (NOVOLOG) 1 VIAL SQ SCH ×4 (09:53→22:15)
[2022-07-21] MEDS ORDERED: amLODIPine BESYLATE 10 MG TABLET (FP) PO SCH (10:00)
[2022-07-21] MEDS ORDERED: hydrALAZINE HCL 50 MG TABLET (FP) PO SCH (10:00)
[2022-07-21] MEDS ORDERED: TRIMETHOBENZAMIDE HCL 200MG/2ML INJ IM ONE (10:37)
[2022-07-21 10:45] LABS: BLOOD UREA NITROGEN 31.5 mg/dL (7-18); CALCIUM 9.5 mg/dL (8.5-10.1); MAGNESIUM 2.1 mg/dL (1.8-2.4); PHOSPHOROUS 4.4 mg/dL (2.5-4.9)
[2022-07-21] MEDS: TRIMETHOBENZAMIDE HCL 200MG/2ML INJ IM PRN (10:46)
[2022-07-21 10:47] LABS: BILIRUBIN,TOTAL 0.3 mg/dL (0.2-1); TOT PROT 6.2 g/dl (6.4-8.2)
[2022-07-21 10:52] LABS: CREATININE 1.2 mg/dL (0.55-1.3)
[2022-07-21 11:05] LABS: ALBUMIN 3.1 g/dl (3.4-5.0)
[2022-07-21] MEDS ORDERED: ALBUTEROL SO4 0.083% IH SOL 2.5 MG/3 ML VIAL.NEB. NEB PRN (11:44)
[2022-07-21] MEDS ORDERED: ONDANSETRON 4 MG TABLET PO ONE (15:00)
[2022-07-21] MEDS ORDERED: SODIUM CHLORIDE 1,000 ML IV SCH (16:21)
[2022-07-21 16:38] LABS: EPI CELLS >36 /uL (0-25.1); HYALINE CASTS 4 /uL (0-3.1); PH,URINE 5.5 (5.0-8.0); URINE APPEARANCE CLOUDY; URINE BACTERIA 99 /uL (0-1359); URINE BILIRUBIN NEGATIVE (NEGATIVE); URINE COLOR YELLOW; URINE GLUCOSE (UA) NEGATIVE (NEGATIVE); URINE KETONE TRACE (NEGATIVE); URINE LEUK ESTERASE NEGATIVE (NEGATIVE); URINE NITRITE NEGATIVE (NEGATIVE); URINE PROTEIN 3+ (NEGATIVE); URINE WBC 10 /uL (0-25.8)
[2022-07-21] MEDS: LORazepam 2 MG/ML SDV VIAL IVPUSH PRN ×2 (17:28→22:15)
[2022-07-21 17:32] LABS: URINE RBC 0 /uL (0-23.9)
[2022-07-21] MEDS ORDERED: ATORVASTATIN CA 20 MG TABLET (FP) PO SCH (22:00)
[2022-07-21] MEDS: BRIMONIDINE TARTRATE 0.15% OPHTHALMIC 5 ML BOTTLE OU SCH (22:14)
[2022-07-21] MEDS: TIMOLOL 0.5% OPHTHALMIC SOL 5 ML BOTTLE OU SCH (22:14)
[2022-07-21] MEDS: BUDESONIDE/FORMETEROL FUMARATE 160/4.5 mcg INHALER IH SCH (22:15)
[2022-07-22] MEDS: ACETAMINOPHEN 1000 MG/100 ML BAG IVPB PRN ×2 (04:00→21:14)
[2022-07-22] MEDS: INSULIN SLIDING SCALE (NOVOLOG) 1 VIAL SQ SCH ×3 (07:14→17:23)
[2022-07-22] MEDS: BRIMONIDINE TARTRATE 0.15% OPHTHALMIC 5 ML BOTTLE OU SCH ×3 (07:14→21:24)
[2022-07-22] MEDS: ENOXAPARIN NA (PORCINE) 40 MG/0.4 ML DISP.SYRIN SQ SCH (09:09)
[2022-07-22] MEDS: BUDESONIDE/FORMETEROL FUMARATE 160/4.5 mcg INHALER IH SCH ×2 (09:10→21:24)
[2022-07-22] MEDS: TIMOLOL 0.5% OPHTHALMIC SOL 5 ML BOTTLE OU SCH ×2 (09:13→21:24)
[2022-07-22 10:04] LABS: INR 1.07 (0.83-1.09); PROTHROMBIN TIME (PATIENT) 12.3 SEC (9.7-13.0)
[2022-07-22 10:07] LABS: BASO % 0.4 % (0-2.0); EOS % 2.9 % (0-4.5); HEMATOCRIT 31.4 % (32.4-45.2); HEMOGLOBIN 10.7 GM/dL (10.7-15.3); LYMPH % 22.7 % (8-40); MCH 28.5 pg (25.7-33.7); MCHC 34.2 g/dl (32.0-36.0); MEAN CELL VOLUME 83.5 fl (80-96); MEAN PLT VOLUME 9.9 fl (7.5-11.1); MONO % 9.8 % (3.8-10.2); NEUT % 64.2 % (42.8-82.8); PLATELET COUNT 217 10^3/uL (134-434); RBC 3.76 M/mm3 (3.60-5.2); RDW 16.8 % (11.6-15.6)
[2022-07-22 10:19] LABS: CALCIUM 9.7 mg/dL (8.5-10.1)
[2022-07-22 10:20] LABS: ALBUMIN 3.1 g/dl (3.4-5.0); BLOOD UREA NITROGEN 24.2 mg/dL (7-18)
[2022-07-22 10:22] LABS: CREATININE 1.1 mg/dL (0.55-1.3)
[2022-07-22 10:23] LABS: BILIRUBIN,TOTAL 0.3 mg/dL (0.2-1)
[2022-07-22 10:24] LABS: TOT PROT 6.2 g/dl (6.4-8.2)
[2022-07-22] MEDS ORDERED: SODIUM CHLORIDE 1,000 ML IV SCH (11:00)
[2022-07-22] MEDS ORDERED: DEXTROSE 5%-NORMAL SALINE 1,000 ML IV SCH (11:00)
[2022-07-22] MEDS: LORazepam 2 MG/ML SDV VIAL IVPUSH PRN ×2 (11:07→21:22)
[2022-07-22] MEDS: LACTATED RINGERS SOLUTION 1,000 ML/1,000 ML INFUS.BAG IV SCH (14:21)
[2022-07-22] MEDS ORDERED: LABETALOL HCL 5 MG/1 ML (100MG/20 ML VIAL) IVPB PRN (17:57)
[2022-07-22] MEDS: TRIMETHOBENZAMIDE HCL 200MG/2ML INJ IM PRN (20:44)
[2022-07-23] MEDS: INSULIN SLIDING SCALE (NOVOLOG) 1 VIAL SQ SCH ×4 (00:17→17:21)
[2022-07-23] MEDS ORDERED: ALBUTEROL SO4 0.083% IH SOL 2.5 MG/3 ML VIAL.NEB. NEB PRN (00:20)
[2022-07-23] MEDS ORDERED: TRIMETHOBENZAMIDE HCL 200MG/2ML INJ IM PRN (00:20)
[2022-07-23] MEDS ORDERED: LABETALOL HCL 5 MG/1 ML (100MG/20 ML VIAL) IVPB PRN (00:20)
[2022-07-23] MEDS: ACETAMINOPHEN 1000 MG/100 ML BAG IVPB PRN ×2 (05:15→21:43)
[2022-07-23] MEDS: LACTATED RINGERS SOLUTION 1,000 ML/1,000 ML INFUS.BAG IV SCH ×2 (05:16→16:48)
[2022-07-23 08:16] LABS: BASO % 0.5 % (0-2.0); EOS % 2.4 % (0-4.5); HEMATOCRIT 31.2 % (32.4-45.2); HEMOGLOBIN 10.4 GM/dL (10.7-15.3); LYMPH % 21.5 % (8-40); MCH 28.1 pg (25.7-33.7); MCHC 33.4 g/dl (32.0-36.0); MEAN CELL VOLUME 84.1 fl (80-96); MONO % 10.4 % (3.8-10.2); NEUT % 65.2 % (42.8-82.8); PLATELET COUNT 211 10^3/uL (134-434); RBC 3.71 M/mm3 (3.60-5.2); RDW 16.8 % (11.6-15.6); WHITE BLOOD COUNT 6.2 K/mm3 (4.0-10.0)
[2022-07-23 08:35] LABS: CALCIUM 9.7 mg/dL (8.5-10.1)
[2022-07-23 08:36] LABS: ALBUMIN 2.8 g/dl (3.4-5.0); BLOOD UREA NITROGEN 21.2 mg/dL (7-18)
[2022-07-23 08:41] LABS: TOT PROT 5.9 g/dl (6.4-8.2)
[2022-07-23] MEDS: ENOXAPARIN NA (PORCINE) 40 MG/0.4 ML DISP.SYRIN SQ SCH (09:34)
[2022-07-23] MEDS: LORazepam 2 MG/ML SDV VIAL IVPUSH PRN ×2 (09:35→21:40)
[2022-07-23] MEDS: TIMOLOL 0.5% OPHTHALMIC SOL 5 ML BOTTLE OU SCH ×2 (09:40→21:45)
[2022-07-23] MEDS: BUDESONIDE/FORMETEROL FUMARATE 160/4.5 mcg INHALER IH SCH (09:41)
[2022-07-23] MEDS ORDERED: amLODIPine BESYLATE 10 MG TABLET (FP) PO SCH (10:00)
[2022-07-23] MEDS ORDERED: hydrALAZINE HCL 50 MG TABLET (FP) PO SCH (10:00)
[2022-07-23] MEDS: BRIMONIDINE TARTRATE 0.15% OPHTHALMIC 5 ML BOTTLE OU SCH (14:00)
[2022-07-23] MEDS ORDERED: GLYCERIN 1 RECTAL SUPPOSITORY, ADULT RC ONE (14:01)
[2022-07-23] MEDS: LABETALOL HCL 5 MG/1 ML (100MG/20 ML VIAL) IVPB PRN (15:15)
[2022-07-23] MEDS ORDERED: ATORVASTATIN CA 20 MG TABLET (FP) PO SCH (22:00)
[2022-07-24] MEDS: INSULIN SLIDING SCALE (NOVOLOG) 1 VIAL SQ SCH ×4 (03:02→17:22)
[2022-07-24] MEDS: BRIMONIDINE TARTRATE 0.15% OPHTHALMIC 5 ML BOTTLE OU SCH ×5 (03:03→22:00)
[2022-07-24] MEDS: BUDESONIDE/FORMETEROL FUMARATE 160/4.5 mcg INHALER IH SCH ×3 (03:04→22:00)
[2022-07-24] MEDS: ACETAMINOPHEN 1000 MG/100 ML BAG IVPB PRN ×3 (03:08→21:21)
[2022-07-24 08:10] LABS: BASO % 0.4 % (0-2.0); EOS % 2.7 % (0-4.5); HEMATOCRIT 29.5 % (32.4-45.2); LYMPH % 32.7 % (8-40); MCH 28.3 pg (25.7-33.7); MCHC 33.9 g/dl (32.0-36.0); MEAN CELL VOLUME 83.5 fl (80-96); MEAN PLT VOLUME 10.1 fl (7.5-11.1); MONO % 9.4 % (3.8-10.2); NEUT % 54.8 % (42.8-82.8); PLATELET COUNT 194 10^3/uL (134-434); RBC 3.53 M/mm3 (3.60-5.2)
[2022-07-24 08:40] LABS: ALBUMIN 2.6 g/dl (3.4-5.0); BILIRUBIN,TOTAL 0.5 mg/dL (0.2-1); BLOOD UREA NITROGEN 18.5 mg/dL (7-18); CALCIUM 9.2 mg/dL (8.5-10.1); TOT PROT 5.4 g/dl (6.4-8.2)
[2022-07-24] MEDS: ENOXAPARIN NA (PORCINE) 40 MG/0.4 ML DISP.SYRIN SQ SCH (10:02)
[2022-07-24] MEDS: TIMOLOL 0.5% OPHTHALMIC SOL 5 ML BOTTLE OU SCH ×2 (10:05→22:51)
[2022-07-24] MEDS: LORazepam 2 MG/ML SDV VIAL IVPUSH PRN ×2 (10:18→21:21)
[2022-07-24] MEDS: LACTATED RINGERS SOLUTION 1,000 ML/1,000 ML INFUS.BAG IV SCH (16:32)
[2022-07-24] MEDS ORDERED: hydrALAZINE HCL 20 MG/ML VIAL IVPUSH PRN (19:11)
[2022-07-25] MEDS ORDERED: TETRACAINE/BENZOCAINE/BUTAMBEN 20 GM SPR TP ONE (01:34)
[2022-07-25] MEDS: INSULIN SLIDING SCALE (NOVOLOG) 1 VIAL SQ SCH ×4 (07:48→18:11)
[2022-07-25 08:45] LABS: BASO % 0.7 % (0-2.0); EOS % 2.7 % (0-4.5); HEMATOCRIT 31.5 % (32.4-45.2); HEMOGLOBIN 10.6 GM/dL (10.7-15.3); LYMPH % 24.7 % (8-40); MCH 28.4 pg (25.7-33.7); MCHC 33.7 g/dl (32.0-36.0); MEAN PLT VOLUME 10.2 fl (7.5-11.1); MONO % 8.9 % (3.8-10.2); PLATELET COUNT 219 10^3/uL (134-434); RBC 3.75 M/mm3 (3.60-5.2); RDW 16.9 % (11.6-15.6); WHITE BLOOD COUNT 6.8 K/mm3 (4.0-10.0)
[2022-07-25 08:54] LABS: BLOOD UREA NITROGEN 16.3 mg/dL (7-18); CALCIUM 9.2 mg/dL (8.5-10.1)
[2022-07-25 08:57] LABS: CREATININE 0.9 mg/dL (0.55-1.3)
[2022-07-25 08:59] LABS: BILIRUBIN,TOTAL 0.4 mg/dL (0.2-1); TOT PROT 5.9 g/dl (6.4-8.2)
[2022-07-25 09:01] LABS: ALBUMIN 2.7 g/dl (3.4-5.0)
[2022-07-25] MEDS: ENOXAPARIN NA (PORCINE) 40 MG/0.4 ML DISP.SYRIN SQ SCH (10:43)
[2022-07-25] MEDS: LABETALOL HCL 5 MG/1 ML (100MG/20 ML VIAL) IVPB PRN (10:47)
[2022-07-25] MEDS: LORazepam 2 MG/ML SDV VIAL IVPUSH PRN (10:47)
[2022-07-25] MEDS: TIMOLOL 0.5% OPHTHALMIC SOL 5 ML BOTTLE OU SCH (14:27)
[2022-07-25] MEDS: BRIMONIDINE TARTRATE 0.15% OPHTHALMIC 5 ML BOTTLE OU SCH (14:27)
[2022-07-25] MEDS: BUDESONIDE/FORMETEROL FUMARATE 160/4.5 mcg INHALER IH SCH (14:27)
[2022-07-25 14:44] VITALS: RESP 18
[2022-07-25] MEDS: LACTATED RINGERS SOLUTION 1,000 ML/1,000 ML INFUS.BAG IV SCH (18:19)
[2022-07-25] MEDS: ACETAMINOPHEN 1000 MG/100 ML BAG IVPB PRN (18:22)
[2022-07-25 20:26] VITALS: BP 136/78; PULSE 74; TEMP 98.9
== END 2022-07-25 20:30 | disposition short-term general hospital (02) | DRG 389 ==
LOC: JER 16:29 → JERBED 21:50 → J8W 07-21 20:08 → J4W 07-22 14:22
PROVIDERS: ADMIT Internal Medicine; ATTEND Internal Medicine
DX: K56.600 Partial intestinal obstruction, unspecified as to cause (principal); N17.9 Acute kidney failure, unspecified; Z68.42 Body mass index [BMI] 45.0-49.9, adult; J44.9 Chronic obstructive pulmonary disease, unspecified; I12.9 Hypertensive chronic kidney disease with stage 1 through stage 4 chronic kidney disease, or unspecified chronic kidney disease; N18.9 Chronic kidney disease, unspecified; E11.22 Type 2 diabetes mellitus with diabetic chronic kidney disease; Z79.4 Long term (current) use of insulin; Z86.16 Personal history of COVID-19; D25.9 Leiomyoma of uterus, unspecified; Z88.0 Allergy status to penicillin; F41.1 Generalized anxiety disorder; F31.9 Bipolar disorder, unspecified; I16.0 Hypertensive urgency; E66.01 Morbid (severe) obesity due to excess calories
CPT/HCPCS: 0241U-QW; 36415; 71045-TC-FY; 74018-TC-FY; 74019-TC-FY; 74176-TC; 80048; 80053; 81003; 82962; 83605; 83690; 83735; 84100; 85025; 85610; 85730; 86850; 86900; 86901; 87086; 87186; 93005; 93010; 99285-25

== ENCOUNTER 2022-11-11 11:12 | Emergency (ER) | payer OTHER ==
[2022-11-11 11:27] VITALS: BMI 37.3
[2022-11-11] MEDS ORDERED: SODIUM CHLORIDE 0.9% 1000 ML INFUS.BAG IV ONE (11:44)
[2022-11-11] MEDS ORDERED: ACETAMINOPHEN 1000 MG/100 ML BAG IVPB ONE (11:44)
[2022-11-11] MEDS ORDERED: CYCLOBENZAPRINE HCL 10 MG TABLET (FP) PO ONE (11:45)
[2022-11-11] MEDS ORDERED: LIDOCAINE 5% TOPICAL PATCH TP ONE (11:45)
[2022-11-11] MEDS ORDERED: CYCLOBENZAPRINE HCL 10 MG TABLET (FP) ONE (11:56)
[2022-11-11] MEDS ORDERED: LIDOCAINE 5% TOPICAL PATCH ONE (11:57)
[2022-11-11] MEDS ORDERED: ACETAMINOPHEN INJECTION 100 ML IVPB ONE (11:57)
[2022-11-11 12:34] LABS: HEMATOCRIT 33.5 % (32.4-45.2); HEMOGLOBIN 11.2 GM/dL (10.7-15.3); MCH 27.6 pg (25.7-33.7); MCHC 33.5 g/dl (32.0-36.0); MEAN CELL VOLUME 82.4 fl (80-96); MEAN PLT VOLUME 8.9 fl (7.5-11.1); PLATELET COUNT 261 10^3/uL (134-434); RBC 4.07 M/mm3 (3.60-5.2); RDW 17.2 % (11.6-15.6); WHITE BLOOD COUNT 5.1 K/mm3 (4.0-10.0)
[2022-11-11 12:39] LABS: EPI CELLS 18 /uL (0-25.1); HYALINE CASTS 0 /uL (0-3.1); PH,URINE 6.5 (5.0-8.0); URINE APPEARANCE CLEAR; URINE BACTERIA 104 /uL (0-1359); URINE BILIRUBIN NEGATIVE (NEGATIVE); URINE COLOR YELLOW; URINE GLUCOSE (UA) NEGATIVE (NEGATIVE); URINE KETONE TRACE (NEGATIVE); URINE LEUK ESTERASE TRACE (NEGATIVE); URINE NITRITE NEGATIVE (NEGATIVE); URINE PROTEIN 3+ (NEGATIVE); URINE RBC 19 /uL (0-23.9); URINE UROBILINOGEN 0.2 mg/dL (0.2-1.0); URINE WBC 12 /uL (0-25.8)
[2022-11-11 12:56] LABS: ALBUMIN 3.3 g/dl (3.4-5.0); BLOOD UREA NITROGEN 19.6 mg/dL (7-18); CALCIUM 9.5 mg/dL (8.5-10.1)
[2022-11-11 13:01] LABS: BILIRUBIN,TOTAL 0.3 mg/dL (0.2-1)
[2022-11-11 15:59] VITALS: BP 146/77; PULSE 83; RESP 15; TEMP 98.9
[2022-11-11] MEDS ORDERED: LIDOCAINE PATCH REMOVAL MC SCH (22:00)
== END 2022-11-11 16:01 | disposition home or self-care (01) ==
LOC: JER 11:12
PROC: 3E033GC Introduction of Other Therapeutic Substance into Peripheral Vein, Percutaneous Approach (ICD-10-PCS; principal; 2022-11-11)
DX: N39.0 Urinary tract infection, site not specified (principal)
CPT/HCPCS: 36415; 72131-TC; 74176-TC; 80053; 81003; 85027; 87086; 99285-25

== ENCOUNTER 2023-03-13 19:08 | Emergency (ER) | payer OTHER ==
[2023-03-13 19:25] VITALS: TEMP 98.9; BMI 37.3
[2023-03-13] MEDS ORDERED: LORazepam 2 MG TABLET PO ONE (19:45)
[2023-03-13] MEDS ORDERED: ONDANSETRON 4 MG/2 ML VIAL IVPUSH ONE (19:46)
[2023-03-13] MEDS ORDERED: LACTATED RINGERS SOLUTION 1000 ML INFUS.BAG IV ONE (19:46)
[2023-03-13] MEDS ORDERED: ONDANSETRON 4 MG/2 ML VIAL ONE (19:53)
[2023-03-13] MEDS ORDERED: LORazepam 0.5 MG TABLET ONE (19:53)
[2023-03-13 20:29] LABS: BASO % 0.6 % (0-2.0); HEMOGLOBIN 10.7 GM/dL (10.7-15.3); LYMPH % 31.3 % (8-40); MCH 31.1 pg (25.7-33.7); MCHC 34.5 g/dl (32.0-36.0); MEAN CELL VOLUME 90.1 fl (80-96); MEAN PLT VOLUME 9.1 fl (7.5-11.1); MONO % 10.2 % (3.8-10.2); NEUT % 56.9 % (42.8-82.8); PLATELET COUNT 168 10^3/uL (134-434); RBC 3.44 M/mm3 (3.60-5.2); RDW 14.6 % (11.6-15.6); WHITE BLOOD COUNT 4.7 K/mm3 (4.0-10.0)
[2023-03-13 20:41] LABS: POTASSIUM 4.1 mmol/L (3.5-5.1)
[2023-03-13 20:43] LABS: ALBUMIN 2.7 g/dl (3.4-5.0); BLOOD UREA NITROGEN 24.8 mg/dL (7-18); CALCIUM 8.6 mg/dL (8.5-10.1); MAGNESIUM 1.6 mg/dL (1.8-2.4)
[2023-03-13 20:47] LABS: CREATININE 1.3 mg/dL (0.55-1.3)
[2023-03-13 20:48] LABS: BILIRUBIN,TOTAL 0.8 mg/dL (0.2-1); TOT PROT 5.6 g/dl (6.4-8.2)
[2023-03-13 22:23] VITALS: BP 129/60; PULSE 70; RESP 18
== END 2023-03-13 22:32 | disposition home or self-care (01) ==
LOC: JER 19:08
PROC: 3E033NZ Introduction of Analgesics, Hypnotics, Sedatives into Peripheral Vein, Percutaneous Approach (ICD-10-PCS; principal; 2023-03-13)
DX: E86.0 Dehydration (principal); F13.930 Sedative, hypnotic or anxiolytic use, unspecified with withdrawal, uncomplicated; R79.89 Other specified abnormal findings of blood chemistry
CPT/HCPCS: 36415; 80053; 83735; 85025; 93005; 93010; 99284-25

== ENCOUNTER 2023-03-29 11:32 | Emergency (ER) | payer OTHER ==
[2023-03-29 11:45] VITALS: BMI 38.3
[2023-03-29 13:19] LABS: BASO % 0.8 % (0-2.0); HEMATOCRIT 26.3 % (32.4-45.2); HEMOGLOBIN 9.1 GM/dL (10.7-15.3); MCH 31.2 pg (25.7-33.7); MCHC 34.6 g/dl (32.0-36.0); MEAN CELL VOLUME 90.2 fl (80-96); MEAN PLT VOLUME 9.8 fl (7.5-11.1); MONO % 8.3 % (3.8-10.2); NEUT % 66.9 % (42.8-82.8); PLATELET COUNT 293 10^3/uL (134-434); RBC 2.92 M/mm3 (3.60-5.2); RDW 14.5 % (11.6-15.6)
[2023-03-29] MEDS ORDERED: ACETAMINOPHEN 1000 MG/100 ML BAG IVPB ONE (13:57)
[2023-03-29 14:00] LABS: POTASSIUM 4.7 mmol/L (3.5-5.1)
[2023-03-29 14:02] LABS: ALBUMIN 2.5 g/dl (3.4-5.0)
[2023-03-29 14:07] LABS: BILIRUBIN,TOTAL 0.2 mg/dL (0.2-1); TOT PROT 6.1 g/dl (6.4-8.2)
[2023-03-29 14:11] LABS: CREATININE 1.2 mg/dL (0.55-1.3)
[2023-03-29 14:43] LABS: EPI CELLS 6 /uL (0-25.1); HYALINE CASTS 0 /uL (0-3.1); PH,URINE 5.5 (5.0-8.0); URINE APPEARANCE CLEAR; URINE BACTERIA 145 /uL (0-1359); URINE BILIRUBIN NEGATIVE (NEGATIVE); URINE COLOR YELLOW; URINE GLUCOSE (UA) NEGATIVE (NEGATIVE); URINE KETONE NEGATIVE (NEGATIVE); URINE LEUK ESTERASE NEGATIVE (NEGATIVE); URINE NITRITE NEGATIVE (NEGATIVE); URINE PROTEIN 2+ (NEGATIVE); URINE RBC 8 /uL (0-23.9); URINE UROBILINOGEN 0.2 mg/dL (0.2-1.0); URINE WBC 6 /uL (0-25.8)
[2023-03-29 15:23] VITALS: BP 170/66; PULSE 78; RESP 18; TEMP 98
== END 2023-03-29 15:25 | disposition home or self-care (01) ==
LOC: JER 11:32
PROC: 3E033NZ Introduction of Analgesics, Hypnotics, Sedatives into Peripheral Vein, Percutaneous Approach (ICD-10-PCS; principal; 2023-03-29)
DX: K59.00 Constipation, unspecified (principal)
CPT/HCPCS: 36415; 74176-TC; 80053; 81003; 85025; 87086; 99284-25

== ENCOUNTER 2023-09-27 10:37 | Observation (INO) | payer OTHER ==
[2023-09-27] MEDS ORDERED: ACETAMINOPHEN 1000 MG/100 ML BAG IVPB ONE (11:44)
[2023-09-27] MEDS ORDERED: ONDANSETRON 4 MG/2 ML VIAL IVPUSH ONE (11:44)
[2023-09-27] MEDS ORDERED: LACTATED RINGERS SOLUTION 1000 ML INFUS.BAG IV ONE (11:45)
[2023-09-27 11:56] LABS: EPI CELLS 10 /uL (0-25.1); HYALINE CASTS 0 /uL (0-3.1); URINE APPEARANCE TURBID; URINE BACTERIA >9,000 /uL (0-1359); URINE BILIRUBIN NEGATIVE (NEGATIVE); URINE COLOR YELLOW; URINE GLUCOSE (UA) TRACE (NEGATIVE); URINE KETONE NEGATIVE (NEGATIVE); URINE LEUK ESTERASE 3+ (NEGATIVE); URINE NITRITE NEGATIVE (NEGATIVE); URINE PROTEIN 2+ (NEGATIVE); URINE UROBILINOGEN 0.2 mg/dL (0.2-1.0); URINE WBC 8140 /uL (0-25.8)
[2023-09-27] MEDS ORDERED: ALPRAZolam 1 MG TABLET PO PRN (12:14)
[2023-09-27] MEDS ORDERED: ALPRAZolam 1 MG TABLET PO ONE (12:16)
[2023-09-27] MEDS ORDERED: ONDANSETRON 4 MG/2 ML VIAL ONE (12:17)
[2023-09-27] MEDS ORDERED: ALPRAZolam 1 MG TABLET ONE ×2 (12:24→22:44)
[2023-09-27] MEDS ORDERED: ACETAMINOPHEN INJECTION 100 ML IVPB ONE ×2 (12:24→22:44)
[2023-09-27 12:29] LABS: BASO % 0.9 % (0-2.0); EOS % 5.4 % (0-4.5); HEMATOCRIT 32.5 % (32.4-45.2); HEMOGLOBIN 11.3 GM/dL (10.7-15.3); LYMPH % 25.9 % (8-40); MCH 32.3 pg (25.7-33.7); MCHC 34.7 g/dl (32.0-36.0); MEAN PLT VOLUME 9.4 fl (7.5-11.1); MONO % 6.3 % (3.8-10.2); NEUT % 61.5 % (42.8-82.8); PLATELET COUNT 261 10^3/uL (134-434); RDW 14.3 % (11.6-15.6); WHITE BLOOD COUNT 7.8 K/mm3 (4.0-10.0)
[2023-09-27 12:42] LABS: URINE RBC 107.6 /uL (0-23.9)
[2023-09-27 12:44] LABS: POTASSIUM 5.2 mmol/L (3.5-5.1)
[2023-09-27 12:45] LABS: CALCIUM 10.4 mg/dL (8.5-10.1)
[2023-09-27 12:46] LABS: ALBUMIN 3.3 g/dl (3.4-5.0); BLOOD UREA NITROGEN 27.2 mg/dL (7-18)
[2023-09-27 12:49] LABS: CREATININE 0.9 mg/dL (0.55-1.3)
[2023-09-27 12:50] LABS: BILIRUBIN,TOTAL 0.6 mg/dL (0.2-1); TOT PROT 7.7 g/dl (6.4-8.2)
[2023-09-27] MEDS ORDERED: CEFTRIAXONE 1 GM/50 ML BAG ONE (12:57)
[2023-09-27] MEDS ORDERED: KETOROLAC TROMETHAMINE 15 MG/ML VIAL IVPUSH ONE (15:25)
[2023-09-27] MEDS ORDERED: SODIUM CHLORIDE 0.9% 500 ML INFUS.BAG IV ONE (15:26)
[2023-09-27] MEDS ORDERED: KETOROLAC TROMETHAMINE 15 MG/ML VIAL ONE (16:28)
[2023-09-27] MEDS ORDERED: ACETAMINOPHEN 1000 MG/100 ML BAG IVPB PRN (18:05)
[2023-09-27] MEDS ORDERED: PATIENT'S OWN MEDICATION (NON-FORMULARY) (Insulin Glargine,Hum.Rec.Anlog 100 UNITS/ML Ins) SQ SCH (22:00)
[2023-09-27] MEDS ORDERED: PATIENT'S OWN MEDICATION (NON-FORMULARY) (Hydralazine Hcl [Hydralazine Hcl] 100 MG Tablet) PO SCH (22:00)
[2023-09-27] MEDS: TIMOLOL 0.5% OPHTHALMIC SOL 5 ML BOTTLE OU SCH (22:29)
[2023-09-27] MEDS: BUDESONIDE/FORMETEROL FUMARATE 160/4.5 mcg INHALER IH SCH (22:29)
[2023-09-27] MEDS: BRIMONIDINE TARTRATE 0.15% OPHTHALMIC 5 ML BOTTLE OU SCH (22:30)
[2023-09-27] MEDS: INSULIN ASPART SLIDING SCALE (NOVOLOG) 1 VIAL SQ SCH (22:30)
[2023-09-27] MEDS ORDERED: ATORVASTATIN CA 20 MG TABLET (FP) ONE (22:31)
[2023-09-27] MEDS ORDERED: hydrALAZINE HCL 50 MG TABLET (FP) ONE (22:32)
[2023-09-27] MEDS: hydrALAZINE HCL 50 MG TABLET (FP) PO SCH (22:39)
[2023-09-27] MEDS: ATORVASTATIN CA 20 MG TABLET (FP) PO SCH (22:39)
[2023-09-27] MEDS ORDERED: INSULIN (LEVEMIR) 100 UNITS/ML UNITS SQ ONE (22:45)
[2023-09-27] MEDS: ALPRAZolam 1 MG TABLET PO PRN (22:51)
[2023-09-27] MEDS: INSULIN (LEVEMIR) 100 UNITS/ML UNITS SQ SCH (22:51)
[2023-09-28] MEDS ORDERED: ONDANSETRON *ODT* 4 MG TABLET ONE (00:23)
[2023-09-28 01:36] VITALS: BMI 38.1
[2023-09-28] MEDS: BRIMONIDINE TARTRATE 0.15% OPHTHALMIC 5 ML BOTTLE OU SCH ×3 (06:19→21:54)
[2023-09-28] MEDS: INSULIN ASPART SLIDING SCALE (NOVOLOG) 1 VIAL SQ SCH ×4 (06:23→22:04)
[2023-09-28] MEDS: INSULIN (LEVEMIR) 100 UNITS/ML UNITS SQ SCH ×2 (06:23→22:04)
[2023-09-28] MEDS ORDERED: CEFTRIAXONE 1 GM in DEXTROSE 5%-WATER - 50 ML IVPB SCH (10:00)
[2023-09-28] MEDS: hydrALAZINE HCL 50 MG TABLET (FP) PO SCH ×2 (10:30→21:52)
[2023-09-28] MEDS: amLODIPine BESYLATE 5 MG TABLET (FP) PO SCH (10:30)
[2023-09-28] MEDS: ENOXAPARIN NA (PORCINE) 40 MG/0.4 ML DISP.SYRIN SQ SCH (10:31)
[2023-09-28] MEDS: BUDESONIDE/FORMETEROL FUMARATE 160/4.5 mcg INHALER IH SCH ×2 (10:32→21:53)
[2023-09-28 10:37] LABS: BASO % 0.8 % (0-2.0); EOS % 7.3 % (0-4.5); HEMATOCRIT 28.4 % (32.4-45.2); HEMOGLOBIN 9.9 GM/dL (10.7-15.3); LYMPH % 28.3 % (8-40); MCH 32.5 pg (25.7-33.7); MCHC 34.8 g/dl (32.0-36.0); MEAN CELL VOLUME 93.4 fl (80-96); MEAN PLT VOLUME 9.6 fl (7.5-11.1); MONO % 9.9 % (3.8-10.2); NEUT % 53.7 % (42.8-82.8); PLATELET COUNT 199 10^3/uL (134-434); RBC 3.04 M/mm3 (3.60-5.2); RDW 14.8 % (11.6-15.6)
[2023-09-28] MEDS: TIMOLOL 0.5% OPHTHALMIC SOL 5 ML BOTTLE OU SCH ×2 (10:44→21:54)
[2023-09-28 10:54] LABS: EPI CELLS 8 /uL (0-25.1); HYALINE CASTS 0 /uL (0-3.1); PH,URINE 5.5 (5.0-8.0); URINE APPEARANCE CLOUDY; URINE BACTERIA 57 /uL (0-1359); URINE BILIRUBIN NEGATIVE (NEGATIVE); URINE COLOR YELLOW; URINE GLUCOSE (UA) NEGATIVE (NEGATIVE); URINE KETONE NEGATIVE (NEGATIVE); URINE LEUK ESTERASE 1+ (NEGATIVE); URINE NITRITE NEGATIVE (NEGATIVE); URINE PROTEIN 2+ (NEGATIVE); URINE UROBILINOGEN 0.2 mg/dL (0.2-1.0); URINE WBC 1122 /uL (0-25.8)
[2023-09-28 10:54] LABS: POTASSIUM 4.2 mmol/L (3.5-5.1)
[2023-09-28 11:01] LABS: BLOOD UREA NITROGEN 22.6 mg/dL (7-18); CALCIUM 9.1 mg/dL (8.5-10.1)
[2023-09-28 11:02] LABS: MAGNESIUM 1.7 mg/dL (1.8-2.4)
[2023-09-28 11:05] LABS: PHOSPHOROUS 3.4 mg/dL (2.5-4.9)
[2023-09-28 11:07] LABS: BILIRUBIN,TOTAL 0.4 mg/dL (0.2-1); TOT PROT 6.5 g/dl (6.4-8.2)
[2023-09-28 11:25] LABS: URINE RBC 53.4 /uL (0-23.9)
[2023-09-28] MEDS: ARIPiprazole 5 MG TABLET PO SCH (12:05)
[2023-09-28] MEDS ORDERED: KETOROLAC TROMETHAMINE 15 MG/ML VIAL IVPUSH ONE (15:13)
[2023-09-28] MEDS ORDERED: MAGNESIUM SULFATE IN WATER 2 GM/50 ML IVPB IVPB ONE (16:35)
[2023-09-28] MEDS ORDERED: ACETAMINOPHEN 500 MG TABLET (FP) PO PRN (18:21)
[2023-09-28] MEDS ORDERED: KETOROLAC TROMETHAMINE 30 MG/1 ML VIAL IM PRN (18:43)
[2023-09-28] MEDS ORDERED: ACETAMINOPHEN 500 MG TABLET (FP) PO SCH ×2 (18:46→19:00)
[2023-09-28] MEDS ORDERED: KETOROLAC TROMETHAMINE 30 MG/1 ML VIAL IVPUSH PRN ×2 (18:59→19:01)
[2023-09-28] MEDS ORDERED: morphine CARPU-JECT 2 MG/1 ML DISP.SYRIN IVPUSH PRN (19:01)
[2023-09-28] MEDS ORDERED: oxyCODONE HCL 5 MG TABLET PO PRN (19:03)
[2023-09-28] MEDS: ATORVASTATIN CA 20 MG TABLET (FP) PO SCH (21:52)
[2023-09-28] MEDS: ACETAMINOPHEN 500 MG TABLET (FP) PO SCH (21:52)
[2023-09-28] MEDS: KETOROLAC TROMETHAMINE 10 MG TABLET PO SCH (21:56)
[2023-09-29] MEDS: ALPRAZolam 1 MG TABLET PO PRN (01:12)
[2023-09-29] MEDS: NYSTATIN 100,000 UNIT/GM TOPICAL CREAM 15 GM TUBE TP SCH ×2 (01:19→10:01)
[2023-09-29] MEDS: ACETAMINOPHEN 500 MG TABLET (FP) PO SCH (06:15)
[2023-09-29] MEDS: KETOROLAC TROMETHAMINE 10 MG TABLET PO SCH (06:16)
[2023-09-29] MEDS: INSULIN (LEVEMIR) 100 UNITS/ML UNITS SQ SCH (06:17)
[2023-09-29] MEDS: INSULIN ASPART SLIDING SCALE (NOVOLOG) 1 VIAL SQ SCH (06:18)
[2023-09-29] MEDS: BRIMONIDINE TARTRATE 0.15% OPHTHALMIC 5 ML BOTTLE OU SCH (06:22)
[2023-09-29 09:26] LABS: BASO % 1.1 % (0-2.0); EOS % 7.8 % (0-4.5); HEMATOCRIT 29.8 % (32.4-45.2); HEMOGLOBIN 10.1 GM/dL (10.7-15.3); LYMPH % 28.5 % (8-40); MCH 32.1 pg (25.7-33.7); MCHC 33.9 g/dl (32.0-36.0); MEAN CELL VOLUME 94.6 fl (80-96); MEAN PLT VOLUME 9.6 fl (7.5-11.1); MONO % 9.1 % (3.8-10.2); NEUT % 53.5 % (42.8-82.8); PLATELET COUNT 217 10^3/uL (134-434); RBC 3.15 M/mm3 (3.60-5.2); RDW 14.8 % (11.6-15.6); WHITE BLOOD COUNT 6.2 K/mm3 (4.0-10.0)
[2023-09-29 09:37] VITALS: BP 157/62; PULSE 71; RESP 17; TEMP 97.8
[2023-09-29 09:38] LABS: POTASSIUM 4.9 mmol/L (3.5-5.1)
[2023-09-29 09:50] LABS: BLOOD UREA NITROGEN 26.3 mg/dL (7-18)
[2023-09-29 09:51] LABS: CALCIUM 9.6 mg/dL (8.5-10.1); CREATININE 1.1 mg/dL (0.55-1.3)
[2023-09-29 09:52] LABS: BILIRUBIN,TOTAL 0.3 mg/dL (0.2-1)
[2023-09-29 09:53] LABS: PHOSPHOROUS 3.3 mg/dL (2.5-4.9); TOT PROT 6.6 g/dl (6.4-8.2)
[2023-09-29 09:56] LABS: MAGNESIUM 2.2 mg/dL (1.8-2.4)
[2023-09-29] MEDS: hydrALAZINE HCL 50 MG TABLET (FP) PO SCH (09:59)
[2023-09-29] MEDS: amLODIPine BESYLATE 5 MG TABLET (FP) PO SCH (09:59)
[2023-09-29] MEDS: ARIPiprazole 5 MG TABLET PO SCH (09:59)
[2023-09-29] MEDS ORDERED: CEFPODOXIME PROXETIL 200 MG TABLET [NF] PO SCH (10:00)
[2023-09-29] MEDS: BUDESONIDE/FORMETEROL FUMARATE 160/4.5 mcg INHALER IH SCH (10:00)
[2023-09-29] MEDS: TIMOLOL 0.5% OPHTHALMIC SOL 5 ML BOTTLE OU SCH (10:01)
[2023-09-29] MEDS: ENOXAPARIN NA (PORCINE) 40 MG/0.4 ML DISP.SYRIN SQ SCH (10:14)
== END 2023-09-29 11:39 | disposition left against medical advice (07) ==
LOC: JER 10:37 → JERBED 15:52 → J6S 23:23
PROVIDERS: ADMIT Internal Medicine; ATTEND Internal Medicine
PROC: 3E033NZ Introduction of Analgesics, Hypnotics, Sedatives into Peripheral Vein, Percutaneous Approach (ICD-10-PCS; principal; 2023-09-27)
PROC: 3E03329 Introduction of Other Anti-infective into Peripheral Vein, Percutaneous Approach (ICD-10-PCS; 2023-09-27)
PROC: 3E023GC Introduction of Other Therapeutic Substance into Muscle, Percutaneous Approach (ICD-10-PCS; 2023-09-27)
PROC: 3E013VG Introduction of Insulin into Subcutaneous Tissue, Percutaneous Approach (ICD-10-PCS; 2023-09-27)
PROC: 3E0333Z Introduction of Anti-inflammatory into Peripheral Vein, Percutaneous Approach (ICD-10-PCS; 2023-09-27)
PROC: 3E033GC Introduction of Other Therapeutic Substance into Peripheral Vein, Percutaneous Approach (ICD-10-PCS; 2023-09-27)
PROC: 3E0337Z Introduction of Electrolytic and Water Balance Substance into Peripheral Vein, Percutaneous Approach (ICD-10-PCS; 2023-09-27)
DX: N12 Tubulo-interstitial nephritis, not specified as acute or chronic (principal); E11.22 Type 2 diabetes mellitus with diabetic chronic kidney disease; I12.9 Hypertensive chronic kidney disease with stage 1 through stage 4 chronic kidney disease, or unspecified chronic kidney disease; N18.9 Chronic kidney disease, unspecified; J44.9 Chronic obstructive pulmonary disease, unspecified; Z87.440 Personal history of urinary (tract) infections; Z88.8 Allergy status to other drugs, medicaments and biological substances; Z88.0 Allergy status to penicillin
CPT/HCPCS: 0241U-QW; 36415; 74176-TC; 80053; 81003; 82962; 83036; 83605; 83735; 84100; 84484; 85025; 87040; 87086; 93005; 93010; 96365; 96367; 96372; 96375; 96376; 99285-25; G0378; J0131

== ENCOUNTER 2024-03-20 12:23 | Emergency (ER) | payer OTHER ==
[2024-03-20 12:32] VITALS: BP 135/71; PULSE 91; RESP 18; TEMP 98.6; BMI 37.9
[2024-03-20] MEDS ORDERED: MAG HYDROX/AL HYDROX/SIMETH 30 ML UNIT-DOSE CUP ONE (13:51)
[2024-03-20] MEDS ORDERED: chlordiazePOXIDE HCL 25 MG CAPSULE ONE (13:51)
[2024-03-20] MEDS: chlordiazePOXIDE HCL 25 MG CAPSULE PO ONE (13:58)
[2024-03-20] MEDS: MAG HYDROX/AL HYDROX/SIMETH 30 ML UNIT-DOSE CUP PO ONE (13:58)
[2024-03-20] MEDS: FAMOTIDINE 20 MG/50 ML IVPB 20 MG/50 ML MG IVPB ONE (14:04)
[2024-03-20] MEDS: SODIUM CHLORIDE 0.9% 500 ML INFUS.BAG IV ONE (14:04)
[2024-03-20] MEDS: ONDANSETRON 4 MG/2 ML VIAL IVPUSH ONE (14:05)
[2024-03-20 14:12] LABS: HEMOGLOBIN 10.8 GM/dL (10.7-15.3); MCH 32.3 pg (25.7-33.7); MCHC 34.9 g/dl (32.0-36.0); MEAN CELL VOLUME 92.7 fl (80-96); MEAN PLT VOLUME 8.9 fl (7.5-11.1); PLATELET COUNT 122 10^3/uL (134-434); RBC 3.34 M/mm3 (3.60-5.2); RDW 18.7 % (11.6-15.6); WHITE BLOOD COUNT 3.6 K/mm3 (4.0-10.0)
[2024-03-20 14:40] LABS: POTASSIUM 4.3 mmol/L (3.5-5.1)
[2024-03-20 14:42] LABS: ALBUMIN 2.6 g/dl (3.4-5.0); BLOOD UREA NITROGEN 31.2 mg/dL (7-18); CALCIUM 8.4 mg/dL (8.5-10.1)
[2024-03-20 14:43] LABS: MAGNESIUM 1.8 mg/dL (1.8-2.4)
[2024-03-20 14:45] LABS: CREATININE 1.3 mg/dL (0.55-1.3)
[2024-03-20 14:47] LABS: TOT PROT 6.2 g/dl (6.4-8.2)
== END 2024-03-20 15:41 | disposition home or self-care (01) ==
LOC: JER 12:23
DX: F10.239 Alcohol dependence with withdrawal, unspecified (principal); Y90.9 Presence of alcohol in blood, level not specified; R50.9 Fever, unspecified; R11.2 Nausea with vomiting, unspecified; M79.89 Other specified soft tissue disorders; R06.2 Wheezing
CPT/HCPCS: 36415; 80053; 82962; 83690; 83735; 85027; 93005; 93010; 99284-25

== ENCOUNTER 2025-04-03 06:55 | Inpatient (IN) | payer OTHER ==
[2025-04-03 08:08] VITALS: BMI 36.6
[2025-04-03 08:40] LABS: ABSOLUTE IMMATURE GRANULOCYTES 0.01 x10^3/uL (0.0-0.031); BASOPHILS # 0.03 x10^3/uL (0.01-0.08); EOSINOPHIL % 2.8 % (0.7-5.8); EOSINOPHILS # 0.11 x10^3/uL (0.04-0.36); MCHC 35.0 g/dl (32.2-35.5); MEAN CELL VOLUME 83.5 fl (79.4-94.8); MEAN PLT VOLUME 11.5 fl (9.4-12.3); MONOCYTE # 0.39 x10^3/uL (0.24-0.86); MONOCYTE % 10.1 % (4.7-12.5); RDW 16.9 % (12.4-16.4)
[2025-04-03] MEDS: SODIUM CHLORIDE 500 ML IV STA ×2 (08:46→11:28)
[2025-04-03 08:54] LABS: EPI CELLS 2 /uL (0-25.1); HYALINE CASTS 0 /uL (0-3.1); URINE APPEARANCE CLEAR; URINE BACTERIA 1 /uL (0-1359); URINE BILIRUBIN NEGATIVE (NEGATIVE); URINE COLOR YELLOW; URINE GLUCOSE (UA) 2+ (NEGATIVE); URINE KETONE NEGATIVE (NEGATIVE); URINE LEUK ESTERASE NEGATIVE (NEGATIVE); URINE NITRITE NEGATIVE (NEGATIVE); URINE PROTEIN 1+ (NEGATIVE); URINE RBC 13 /uL (0-23.9); URINE UROBILINOGEN 1.0 mg/dL (0.2-1.0); URINE WBC 3 /uL (0-25.8)
[2025-04-03 09:01] LABS: CO2 28.0 mmol/L (21-32)
[2025-04-03 09:02] LABS: GLUCOSE,RANDOM 324.0 mg/dL (74-106)
[2025-04-03 09:05] LABS: CREATININE 1.6 mg/dL (0.55-1.3); SGOT/AST 445.0 U/L (15-37)
[2025-04-03 09:06] LABS: TOT PROT 6.4 g/dl (6.4-8.2)
[2025-04-03 09:08] LABS: ALK PHOS 203.0 U/L (45-117)
[2025-04-03 09:10] LABS: SGPT/ALT 274.0 U/L (13-61)
[2025-04-03] MEDS ORDERED: ACETAMINOPHEN INJECTION 100 ML ONE (09:17)
[2025-04-03] MEDS: ACETAMINOPHEN 1000 MG/100 ML BAG IVPB ONE (09:21)
[2025-04-03] MEDS: INSULIN (NOVOLOG) ASPART 100 UNITS/ML 10ML VIAL SQ ONE (12:35)
[2025-04-03] MEDS: LACTATED RINGERS SOLUTION 1,000 ML/1,000 ML INFUS.BAG IV SCH (12:36)
[2025-04-03 13:05] LABS: INR 1.31 (0.83-1.09); PROTHROMBIN TIME (PATIENT) 14.4 SEC (9.7-13.0)
[2025-04-03 16:24] LABS: COCAINE, UR NEGATIVE (NEGATIVE); METHADONE, UR NEGATIVE (NEGATIVE); OPIATES, URI NEGATIVE (NEGATIVE); PHENCYCLIDINE,URINE NEGATIVE (NEGATIVE); URINE AMPHETAMINES NEGATIVE (NEGATIVE); URINE BARBITURATES NEGATIVE (NEGATIVE); URINE BENZODIAZEPINES POSITIVE (NEGATIVE)
[2025-04-03] MEDS: INSULIN ASPART SLIDING SCALE (NOVOLOG) 1 VIAL SQ SCH (16:56)
[2025-04-03] MEDS: VALSARTAN 160 MG TABLET PO SCH (21:27)
[2025-04-03] MEDS: BUDESONIDE/FORMETEROL FUMARATE 160/4.5 mcg INHALER IH SCH (22:10)
[2025-04-03] MEDS: hydrALAZINE HCL 50 MG TABLET (FP) PO SCH (23:56)
[2025-04-04] MEDS: ONDANSETRON 4 MG/2 ML VIAL IVPUSH PRN (06:47)
[2025-04-04 08:59] LABS: ABSOLUTE IMMATURE GRANULOCYTES 0.00 x10^3/uL (0.0-0.031); BASOPHILS # 0.02 x10^3/uL (0.01-0.08); EOSINOPHIL % 3.6 % (0.7-5.8); EOSINOPHILS # 0.14 x10^3/uL (0.04-0.36); MCHC 35.7 g/dl (32.2-35.5); MEAN CELL VOLUME 82.7 fl (79.4-94.8); MEAN PLT VOLUME 12.6 fl (9.4-12.3); MONOCYTE # 0.36 x10^3/uL (0.24-0.86); MONOCYTE % 9.3 % (4.7-12.5); RDW 16.6 % (12.4-16.4)
[2025-04-04 09:05] LABS: INR 1.32 (0.83-1.09); PROTHROMBIN TIME (PATIENT) 14.4 SEC (9.7-13.0)
[2025-04-04 10:03] LABS: CO2 28.0 mmol/L (21-32); GLUCOSE,RANDOM 152.0 mg/dL (74-106)
[2025-04-04 10:05] LABS: IRON SERUM 228.0 ug/dL (50-175)
[2025-04-04 10:06] LABS: CREATININE 1.1 mg/dL (0.55-1.3); SGOT/AST 414.0 U/L (15-37); SGPT/ALT 256.0 U/L (13-61)
[2025-04-04 10:08] LABS: TOT PROT 5.6 g/dl (6.4-8.2)
[2025-04-04 10:09] LABS: ALK PHOS 185.0 U/L (45-117)
[2025-04-04] MEDS: THIAMINE 100 MG TABLET PO SCH (10:17)
[2025-04-04] MEDS: PANTOPRAZOLE 40 MG TABLET PO SCH (10:17)
[2025-04-04] MEDS: FOLIC ACID 1 MG TABLET (FP) PO SCH (10:17)
[2025-04-04] MEDS ORDERED: THIAMINE HCL IVPB SCH (14:00)
[2025-04-04] MEDS ORDERED: DEXTROSE 5% IVPB SCH (14:00)
[2025-04-04] MEDS ORDERED: WATER IVPB SCH (14:00)
[2025-04-04] MEDS: morphine CARPU-JECT 2 MG/1 ML DISP.SYRIN IVPUSH PRN (14:41)
[2025-04-04] MEDS: THIAMINE HCL 200 MG/2 ML VIAL IVPB SCH (14:44)
[2025-04-04] MEDS: TIMOLOL 0.5% OPHTHALMIC SOL 5 ML BOTTLE OU SCH (21:05)
[2025-04-04] MEDS ORDERED: BRIMONIDINE TARTRATE 0.15% OPHTHALMIC 5 ML BOTTLE OU SCH (22:00)
[2025-04-05 08:26] LABS: MCHC 33.8 g/dl (32.2-35.5); MEAN CELL VOLUME 85.4 fl (79.4-94.8); MEAN PLT VOLUME 12.3 fl (9.4-12.3); RDW 17.7 % (12.4-16.4)
[2025-04-05 08:57] LABS: CO2 30.0 mmol/L (21-32); GLUCOSE,RANDOM 156.0 mg/dL (74-106)
[2025-04-05 09:00] LABS: CREATININE 1.1 mg/dL (0.55-1.3)
[2025-04-05 10:50] LABS: INR 1.19 (0.83-1.09); PROTHROMBIN TIME (PATIENT) 13.1 SEC (9.7-13.0)
[2025-04-05 11:22] LABS: SGOT/AST 299.0 U/L (15-37); SGPT/ALT 239.0 U/L (13-61)
[2025-04-05 11:24] LABS: TOT PROT 6.5 g/dl (6.4-8.2)
[2025-04-05 11:25] LABS: ALK PHOS 204.0 U/L (45-117)
[2025-04-05] MEDS: BRIMONIDINE TARTRATE 0.2% OPHTHALMIC 5 ML BOTTLE OU SCH (16:32)
[2025-04-05 17:51] LABS: HEPATITIS B SURF AG NON-MATERN NON-REACTIVE (NONREACTIVE)
[2025-04-05] MEDS: INSULIN GLARGINE (LANTUS) 100 UNITS/ML UNITS SQ SCH (22:04)
[2025-04-06 08:26] LABS: ABSOLUTE IMMATURE GRANULOCYTES 0.03 x10^3/uL (0.0-0.031); BASOPHILS # 0.03 x10^3/uL (0.01-0.08); EOSINOPHIL % 4.2 % (0.7-5.8); EOSINOPHILS # 0.21 x10^3/uL (0.04-0.36); MCHC 34.8 g/dl (32.2-35.5); MEAN CELL VOLUME 84.5 fl (79.4-94.8); MEAN PLT VOLUME 11.7 fl (9.4-12.3); MONOCYTE # 0.52 x10^3/uL (0.24-0.86); MONOCYTE % 10.4 % (4.7-12.5); RDW 17.5 % (12.4-16.4)
[2025-04-06 08:59] LABS: CO2 31.0 mmol/L (21-32); GLUCOSE,RANDOM 185.0 mg/dL (74-106)
[2025-04-06 09:02] LABS: CREATININE 1.1 mg/dL (0.55-1.3); SGOT/AST 139.0 U/L (15-37); SGPT/ALT 146.0 U/L (13-61)
[2025-04-06 09:03] LABS: TOT PROT 5.6 g/dl (6.4-8.2)
[2025-04-06 09:10] LABS: ALK PHOS 155.0 U/L (45-117)
[2025-04-06] MEDS: morphine CARPU-JECT 2 MG/1 ML DISP.SYRIN IVPUSH PRN (14:08)
[2025-04-07] MEDS: INSULIN GLARGINE (LANTUS) 100 UNITS/ML UNITS SQ SCH (06:17)
[2025-04-07 07:05] VITALS: RESP 18
[2025-04-07 10:06] LABS: CO2 31.0 mmol/L (21-32); GLUCOSE,RANDOM 265.0 mg/dL (74-106)
[2025-04-07 10:10] LABS: CREATININE 1.3 mg/dL (0.55-1.3); SGOT/AST 97.0 U/L (15-37); SGPT/ALT 125.0 U/L (13-61)
[2025-04-07 10:11] LABS: TOT PROT 6.2 g/dl (6.4-8.2)
[2025-04-07 10:12] LABS: ALK PHOS 163.0 U/L (45-117)
[2025-04-07 11:14] VITALS: BP 154/60; PULSE 68; TEMP 98
[2025-04-07] MEDS: MAGNESIUM OXIDE 400 MG TABLET (FP) PO ONE (11:58)
[2025-04-09 13:23] LABS: HCV DIAGNOSTIC IN-HOUSE W/RFLX NON-REACTIVE (NONREACTIVE)
== END 2025-04-07 14:03 | disposition home or self-care (01) | DRG 897 ==
LOC: JER 06:55 → JERBED 11:05 → INTOOBSV 11:05 → UNDOADMOB 11:05 → JERBED 11:30 → J6S 11:56 → OBSVTOIN 04-06 16:12 → INTOOBSV 04-06 16:12
PROVIDERS: ADMIT Internal Medicine; ATTEND Internal Medicine
DX: F10.230 Alcohol dependence with withdrawal, uncomplicated (principal); N17.9 Acute kidney failure, unspecified; E11.22 Type 2 diabetes mellitus with diabetic chronic kidney disease; I12.9 Hypertensive chronic kidney disease with stage 1 through stage 4 chronic kidney disease, or unspecified chronic kidney disease; N18.9 Chronic kidney disease, unspecified; E11.65 Type 2 diabetes mellitus with hyperglycemia; J44.9 Chronic obstructive pulmonary disease, unspecified; F32.A Depression, unspecified; F41.9 Anxiety disorder, unspecified; D64.9 Anemia, unspecified; R79.89 Other specified abnormal findings of blood chemistry; E78.5 Hyperlipidemia, unspecified; K76.0 Fatty (change of) liver, not elsewhere classified; R16.0 Hepatomegaly, not elsewhere classified; K83.8 Other specified diseases of biliary tract
CPT/HCPCS: 36415; 74181-TC; 76705-TC; 80048; 80053; 80076; 80307; 81003; 82140; 82248; 82550; 82553; 82607; 82728; 82746; 82962; 82977; 83036; 83540; 83550; 83735; 84100; 84466; 84484; 85025; 85027; 85610; 86704; 86708; 86803; 87086; 87340; 87517; 93005; 93010; 97116-GP; 97162-GP; 99285-25; G0378